=== PATIENT | male | born 1940 | race Caucasian/White ===

== ENCOUNTER 2016-10-11 19:54 | Inpatient (IN) | payer MEDICARE, MEDICAID ==
--- NOTE | 2016-10-11 20:24 | ED Physician Chart ---
Chief Complaint/HPI - Patient Information Date Seen:: 10/11/16 Time Seen:: 20:14 Chief Complaint:: PSYCHOSIS History of Present Illness:: THIS IS A 76 YO MALE FROM A [facility] FOR EVALUATION AND TREATMENT OF HIS PSYCH DISORDER. HE HAS BEEN REFUSING HIS MEDICATION WITH ACTING OUT. HE IS DEMENTED AND DISORIENTED AT TIMES. Allergies:: Allergies Allergy/AdvReac Type Severity Reaction Status Date / Time chloropyramine Allergy Uncoded 08/08/15 16:28 Vitals:: Vital Signs - 8 hr 10/11/16 20:01 Temp 98.7 F HR 61 RR 18 BP 111/67 O2 Sat % 94 Historian:: EMS, Medical Records Review:: Nurse's Note Reviewed Review of Systems - Review of Systems General/Constitutional: No fever, No chills, No weight loss, No weakness, No diaphoresis, No edema, No loss of appetite, Other (THIS PATIENT CANNOT GIVE A RELIABLE REVIEW OF SYSTEMS.) Skin: No skin lesions, No rash, No bruising Head: No headache, No light-headedness Eyes: No loss of vision, No pain, No diplopia ENT: No earache, No nasal drainage, No sore throat, No tinnitus Neck: No neck pain, No swelling, No thyromegaly, No stiffness, No mass noted Cardio Vascular: No chest pain, No palpitations, No PND, No orthopnea, No edema Pulmonary: No SOB, No cough, No sputum, No wheezing GI: No nausea, No vomiting, No diarrhea, No pain, No melena, No hematochezia, No constipation, No hematemesis G/U: No dysuria, No frequency, No hematuria Musculoskeletal: No bone or joint pain, No back pain, No muscle pain Endocrine: No polyuria, No polydipsia Psychiatric: No prior psych history, No depression, No anxiety, No suicidal ideation Hematopoietic: No bruising, No lymphadenopathy Allergic/Immuno: No urticaria, No angioedema Neurological: No syncope, No focal symptoms, No weakness, No paresthesia, No headache, No seizure, No dizziness, No confusion, No vertigo Past Medical History - Past Medical History Obtainable: Yes Past Medical History: HTN, CAD, Dyslipidemia, Thyroid disorder, Dementia, Other (GLAUCOMA) Family History: Other (UNKNOWN) Social History: Non Smoker, No Alcohol, No Drug Use Surgical History: None Psychiatricy History: None Family Medical History - Family Member Mother History Unknown: Yes Ethnicity: Non- Living Status: Unknown Hx Family Cancer: (UNKNOWN) Hx Family Coronary Artery Disease: (UNKNOWN) Hx Family Congestive Heart Failure: (UNKNOWN) Hx Family Hypertension: (UNKNOWN) Hx Family Stroke: (UNKNOWN) Hx Family Diabetes: (UNKNOWN) Hx Family Seizures: (UNKNOWN) Hx Family Dementia: (UNKNOWN) Hx Family AIDS: (UNKNOWN) Hx Family COPD: (UNKNOWN) Hx Family Hepatitis: (UNKNOWN) Hx Family Psychiatric Problems: (UNKNOWN) Hx Family Tuberculosis: (UNKNOWN) Physical Exam - Physical Examination General/Constitutional: Awake, Well-developed, well-nourished, Alert, No distress, GCS 15, Non-toxic appearing Head: Atraumatic Eyes: Lids, conjuctiva normal, PERRL, EOMI Skin: Nl inspection, No rash, No skin lesions, No ecchymosis, Well hydrated, No lymphadenopathy ENMT: External ears, nose nl, Nasal exam nl, Lips, teeth, gums nl Neck: Nontender, Full ROM w/o pain, No JVD, No nuchal rigidity, No bruit, No mass, No stridor Respiratory: Nl effort/Exclusion, Clear to Auscultation, No Wheeze/Rhonchi/Rales Cardio Vascular: RRR, No murmur, gallop, rubs, NL S1 S2 GI: No tenderness/rebounding/guarding, No organomegaly, No hernia, Normal BS's, Nondistended, No mass/bruits, No McBurney tenderness : No CVA tenderness Extremities: No tenderness or effusion, Full ROM, normal strength in all extremities, No edema, Normal digits & nails Neuro/Psych: DTR's symmetric, Normal sensory exam, Normal motor strength, Normal gait, No focal deficits Other Neuro/Psych comments:: HE HAS PERIODS OF DISORIENTATION AND HAS DIFFICULTY FOCUSING. HE HAS A DEPRESSED MOOD. Misc: normal gait, Normal back, No paraspinal tenderness Labs/Radiology/EKG Results - Lab Results Results: Laboratory Results - last 24 hr 10/11/16 10/11/16 10/11/16 21:00 21:00 21:00 WBC 5.2 RBC 5.16 Hgb 15.6 Hct 46.3 MCV 89.7 MCH 30.2 MCHC Differential 33.7 RDW 13.3 Plt Count 230 MPV 9.0 Neutrophils (Manual) 37 L Lymphocytes 43 Monocytes 12 H Eosinophils 4 Basophils 1 Atypical Lymphocytes 3 Platelet Estimate ADEQUATE Platelet Morphology NORMAL RBC Morph Micro Appear NORMAL PT 10.2 INR 0.98 Sodium Potassium Chloride Carbon Dioxide Anion Gap BUN Creatinine Est GFR ( Amer) Est GFR (Non-Af Amer) BUN/Creatinine Ratio Glucose Calcium Total Bilirubin AST ALT Alkaline Phosphatase Troponin I Total Protein Albumin Globulin Albumin/Globulin Ratio Triglycerides 169 H Cholesterol 146 LDL Cholesterol Direct 93 HDL Cholesterol 39 10/11/16 10/11/16 21:00 21:00 WBC RBC Hgb Hct MCV MCH MCHC Differential RDW Plt Count MPV Neutrophils (Manual) Lymphocytes Monocytes Eosinophils Basophils Atypical Lymphocytes Platelet Estimate Platelet Morphology RBC Morph Micro Appear PT INR Sodium 140 Potassium 4.2 Chloride 109 H Carbon Dioxide 23.4 Anion Gap 11.8 BUN 19 Creatinine 1.1 Est GFR ( Amer) TNP Est GFR (Non-Af Amer) TNP BUN/Creatinine Ratio 17.3 Glucose 104 Calcium 9.4 Total Bilirubin 0.4 AST 18 ALT 11 Alkaline Phosphatase 57 Troponin I < 0.01 L Total Protein 6.2 Albumin 3.7 L Globulin 2.5 Albumin/Globulin Ratio 1.5 Triglycerides Cholesterol LDL Cholesterol Direct HDL Cholesterol - Radiology Results Results: chest x-ray = nad seen - EKG Interpretations EKG Time:: 20:27 Rhythm: SINUS [place]: LEFT Rate: 60 ED Septic Shock - . Is Septic Shock (SBP<90, OR Lactate>4 mmol\L) present?: No - <6hrs of presentation: Vital Signs: Vital Signs - 8 hr 10/11/16 20:01 Temp 98.7 F HR 61 RR 18 BP 111/67 O2 Sat % 94 Reassessment (Disposition) - Reassessment Reassessment Condition:: Unchanged - Diagnosis Diagnosis:: PSYCHOSIS - Patient Disposition Discharge/Transfer:: Acute Care w/in this hosp Admitting Medical Physician:: Casimiro Jon Admitting Psych Physician:: Hillary Artis Condition at Disposition:: Unchanged
[2016-10-11 21:11] LABS: HEMATOCRIT 46.3 % (39.0-49.0); HEMOGLOBIN 15.6 gm/dL (12.6-17.4); MEAN CELL VOLUME 89.7 fl (80-99); MEAN CORPUSCULAR HEMOGLOBIN 30.2 pg (27.0-31.0); MEAN CORPUSCULAR HGB CONC 33.7 pg (28.0-36.0); PLATELET COUNT 230 Th/cmm (150-400); RED BLOOD COUNT 5.16 Mil/cmm (3.80-5.80); RED CELL DISTRIBUTION WIDTH 13.3 % (11.5-20.0); WHITE BLOOD COUNT 5.2 Th/cmm (4.8-10.8)
[2016-10-11 21:24] LABS: INR 0.98 (0.5-1.4); PROTHROMBIN TIME (TEST) 10.2 SECONDS (9.5-11.5)
[2016-10-11 21:27] LABS: ALB/GLOB RATIO 1.5 (1.0-1.8); ALKALINE PHOSPHATASE 57 U/L (34-104); ANION GAP 11.8 (7.0-16.0); BILIRUBIN,TOTAL 0.4 mg/dL (0.3-1.0); BUN - UREA NITROGEN 19 mg/dL (7-25); BUN/CREATININE RATIO 17.3; CALCIUM SERUM 9.4 mg/dL (8.6-10.3); CARBON DIOXIDE 23.4 mEq/L (21.0-31.0); CHLORIDE 109 mEq/L (98-107); CREATININE - SERUM 1.1 mg/dL (0.7-1.3); GLUCOSE 104 mg/dL (70-105); POTASSIUM SERUM 4.2 mEq/L (3.5-5.1); SGOT 18 U/L (13-39); SGPT/ALT 11 U/L (7-52); SODIUM SERUM 140 mEq/L (136-145)
[2016-10-11 21:28] LABS: BASOPHIL 1 % (0-3); CHOLESTEROL 146 mg/dL (<200); EOSINOPHIL 4 % (0-5); NEUTROPHILS 37 % (40-80); PLATELET ESTIMATE ADEQUATE (NORMAL); PLATELET MORPHOLOGY NORMAL (NORMAL); TOTAL CELLS COUNTED 100; TRIGLYCERIDES 169 mg/dL (<150)
[2016-10-11 21:36] LABS: URINE BACTERIA OCCASIONAL /hpf (NONE SEEN); URINE BILIRUBIN NEGATIVE (NEGATIVE); URINE BLOOD NEGATIVE (NEGATIVE); URINE COLOR YELLOW; URINE EPITHELIAL CELLS RARE /lpf (FEW); URINE GLUCOSE (UA) NEGATIVE (NEGATIVE); URINE KETONE NEGATIVE (NEGATIVE); URINE PROTEIN NEGATIVE (NEGATIVE); URINE RBC NONE SEEN /hpf (0-5); URINE UROBILINOGEN 0.2 E.U./dL (0.2 - 1.0); URINE WBC 0-2 /hpf (0-5)
[2016-10-12] MEDS ORDERED: Maalox 30 mL Cup PO PRN (01:30)
[2016-10-12] MEDS ORDERED: Magnesium Hydroxide (MOM) 30 mL UDC PO PRN (01:30)
[2016-10-12 01:49] VITALS: BP 123/90
--- NOTE | 2016-10-12 02:21 | Admit Criteria Form ---
Admit Criteria Forms - Admit Criteria Diagnosis: PSYCHIATRIC DISORDERS Clinical Indications for Inpatient Care (Place 'X' for any and all applicable criteria): Ongoing inpatient care may be needed for ANY ONE of the following(1)(2)(3)(4)(6) (7)(8): [ ]I. Danger to self or others not manageable at lower level of care. [ ]II. Grave disability (eg, inability to perform self care necessary at lower level of care) [ ]III. Agitation or inappropriate behavior interfering with care for primary condition (eg, attempting to discontinue lines or drains prematurely, unable to cooperate with respiratory care) [X]IV. Severe disability or disorder indicated by ALL of the following: [X]a) Severe behavioral health disorder-related symptoms or condition indicated by ANY ONE of the following: [ ]i) Severe problem with cognition, memory, judgment, or impulse control [X]ii) Severe clinical manifestations (eg, hallucinations, delusions, other acute psychotic symptoms, venancio, extreme agitation or anxiety) [X]b) Patient management at lower level of care is not feasible until acute intervention or modification is initiated. Extended stay beyond goal length of stay for the primary condition may be indicated when ANY ONE of the following is present: (1)(2)(3)(4): [ ]a) Patient is a danger to self or others and not manageable at lower level of care. [ ]b) Behavior crisis management, including physical or chemical restraints, is required and is not available at a lower level of care. [ ]c) Behavioral symptoms (e.g., agitation, somnolence, inappropriate behavior) are present, and are not manageable at a lower level of care. [ ]d) Patient cannot understand follow-up treatment and crisis plan. [ ]e) Provider and supports are not sufficiently available at lower level of care. [ ]f) Patient cannot participate (e.g., verify absence of plan for harm) and is in needed of monitoring. The [facility] content created by [facility] has been revised. The portions of the content which have been revised are identified through the use of italic text or in bold, and [facility] has neither reviewed nor approved the modified material. All other unmodified content is copyright [facility]. Please see references footnoted in the original [facility] edition 2016 Admit Criteria Met?: Yes
[2016-10-12] MEDS: Levothyroxine 0.025 Mg Tab PO SCH (07:17)
--- NOTE | 2016-10-12 09:28 | Diagnostic Imaging Report ---
CHEST X-RAY: AP view INDICATION: shortness of breath COMPARISON: 03/25/2016 FINDINGS: Mild chronic changes are seen with no focal consolidation or effusions. Heart size normal. Atherosclerosis is noted. Degenerative changes of the spine are noted. IMPRESSION: No focal airspace consolidation identified.
[2016-10-12] MEDS: Potassium Chloride 20 mEq ER Tab PO SCH (09:32)
[2016-10-12] MEDS: Multivitamin Tab PO SCH (09:32)
[2016-10-12] MEDS: POLYETHYLENE GLYCOL 3350 17 GM PACK PO SCH (09:32)
--- NOTE | 2016-10-12 12:21 | Internal Medicine Prog Note ---
Internal Medicine Subjective - Subjective Service Date: 10/12/16 ([id number] [facility]) Internal Medicine Objective - Results Result Diagrams: 10/11/16 21:00 10/11/16 21:00 Recent Labs: Laboratory Last Values WBC 5.2 Th/cmm (4.8-10.8) 10/11/16 21:00 RBC 5.16 Mil/cmm (3.80-5.80) 10/11/16 21:00 Hgb 15.6 gm/dL (12.6-17.4) 10/11/16 21:00 Hct 46.3 % (39.0-49.0) 10/11/16 21:00 MCV 89.7 fl (80-99) 10/11/16 21:00 MCH 30.2 pg (27.0-31.0) 10/11/16 21:00 MCHC Differential 33.7 pg (28.0-36.0) 10/11/16 21:00 RDW 13.3 % (11.5-20.0) 10/11/16 21:00 Plt Count 230 Th/cmm (150-400) 10/11/16 21:00 MPV 9.0 fl 10/11/16 21:00 Neutrophils (Manual) 37 % (40-80) L 10/11/16 21:00 Lymphocytes 43 % (20-50) 10/11/16 21:00 Monocytes 12 % (2-10) H 10/11/16 21:00 Eosinophils 4 % (0-5) 10/11/16 21:00 Basophils 1 % (0-3) 10/11/16 21: Atypical Lymphocytes 3 % 10/11/16 21:00 Platelet Estimate ADEQUATE (NORMAL) 10/11/16 21:00 Platelet Morphology NORMAL (NORMAL) 10/11/16 21:00 RBC Morph Micro Appear NORMAL (NORMAL) 10/11/16 21:00 PT 10.2 SECONDS (9.5-11.5) 10/11/16 21:00 INR 0.98 (0.5-1.4) 10/11/16 21:00 Sodium 140 mEq/L (136-145) 10/11/16 21:00 Potassium 4.2 mEq/L (3.5-5.1) 10/11/16 21:00 Chloride 109 mEq/L (98-107) H 10/11/16 21:00 Carbon Dioxide 23.4 mEq/L (21.0-31.0) 10/11/16 21:00 Anion Gap 11.8 (7.0-16.0) 10/11/16 21:00 BUN 19 mg/dL (7-25) 10/11/16 21:00 Creatinine 1.1 mg/dL (0.7-1.3) 10/11/16 21:00 Est GFR ( Amer) TNP 10/11/16 21:00 Est GFR (Non-Af Amer) TNP 10/11/16 21:00 BUN/Creatinine Ratio 17.3 10/11/16 21:00 Glucose 104 mg/dL (70-105) 10/11/16 21:00 Calcium 9.4 mg/dL (8.6-10.3) 10/11/16 21:00 Total Bilirubin 0.4 mg/dL (0.3-1.0) 10/11/16 21:00 AST 18 U/L (13-39) 10/11/16 21:00 ALT 11 U/L (7-52) 10/11/16 21:00 Alkaline Phosphatase 57 U/L (34-104) 10/11/16 21:00 Troponin I < 0.01 ng/mL (0.01-0.05) L 10/11/16 21:00 Total Protein 6.2 gm/dL (6.0-8.3) 10/11/16 21:00 Albumin 3.7 gm/dL (4.2-5.5) L 10/11/16 21:00 Globulin 2.5 gm/dL 10/11/16 21:00 Albumin/Globulin Ratio 1.5 (1.0-1.8) 10/11/16 21:00 Triglycerides 169 mg/dL (<150) H 10/11/16 21:00 Cholesterol 146 mg/dL (<200) 10/11/16 21:00 LDL Cholesterol Direct 93 mg/dL (75-193) 10/11/16 21:00 HDL Cholesterol 39 mg/dL (23-92) 10/11/16 21:00 TSH 0.83 uIU/ml (0.34-5.60) 10/11/16 21:00 Urine Source CLEAN C 10/11/16 21:20 Urine Color YELLOW 10/11/16 21:20 Urine Clarity CLEAR (CLEAR) 10/11/16 21:20 Urine pH 7.0 10/11/16 21:20 Ur Specific [place] 1.020 (1.005-1.030) 10/11/16 21:20 Urine Protein NEGATIVE mg/dL (NEGATIVE) 10/11/16 21:20 Urine Glucose (UA) NEGATIVE mg/dL (NEGATIVE) 10/11/16 21:20 Urine Ketones NEGATIVE mg/dL (NEGATIVE) 10/11/16 21:20 Urine Blood NEGATIVE (NEGATIVE) 10/11/16 21:20 Urine Nitrate NEGATIVE (NEGATIVE) 10/11/16 21:20 Urine Bilirubin NEGATIVE (NEGATIVE) 10/11/16 21:20 Urine Urobilinogen 0.2 E.U./dL (0.2 - 1.0) 10/11/16 21:20 Ur Leukocyte Esterase NEGATIVE (NEGATIVE) 10/11/16 21:20 Urine RBC NONE SEEN /hpf (0-5) 10/11/16 21:20 Urine WBC 0-2 /hpf (0-5) 10/11/16 21:20 Ur Epithelial Cells RARE /lpf (FEW) 10/11/16 21:20 Urine Bacteria OCCASIONAL /hpf (NONE SEEN) 10/11/16 21:20 - Physical Exam Vitals and I&O: Vital Signs Temp 98.2 F 10/12/16 06:44 Pulse 57 10/12/16 09:18 Resp 20 10/12/16 06:44 BP 106/70 10/12/16 09:18 Pulse Ox 98 10/12/16 06:44 Intake & Output 10/11/16 10/12/16 10/12/16 18:59 06:59 18:59 Intake Total 120 Balance 120 Intake: Oral 120 Other: # Voids 2 Active Medications: Current Medications Acetaminophen (Tylenol) 650 mg PO Q4HR PRN PRN Reason: PAIN OR TEMP 100.3 F Stop: 12/11/16 01:29 Al Hydrox/Mg Hydrox/Simethicone (Maalox) 30 ml PO Q4HR PRN PRN Reason: GI DISTRESS Stop: 12/11/16 01:29 Amlodipine Besylate (Norvasc) 10 mg PO DAILY WILL Stop: 12/11/16 08:59 Last Admin: 10/12/16 09:18 Dose: Not Given Ascorbic Acid (Vitamin C) 500 mg PO DAILY WILL Stop: 12/11/16 08:59 Last Admin: 10/12/16 09:32 Dose: 500 mg Benztropine Mesylate (Cogentin) 0.5 mg PO BID WILL Stop: 12/11/16 08:59 Last Admin: 10/12/16 09:32 Dose: 0.5 mg Carbidopa/Levodopa (Sinemet 25mg-100 Mg) 1 tab PO TID WILL Stop: 12/11/16 08:59 Last Admin: 10/12/16 09:32 Dose: 1 tab Donepezil HCl (Aricept) 10 mg PO HS WILL Stop: 12/11/16 20:59 Haloperidol Decanoate (Haldol Dec) 25 mg IM QMONTH WILL PRN Reason: Protocol Stop: 12/13/16 08:59 Levothyroxine Sodium (Synthroid) 0.025 mg PO QDAC WILL Stop: 12/11/16 07:29 Last Admin: 10/12/16 07:17 Dose: Not Given Lorazepam (Ativan) 0.5 mg PO Q4HR PRN; Protocol PRN Reason: Anxiety Stop: 11/11/16 01:29 Multivitamins/Vitamin C (Theragran) 1 tab PO DAILY WILL Stop: 12/11/16 08:59 Last Admin: 10/12/16 09:32 Dose: 1 tab Polyethylene Glycol (Miralax) 17 gm PO DAILY WILL Stop: 12/11/16 08:59 Last Admin: 10/12/16 09:32 Dose: 17 gm Potassium Chloride (Klor-Con) 20 meq PO DAILY WILL Stop: 12/11/16 08:59 Last Admin: 10/12/16 09:32 Dose: 20 meq Simvastatin (Zocor) 10 mg PO HS WILL PRN Reason: Protocol Stop: 12/11/16 20:59 Valproate Sodium (Depakene) 500 mg PO Q12HR WILL PRN Reason: Protocol Stop: 12/11/16 08:59 Last Admin: 10/12/16 09:40 Dose: Not Given Zolpidem Tartrate (Ambien) 5 mg PO HS PRN PRN Reason: Insomnia Stop: 12/11/16 01:29 - Procedures Procedures: Procedures Procedure Code Date CLOSURE SKIN & SUBCUTANEOUS NEC 86.59 07/07/12 DPT ADMINISTRATION 99.39 07/07/12 IMMUNIZATION ADMIN 49929 07/07/12 OTHER GROUP THERAPY 94.44 12/10/14 RECREATIONAL THERAPY 93.81 09/15/12 RPR S/N/AX/GEN/TRNK 2.5CM/< 27764 07/07/12 TDAP VACCINE 7 YRS/> IM [id number] 07/07/12 Internal Medicine Assmt/Plan - Assessment Assessment: HTN DYSLIPIDEMIA ESRD SEIZURES DEMENTIA GLAUCOMA GAIT ABNORMALITY
--- NOTE | 2016-10-12 15:05 | History & Physical ---
CHIEF COMPLAINT: Poor oral intake, refusing to take medications. HISTORY OF PRESENT ILLNESS: This is a 76-year-old male who is a resident of [facility], was brought here to [facility] for increasing agitation, refusing to take medications and poor oral intake. PAST MEDICAL HISTORY: Hypertension, dyslipidemia, ESRD, seizures, dementia, glaucoma, and gait abnormality. FAMILY HISTORY: Noncontributory. SOCIAL HISTORY: The patient is a detention resident, requiring 24-hour nursing care. SURGICAL HISTORY: Unknown. MEDICATIONS: Please see medication reconciliation sheet. REVIEW OF SYSTEMS: GENERAL: Denies any fevers or chills. CARDIOVASCULAR: Denies any chest pain. RESPIRATORY: Denies any shortness of breath or cough. GASTROINTESTINAL: Denies any nausea, vomiting, abdominal pain. GENITOURINARY: Denies any dysuria. All other systems are reviewed by me and all are negative. PHYSICAL EXAMINATION: GENERAL: The patient is well developed, well nourished no apparent distress. VITAL SIGNS: Temperature 98.2, heart rate 72, blood pressure 130/77, respirations 20, O2 sat 98%. HEENT: Head; normocephalic, atraumatic. NECK: Supple. No mass. LUNGS: Clear bilaterally. HEART: Regular rhythm. ABDOMEN: Soft, nontender, nondistended. LABORATORY DATA: WBC 5.2, H and H 15.6 and 46.3. Sodium 140, potassium 4.2, chloride 109, carbon dioxide 23.4, BUN 19, creatinine 1.1. DIAGNOSTICS: The patient had a chest x-ray done and the impression is no focal airspace consolidation identified. ASSESSMENT: 1. Increased agitation. 2. Hypertension. 4. Dyslipidemia. 5. End-stage renal disease. 6. Seizures. 7. Dementia. 8. Glaucoma. 9. Gait abnormality. 10. Schizophrenia. 11. Delusional disorder. PLAN: Seizure precautions will be initiated. Also, fall precautions. Psychiatrist to manage the patient's psychiatric issue. The patient to continue same SNF medications. We will continue to smonitor the patient. [facility]# [id number]
--- NOTE | 2016-10-12 20:17 | Psychosocial Evaluation ---
CHIEF COMPLAINT: Psychotic disorder. HISTORY OF PRESENT ILLNESS: The patient is a 76-year-old male with a history of psychosis and dementia who was sent from his detention facility, has been agitated, confused, irritable, refusing medications, and refusing care. The patient has some anger outburst and has been decompensating over a few days. The patient at least has been taking medications for 2 days. The patient is highly paranoid and agitated and did not want to talk. PAST PSYCHIATRIC HISTORY: Multiple hospitalizations and history of schizoaffective disorder and dementia. PAST MEDICAL HISTORY: Multiple medical issues including Parkinson disease. PSYCHOSOCIAL HISTORY: The patient resides at [facility] and requires complete care. MENTAL STATUS EXAMINATION: The patient is disorganized, oriented to person, not oriented to time or place, but he knew some kind of hospital, did not know the name of the hospital. The patient is internally preoccupied, has obvious delayed response, still appears to be highly paranoid and actively hallucinating. The patient's insight is poor. Judgment is impaired. The patient's strength is the patient is passively accepting treatment at this time. The patient's weakness is the patient is refusing medications. ASSESSMENT: Schizoaffective disorder, psychotic phase, dementia, Alzheimer's type versus related to Parkinson's disease. Medical, as per H and P. PLAN: We will admit the patient for hospitalization. We will start the patient in group therapy and assess psychopharmacological intervention. ESTIMATED LENGTH OF STAY: 7 days. CRITERIA FOR DISCHARGE: Improved condition. No agitation, no aggressive behavior, and safe disposition to outpatient treatment plan. [facility]# [id number]
[2016-10-13] MEDS: Levothyroxine 0.025 Mg Tab PO SCH (06:45)
[2016-10-13] MEDS: POLYETHYLENE GLYCOL 3350 17 GM PACK PO SCH (09:46)
[2016-10-13] MEDS: Multivitamin Tab PO SCH (09:46)
[2016-10-13] MEDS: Potassium Chloride 20 mEq ER Tab PO SCH (09:47)
--- NOTE | 2016-10-13 12:53 | Internal Medicine Prog Note ---
Internal Medicine Subjective - Subjective Service Date: 10/13/16 Patient seen and examined:: with staff Patient is:: awake Per staff patient is:: no adverse event Internal Medicine Objective - Results Result Diagrams: 10/11/16 21:00 10/11/16 21:00 Recent Labs: Laboratory Last Values WBC 5.2 Th/cmm (4.8-10.8) 10/11/16 21:00 RBC 5.16 Mil/cmm (3.80-5.80) 10/11/16 21:00 Hgb 15.6 gm/dL (12.6-17.4) 10/11/16 21:00 Hct 46.3 % (39.0-49.0) 10/11/16 21:00 MCV 89.7 fl (80-99) 10/11/16 21:00 MCH 30.2 pg (27.0-31.0) 10/11/16 21:00 MCHC Differential 33.7 pg (28.0-36.0) 10/11/16 21:00 RDW 13.3 % (11.5-20.0) 10/11/16 21:00 Plt Count 230 Th/cmm (150-400) 10/11/16 21:00 MPV 9.0 fl 10/11/16 21:00 Neutrophils (Manual) 37 % (40-80) L 10/11/16 21:00 Lymphocytes 43 % (20-50) 10/11/16 21:00 Monocytes 12 % (2-10) H 10/11/16 21:00 Eosinophils 4 % (0-5) 10/11/16 21:00 Basophils 1 % (0-3) 10/11/16 21:00 Atypical Lymphocytes 3 % 10/11/16 21:00 Platelet Estimate ADEQUATE (NORMAL) 10/11/16 21:00 Platelet Morphology NORMAL (NORMAL) 10/11/16 21:00 RBC Morph Micro Appear NORMAL (NORMAL) 10/11/16 21:00 PT 10.2 SECONDS (9.5-11.5) 10/11/16 21:00 INR 0.98 (0.5-1.4) 10/11/16 21:00 Sodium 140 mEq/L (136-145) 10/11/16 21:00 Potassium 4.2 mEq/L (3.5-5.1) 10/11/16 21:00 Chloride 109 mEq/L (98-107) H 10/11/16 21:00 Carbon Dioxide 23.4 mEq/L (21.0-31.0) 10/11/16 21:00 Anion Gap 11.8 (7.0-16.0) 10/11/16 21:00 BUN 19 mg/dL (7-25) 10/11/16 21:00 Creatinine 1.1 mg/dL (0.7-1.3) 10/11/16 21:00 Est GFR ( Amer) TNP 10/11/16 21:00 Est GFR (Non-Af Amer) TNP 10/11/16 21:00 BUN/Creatinine Ratio 17.3 10/11/16 21:00 Glucose 104 mg/dL (70-105) 10/11/16 21:00 Calcium 9.4 mg/dL (8.6-10.3) 10/11/16 21:00 Total Bilirubin 0.4 mg/dL (0.3-1.0) 10/11/16 21:00 AST 18 U/L (13-39) 10/11/16 21:00 ALT 11 U/L (7-52) 10/11/16 21:00 Alkaline Phosphatase 57 U/L (34-104) 10/11/16 21:00 Troponin I < 0.01 ng/mL (0.01-0.05) L 10/11/16 21:00 Total Protein 6.2 gm/dL (6.0-8.3) 10/11/16 21:00 Albumin 3.7 gm/dL (4.2-5.5) L 10/11/16 21:00 Globulin 2.5 gm/dL 10/11/16 21:00 Albumin/Globulin Ratio 1.5 (1.0-1.8) 10/11/16 21:00 Triglycerides 169 mg/dL (<150) H 10/11/16 21:00 Cholesterol 146 mg/dL (<200) 10/11/16 21:00 LDL Cholesterol Direct 93 mg/dL (75-193) 10/11/16 21:00 HDL Cholesterol 39 mg/dL (23-92) 10/11/16 21:00 TSH 0.83 uIU/ml (0.34-5.60) 10/11/16 21:00 Urine Source CLEAN C 03/12/17 21:20 Urine Color YELLOW 10/11/16 21:20 Urine Clarity CLEAR (CLEAR) 10/11/16 21:20 Urine pH 7.0 10/11/16 21:20 Ur Specific [place] 1.020 (1.005-1.030) 10/11/16 21:20 Urine Protein NEGATIVE mg/dL (NEGATIVE) 10/11/16 21:20 Urine Glucose (UA) NEGATIVE mg/dL (NEGATIVE) 10/11/16 21:20 Urine Ketones NEGATIVE mg/dL (NEGATIVE) 10/11/16 21:20 Urine Blood NEGATIVE (NEGATIVE) 10/11/16 21:20 Urine Nitrate NEGATIVE (NEGATIVE) 10/11/16 21:20 Urine Bilirubin NEGATIVE (NEGATIVE) 10/11/16 21:20 Urine Urobilinogen 0.2 E.U./dL (0.2 - 1.0) 10/11/16 21:20 Ur Leukocyte Esterase NEGATIVE (NEGATIVE) 10/11/16 21:20 Urine RBC NONE SEEN /hpf (0-5) 10/11/16 21:20 Urine WBC 0-2 /hpf (0-5) 10/11/16 21:20 Ur Epithelial Cells RARE /lpf (FEW) 10/11/16 21:20 Urine Bacteria OCCASIONAL /hpf (NONE SEEN) 10/11/16 21:20 RPR NONREACTIVE (NONREACTIVE) 10/11/16 21:00 - Physical Exam Vitals and I&O: Vital Signs Temp 98.0 F 10/13/16 06:43 Pulse 60 10/13/16 06:43 Resp 19 10/13/16 06:43 BP 109/62 10/13/16 09:48 Pulse Ox 93 10/13/16 06:43 Intake & Output 10/12/16 10/13/16 10/13/16 18:59 06:59 18:59 Intake Total 800 120 Balance 800 120 Intake: Oral 800 120 Other: # Voids 4 2 # Bowel Movements 1 0 Active Medications: Current Medications Acetaminophen (Tylenol) 650 mg PO Q4HR PRN PRN Reason: PAIN OR TEMP 100.3 F Stop: 12/11/16 01:29 Al Hydrox/Mg Hydrox/Simethicone (Maalox) 30 ml PO Q4HR PRN PRN Reason: GI DISTRESS Stop: 12/11/16 01:29 Amlodipine Besylate (Norvasc) 10 mg PO DAILY WILL Stop: 12/11/16 08:59 Last Admin: 10/13/16 09:48 Dose: Not Given Ascorbic Acid (Vitamin C) 500 mg PO DAILY WILL Stop: 12/11/16 08:59 Last Admin: 10/13/16 09:46 Dose: Not Given Benztropine Mesylate (Cogentin) 0.5 mg PO BID WILL Stop: 12/11/16 08:59 Last Admin: 10/13/16 09:46 Dose: Not Given Carbidopa/Levodopa (Sinemet 25mg-100 Mg) 1 tab PO TID WILL Stop: 12/11/16 08:59 Last Admin: 10/13/16 09:47 Dose: Not Given Donepezil HCl (Aricept) 10 mg PO HS WILL Stop: 12/11/16 20:59 Last Admin: 10/12/16 20:56 Dose: Not Given Haloperidol Decanoate (Haldol Dec) 25 mg IM QMONTH WILL PRN Reason: Protocol Stop: 12/13/16 08:59 Levothyroxine Sodium (Synthroid) 0.025 mg PO QDAC WILL Stop: 12/11/16 07:29 Last Admin: 10/13/16 06:45 Dose: Not Given Lorazepam (Ativan) 0.5 mg PO Q4HR PRN; Protocol PRN Reason: Anxiety Stop: 11/11/16 01:29 Multivitamins/Vitamin C (Theragran) 1 tab PO DAILY WILL Stop: 12/11/16 08:59 Last Admin: 10/13/16 09:46 Dose: Not Given Polyethylene Glycol (Miralax) 17 gm PO DAILY WILL Stop: 12/11/16 08:59 Last Admin: 10/13/16 09:46 Dose: Not Given Potassium Chloride (Klor-Con) 20 meq PO DAILY WILL Stop: 12/11/16 08:59 Last Admin: 10/13/16 09:47 Dose: Not Given Simvastatin (Zocor) 10 mg PO HS WILL PRN Reason: Protocol Stop: 12/11/16 20:59 Last Admin: 10/12/16 20:59 Dose: Not Given Valproate Sodium (Depakene) 500 mg PO Q12HR WILL PRN Reason: Protocol Stop: 12/11/16 08:59 Last Admin: 10/13/16 09:46 Dose: Not Given Zolpidem Tartrate (Ambien) 5 mg PO HS PRN PRN Reason: Insomnia Stop: 12/11/16 01:29 General: alert HEENT: NC/AT, PERRLA Neck: Supple Lungs: CTAB Cardiovascular: RRR Abdomen: soft non-tender, non-distended Neurological: no change - Procedures Procedures: Procedures Procedure Code Date CLOSURE SKIN & SUBCUTANEOUS NEC 86.59 07/07/12 DPT ADMINISTRATION 99.39 07/07/12 IMMUNIZATION ADMIN 37663 07/07/12 OTHER GROUP THERAPY 94.44 12/10/14 RECREATIONAL THERAPY 93.81 09/15/12 RPR S/N/AX/GEN/TRNK 2.5CM/< 89128 07/07/12 TDAP VACCINE 7 YRS/> IM [id number] 07/07/12 Internal Medicine Assmt/Plan - Assessment Assessment: HTN DYSLIPIDEMIA ESRD SEIZURES DEMENTIA GLAUCOMA GAIT ABNORMALITY - Plan Plan: seizure precautions fall precautions continue snf meds cpm
--- NOTE | 2016-10-14 03:47 | Progress Notes ---
SUBJECTIVE: The patient was seen, discussed with staff, chart reviewed. ____ remains confused, disorganized, still angry, easily agitated, isolative. His insight is poor, judgment remains impaired. The patient continues to have episodes where he is refusing care and refusing medications. ASSESSMENT: Schizoaffective disorder and dementia, Alzheimer type. PLAN: We will continue stabilization. Continue hospitalization. Encouraged the patient to comply with medications and treatment recommendations. [facility]# [id number]
[2016-10-14] MEDS: Levothyroxine 0.025 Mg Tab PO SCH (06:30)
[2016-10-14] MEDS: Multivitamin Tab PO SCH (09:47)
[2016-10-14] MEDS: POLYETHYLENE GLYCOL 3350 17 GM PACK PO SCH (09:47)
[2016-10-14] MEDS: Potassium Chloride 20 mEq ER Tab PO SCH (09:47)
--- NOTE | 2016-10-14 16:17 | Internal Medicine Prog Note ---
Internal Medicine Subjective - Subjective Service Date: 10/14/16 Patient seen and examined:: with staff Patient is:: awake Per staff patient is:: no adverse event Internal Medicine Objective - Results Result Diagrams: 10/11/16 21:00 10/11/16 21:00 Recent Labs: Laboratory Last Values WBC 5.2 Th/cmm (4.8-10.8) 10/11/16 21:00 RBC 5.16 Mil/cmm (3.80-5.80) 10/11/16 21:00 Hgb 15.6 gm/dL (12.6-17.4) 10/11/16 21:00 Hct 46.3 % (39.0-49.0) 10/11/16 21:00 MCV 89.7 fl (80-99) 10/11/16 21:00 MCH 30.2 pg (27.0-31.0) 10/11/16 21:00 MCHC Differential 33.7 pg (28.0-36.0) 10/11/16 21:00 RDW 13.3 % (11.5-20.0) 10/11/16 21:00 Plt Count 230 Th/cmm (150-400) 10/11/16 21:00 MPV 9.0 fl 10/11/16 21:00 Neutrophils (Manual) 37 % (40-80) L 10/11/16 21:00 Lymphocytes 43 % (20-50) 10/11/16 21:00 Monocytes 12 % (2-10) H 10/11/16 21:00 Eosinophils 4 % (0-5) 10/11/16 21:00 Basophils 1 % (0-3) 10/11/16 21:00 Atypical Lymphocytes 3 % 10/11/16 21:00 Platelet Estimate ADEQUATE (NORMAL) 10/11/16 21:00 Platelet Morphology NORMAL (NORMAL) 10/11/16 21:00 RBC Morph Micro Appear NORMAL (NORMAL) 10/11/16 21:00 PT 10.2 SECONDS (9.5-11.5) 10/11/16 21:00 INR 0.98 (0.5-1.4) 10/11/16 21:00 Sodium 140 mEq/L (136-145) 10/11/16 21:00 Potassium 4.2 mEq/L (3.5-5.1) 10/11/16 21:00 Chloride 109 mEq/L (98-107) H 10/11/16 21:00 Carbon Dioxide 23.4 mEq/L (21.0-31.0) 10/11/16 21:00 Anion Gap 11.8 (7.0-16.0) 10/11/16 21:00 BUN 19 mg/dL (7-25) 10/11/16 21:00 Creatinine 1.1 mg/dL (0.7-1.3) 10/11/16 21:00 Est GFR ( Amer) TNP 10/11/16 21:00 Est GFR (Non-Af Amer) TNP 10/11/16 21:00 BUN/Creatinine Ratio 17.3 10/11/16 21:00 Glucose 104 mg/dL (70-105) 10/11/16 21:00 Calcium 9.4 mg/dL (8.6-10.3) 10/11/16 21:00 Total Bilirubin 0.4 mg/dL (0.3-1.0) 10/11/16 21:00 AST 18 U/L (13-39) 10/11/16 21:00 ALT 11 U/L (7-52) 10/11/16 21:00 Alkaline Phosphatase 57 U/L (34-104) 10/11/16 21:00 Troponin I < 0.01 ng/mL (0.01-0.05) L 10/11/16 21:00 Total Protein 6.2 gm/dL (6.0-8.3) 10/11/16 21:00 Albumin 3.7 gm/dL (4.2-5.5) L 10/11/16 21:00 Globulin 2.5 gm/dL 10/11/16 21:00 Albumin/Globulin Ratio 1.5 (1.0-1.8) 10/11/16 21:00 Triglycerides 169 mg/dL (<150) H 10/11/16 21:00 Cholesterol 146 mg/dL (<200) 10/11/16 21:00 LDL Cholesterol Direct 93 mg/dL (75-193) 10/11/16 21:00 HDL Cholesterol 39 mg/dL (23-92) 10/11/16 21:00 TSH 0.83 uIU/ml (0.34-5.60) 10/11/16 21:00 Urine Source CLEAN C 03/12/17 21:20 Urine Color YELLOW 10/11/16 21:20 Urine Clarity CLEAR (CLEAR) 10/11/16 21:20 Urine pH 7.0 10/11/16 21:20 Ur Specific [place] 1.020 (1.005-1.030) 10/11/16 21:20 Urine Protein NEGATIVE mg/dL (NEGATIVE) 10/11/16 21:20 Urine Glucose (UA) NEGATIVE mg/dL (NEGATIVE) 10/11/16 21:20 Urine Ketones NEGATIVE mg/dL (NEGATIVE) 10/11/16 21:20 Urine Blood NEGATIVE (NEGATIVE) 10/11/16 21:20 Urine Nitrate NEGATIVE (NEGATIVE) 10/11/16 21:20 Urine Bilirubin NEGATIVE (NEGATIVE) 10/11/16 21:20 Urine Urobilinogen 0.2 E.U./dL (0.2 - 1.0) 10/11/16 21:20 Ur Leukocyte Esterase NEGATIVE (NEGATIVE) 10/11/16 21:20 Urine RBC NONE SEEN /hpf (0-5) 10/11/16 21:20 Urine WBC 0-2 /hpf (0-5) 10/11/16 21:20 Ur Epithelial Cells RARE /lpf (FEW) 10/11/16 21:20 Urine Bacteria OCCASIONAL /hpf (NONE SEEN) 10/11/16 21:20 RPR NONREACTIVE (NONREACTIVE) 10/11/16 21:00 - Physical Exam Vitals and I&O: Vital Signs Temp 98.2 F 10/14/16 06:21 Pulse 108 10/14/16 06:21 Resp 19 10/14/16 06:21 BP 129/76 10/14/16 06:21 Pulse Ox 93 10/14/16 06:21 Intake & Output 10/13/16 10/14/16 10/14/16 18:59 06:59 18:59 Intake Total 800 120 Balance 800 120 Intake: Oral 800 120 Other: # Voids 4 3 # Bowel Movements 0 0 Active Medications: Current Medications Acetaminophen (Tylenol) 650 mg PO Q4HR PRN PRN Reason: PAIN OR TEMP 100.3 F Stop: 12/11/16 01:29 Al Hydrox/Mg Hydrox/Simethicone (Maalox) 30 ml PO Q4HR PRN PRN Reason: GI DISTRESS Stop: 12/11/16 01:29 Amlodipine Besylate (Norvasc) 10 mg PO DAILY WILL Stop: 12/11/16 08:59 Last Admin: 10/14/16 09:37 Dose: Not Given Ascorbic Acid (Vitamin C) 500 mg PO DAILY WILL Stop: 12/11/16 08:59 Last Admin: 10/14/16 09:37 Dose: Not Given Benztropine Mesylate (Cogentin) 0.5 mg PO BID WILL Stop: 12/11/16 08:59 Last Admin: 10/14/16 09:37 Dose: Not Given Carbidopa/Levodopa (Sinemet 25mg-100 Mg) 1 tab PO TID WILL Stop: 12/11/16 08:59 Last Admin: 10/14/16 09:37 Dose: Not Given Donepezil HCl (Aricept) 10 mg PO HS WILL Stop: 12/11/16 20:59 Last Admin: 10/13/16 20:38 Dose: 10 mg Haloperidol Decanoate (Haldol Dec) 25 mg IM QMONTH WILL PRN Reason: Protocol Stop: 12/13/16 08:59 Last Admin: 10/14/16 09:39 Dose: Not Given Levothyroxine Sodium (Synthroid) 0.025 mg PO QDAC WILL Stop: 12/11/16 07:29 Last Admin: 10/14/16 06:30 Dose: Not Given Lorazepam (Ativan) 0.5 mg PO Q4HR PRN; Protocol PRN Reason: Anxiety Stop: 11/11/16 01:29 Multivitamins/Vitamin C (Theragran) 1 tab PO DAILY WILL Stop: 12/11/16 08:59 Last Admin: 10/14/16 09:47 Dose: Not Given Polyethylene Glycol (Miralax) 17 gm PO DAILY WILL Stop: 12/11/16 08:59 Last Admin: 10/14/16 09:47 Dose: Not Given Potassium Chloride (Klor-Con) 20 meq PO DAILY WILL Stop: 12/11/16 08:59 Last Admin: 10/14/16 09:47 Dose: Not Given Simvastatin (Zocor) 10 mg PO HS WILL PRN Reason: Protocol Stop: 12/11/16 20:59 Last Admin: 10/13/16 20:38 Dose: 10 mg Valproate Sodium (Depakene) 500 mg PO Q12HR WILL PRN Reason: Protocol Stop: 12/11/16 08:59 Last Admin: 10/14/16 09:47 Dose: Not Given Zolpidem Tartrate (Ambien) 5 mg PO HS PRN PRN Reason: Insomnia Stop: 12/11/16 01:29 General: alert HEENT: NC/AT Neck: Supple Lungs: CTAB Cardiovascular: RRR, Normal S1, Normal S2, without murmur Abdomen: soft non-tender, non-distended Extremities: clear Neurological: no change - Procedures Procedures: Procedures Procedure Code Date CLOSURE SKIN & SUBCUTANEOUS NEC 86.59 07/07/12 DPT ADMINISTRATION 99.39 07/07/12 IMMUNIZATION ADMIN [id number] 07/07/12 OTHER GROUP THERAPY 94.44 12/10/14 RECREATIONAL THERAPY 93.81 09/15/12 RPR S/N/AX/GEN/TRNK 2.5CM/< 30760 07/07/12 TDAP VACCINE 7 YRS/> IM [id number] 07/07/12 Internal Medicine Assmt/Plan - Assessment Assessment: HTN DYSLIPIDEMIA ESRD SEIZURES DEMENTIA GLAUCOMA GAIT ABNORMALITY - Plan Plan: seizure precautions fall precautions continue snf meds cpm
[2016-10-15] MEDS: Levothyroxine 0.025 Mg Tab PO SCH (06:39)
--- NOTE | 2016-10-15 08:00 | Progress Notes ---
SUBJECTIVE: I met this patient, is still disorganized, guarded, still paranoid, episodes of refusing care and refusing medications. Insight is poor, judgment remains impaired, some anger outbursts. The patient is currently on Haldol Decanoate to help improve compliance. ASSESSMENT: Schizoaffective disorder and dementia, Alzheimer's type. PLAN: We will continue to monitor closely. Continue stabilization. [facility]# [id number]
[2016-10-15] MEDS: Multivitamin Tab PO SCH (09:12)
[2016-10-15] MEDS: POLYETHYLENE GLYCOL 3350 17 GM PACK PO SCH (09:12)
[2016-10-15] MEDS: Potassium Chloride 20 mEq ER Tab PO SCH (09:12)
--- NOTE | 2016-10-15 16:57 | Internal Medicine Prog Note ---
Internal Medicine Subjective - Subjective Patient seen and examined:: with staff, chart reviewed Patient is:: awake, verbal, interactive Per staff patient is:: no adverse event, confused Internal Medicine Objective - Results Result Diagrams: 10/11/16 21:00 10/11/16 21:00 Recent Labs: Laboratory Last Values WBC 5.2 Th/cmm (4.8-10.8) 10/11/16 21:00 RBC 5.16 Mil/cmm (3.80-5.80) 10/11/16 21:00 Hgb 15.6 gm/dL (12.6-17.4) 10/11/16 21:00 Hct 46.3 % (39.0-49.0) 10/11/16 21:00 MCV 89.7 fl (80-99) 10/11/16 21:00 MCH 30.2 pg (27.0-31.0) 10/11/16: MCHC Differential 33.7 pg (28.0-36.0) 10/11/16 21:00 RDW 13.3 % (11.5-20.0) 10/11/16 21:00 Plt Count 230 Th/cmm (150-400) 10/11/16 21:00 MPV 9.0 fl 10/11/16 21:00 Neutrophils (Manual) 37 % (40-80) L 10/11/16 21:00 Lymphocytes 43 % (20-50) 10/11/16 21:00 Monocytes 12 % (2-10) H 10/11/16 21:00 Eosinophils 4 % (0-5) 10/11/16 21:00 Basophils 1 % (0-3) 10/11/16 21:00 Atypical Lymphocytes 3 % 10/11/16 21:00 Platelet Estimate ADEQUATE (NORMAL) 10/11/16 21:00 Platelet Morphology NORMAL (NORMAL) 10/11/16 21: RBC Morph Micro Appear NORMAL (NORMAL) 10/11/16 21:00 PT 10.2 SECONDS (9.5-11.5) 10/11/16 21:00 INR 0.98 (0.5-1.4) 10/11/16 21:00 Sodium 140 mEq/L (136-145) 10/11/16 21:00 Potassium 4.2 mEq/L (3.5-5.1) 10/11/16 21:00 Chloride 109 mEq/L (98-107) H 10/11/16 21:00 Carbon Dioxide 23.4 mEq/L (21.0-31.0) 10/11/16 21:00 Anion Gap 11.8 (7.0-16.0) 10/11/16 21:00 BUN 19 mg/dL (7-25) 10/11/16 21:00 Creatinine 1.1 mg/dL (0.7-1.3) 10/11/16 21:00 Est GFR ( Amer) TNP 10/11/16 21:00 Est GFR (Non-Af Amer) TNP 10/11/16 21:00 BUN/Creatinine Ratio 17.3 10/11/16 21:00 Glucose 104 mg/dL (70-105) 10/11/16 21:00 Calcium 9.4 mg/dL (8.6-10.3) 10/11/16 21:00 Total Bilirubin 0.4 mg/dL (0.3-1.0) 10/11/16 21:00 AST 18 U/L (13-39) 10/11/16 21:00 ALT 11 U/L (7-52) 10/11/16 21:00 Alkaline Phosphatase 57 U/L (34-104) 10/11/16 21:00 Troponin I < 0.01 ng/mL (0.01-0.05) L 10/11/16 21:00 Total Protein 6.2 gm/dL (6.0-8.3) 10/11/16 21:00 Albumin 3.7 gm/dL (4.2-5.5) L 10/11/16 21:00 Globulin 2.5 gm/dL 10/11/16 21:00 Albumin/Globulin Ratio 1.5 (1.0-1.8) 10/11/16 21:00 Triglycerides 169 mg/dL (<150) H 10/11/16 21:00 Cholesterol 146 mg/dL (<200) 10/11/16 21:00 LDL Cholesterol Direct 93 mg/dL (75-193) 10/11/16 21:00 HDL Cholesterol 39 mg/dL (23-92) 10/11/16 21:00 TSH 0.83 uIU/ml (0.34-5.60) 10/11/16 21:00 Urine Source CLEAN C 10/11/16 21:20 Urine Color YELLOW 10/11/16 21:20 Urine Clarity CLEAR (CLEAR) 10/11/16 21:20 Urine pH 7.0 10/11/16 21:20 Ur Specific [place] 1.020 (1.005-1.030) 10/11/16 21:20 Urine Protein NEGATIVE mg/dL (NEGATIVE) 10/11/16 21:20 Urine Glucose (UA) NEGATIVE mg/dL (NEGATIVE) 10/11/16 21:20 Urine Ketones NEGATIVE mg/dL (NEGATIVE) 10/11/16 21:20 Urine Blood NEGATIVE (NEGATIVE) 10/11/16 21:20 Urine Nitrate NEGATIVE (NEGATIVE) 10/11/16 21:20 Urine Bilirubin NEGATIVE (NEGATIVE) 10/11/16 21:20 Urine Urobilinogen 0.2 E.U./dL (0.2 - 1.0) 10/11/16 21:20 Ur Leukocyte Esterase NEGATIVE (NEGATIVE) 10/11/16 21:20 Urine RBC NONE SEEN /hpf (0-5) 10/11/16 21:20 Urine WBC 0-2 /hpf (0-5) 10/11/16 21:20 Ur Epithelial Cells RARE /lpf (FEW) 10/11/16 21:20 Urine Bacteria OCCASIONAL /hpf (NONE SEEN) 10/11/16 21:20 RPR NONREACTIVE (NONREACTIVE) 10/11/16 21:00 - Physical Exam Vitals and I&O: Vital Signs Temp 98.2 F 10/14/16 18:30 Pulse 76 10/14/16 20:00 Resp 20 10/14/16 20:00 BP 129/76 10/14/16 18:30 Pulse Ox 93 10/14/16 18:30 Intake & Output 10/14/16 10/15/16 10/15/16 18:59 06:59 18:59 Intake Total 850 Balance 850 Intake: Oral 850 Other: # Voids 2 # Bowel Movements 1 Active Medications: Current Medications Acetaminophen (Tylenol) 650 mg PO Q4HR PRN PRN Reason: PAIN OR TEMP 100.3 F Stop: 12/11/16 01:29 Al Hydrox/Mg Hydrox/Simethicone (Maalox) 30 ml PO Q4HR PRN PRN Reason: GI DISTRESS Stop: 12/11/16 01:29 Amlodipine Besylate (Norvasc) 10 mg PO DAILY WILL Stop: 12/11/16 08:59 Last Admin: 10/15/16 09:11 Dose: Not Given Ascorbic Acid (Vitamin C) 500 mg PO DAILY WILL Stop: 12/11/16 08:59 Last Admin: 10/15/16 09:11 Dose: Not Given Benztropine Mesylate (Cogentin) 0.5 mg PO BID WILL Stop: 12/11/16 08:59 Last Admin: 10/15/16 09:11 Dose: Not Given Carbidopa/Levodopa (Sinemet 25mg-100 Mg) 1 tab PO TID WILL Stop: 12/11/16 08:59 Last Admin: 10/15/16 14:14 Dose: Not Given Donepezil HCl (Aricept) 10 mg PO HS WILL Stop: 12/11/16 20:59 Last Admin: 10/14/16 20:46 Dose: 10 mg Haloperidol Decanoate (Haldol Dec) 25 mg IM QMONTH WILL PRN Reason: Protocol Stop: 12/13/16 08:59 Last Admin: 10/14/16 09:39 Dose: Not Given Levothyroxine Sodium (Synthroid) 0.025 mg PO QDAC WILL Stop: 12/11/16 07:29 Last Admin: 10/15/16 06:39 Dose: Not Given Lorazepam (Ativan) 0.5 mg PO Q4HR PRN; Protocol PRN Reason: Anxiety Stop: 11/11/16 01:29 Multivitamins/Vitamin C (Theragran) 1 tab PO DAILY WILL Stop: 12/11/16 08:59 Last Admin: 10/15/16 09:12 Dose: Not Given Polyethylene Glycol (Miralax) 17 gm PO DAILY WILL Stop: 12/11/16 08:59 Last Admin: 10/15/16 09:12 Dose: Not Given Potassium Chloride (Klor-Con) 20 meq PO DAILY WILL Stop: 12/11/16 08:59 Last Admin: 10/15/16 09:12 Dose: Not Given Simvastatin (Zocor) 10 mg PO HS WILL PRN Reason: Protocol Stop: 12/11/16 20:59 Last Admin: 10/14/16 20:46 Dose: 10 mg Valproate Sodium (Depakene) 500 mg PO Q12HR WILL PRN Reason: Protocol Stop: 12/11/16 08:59 Last Admin: 10/15/16 09:12 Dose: Not Given Zolpidem Tartrate (Ambien) 5 mg PO HS PRN PRN Reason: Insomnia Stop: 12/11/16 01:29 General: demented HEENT: NC/AT, PERRLA Neck: Supple, No JVD Lungs: CTAB Cardiovascular: RRR, Normal S1, Normal S2 Abdomen: soft non-tender, globular Extremities: excoriation, contracture Neurological: no change - Procedures Procedures: Procedures Procedure Code Date CLOSURE SKIN & SUBCUTANEOUS NEC 86.59 07/07/12 DPT ADMINISTRATION 99.39 07/07/12 IMMUNIZATION ADMIN 36420 07/07/12 OTHER GROUP THERAPY 94.44 12/10/14 RECREATIONAL THERAPY 93.81 09/15/12 RPR S/N/AX/GEN/TRNK 2.5CM/< 21664 07/07/12 TDAP VACCINE 7 YRS/> IM [id number] 07/07/12 Internal Medicine Assmt/Plan - Assessment Assessment: htn high chol sz dementia glaucoma - Plan Plan: cont on bp meds sz precaution fall precaution nutritional support jeremy rn
--- NOTE | 2016-10-16 00:43 | Progress Notes ---
SUBJECTIVE: I met this patient. Remains disorganized, forgetful, still confused, some agitation, but he is oriented to person, knew he was in some kind of hospital. The patient does not know his age. The patient has still episodes where he is yelling at staff or trying to hit staff. The patient continues to have also some episodes of refusing care and refusing medications. ASSESSMENT: The patient still in psychotic phase. PLAN: We will continue stabilization. Continue hospitalization. Encourage the patient to comply with medications and treatment recommendations. The patient is also on Haldol Decanoate to help improve compliance. JOB# [id number]
[2016-10-16] MEDS: Levothyroxine 0.025 Mg Tab PO SCH (06:37)
[2016-10-16] MEDS: POLYETHYLENE GLYCOL 3350 17 GM PACK PO SCH (08:14)
[2016-10-16] MEDS: Potassium Chloride 20 mEq ER Tab PO SCH (08:14)
[2016-10-16] MEDS: Multivitamin Tab PO SCH (08:15)
--- NOTE | 2016-10-16 14:23 | Internal Medicine Prog Note ---
Internal Medicine Subjective - Subjective Service Date: 10/16/16 Patient seen and examined:: with staff Patient is:: awake Per staff patient is:: no adverse event Internal Medicine Objective - Results Result Diagrams: 10/11/16 21:00 10/11/16 21:00 Recent Labs: Laboratory Last Values WBC 5.2 Th/cmm (4.8-10.8) 10/11/16 21:00 RBC 5.16 Mil/cmm (3.80-5.80) 10/11/16 21:00 Hgb 15.6 gm/dL (12.6-17.4) 10/11/16 21:00 Hct 46.3 % (39.0-49.0) 10/11/16 21:00 MCV 89.7 fl (80-99) 10/11/16 21:00 MCH 30.2 pg (27.0-31.0) 10/11/16 21:00 MCHC Differential 33.7 pg (28.0-36.0) 10/11/16 21:00 RDW 13.3 % (11.5-20.0) 10/11/16 21:00 Plt Count 230 Th/cmm (150-400) 10/11/16 21:00 MPV 9.0 fl 10/11/16 21:00 Neutrophils (Manual) 37 % (40-80) L 10/11/16 21:00 Lymphocytes 43 % (20-50) 10/11/16 21:00 Monocytes 12 % (2-10) H 10/11/16 21:00 Eosinophils 4 % (0-5) 10/11/16 21:00 Basophils 1 % (0-3) 10/11/16 21:00 Atypical Lymphocytes 3 % 10/11/16 21:00 Platelet Estimate ADEQUATE (NORMAL) 10/11/16 21:00 Platelet Morphology NORMAL (NORMAL) 10/11/16 21:00 RBC Morph Micro Appear NORMAL (NORMAL) 10/11/16 21:00 PT 10.2 SECONDS (9.5-11.5) 10/11/16 21:00 INR 0.98 (0.5-1.4) 10/11/16 21:00 Sodium 140 mEq/L (136-145) 10/11/16 21:00 Potassium 4.2 mEq/L (3.5-5.1) 10/11/16 21:00 Chloride 109 mEq/L (98-107) H 10/11/16 21:00 Carbon Dioxide 23.4 mEq/L (21.0-31.0) 10/11/16 21:00 Anion Gap 11.8 (7.0-16.0) 10/11/16 21:00 BUN 19 mg/dL (7-25) 10/11/16 21:00 Creatinine 1.1 mg/dL (0.7-1.3) 10/11/16 21:00 Est GFR ( Amer) TNP 10/11/16 21:00 Est GFR (Non-Af Amer) TNP 10/11/16 21:00 BUN/Creatinine Ratio 17.3 10/11/16 21:00 Glucose 104 mg/dL (70-105) 10/11/16 21:00 Calcium 9.4 mg/dL (8.6-10.3) 10/11/16 21:00 Total Bilirubin 0.4 mg/dL (0.3-1.0) 10/11/16 21:00 AST 18 U/L (13-39) 10/11/16 21:00 ALT 11 U/L (7-52) 10/11/16 21:00 Alkaline Phosphatase 57 U/L (34-104) 10/11/16 21:00 Troponin I < 0.01 ng/mL (0.01-0.05) L 10/11/16 21:00 Total Protein 6.2 gm/dL (6.0-8.3) 10/11/16 21:00 Albumin 3.7 gm/dL (4.2-5.5) L 10/11/16 21:00 Globulin 2.5 gm/dL 10/11/16 21:00 Albumin/Globulin Ratio 1.5 (1.0-1.8) 10/11/16 21:00 Triglycerides 169 mg/dL (<150) H 10/11/16 21:00 Cholesterol 146 mg/dL (<200) 10/11/16 21:00 LDL Cholesterol Direct 93 mg/dL (75-193) 10/11/16 21:00 HDL Cholesterol 39 mg/dL (23-92) 10/11/16 21:00 TSH 0.83 uIU/ml (0.34-5.60) 10/11/16 21:00 Urine Source CLEAN C 03/12/17 21:20 Urine Color YELLOW 10/11/16 21:20 Urine Clarity CLEAR (CLEAR) 10/11/16 21:20 Urine pH 7.0 10/11/16 21:20 Ur Specific [place] 1.020 (1.005-1.030) 10/11/16 21:20 Urine Protein NEGATIVE mg/dL (NEGATIVE) 10/11/16 21:20 Urine Glucose (UA) NEGATIVE mg/dL (NEGATIVE) 10/11/16 21:20 Urine Ketones NEGATIVE mg/dL (NEGATIVE) 10/11/16 21:20 Urine Blood NEGATIVE (NEGATIVE) 10/11/16 21:20 Urine Nitrate NEGATIVE (NEGATIVE) 10/11/16 21:20 Urine Bilirubin NEGATIVE (NEGATIVE) 10/11/16 21:20 Urine Urobilinogen 0.2 E.U./dL (0.2 - 1.0) 10/11/16 21:20 Ur Leukocyte Esterase NEGATIVE (NEGATIVE) 10/11/16 21:20 Urine RBC NONE SEEN /hpf (0-5) 10/11/16 21:20 Urine WBC 0-2 /hpf (0-5) 10/11/16 21:20 Ur Epithelial Cells RARE /lpf (FEW) 10/11/16 21:20 Urine Bacteria OCCASIONAL /hpf (NONE SEEN) 10/11/16 21:20 RPR NONREACTIVE (NONREACTIVE) 10/11/16 21:00 - Physical Exam Vitals and I&O: Vital Signs Temp 97.6 F 10/16/16 06:39 Pulse 96 10/16/16 08:13 Resp 20 10/16/16 06:39 BP 104/67 10/16/16 08:13 Pulse Ox 98 10/16/16 06:39 Intake & Output 10/15/16 10/16/16 10/16/16 18:59 06:59 18:59 Intake Total 960 120 Balance 960 120 Weight (lbs) 159 lb Intake: Oral 960 120 Other: # Voids 3 3 # Bowel Movements 0 Active Medications: Current Medications Acetaminophen (Tylenol) 650 mg PO Q4HR PRN PRN Reason: PAIN OR TEMP 100.3 F Stop: 12/11/16 01:29 Al Hydrox/Mg Hydrox/Simethicone (Maalox) 30 ml PO Q4HR PRN PRN Reason: GI DISTRESS Stop: 12/11/16 01:29 Amlodipine Besylate (Norvasc) 10 mg PO DAILY WILL Stop: 12/11/16 08:59 Last Admin: 10/16/16 08:13 Dose: Not Given Ascorbic Acid (Vitamin C) 500 mg PO DAILY WILL Stop: 12/11/16 08:59 Last Admin: 10/16/16 08:14 Dose: Not Given Benztropine Mesylate (Cogentin) 0.5 mg PO BID WILL Stop: 12/11/16 08:59 Last Admin: 10/16/16 08:15 Dose: Not Given Carbidopa/Levodopa (Sinemet 25mg-100 Mg) 1 tab PO TID WILL Stop: 12/11/16 08:59 Last Admin: 10/16/16 08:15 Dose: Not Given Donepezil HCl (Aricept) 10 mg PO HS WILL Stop: 12/11/16 20:59 Last Admin: 10/15/16 20:48 Dose: 10 mg Haloperidol Decanoate (Haldol Dec) 25 mg IM QMONTH WILL PRN Reason: Protocol Stop: 12/13/16 08:59 Last Admin: 10/14/16 09:39 Dose: Not Given Levothyroxine Sodium (Synthroid) 0.025 mg PO QDAC WILL Stop: 12/11/16 07:29 Last Admin: 10/16/16 06:37 Dose: 0.025 mg Lorazepam (Ativan) 0.5 mg PO Q4HR PRN; Protocol PRN Reason: Anxiety Stop: 11/11/16 01:29 Multivitamins/Vitamin C (Theragran) 1 tab PO DAILY WILL Stop: 12/11/16 08:59 Last Admin: 10/16/16 08:15 Dose: Not Given Polyethylene Glycol (Miralax) 17 gm PO DAILY WILL Stop: 12/11/16 08:59 Last Admin: 10/16/16 08:14 Dose: 17 gm Potassium Chloride (Klor-Con) 20 meq PO DAILY WILL Stop: 12/11/16 08:59 Last Admin: 10/16/16 08:14 Dose: Not Given Simvastatin (Zocor) 10 mg PO HS WILL PRN Reason: Protocol Stop: 12/11/16 20:59 Last Admin: 10/15/16 20:48 Dose: 10 mg Valproate Sodium (Depakene) 500 mg PO Q12HR WILL PRN Reason: Protocol Stop: 12/11/16 08:59 Last Admin: 10/16/16 08:14 Dose: 500 mg Zolpidem Tartrate (Ambien) 5 mg PO HS PRN PRN Reason: Insomnia Stop: 12/11/16 01:29 General: alert HEENT: NC/AT, PERRLA Neck: Supple Lungs: CTAB Cardiovascular: RRR, Normal S1, Normal S2, without murmur Abdomen: soft non-tender, non-distended Neurological: no change - Procedures Procedures: Procedures Procedure Code Date CLOSURE SKIN & SUBCUTANEOUS NEC 86.59 07/07/12 DPT ADMINISTRATION 99.39 07/07/12 IMMUNIZATION ADMIN 89670 07/07/12 OTHER GROUP THERAPY 94.44 12/10/14 RECREATIONAL THERAPY 93.81 09/15/12 RPR S/N/AX/GEN/TRNK 2.5CM/< 92520 07/07/12 TDAP VACCINE 7 YRS/> [place] [id number] 07/07/12 Internal Medicine Assmt/Plan - Assessment Assessment: HTN DYSLIPIDEMIA ESRD SEIZURES DEMENTIA GLAUCOMA GAIT ABNORMALITY - Plan Plan: seizure precautions fall precautions continue snf meds cpm Nutritional Asmnt/Malnutr-PDOC - Dietary Evaluation Malnutrition Findings (Please click <Entered> for more info): Nutritional Asmnt/Malnutrition Start: 10/16/16 11: 33 Text: Status: Complete Freq: Document 10/16/16 11:33 GSUN (Rec: 10/16/16 11:48 [email or web address] [email or web address]) Nutritional Asmnt/Malnutrition Patient General Information Nutritional Screening Moderate Risk Screening Diagnosis Psychosis Pertinent Medical Hx/Surgical Hx HTN, dyslipidemia, ERSD, seizures, dementia, glaucoma, gait abnormality, schizophrenia, delusional disorder Subjective Information 76 year old male from SNF, admitted for refusing meds and poor PO intake. Pt was verbally inappropriate, able to answer simple questions. Pt noted with few missig teeth and severe tremors to jaw and hands. DIRECTOR OF RESEARCH at bedside stated no difficulties chewing/ swallowing, good appetite, 100 % breakfast this AM. Avg PO intake 81% x past 12 meals + Boost TID, meeting nutritional needs. Current Diet Order/ Nutrition Support [facility] ground, NOÉ, prefer ice cream with lunch and dinner. Pertinent Medications Maalox, Sinemet, Haldol, Synthroid, Theragran, Miralax Pertinent Labs Reviewed. Nutritional Hx/Data Height 5 ft 11 in Height (Calculated Centimeters) 180.3 Current Weight (lbs) 159 lb Weight (Calculated Kilograms) 72.1 Weight (Calculated Grams) 25098.2 [place] Body Weight 172 Weight Status Approriate GI Symptoms Food Allergies No Cultural/Ethnic/B[employer] Belief Unknown. Usual diet at home [place]: mech soft, NOÉ , protein nourishments TID, ice cream, sandwi Skin Integrity/Comment: Rohith 17. Skin intact. Current %PO Good (75-100%) Estimated Nutritional Goals BEE in Kcals: Using Current wt Calories/Kcals/Kg CBW 72kg Kcals Calculated 1800-2160kcal (25-30kcal/kg) Protein: Using Current wt Protein Calculated 72g/kg Fluid: ml 1800-2160ml (1ml/kcal) Nutritional Problem 1. Problem Problem No nutritional problems at this time. Intervention/Recommendation Comments 1. Remove ice cream lunch and dinner. Pt is receiving mec ground NOÉ meal with Boost TID , which is enough to meet nutritional needs. Encourage pt to obtain nutrient from nutritious/main foods, not ice cream. Expected Outcomes/Goals Expected Outcomes/Goals 1. PO intake continue to meet at least 75% of estimated nutritional needs.
--- NOTE | 2016-10-17 02:26 | Progress Notes ---
SUBJECTIVE: I met this patient, discussed with staff, chart reviewed. Still confused and forgetful, some agitation and episodes of refusing care, refusing medications off and on. The patient's insight remains poor, judgment remains impaired. The patient continues to have episodes of talking to himself. ASSESSMENT: The patient still in psychotic phase, highly disorganized, is still agitated. PLAN: Continue hospitalization. Continue supportive measures. Monitor mood closely. [facility]# [id number]
[2016-10-17] MEDS: Levothyroxine 0.025 Mg Tab PO SCH (06:34)
[2016-10-17] MEDS: POLYETHYLENE GLYCOL 3350 17 GM PACK PO SCH (09:15)
[2016-10-17] MEDS: Multivitamin Tab PO SCH (09:16)
[2016-10-17] MEDS: Potassium Chloride 20 mEq ER Tab PO SCH (09:16)
--- NOTE | 2016-10-17 12:35 | Internal Medicine Prog Note ---
Internal Medicine Subjective - Subjective Patient seen and examined:: with staff, chart reviewed Patient is:: awake, verbal, interactive Per staff patient is:: no adverse event, confused Internal Medicine Objective - Results Result Diagrams: 10/11/16 21:00 10/11/16 21:00 Recent Labs: Laboratory Last Values WBC 5.2 Th/cmm (4.8-10.8) 10/11/16 21:00 RBC 5.16 Mil/cmm (3.80-5.80) 10/11/16 21:00 Hgb 15.6 gm/dL (12.6-17.4) 10/11/16 21:00 Hct 46.3 % (39.0-49.0) 10/11/16 21:00 MCV 89.7 fl (80-99) 10/11/16 21:00 MCH 30.2 pg (27.0-31.0) 10/11/16: MCHC Differential 33.7 pg (28.0-36.0) 10/11/16 21:00 RDW 13.3 % (11.5-20.0) 10/11/16 21:00 Plt Count 230 Th/cmm (150-400) 10/11/16 21:00 MPV 9.0 fl 10/11/16 21:00 Neutrophils (Manual) 37 % (40-80) L 10/11/16 21:00 Lymphocytes 43 % (20-50) 10/11/16 21:00 Monocytes 12 % (2-10) H 10/11/16 21:00 Eosinophils 4 % (0-5) 10/11/16 21:00 Basophils 1 % (0-3) 10/11/16 21:00 Atypical Lymphocytes 3 % 10/11/16 21:00 Platelet Estimate ADEQUATE (NORMAL) 10/11/16 21:00 Platelet Morphology NORMAL (NORMAL) 10/11/16 21: RBC Morph Micro Appear NORMAL (NORMAL) 10/11/16 21:00 PT 10.2 SECONDS (9.5-11.5) 10/11/16 21:00 INR 0.98 (0.5-1.4) 10/11/16 21:00 Sodium 140 mEq/L (136-145) 10/11/16 21:00 Potassium 4.2 mEq/L (3.5-5.1) 10/11/16 21:00 Chloride 109 mEq/L (98-107) H 10/11/16 21:00 Carbon Dioxide 23.4 mEq/L (21.0-31.0) 10/11/16 21:00 Anion Gap 11.8 (7.0-16.0) 10/11/16 21:00 BUN 19 mg/dL (7-25) 10/11/16 21:00 Creatinine 1.1 mg/dL (0.7-1.3) 10/11/16 21:00 Est GFR ( Amer) TNP 10/11/16 21:00 Est GFR (Non-Af Amer) TNP 10/11/16 21:00 BUN/Creatinine Ratio 17.3 10/11/16 21:00 Glucose 104 mg/dL (70-105) 10/11/16 21:00 Calcium 9.4 mg/dL (8.6-10.3) 10/11/16 21:00 Total Bilirubin 0.4 mg/dL (0.3-1.0) 10/11/16 21:00 AST 18 U/L (13-39) 10/11/16 21:00 ALT 11 U/L (7-52) 10/11/16 21:00 Alkaline Phosphatase 57 U/L (34-104) 10/11/16 21:00 Troponin I < 0.01 ng/mL (0.01-0.05) L 10/11/16 21:00 Total Protein 6.2 gm/dL (6.0-8.3) 10/11/16 21:00 Albumin 3.7 gm/dL (4.2-5.5) L 10/11/16 21:00 Globulin 2.5 gm/dL 10/11/16 21:00 Albumin/Globulin Ratio 1.5 (1.0-1.8) 10/11/16 21:00 Triglycerides 169 mg/dL (<150) H 10/11/16 21:00 Cholesterol 146 mg/dL (<200) 10/11/16 21:00 LDL Cholesterol Direct 93 mg/dL (75-193) 10/11/16 21:00 HDL Cholesterol 39 mg/dL (23-92) 10/11/16 21:00 TSH 0.83 uIU/ml (0.34-5.60) 10/11/16 21:00 Urine Source CLEAN C 10/11/16 21:20 Urine Color YELLOW 10/11/16 21:20 Urine Clarity CLEAR (CLEAR) 10/11/16 21:20 Urine pH 7.0 10/11/16 21:20 Ur Specific [place] 1.020 (1.005-1.030) 10/11/16 21:20 Urine Protein NEGATIVE mg/dL (NEGATIVE) 10/11/16 21:20 Urine Glucose (UA) NEGATIVE mg/dL (NEGATIVE) 10/11/16 21:20 Urine Ketones NEGATIVE mg/dL (NEGATIVE) 10/11/16 21:20 Urine Blood NEGATIVE (NEGATIVE) 10/11/16 21:20 Urine Nitrate NEGATIVE (NEGATIVE) 10/11/16 21:20 Urine Bilirubin NEGATIVE (NEGATIVE) 10/11/16 21:20 Urine Urobilinogen 0.2 E.U./dL (0.2 - 1.0) 10/11/16 21:20 Ur Leukocyte Esterase NEGATIVE (NEGATIVE) 10/11/16 21:20 Urine RBC NONE SEEN /hpf (0-5) 10/11/16 21:20 Urine WBC 0-2 /hpf (0-5) 10/11/16 21:20 Ur Epithelial Cells RARE /lpf (FEW) 10/11/16 21:20 Urine Bacteria OCCASIONAL /hpf (NONE SEEN) 10/11/16 21:20 RPR NONREACTIVE (NONREACTIVE) 10/11/16 21:00 - Physical Exam Vitals and I&O: Vital Signs Temp 97.4 F 10/16/16 14:00 Pulse 64 10/16/16 20:00 Resp 20 10/16/16 20:00 BP 115/63 10/16/16 14:00 Pulse Ox 97 10/16/16 14:00 Intake & Output 10/16/16 10/17/16 10/17/16 18:59 06:59 18:59 Intake Total 960 Balance 960 Weight (lbs) 72.121 kg Intake: Oral 960 Other: # Voids 3 # Bowel Movements 1 Active Medications: Current Medications Acetaminophen (Tylenol) 650 mg PO Q4HR PRN PRN Reason: PAIN OR TEMP 100.3 F Stop: 12/11/16 01:29 Al Hydrox/Mg Hydrox/Simethicone (Maalox) 30 ml PO Q4HR PRN PRN Reason: GI DISTRESS Stop: 12/11/16 01:29 Amlodipine Besylate (Norvasc) 10 mg PO DAILY WILL Stop: 12/11/16 08:59 Last Admin: 10/17/16 09:16 Dose: Not Given Ascorbic Acid (Vitamin C) 500 mg PO DAILY WILL Stop: 12/11/16 08:59 Last Admin: 10/17/16 09:16 Dose: 500 mg Benztropine Mesylate (Cogentin) 0.5 mg PO BID WILL Stop: 12/11/16 08:59 Last Admin: 10/17/16 09:16 Dose: 0.5 mg Carbidopa/Levodopa (Sinemet 25mg-100 Mg) 1 tab PO TID WILL Stop: 12/11/16 08:59 Last Admin: 10/17/16 09:16 Dose: 1 tab Donepezil HCl (Aricept) 10 mg PO HS WILL Stop: 12/11/16 20:59 Last Admin: 10/16/16 20:13 Dose: 10 mg Haloperidol Decanoate (Haldol Dec) 25 mg IM QMONTH WILL PRN Reason: Protocol Stop: 12/13/16 08:59 Last Admin: 10/14/16 09:39 Dose: Not Given Levothyroxine Sodium (Synthroid) 0.025 mg PO QDAC WILL Stop: 12/11/16 07:29 Last Admin: 10/17/16 06:34 Dose: 0.025 mg Lorazepam (Ativan) 0.5 mg PO Q4HR PRN; Protocol PRN Reason: Anxiety Stop: 11/11/16 01:29 Multivitamins/Vitamin C (Theragran) 1 tab PO DAILY WILL Stop: 12/11/16 08:59 Last Admin: 10/17/16 09:16 Dose: 1 tab Polyethylene Glycol (Miralax) 17 gm PO DAILY WILL Stop: 12/11/16 08:59 Last Admin: 10/17/16 09:15 Dose: 17 gm Potassium Chloride (Klor-Con) 20 meq PO DAILY WILL Stop: 12/11/16 08:59 Last Admin: 10/17/16 09:16 Dose: 20 meq Simvastatin (Zocor) 10 mg PO HS WILL PRN Reason: Protocol Stop: 12/11/16 20:59 Last Admin: 10/16/16 20:13 Dose: 10 mg Valproate Sodium (Depakene) 500 mg PO Q12HR WILL PRN Reason: Protocol Stop: 12/11/16 08:59 Last Admin: 10/17/16 09:16 Dose: 500 mg Zolpidem Tartrate (Ambien) 5 mg PO HS PRN PRN Reason: Insomnia Stop: 12/11/16 01:29 General: demented HEENT: NC/AT, PERRLA, EOMI Neck: Supple, No JVD Lungs: CTAB Cardiovascular: RRR, Normal S1, Normal S2 Abdomen: soft non-tender, globular, positive bowel sound Extremities: excoriation Neurological: no change - Procedures Procedures: Procedures Procedure Code Date CLOSURE SKIN & SUBCUTANEOUS NEC 86.59 07/07/12 DPT ADMINISTRATION 99.39 07/07/12 IMMUNIZATION ADMIN 91090 07/07/12 OTHER GROUP THERAPY 94.44 12/10/14 RECREATIONAL THERAPY 93.81 09/15/12 RPR S/N/AX/GEN/TRNK 2.5CM/< 20732 07/07/12 TDAP VACCINE 7 YRS/> IM [id number] 07/07/12 Internal Medicine Assmt/Plan - Assessment Assessment: htn high chol sz dementia glaucoma - Plan Plan: cont on bp meds sz precaution fall precaution nutritional support dw rn Nutritional Asmnt/Malnutr-PDOC - Dietary Evaluation Malnutrition Findings (Please click <Entered> for more info): Nutritional Asmnt/Malnutrition Start: 10/16/16 11: 33 Text: Status: Complete Freq: Document 10/16/16 11:33 GSUN (Rec: 10/16/16 11:48 GSUN [email or web address]) Nutritional Asmnt/Malnutrition Patient General Information Nutritional Screening Moderate Risk Screening Diagnosis Psychosis Pertinent Medical Hx/Surgical Hx HTN, dyslipidemia, ERSD, seizures, dementia, glaucoma, gait abnormality, schizophrenia, delusional disorder Subjective Information 76 year old male from SNF, admitted for refusing meds and poor PO intake. Pt was verbally inappropriate, able to answer simple questions. Pt noted with few missig teeth and severe tremors to jaw and hands. DATA SUPPORT ANALYST at bedside stated no difficulties chewing/ swallowing, good appetite, 100 % breakfast this AM. Avg PO intake 81% x past 12 meals + Boost TID, meeting nutritional needs. Current Diet Order/ Nutrition Support [facility] ground, NOÉ, prefer ice cream with lunch and dinner. Pertinent Medications Maalox, Sinemet, Haldol, Synthroid, Theragran, Miralax Pertinent Labs Reviewed. Nutritional Hx/Data Height 1.8 m Height (Calculated Centimeters) 180.3 Current Weight (lbs) 72.121 kg Weight (Calculated Kilograms) 72.1 Weight (Calculated Grams) 24684.2 [place] Body Weight 172 Weight Status Approriate GI Symptoms Food Allergies No Cultural/Ethnic/[employer]ar[employer] Belief Unknown. Usual diet at home [place]: mech soft, NOÉ , protein nourishments TID, ice cream, sandwi Skin Integrity/Comment: Rohith [place]. Skin intact. Current %PO Good (75-100%) Estimated Nutritional Goals BEE in Kcals: Using Current wt Calories/Kcals/Kg CBW 72kg Kcals Calculated 1800-2160kcal (25-30kcal/kg) Protein: Using Current wt Protein Calculated 72g/kg Fluid: ml 1800-2160ml (1ml/kcal) Nutritional Problem 1. Problem Problem No nutritional problems at this time. Intervention/Recommendation Comments 1. Remove ice cream lunch and dinner. Pt is receiving mech ground NOÉ meal with Boost TID , which is enough to meet nutritional needs. Encourage pt to obtain nutrient from nutritious/main foods, not ice cream. Expected Outcomes/Goals Expected Outcomes/Goals 1. PO intake continue to meet at least 75% of estimated nutritional needs.
--- NOTE | 2016-10-17 22:23 | Progress Notes ---
PSYCHIATRIC PROGRESS NOTE TIME PATIENT SEEN: 11:00 a.m. SUBJECTIVE: Staff was spoken to. The patient is interviewed. Mood is noted to be irritable. Affect is constricted. Insight and judgment are noted to be still impaired. Impulse control is noted to be poor. The patient is still sexually preoccupied. The patient has paranoid delusions. The patient has no insight into his illness. The patient is currently on valproic acid 500 mg twice a day and the patient is also being given Haldol Decanoate once a month 25 mg. Even with these medications, the patient has been having difficult time to be redirected. No side effects to the medications are noted. ASSESSMENT: The patient is still impulsive and sexually preoccupied. PLAN: To continue the patient with the supportive therapy. I encouraged the patient to verbalize the concerns rather than to act out. JOB# [id number]
[2016-10-18] MEDS: Levothyroxine 0.025 Mg Tab PO SCH (06:42)
[2016-10-18] MEDS: Multivitamin Tab PO SCH (08:21)
[2016-10-18] MEDS: POLYETHYLENE GLYCOL 3350 17 GM PACK PO SCH (08:21)
[2016-10-18] MEDS: Potassium Chloride 20 mEq ER Tab PO SCH (08:21)
--- NOTE | 2016-10-18 20:19 | Internal Medicine Prog Note ---
Internal Medicine Subjective - Subjective Patient seen and examined:: with staff, chart reviewed Patient is:: awake, verbal, interactive Per staff patient is:: no adverse event, confused Internal Medicine Objective - Results Result Diagrams: 10/11/16 21:00 10/11/16 21:00 Recent Labs: Laboratory Last Values WBC 5.2 Th/cmm (4.8-10.8) 10/11/16 21:00 RBC 5.16 Mil/cmm (3.80-5.80) 10/11/16 21:00 Hgb 15.6 gm/dL (12.6-17.4) 10/11/16 21:00 Hct 46.3 % (39.0-49.0) 10/11/16 21:00 MCV 89.7 fl (80-99) 10/11/16 21:00 MCH 30.2 pg (27.0-31.0) 10/11/16: MCHC Differential 33.7 pg (28.0-36.0) 10/11/16 21:00 RDW 13.3 % (11.5-20.0) 10/11/16 21:00 Plt Count 230 Th/cmm (150-400) 10/11/16 21:00 MPV 9.0 fl 10/11/16 21:00 Neutrophils (Manual) 37 % (40-80) L 10/11/16 21:00 Lymphocytes 43 % (20-50) 10/11/16 21:00 Monocytes 12 % (2-10) H 10/11/16 21:00 Eosinophils 4 % (0-5) 10/11/16 21:00 Basophils 1 % (0-3) 10/11/16 21:00 Atypical Lymphocytes 3 % 10/11/16 21:00 Platelet Estimate ADEQUATE (NORMAL) 10/11/16 21:00 Platelet Morphology NORMAL (NORMAL) 10/11/16 21: RBC Morph Micro Appear NORMAL (NORMAL) 10/11/16 21:00 PT 10.2 SECONDS (9.5-11.5) 10/11/16 21:00 INR 0.98 (0.5-1.4) 10/11/16 21:00 Sodium 140 mEq/L (136-145) 10/11/16 21:00 Potassium 4.2 mEq/L (3.5-5.1) 10/11/16 21:00 Chloride 109 mEq/L (98-107) H 10/11/16 21:00 Carbon Dioxide 23.4 mEq/L (21.0-31.0) 10/11/16 21:00 Anion Gap 11.8 (7.0-16.0) 10/11/16 21:00 BUN 19 mg/dL (7-25) 10/11/16 21:00 Creatinine 1.1 mg/dL (0.7-1.3) 10/11/16 21:00 Est GFR ( Amer) TNP 10/11/16 21:00 Est GFR (Non-Af Amer) TNP 10/11/16 21:00 BUN/Creatinine Ratio 17.3 10/11/16 21:00 Glucose 104 mg/dL (70-105) 10/11/16 21:00 Calcium 9.4 mg/dL (8.6-10.3) 10/11/16 21:00 Total Bilirubin 0.4 mg/dL (0.3-1.0) 10/11/16 21:00 AST 18 U/L (13-39) 10/11/16 21:00 ALT 11 U/L (7-52) 10/11/16 21:00 Alkaline Phosphatase 57 U/L (34-104) 10/11/16 21:00 Troponin I < 0.01 ng/mL (0.01-0.05) L 10/11/16 21:00 Total Protein 6.2 gm/dL (6.0-8.3) 10/11/16 21:00 Albumin 3.7 gm/dL (4.2-5.5) L 10/11/16 21:00 Globulin 2.5 gm/dL 10/11/16 21:00 Albumin/Globulin Ratio 1.5 (1.0-1.8) 10/11/16 21:00 Triglycerides 169 mg/dL (<150) H 10/11/16 21:00 Cholesterol 146 mg/dL (<200) 10/11/16 21:00 LDL Cholesterol Direct 93 mg/dL (75-193) 10/11/16 21:00 HDL Cholesterol 39 mg/dL (23-92) 10/11/16 21:00 TSH 0.83 uIU/ml (0.34-5.60) 10/11/16 21:00 Urine Source CLEAN C 10/11/16 21:20 Urine Color YELLOW 10/11/16 21:20 Urine Clarity CLEAR (CLEAR) 10/11/16 21:20 Urine pH 7.0 10/11/16 21:20 Ur Specific [place] 1.020 (1.005-1.030) 10/11/16 21:20 Urine Protein NEGATIVE mg/dL (NEGATIVE) 10/11/16 21:20 Urine Glucose (UA) NEGATIVE mg/dL (NEGATIVE) 10/11/16 21:20 Urine Ketones NEGATIVE mg/dL (NEGATIVE) 10/11/16 21:20 Urine Blood NEGATIVE (NEGATIVE) 10/11/16 21:20 Urine Nitrate NEGATIVE (NEGATIVE) 10/11/16 21:20 Urine Bilirubin NEGATIVE (NEGATIVE) 10/11/16 21:20 Urine Urobilinogen 0.2 E.U./dL (0.2 - 1.0) 10/11/16 21:20 Ur Leukocyte Esterase NEGATIVE (NEGATIVE) 10/11/16 21:20 Urine RBC NONE SEEN /hpf (0-5) 10/11/16 21:20 Urine WBC 0-2 /hpf (0-5) 10/11/16 21:20 Ur Epithelial Cells RARE /lpf (FEW) 10/11/16 21:20 Urine Bacteria OCCASIONAL /hpf (NONE SEEN) 10/11/16 21:20 RPR NONREACTIVE (NONREACTIVE) 10/11/16 21:00 - Physical Exam Vitals and I&O: Vital Signs Temp 97.4 F 10/18/16 20:07 Pulse 50 10/18/16 20:07 Resp 18 10/18/16 20:07 BP 103/63 10/18/16 20:07 Pulse Ox 95 10/18/16 20:07 Intake & Output 10/18/16 10/18/16 10/19/16 06:59 18:59 06:59 Intake Total 800 240 Balance 800 240 Intake: Oral 800 240 Other: # Voids 4 1 # Bowel Movements 1 Active Medications: Current Medications Acetaminophen (Tylenol) 650 mg PO Q4HR PRN PRN Reason: PAIN OR TEMP 100.3 F Stop: 12/11/16 01:29 Al Hydrox/Mg Hydrox/Simethicone (Maalox) 30 ml PO Q4HR PRN PRN Reason: GI DISTRESS Stop: 12/11/16 01:29 Amlodipine Besylate (Norvasc) 10 mg PO DAILY WILL Stop: 12/11/16 08:59 Last Admin: 10/18/16 08:22 Dose: Not Given Ascorbic Acid (Vitamin C) 500 mg PO DAILY WILL Stop: 12/11/16 08:59 Last Admin: 10/18/16 08:21 Dose: 500 mg Benztropine Mesylate (Cogentin) 0.5 mg PO BID WILL Stop: 12/11/16 08:59 Last Admin: 10/18/16 16:57 Dose: 0.5 mg Carbidopa/Levodopa (Sinemet 25mg-100 Mg) 1 tab PO TID WILL Stop: 12/11/16 08:59 Last Admin: 10/18/16 15:59 Dose: Not Given Donepezil HCl (Aricept) 10 mg PO HS WILL Stop: 12/11/16 20:59 Last Admin: 10/17/16 20:59 Dose: 10 mg Haloperidol Decanoate (Haldol Dec) 25 mg IM QMONTH WILL PRN Reason: Protocol Stop: 12/13/16 08:59 Last Admin: 10/14/16 09:39 Dose: Not Given Levothyroxine Sodium (Synthroid) 0.025 mg PO QDAC WILL Stop: 12/11/16 07:29 Last Admin: 10/18/16 06:42 Dose: 0.025 mg Lorazepam (Ativan) 0.5 mg PO Q4HR PRN; Protocol PRN Reason: Anxiety Stop: 11/11/16 01:29 Multivitamins/Vitamin C (Theragran) 1 tab PO DAILY WILL Stop: 12/11/16 08:59 Last Admin: 10/18/16 08:21 Dose: 1 tab Polyethylene Glycol (Miralax) 17 gm PO DAILY WILL Stop: 12/11/16 08:59 Last Admin: 10/18/16 08:21 Dose: 17 gm Potassium Chloride (Klor-Con) 20 meq PO DAILY WILL Stop: 12/11/16 08:59 Last Admin: 10/18/16 08:21 Dose: 20 meq Simvastatin (Zocor) 10 mg PO HS WILL PRN Reason: Protocol Stop: 12/11/16 20:59 Last Admin: 10/17/16 20:59 Dose: 10 mg Valproate Sodium (Depakene) 500 mg PO Q12HR WILL PRN Reason: Protocol Stop: 12/11/16 08:59 Last Admin: 10/18/16 08:22 Dose: 500 mg Zolpidem Tartrate (Ambien) 5 mg PO HS PRN PRN Reason: Insomnia Stop: 12/11/16 01:29 General: demented HEENT: NC/AT, PERRLA, EOMI Neck: Supple, No JVD, No thyromegaly Lungs: CTAB Cardiovascular: RRR, Normal S1, Normal S2, without murmur Abdomen: soft non-tender, globular, positive bowel sound Extremities: excoriation Neurological: no change, disorganized - Procedures Procedures: Procedures Procedure Code Date CLOSURE SKIN & SUBCUTANEOUS NEC 86.59 07/07/12 DPT ADMINISTRATION 99.39 07/07/12 IMMUNIZATION ADMIN 83891 07/07/12 OTHER GROUP THERAPY 94.44 12/10/14 RECREATIONAL THERAPY 93.81 09/15/12 RPR S/N/AX/GEN/TRNK 2.5CM/< 73377 07/07/12 TDAP VACCINE 7 YRS/> [place] [id number] 07/07/12 Internal Medicine Assmt/Plan - Assessment Assessment: htn high chol sz dementia glaucoma - Plan Plan: cont on bp meds sz precaution fall precaution nutritional support jeremy rn Nutritional Asmnt/Malnutr-PDOC - Dietary Evaluation Malnutrition Findings (Please click <Entered> for more info): Nutritional Asmnt/Malnutrition Start: 10/16/16 11: 33 Text: Status: Complete Freq: Document 10/16/16 11:33 GSUN (Rec: 10/16/16 11:48 GSUN [email or web address]) Nutritional Asmnt/Malnutrition Patient General Information Nutritional Screening Moderate Risk Screening Diagnosis Psychosis Pertinent Medical Hx/Surgical Hx HTN, dyslipidemia, ERSD, seizures, dementia, glaucoma, gait abnormality, schizophrenia, delusional disorder Subjective Information 76 year old male from SNF, admitted for refusing meds and poor PO intake. Pt was verbally inappropriate, able to answer simple questions. Pt noted with few missig teeth and severe tremors to jaw and hands. MANAGER OF TRANSPORTATION at bedside stated no difficulties chewing/ swallowing, good appetite, 100 % breakfast this AM. Avg PO intake 81% x past 12 meals + Boost TID, meeting nutritional needs. Current Diet Order/ Nutrition Support [facility] ground, NOÉ, prefer ice cream with lunch and dinner. Pertinent Medications Maalox, Sinemet, Haldol, Synthroid, Theragran, Miralax Pertinent Labs Reviewed. Nutritional Hx/Data Height 1.8 m Height (Calculated Centimeters) 180.3 Current Weight (lbs) 72.121 kg Weight (Calculated Kilograms) 72.1 Weight (Calculated Grams) 84295.2 [place] Body Weight 172 Weight Status Approriate GI Symptoms Food Allergies No Cultural/Ethnic/Yazidism Belief Unknown. Usual diet at home [place]: mech soft, NOÉ , protein nourishments TID, ice cream, sandwi Skin Integrity/Comment: Rohith [place]. Skin intact. Current %PO Good (75-100%) Estimated Nutritional Goals BEE in Kcals: Using Current wt Calories/Kcals/Kg CBW 72kg Kcals Calculated 1800-2160kcal (25-30kcal/kg) Protein: Using Current wt Protein Calculated 72g/kg Fluid: ml 1800-2160ml (1ml/kcal) Nutritional Problem 1. Problem Problem No nutritional problems at this time. Intervention/Recommendation Comments 1. Remove ice cream lunch and dinner. Pt is receiving [facility] ground NOÉ meal with Boost TID , which is enough to meet nutritional needs. Encourage pt to obtain nutrient from nutritious/main foods, not ice cream. Expected Outcomes/Goals Expected Outcomes/Goals 1. PO intake continue to meet at least 75% of estimated nutritional needs.
--- NOTE | 2016-10-19 | Progress Notes ---
PSYCHIATRIC PROGRESS NOTE TIME PATIENT SEEN: 8:15 a.m. SUBJECTIVE: Staff was spoken to. The patient is interviewed. Mood is noted to be irritable. Affect is constricted. The patient has been having tremor in the upper extremities, possibly EPS. Coping skills are noted to be very poor. Insight and judgment are noted to be still impaired. The patient needs to be redirected. ASSESSMENT: The patient is still psychotic and impulsive. PLAN: To continue the patient with the current medications. I encouraged the patient to verbalize the concern. The patient is going to be closely monitored for his sexualized comments and behavior. JOB# [id number]
[2016-10-19] MEDS: Levothyroxine 0.025 Mg Tab PO SCH (06:42)
[2016-10-19] MEDS: Multivitamin Tab PO SCH (09:05)
[2016-10-19] MEDS: Potassium Chloride 20 mEq ER Tab PO SCH (09:05)
--- NOTE | 2016-10-19 13:15 | Internal Medicine Prog Note ---
Internal Medicine Subjective - Subjective Service Date: 10/19/16 Patient seen and examined:: with staff Patient is:: awake Per staff patient is:: no adverse event Internal Medicine Objective - Results Result Diagrams: 10/11/16 21:00 10/11/16 21:00 Recent Labs: Laboratory Last Values WBC 5.2 Th/cmm (4.8-10.8) 10/11/16 21:00 RBC 5.16 Mil/cmm (3.80-5.80) 10/11/16 21:00 Hgb 15.6 gm/dL (12.6-17.4) 10/11/16 21:00 Hct 46.3 % (39.0-49.0) 10/11/16 21:00 MCV 89.7 fl (80-99) 10/11/16 21:00 MCH 30.2 pg (27.0-31.0) 10/11/16 21:00 MCHC Differential 33.7 pg (28.0-36.0) 10/11/16 21:00 RDW 13.3 % (11.5-20.0) 10/11/16 21:00 Plt Count 230 Th/cmm (150-400) 10/11/16 21:00 MPV 9.0 fl 10/11/16 21:00 Neutrophils (Manual) 37 % (40-80) L 10/11/16 21:00 Lymphocytes 43 % (20-50) 10/11/16 21:00 Monocytes 12 % (2-10) H 10/11/16 21:00 Eosinophils 4 % (0-5) 10/11/16 21:00 Basophils 1 % (0-3) 10/11/16 21:00 Atypical Lymphocytes 3 % 10/11/16 21:00 Platelet Estimate ADEQUATE (NORMAL) 10/11/16 21:00 Platelet Morphology NORMAL (NORMAL) 10/11/16 21:00 RBC Morph Micro Appear NORMAL (NORMAL) 10/11/16 21:00 PT 10.2 SECONDS (9.5-11.5) 10/11/16 21:00 INR 0.98 (0.5-1.4) 10/11/16 21:00 Sodium 140 mEq/L (136-145) 10/11/16 21:00 Potassium 4.2 mEq/L (3.5-5.1) 10/11/16 21:00 Chloride 109 mEq/L (98-107) H 10/11/16 21:00 Carbon Dioxide 23.4 mEq/L (21.0-31.0) 10/11/16 21:00 Anion Gap 11.8 (7.0-16.0) 10/11/16 21:00 BUN 19 mg/dL (7-25) 10/11/16 21:00 Creatinine 1.1 mg/dL (0.7-1.3) 10/11/16 21:00 Est GFR ( Amer) TNP 10/11/16 21:00 Est GFR (Non-Af Amer) TNP 10/11/16 21:00 BUN/Creatinine Ratio 17.3 10/11/16 21:00 Glucose 104 mg/dL (70-105) 10/11/16 21:00 Calcium 9.4 mg/dL (8.6-10.3) 10/11/16 21:00 Total Bilirubin 0.4 mg/dL (0.3-1.0) 10/11/16 21:00 AST 18 U/L (13-39) 10/11/16 21:00 ALT 11 U/L (7-52) 10/11/16 21:00 Alkaline Phosphatase 57 U/L (34-104) 10/11/16 21:00 Troponin I < 0.01 ng/mL (0.01-0.05) L 10/11/16 21:00 Total Protein 6.2 gm/dL (6.0-8.3) 10/11/16 21:00 Albumin 3.7 gm/dL (4.2-5.5) L 10/11/16 21:00 Globulin 2.5 gm/dL 10/11/16 21:00 Albumin/Globulin Ratio 1.5 (1.0-1.8) 10/11/16 21:00 Triglycerides 169 mg/dL (<150) H 10/11/16 21:00 Cholesterol 146 mg/dL (<200) 10/11/16 21:00 LDL Cholesterol Direct 93 mg/dL (75-193) 10/11/16 21:00 HDL Cholesterol 39 mg/dL (23-92) 10/11/16 21:00 TSH 0.83 uIU/ml (0.34-5.60) 10/11/16 21:00 Urine Source CLEAN C 03/12/17 21:20 Urine Color YELLOW 10/11/16 21:20 Urine Clarity CLEAR (CLEAR) 10/11/16 21:20 Urine pH 7.0 10/11/16 21:20 Ur Specific [place] 1.020 (1.005-1.030) 10/11/16 21:20 Urine Protein NEGATIVE mg/dL (NEGATIVE) 10/11/16 21:20 Urine Glucose (UA) NEGATIVE mg/dL (NEGATIVE) 10/11/16 21:20 Urine Ketones NEGATIVE mg/dL (NEGATIVE) 10/11/16 21:20 Urine Blood NEGATIVE (NEGATIVE) 10/11/16 21:20 Urine Nitrate NEGATIVE (NEGATIVE) 10/11/16 21:20 Urine Bilirubin NEGATIVE (NEGATIVE) 10/11/16 21:20 Urine Urobilinogen 0.2 E.U./dL (0.2 - 1.0) 10/11/16 21:20 Ur Leukocyte Esterase NEGATIVE (NEGATIVE) 10/11/16 21:20 Urine RBC NONE SEEN /hpf (0-5) 10/11/16 21:20 Urine WBC 0-2 /hpf (0-5) 10/11/16 21:20 Ur Epithelial Cells RARE /lpf (FEW) 10/11/16 21:20 Urine Bacteria OCCASIONAL /hpf (NONE SEEN) 10/11/16 21:20 RPR NONREACTIVE (NONREACTIVE) 10/11/16 21:00 - Physical Exam Vitals and I&O: Vital Signs Temp 97.4 F 10/19/16 05:47 Pulse 51 10/19/16 05:47 Resp 20 10/19/16 05:47 BP 127/82 10/19/16 05:47 Pulse Ox 95 10/19/16 05:47 Intake & Output 10/18/16 10/19/16 10/19/16 18:59 06:59 18:59 Intake Total 800 240 Balance 800 240 Intake: Oral 800 240 Other: # Voids 4 3 # Bowel Movements 1 0 Active Medications: Current Medications Acetaminophen (Tylenol) 650 mg PO Q4HR PRN PRN Reason: PAIN OR TEMP 100.3 F Stop: 12/11/16 01:29 Al Hydrox/Mg Hydrox/Simethicone (Maalox) 30 ml PO Q4HR PRN PRN Reason: GI DISTRESS Stop: 12/11/16 01:29 Amlodipine Besylate (Norvasc) 10 mg PO DAILY WILL Stop: 12/11/16 08:59 Last Admin: 10/18/16 08:22 Dose: Not Given Ascorbic Acid (Vitamin C) 500 mg PO DAILY WILL Stop: 12/11/16 08:59 Last Admin: 10/19/16 09:05 Dose: 500 mg Benztropine Mesylate (Cogentin) 0.5 mg PO BID WILL Stop: 12/11/16 08:59 Last Admin: 10/19/16 09:05 Dose: 0.5 mg Carbidopa/Levodopa (Sinemet 25mg-100 Mg) 1 tab PO TID WILL Stop: 12/11/16 08:59 Last Admin: 10/19/16 09:05 Dose: 1 tab Donepezil HCl (Aricept) 10 mg PO HS WILL Stop: 12/11/16 20:59 Last Admin: 10/18/16 21:11 Dose: 10 mg Haloperidol Decanoate (Haldol Dec) 25 mg IM QMONTH WILL PRN Reason: Protocol Stop: 12/13/16 08:59 Last Admin: 10/14/16 09:39 Dose: Not Given Levothyroxine Sodium (Synthroid) 0.025 mg PO QDAC WILL Stop: 12/11/16 07:29 Last Admin: 10/19/16 06:42 Dose: 0.025 mg Lorazepam (Ativan) 0.5 mg PO Q4HR PRN; Protocol PRN Reason: Anxiety Stop: 11/11/16 01:29 Multivitamins/Vitamin C (Theragran) 1 tab PO DAILY WILL Stop: 12/11/16 08:59 Last Admin: 10/19/16 09:05 Dose: 1 tab Polyethylene Glycol (Miralax) 17 gm PO DAILY WILL Stop: 12/11/16 08:59 Last Admin: 10/18/16 08:21 Dose: 17 gm Potassium Chloride (Klor-Con) 20 meq PO DAILY WILL Stop: 12/11/16 08:59 Last Admin: 10/19/16 09:05 Dose: 20 meq Simvastatin (Zocor) 10 mg PO HS WILL PRN Reason: Protocol Stop: 12/11/16 20:59 Last Admin: 10/18/16 21:11 Dose: 10 mg Valproate Sodium (Depakene) 500 mg PO Q12HR WILL PRN Reason: Protocol Stop: 12/11/16 08:59 Last Admin: 10/19/16 09:05 Dose: 500 mg Zolpidem Tartrate (Ambien) 5 mg PO HS PRN PRN Reason: Insomnia Stop: 12/11/16 01:29 General: alert HEENT: NC/AT, PERRLA Neck: Supple Lungs: CTAB Cardiovascular: RRR, Normal S1, Normal S2, without murmur Abdomen: soft non-tender, non-distended Extremities: clear - Procedures Procedures: Procedures Procedure Code Date CLOSURE SKIN & SUBCUTANEOUS NEC 86.59 07/07/12 DPT ADMINISTRATION 99.39 07/07/12 IMMUNIZATION ADMIN 85690 07/07/12 OTHER GROUP THERAPY 94.44 12/10/14 RECREATIONAL THERAPY 93.81 09/15/12 RPR S/N/AX/GEN/TRNK 2.5CM/< 47484 07/07/12 TDAP VACCINE 7 YRS/> [place] [id number] 07/07/12 Internal Medicine Assmt/Plan - Assessment Assessment: HTN DYSLIPIDEMIA ESRD SEIZURES DEMENTIA GLAUCOMA GAIT ABNORMALITY - Plan Plan: seizure precautions fall precautions continue snf meds cpm Nutritional Asmnt/Malnutr-PDOC - Dietary Evaluation Malnutrition Findings (Please click <Entered> for more info): Nutritional Asmnt/Malnutrition Start: 10/16/16 11: 33 Text: Status: Complete Freq: Document 10/16/16 11:33 GSUN (Rec: 10/16/16 11:48 GSUN [email or web address]) Nutritional Asmnt/Malnutrition Patient General Information Nutritional Screening Moderate Risk Screening Diagnosis Psychosis Pertinent Medical Hx/Surgical Hx HTN, dyslipidemia, ERSD, seizures, dementia, glaucoma, gait abnormality, schizophrenia, delusional disorder Subjective Information 76 year old male from SNF, admitted for refusing meds and poor PO intake. Pt was verbally inappropriate, able to answer simple questions. Pt noted with few missig teeth and severe tremors to jaw and hands. 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 Avg PO intake 81% x past 12 meals + Boost TID, meeting nutritional needs. Current Diet Order/ Nutrition Support [facility] ground, NOÉ, prefer ice cream with lunch and dinner. Pertinent Medications Maalox, Sinemet, Haldol, Synthroid, Theragran, Miralax Pertinent Labs Reviewed. Nutritional Hx/Data Height 5 ft 11 in Height (Calculated Centimeters) 180.3 Current Weight (lbs) 159 lb Weight (Calculated Kilograms) 72.1 Weight (Calculated Grams) 08746.2 [place] Body Weight 172 Weight Status Approriate GI Symptoms Food Allergies No Cultural/Ethnic/Mu-Ism Belief Unknown. Usual diet at home [place]: mech soft, NOÉ , protein nourishments TID, ice cream, sandwi Skin Integrity/Comment: Rohith 17. Skin intact. Current %PO Good (75-100%) Estimated Nutritional Goals BEE in Kcals: Using Current wt Calories/Kcals/Kg CBW 72kg Kcals Calculated 1800-2160kcal (25-30kcal/kg) Protein: Using Current wt Protein Calculated 72g/kg Fluid: ml 1800-2160ml (1ml/kcal) Nutritional Problem 1. Problem Problem No nutritional problems at this time. Intervention/Recommendation Comments 1. Remove ice cream lunch and dinner. Pt is receiving mech ground NOÉ meal with Boost TID , which is enough to meet nutritional needs. Encourage pt to obtain nutrient from nutritious/main foods, not ice cream. Expected Outcomes/Goals Expected Outcomes/Goals 1. PO intake continue to meet at least 75% of estimated nutritional needs.
[2016-10-19] MEDS: POLYETHYLENE GLYCOL 3350 17 GM PACK PO SCH (16:43)
--- NOTE | 2016-10-19 18:40 | Progress Notes ---
SUBJECTIVE: The patient was seen, discussed with staff, and chart reviewed. Remains anxious, guarded, still confused, irritable, some agitation is noted, however, in the past couple of days, he has been taking his medications and his appetite is slowly improving. The patient's compliance started to improve. ASSESSMENT: The patient is still in psychotic phase. PLAN: We will continue medication management. Continue supportive measures. Continue to monitor closely. Encourage the patient to remain compliant. [facility]# [id number]
[2016-10-20] MEDS: Levothyroxine 0.025 Mg Tab PO SCH (06:36)
[2016-10-20] MEDS: Potassium Chloride 20 mEq ER Tab PO SCH (09:56)
[2016-10-20] MEDS: Multivitamin Tab PO SCH (09:57)
--- NOTE | 2016-10-20 11:42 | Internal Medicine Prog Note ---
Internal Medicine Subjective - Subjective Service Date: 10/20/16 Patient seen and examined:: with staff Patient is:: awake Per staff patient is:: no adverse event Internal Medicine Objective - Results Result Diagrams: 10/11/16 21:00 10/11/16 21:00 Recent Labs: Laboratory Last Values WBC 5.2 Th/cmm (4.8-10.8) 10/11/16 21:00 RBC 5.16 Mil/cmm (3.80-5.80) 10/11/16 21:00 Hgb 15.6 gm/dL (12.6-17.4) 10/11/16 21:00 Hct 46.3 % (39.0-49.0) 10/11/16 21:00 MCV 89.7 fl (80-99) 10/11/16 21:00 MCH 30.2 pg (27.0-31.0) 10/11/16 21:00 MCHC Differential 33.7 pg (28.0-36.0) 10/11/16 21:00 RDW 13.3 % (11.5-20.0) 10/11/16 21:00 Plt Count 230 Th/cmm (150-400) 10/11/16 21:00 MPV 9.0 fl 10/11/16 21:00 Neutrophils (Manual) 37 % (40-80) L 10/11/16 21:00 Lymphocytes 43 % (20-50) 10/11/16 21:00 Monocytes 12 % (2-10) H 10/11/16 21:00 Eosinophils 4 % (0-5) 10/11/16 21:00 Basophils 1 % (0-3) 10/11/16 21:00 Atypical Lymphocytes 3 % 10/11/16 21:00 Platelet Estimate ADEQUATE (NORMAL) 10/11/16 21:00 Platelet Morphology NORMAL (NORMAL) 10/11/16 21:00 RBC Morph Micro Appear NORMAL (NORMAL) 10/11/16 21:00 PT 10.2 SECONDS (9.5-11.5) 10/11/16 21:00 INR 0.98 (0.5-1.4) 10/11/16 21:00 Sodium 140 mEq/L (136-145) 10/11/16 21:00 Potassium 4.2 mEq/L (3.5-5.1) 10/11/16 21:00 Chloride 109 mEq/L (98-107) H 10/11/16 21:00 Carbon Dioxide 23.4 mEq/L (21.0-31.0) 10/11/16 21:00 Anion Gap 11.8 (7.0-16.0) 10/11/16 21:00 BUN 19 mg/dL (7-25) 10/11/16 21:00 Creatinine 1.1 mg/dL (0.7-1.3) 10/11/16 21:00 Est GFR ( Amer) TNP 10/11/16 21:00 Est GFR (Non-Af Amer) TNP 10/11/16 21:00 BUN/Creatinine Ratio 17.3 10/11/16 21:00 Glucose 104 mg/dL (70-105) 10/11/16 21:00 Calcium 9.4 mg/dL (8.6-10.3) 10/11/16 21:00 Total Bilirubin 0.4 mg/dL (0.3-1.0) 10/11/16 21:00 AST 18 U/L (13-39) 10/11/16 21:00 ALT 11 U/L (7-52) 10/11/16 21:00 Alkaline Phosphatase 57 U/L (34-104) 10/11/16 21:00 Troponin I < 0.01 ng/mL (0.01-0.05) L 10/11/16 21:00 Total Protein 6.2 gm/dL (6.0-8.3) 10/11/16 21:00 Albumin 3.7 gm/dL (4.2-5.5) L 10/11/16 21:00 Globulin 2.5 gm/dL 10/11/16 21:00 Albumin/Globulin Ratio 1.5 (1.0-1.8) 10/11/16 21:00 Triglycerides 169 mg/dL (<150) H 10/11/16 21:00 Cholesterol 146 mg/dL (<200) 10/11/16 21:00 LDL Cholesterol Direct 93 mg/dL (75-193) 10/11/16 21:00 HDL Cholesterol 39 mg/dL (23-92) 10/11/16 21:00 TSH 0.83 uIU/ml (0.34-5.60) 10/11/16 21:00 Urine Source CLEAN C 03/12/17 21:20 Urine Color YELLOW 10/11/16 21:20 Urine Clarity CLEAR (CLEAR) 10/11/16 21:20 Urine pH 7.0 10/11/16 21:20 Ur Specific [place] 1.020 (1.005-1.030) 10/11/16 21:20 Urine Protein NEGATIVE mg/dL (NEGATIVE) 10/11/16 21:20 Urine Glucose (UA) NEGATIVE mg/dL (NEGATIVE) 10/11/16 21:20 Urine Ketones NEGATIVE mg/dL (NEGATIVE) 10/11/16 21:20 Urine Blood NEGATIVE (NEGATIVE) 10/11/16 21:20 Urine Nitrate NEGATIVE (NEGATIVE) 10/11/16 21:20 Urine Bilirubin NEGATIVE (NEGATIVE) 10/11/16 21:20 Urine Urobilinogen 0.2 E.U./dL (0.2 - 1.0) 10/11/16 21:20 Ur Leukocyte Esterase NEGATIVE (NEGATIVE) 10/11/16 21:20 Urine RBC NONE SEEN /hpf (0-5) 10/11/16 21:20 Urine WBC 0-2 /hpf (0-5) 10/11/16 21:20 Ur Epithelial Cells RARE /lpf (FEW) 10/11/16 21:20 Urine Bacteria OCCASIONAL /hpf (NONE SEEN) 10/11/16 21:20 RPR NONREACTIVE (NONREACTIVE) 10/11/16 21:00 - Physical Exam Vitals and I&O: Vital Signs Temp 97.8 F 10/20/16 06:15 Pulse 60 10/20/16 06:15 Resp 19 10/20/16 06:15 BP 124/71 10/20/16 06:15 Pulse Ox 98 10/20/16 06:15 Intake & Output 10/19/16 10/20/16 10/20/16 18:59 06:59 18:59 Intake Total 1800 120 Output Total 3 Balance 1797 120 Intake: Oral 1800 120 Output: Urine 3 Other: # Voids 3 # Bowel Movements 0 0 Active Medications: Current Medications Acetaminophen (Tylenol) 650 mg PO Q4HR PRN PRN Reason: PAIN OR TEMP 100.3 F Stop: 12/11/16 01:29 Al Hydrox/Mg Hydrox/Simethicone (Maalox) 30 ml PO Q4HR PRN PRN Reason: GI DISTRESS Stop: 12/11/16 01:29 Amlodipine Besylate (Norvasc) 10 mg PO DAILY WILL Stop: 12/11/16 08:59 Last Admin: 10/19/16 16:43 Dose: Not Given Ascorbic Acid (Vitamin C) 500 mg PO DAILY WILL Stop: 12/11/16 08:59 Last Admin: 10/20/16 09:57 Dose: 500 mg Benztropine Mesylate (Cogentin) 0.5 mg PO BID WILL Stop: 12/11/16 08:59 Last Admin: 10/20/16 09:57 Dose: 0.5 mg Carbidopa/Levodopa (Sinemet 25mg-100 Mg) 1 tab PO TID WILL Stop: 12/11/16 08:59 Last Admin: 10/20/16 09:57 Dose: 1 tab Donepezil HCl (Aricept) 10 mg PO HS WILL Stop: 12/11/16 20:59 Last Admin: 10/19/16 21:05 Dose: 10 mg Haloperidol Decanoate (Haldol Dec) 25 mg IM QMONTH WILL PRN Reason: Protocol Stop: 12/13/16 08:59 Last Admin: 10/14/16 09:39 Dose: Not Given Levothyroxine Sodium (Synthroid) 0.025 mg PO QDAC WILL Stop: 12/11/16 07:29 Last Admin: 10/20/16 06:36 Dose: 0.025 mg Lorazepam (Ativan) 0.5 mg PO Q4HR PRN; Protocol PRN Reason: Anxiety Stop: 11/11/16 01:29 Multivitamins/Vitamin C (Theragran) 1 tab PO DAILY WILL Stop: 12/11/16 08:59 Last Admin: 10/20/16 09:57 Dose: 1 tab Polyethylene Glycol (Miralax) 17 gm PO DAILY WILL Stop: 12/11/16 08:59 Last Admin: 10/19/16 16:43 Dose: Not Given Potassium Chloride (Klor-Con) 20 meq PO DAILY WILL Stop: 12/11/16 08:59 Last Admin: 10/20/16 09:56 Dose: 20 meq Simvastatin (Zocor) 10 mg PO HS WILL PRN Reason: Protocol Stop: 12/11/16 20:59 Last Admin: 10/19/16 21:06 Dose: 10 mg Valproate Sodium (Depakene) 500 mg PO Q12HR WILL PRN Reason: Protocol Stop: 12/11/16 08:59 Last Admin: 10/20/16 09:57 Dose: 500 mg Zolpidem Tartrate (Ambien) 5 mg PO HS PRN PRN Reason: Insomnia Stop: 12/11/16 01:29 General: alert HEENT: NC/AT, PERRLA Neck: Supple Lungs: CTAB Cardiovascular: RRR, Normal S1, Normal S2, without murmur Abdomen: soft non-tender, non-distended, positive bowel sound Neurological: no change - Procedures Procedures: Procedures Procedure Code Date CLOSURE SKIN & SUBCUTANEOUS NEC 86.59 07/07/12 DPT ADMINISTRATION 99.39 07/07/12 IMMUNIZATION ADMIN 49325 07/07/12 OTHER GROUP THERAPY 94.44 12/10/14 RECREATIONAL THERAPY 93.81 09/15/12 RPR S/N/AX/GEN/TRNK 2.5CM/< 54157 07/07/12 TDAP VACCINE 7 YRS/> [place] [id number] 07/07/12 Internal Medicine Assmt/Plan - Assessment Assessment: HTN DYSLIPIDEMIA ESRD SEIZURES DEMENTIA GLAUCOMA GAIT ABNORMALITY - Plan Plan: seizure precautions fall precautions continue snf meds cpm Nutritional Asmnt/Malnutr-PDOC - Dietary Evaluation Malnutrition Findings (Please click <Entered> for more info): Nutritional Asmnt/Malnutrition Start: 10/16/16 11: 33 Text: Status: Complete Freq: Document 10/16/16 11:33 GSUN (Rec: 10/16/16 11:48 [email or web address] [email or web address]) Nutritional Asmnt/Malnutrition Patient General Information Nutritional Screening Moderate Risk Screening Diagnosis Psychosis Pertinent Medical Hx/Surgical Hx HTN, dyslipidemia, ERSD, seizures, dementia, glaucoma, gait abnormality, schizophrenia, delusional disorder Subjective Information 76 year old male from SNF, admitted for refusing meds and poor PO intake. Pt was verbally inappropriate, able to answer simple questions. Pt noted with few missig teeth and severe tremors to jaw and hands. [employer] WORK[employer] at bedside stated no difficulties chewing/ swallowing, good appetite, 100 % breakfast this AM. Avg PO intake 81% x past 12 meals + Boost TID, meeting nutritional needs. Current Diet Order/ Nutrition Support [facility] ground, NOÉ, prefer ice cream with lunch and dinner. Pertinent Medications Maalox, Sinemet, Haldol, Synthroid, Theragran, Miralax Pertinent Labs Reviewed. Nutritional Hx/Data Height 5 ft 11 in Height (Calculated Centimeters) 180.3 Current Weight (lbs) 159 lb Weight (Calculated Kilograms) 72.1 Weight (Calculated Grams) 75691.2 [place] Body Weight 172 Weight Status Approriate GI Symptoms Food Allergies No Cultural/Ethnic/Jain Belief Unknown. Usual diet at home [place]: mech soft, NOÉ , protein nourishments TID, ice cream, sandwi Skin Integrity/Comment: Rohith 17. Skin intact. Current %PO Good (75-100%) Estimated Nutritional Goals BEE in Kcals: Using Current wt Calories/Kcals/Kg CBW 72kg Kcals Calculated 1800-2160kcal (25-30kcal/kg) Protein: Using Current wt Protein Calculated 72g/kg Fluid: ml 1800-2160ml (1ml/kcal) Nutritional Problem 1. Problem Problem No nutritional problems at this time. Intervention/Recommendation Comments 1. Remove ice cream lunch and dinner. Pt is receiving [facility] ground NOÉ meal with Boost TID , which is enough to meet nutritional needs. Encourage pt to obtain nutrient from nutritious/main foods, not ice cream. Expected Outcomes/Goals Expected Outcomes/Goals 1. PO intake continue to meet at least 75% of estimated nutritional needs.
[2016-10-20] MEDS: POLYETHYLENE GLYCOL 3350 17 GM PACK PO SCH (15:56)
--- NOTE | 2016-10-20 21:11 | Progress Notes ---
SUBJECTIVE: I met this patient, discussed with staff, and chart reviewed. Still anxious, guarded, still irritable, somewhat paranoid, internally preoccupied, episodes of refusing care, but his compliance with medication is improving. The patient's appetite is also fair. The patient's insight remains poor and judgment remains impaired. ASSESSMENT: The patient is still in psychotic phase, still agitated. PLAN: Continue hospitalization and monitor closely. Continue supportive measures. [facility]# [id number] [id number]
[2016-10-21] MEDS: Levothyroxine 0.025 Mg Tab PO SCH (06:32)
[2016-10-21] MEDS: Multivitamin Tab PO SCH (09:20)
[2016-10-21] MEDS: POLYETHYLENE GLYCOL 3350 17 GM PACK PO SCH (09:20)
[2016-10-21] MEDS: Potassium Chloride 20 mEq ER Tab PO SCH ×2 (09:20→11:32)
[2016-10-21 10:48] LABS: ALB/GLOB RATIO 1.4 (1.0-1.8); ALKALINE PHOSPHATASE 55 U/L (34-104); ANION GAP 0.7 (7.0-16.0); BILIRUBIN,TOTAL 0.5 mg/dL (0.3-1.0); BUN - UREA NITROGEN 18 mg/dL (7-25); BUN/CREATININE RATIO 16.4; CALCIUM SERUM 9.4 mg/dL (8.6-10.3); CARBON DIOXIDE 30.2 mEq/L (21.0-31.0); CHLORIDE 108 mEq/L (98-107); CREATININE - SERUM 1.1 mg/dL (0.7-1.3); GLUCOSE 89 mg/dL (70-105); POTASSIUM SERUM 3.9 mEq/L (3.5-5.1); SGOT 18 U/L (13-39); SGPT/ALT 15 U/L (7-52); SODIUM SERUM 135 mEq/L (136-145)
--- NOTE | 2016-10-21 15:20 | Internal Medicine Prog Note ---
Internal Medicine Subjective - Subjective Service Date: 10/21/16 Patient seen and examined:: with staff Patient is:: awake Per staff patient is:: no adverse event Internal Medicine Objective - Results Result Diagrams: 10/11/16 21:00 10/21/16 10:10 Recent Labs: Laboratory Last Values WBC 5.2 Th/cmm (4.8-10.8) 10/11/16 21:00 RBC 5.16 Mil/cmm (3.80-5.80) 10/11/16 21:00 Hgb 15.6 gm/dL (12.6-17.4) 10/11/16 21:00 Hct 46.3 % (39.0-49.0) 10/11/16 21:00 MCV 89.7 fl (80-99) 10/11/16 21:00 MCH 30.2 pg (27.0-31.0) 10/11/16 21:00 MCHC Differential 33.7 pg (28.0-36.0) 10/11/16 21:00 RDW 13.3 % (11.5-20.0) 10/11/16 21:00 Plt Count 230 Th/cmm (150-400) 10/11/16 21:00 MPV 9.0 fl 10/11/16 21:00 Neutrophils (Manual) 37 % (40-80) L 10/11/16 21:00 Lymphocytes 43 % (20-50) 10/11/16 21:00 Monocytes 12 % (2-10) H 10/11/16 21:00 Eosinophils 4 % (0-5) 10/11/16 21:00 Basophils 1 % (0-3) 10/11/16 21:00 Atypical Lymphocytes 3 % 10/11/16 21:00 Platelet Estimate ADEQUATE (NORMAL) 10/11/16 21:00 Platelet Morphology NORMAL (NORMAL) 10/11/16 21:00 RBC Morph Micro Appear NORMAL (NORMAL) 10/11/16 21:00 PT 10.2 SECONDS (9.5-11.5) 10/11/16 21:00 INR 0.98 (0.5-1.4) 10/11/16 21:00 Sodium 135 mEq/L (136-145) L 10/21/16 10:10 Potassium 3.9 mEq/L (3.5-5.1) 10/21/16 10:10 Chloride 108 mEq/L (98-107) H 10/21/16 10:10 Carbon Dioxide 30.2 mEq/L (21.0-31.0) 10/21/16 10:10 Anion Gap 0.7 (7.0-16.0) L 10/21/16 10:10 BUN 18 mg/dL (7-25) 10/21/16 10:10 Creatinine 1.1 mg/dL (0.7-1.3) 10/21/16 10:10 Est GFR ( Amer) TNP 10/21/16 10:10 Est GFR (Non-Af Amer) TNP 10/21/16 10:10 BUN/Creatinine Ratio 16.4 10/21/16 10:10 Glucose 89 mg/dL (70-105) 10/21/16 10:10 Calcium 9.4 mg/dL (8.6-10.3) 10/21/16 10:10 Total Bilirubin 0.5 mg/dL (0.3-1.0) 10/21/16 10:10 AST 18 U/L (13-39) 10/21/16 10:10 ALT 15 U/L (7-52) 10/21/16 10:10 Alkaline Phosphatase 55 U/L (34-104) 10/21/16 10:10 Troponin I < 0.01 ng/mL (0.01-0.05) L 10/11/16 21:00 Total Protein 6.1 gm/dL (6.0-8.3) 10/21/16 10:10 Albumin 3.6 gm/dL (4.2-5.5) L 10/21/16 10:10 Globulin 2.5 gm/dL 10/21/16 10:10 Albumin/Globulin Ratio 1.4 (1.0-1.8) 10/21/16 10:10 Triglycerides 169 mg/dL (<150) H 10/11/16 21:00 Cholesterol 146 mg/dL (<200) 10/11/16 21:00 LDL Cholesterol Direct 93 mg/dL (75-193) 10/11/16 21:00 HDL Cholesterol 39 mg/dL (23-92) 10/11/16 21:00 TSH 0.83 uIU/ml (0.34-5.60) 10/11/16 21:00 Urine Source CLEAN C 10/11/16 21:20 Urine Color YELLOW 10/11/16 21:20 Urine Clarity CLEAR (CLEAR) 10/11/16 21:20 Urine pH 7.0 10/11/16 21:20 Ur Specific [place] 1.020 (1.005-1.030) 10/11/16 21:20 Urine Protein NEGATIVE mg/dL (NEGATIVE) 10/11/16 21:20 Urine Glucose (UA) NEGATIVE mg/dL (NEGATIVE) 10/11/16 21:20 Urine Ketones NEGATIVE mg/dL (NEGATIVE) 10/11/16 21:20 Urine Blood NEGATIVE (NEGATIVE) 10/11/16 21:20 Urine Nitrate NEGATIVE (NEGATIVE) 10/11/16 21:20 Urine Bilirubin NEGATIVE (NEGATIVE) 10/11/16 21:20 Urine Urobilinogen 0.2 E.U./dL (0.2 - 1.0) 10/11/16 21:20 Ur Leukocyte Esterase NEGATIVE (NEGATIVE) 10/11/16 21:20 Urine RBC NONE SEEN /hpf (0-5) 10/11/16 21:20 Urine WBC 0-2 /hpf (0-5) 10/11/16 21:20 Ur Epithelial Cells RARE /lpf (FEW) 10/11/16 21:20 Urine Bacteria OCCASIONAL /hpf (NONE SEEN) 10/11/16 21:20 RPR NONREACTIVE (NONREACTIVE) 10/11/16 21:00 - Physical Exam Vitals and I&O: Vital Signs Temp 97.9 F 10/21/16 05:58 Pulse 59 10/21/16 09:18 Resp 18 10/21/16 05:58 BP 113/76 10/21/16 09:18 Pulse Ox 95 10/21/16 05:58 Intake & Output 10/20/16 10/21/16 10/21/16 18:59 06:59 18:59 Intake Total 1400 120 Balance 1400 120 Intake: Oral 1400 120 Other: # Voids 5 2 # Bowel Movements 0 Active Medications: Current Medications Acetaminophen (Tylenol) 650 mg PO Q4HR PRN PRN Reason: PAIN OR TEMP 100.3 F Stop: 12/11/16 01:29 Al Hydrox/Mg Hydrox/Simethicone (Maalox) 30 ml PO Q4HR PRN PRN Reason: GI DISTRESS Stop: 12/11/16 01:29 Amlodipine Besylate (Norvasc) 10 mg PO DAILY WILL Stop: 12/11/16 08:59 Last Admin: 10/21/16 09:18 Dose: Not Given Ascorbic Acid (Vitamin C) 500 mg PO DAILY WILL Stop: 12/11/16 08:59 Last Admin: 10/21/16 09:18 Dose: 500 mg Benztropine Mesylate (Cogentin) 0.5 mg PO BID WILL Stop: 12/11/16 08:59 Last Admin: 10/21/16 09:19 Dose: 0.5 mg Carbidopa/Levodopa (Sinemet 25mg-100 Mg) 1 tab PO TID WILL Stop: 12/11/16 08:59 Last Admin: 10/21/16 09:19 Dose: 1 tab Donepezil HCl (Aricept) 10 mg PO HS WILL Stop: 12/11/16 20:59 Last Admin: 10/20/16 20:23 Dose: Not Given Haloperidol Decanoate (Haldol Dec) 25 mg IM QMONTH WILL PRN Reason: Protocol Stop: 12/13/16 08:59 Last Admin: 10/14/16 09:39 Dose: Not Given Levothyroxine Sodium (Synthroid) 0.025 mg PO QDAC WILL Stop: 12/11/16 07:29 Last Admin: 10/21/16 06:32 Dose: Not Given Lorazepam (Ativan) 0.5 mg PO Q4HR PRN; Protocol PRN Reason: Anxiety Stop: 11/11/16 01:29 Multivitamins/Vitamin C (Theragran) 1 tab PO DAILY WILL Stop: 12/11/16 08:59 Last Admin: 10/21/16 09:20 Dose: 1 tab Polyethylene Glycol (Miralax) 17 gm PO DAILY WILL Stop: 12/11/16 08:59 Last Admin: 10/21/16 09:20 Dose: 17 gm Potassium Chloride (Klor-Con) 20 meq PO DAILY WILL Stop: 12/11/16 08:59 Last Admin: 10/21/16 11:32 Dose: 20 meq Simvastatin (Zocor) 10 mg PO HS WILL PRN Reason: Protocol Stop: 12/11/16 20:59 Last Admin: 10/20/16 20:22 Dose: Not Given Valproate Sodium (Depakene) 500 mg PO Q12HR WILL PRN Reason: Protocol Stop: 12/11/16 08:59 Last Admin: 10/21/16 09:21 Dose: 500 mg Zolpidem Tartrate (Ambien) 5 mg PO HS PRN PRN Reason: Insomnia Stop: 12/11/16 01:29 General: alert HEENT: NC/AT, PERRLA Neck: Supple Lungs: CTAB Cardiovascular: RRR, Normal S1, Normal S2, without murmur Abdomen: soft non-tender, non-distended Extremities: clear - Procedures Procedures: Procedures Procedure Code Date CLOSURE SKIN & SUBCUTANEOUS NEC 86.59 07/07/12 DPT ADMINISTRATION 99.39 07/07/12 IMMUNIZATION ADMIN 29031 07/07/12 OTHER GROUP THERAPY 94.44 12/10/14 RECREATIONAL THERAPY 93.81 09/15/12 RPR S/N/AX/GEN/TRNK 2.5CM/< 73509 07/07/12 TDAP VACCINE 7 YRS/> [place] [id number] 07/07/12 Internal Medicine Assmt/Plan - Assessment Assessment: HTN DYSLIPIDEMIA ESRD SEIZURES DEMENTIA GLAUCOMA GAIT ABNORMALITY - Plan Plan: seizure precautions fall precautions continue snf meds cpm Nutritional Asmnt/Malnutr-PDOC - Dietary Evaluation Malnutrition Findings (Please click <Entered> for more info): Nutritional Asmnt/Malnutrition Start: 10/16/16 11: 33 Text: Status: Complete Freq: Document 10/16/16 11:33 GSUN (Rec: 10/16/16 11:48 GSUN [email or web address]) Nutritional Asmnt/Malnutrition Patient General Information Nutritional Screening Moderate Risk Screening Diagnosis Psychosis Pertinent Medical Hx/Surgical Hx HTN, dyslipidemia, ERSD, seizures, dementia, glaucoma, gait abnormality, schizophrenia, delusional disorder Subjective Information 76 year old male from SNF, admitted for refusing meds and poor PO intake. Pt was verbally inappropriate, able to answer simple questions. Pt noted with few missig teeth and severe tremors to jaw and hands. PEDIATRIC NP at bedside stated no difficulties chewing/ swallowing, good appetite, 100 % breakfast this AM. Avg PO intake 81% x past 12 meals + Boost TID, meeting nutritional needs. Current Diet Order/ Nutrition Support [facility] ground, NOÉ, prefer ice cream with lunch and dinner. Pertinent Medications Maalox, Sinemet, Haldol, Synthroid, Theragran, Miralax Pertinent Labs Reviewed. Nutritional Hx/Data Height 5 ft 11 in Height (Calculated Centimeters) 180.3 Current Weight (lbs) 159 lb Weight (Calculated Kilograms) 72.1 Weight (Calculated Grams) 10625.2 [place] Body Weight 172 Weight Status Approriate GI Symptoms Food Allergies No Cultural/Ethnic/Cheondoism Belief Unknown. Usual diet at home [place]: mech soft, NOÉ , protein nourishments TID, ice cream, sandwi Skin Integrity/Comment: Rohith 17. Skin intact. Current %PO Good (75-100%) Estimated Nutritional Goals BEE in Kcals: Using Current wt Calories/Kcals/Kg CBW 72kg Kcals Calculated 1800-2160kcal (25-30kcal/kg) Protein: Using Current wt Protein Calculated 72g/kg Fluid: ml 1800-2160ml (1ml/kcal) Nutritional Problem 1. Problem Problem No nutritional problems at this time. Intervention/Recommendation Comments 1. Remove ice cream lunch and dinner. Pt is receiving mech ground NOÉ meal with Boost TID , which is enough to meet nutritional needs. Encourage pt to obtain nutrient from nutritious/main foods, not ice cream. Expected Outcomes/Goals Expected Outcomes/Goals 1. PO intake continue to meet at least 75% of estimated nutritional needs.
--- NOTE | 2016-10-21 22:59 | Progress Notes ---
SUBJECTIVE: I met this patient today, discussed with staff, chart is reviewed, was seen in bed, eating his dinner, the patient appears to be less anxious, less guarded, less irritable; however, his insight is still poor, judgment remains impaired. The patient has episodes of resisting care, appears to be decreasing, he starts to comply with medications. ASSESSMENT: The patient's condition slowly started to improve. PLAN: We will continue supportive measure, we will continue medication management. [facility]# [phone] [id number]
[2016-10-22] MEDS: Levothyroxine 0.025 Mg Tab PO SCH (06:30)
[2016-10-22] MEDS: Potassium Chloride 20 mEq ER Tab PO SCH (09:55)
[2016-10-22] MEDS: Multivitamin Tab PO SCH (09:56)
[2016-10-22] MEDS: POLYETHYLENE GLYCOL 3350 17 GM PACK PO SCH (09:57)
--- NOTE | 2016-10-22 12:49 | Internal Medicine Prog Note ---
Internal Medicine Subjective - Subjective Service Date: 10/22/16 Patient seen and examined:: with staff Patient is:: awake Per staff patient is:: no adverse event Internal Medicine Objective - Results Result Diagrams: 10/11/16 21:00 10/21/16 10:10 Recent Labs: Laboratory Last Values WBC 5.2 Th/cmm (4.8-10.8) 10/11/16 21:00 RBC 5.16 Mil/cmm (3.80-5.80) 10/11/16 21:00 Hgb 15.6 gm/dL (12.6-17.4) 10/11/16 21:00 Hct 46.3 % (39.0-49.0) 10/11/16 21:00 MCV 89.7 fl (80-99) 10/11/16 21:00 MCH 30.2 pg (27.0-31.0) 10/11/16 21:00 MCHC Differential 33.7 pg (28.0-36.0) 10/11/16 21:00 RDW 13.3 % (11.5-20.0) 10/11/16 21:00 Plt Count 230 Th/cmm (150-400) 10/11/16 21:00 MPV 9.0 fl 10/11/16 21:00 Neutrophils (Manual) 37 % (40-80) L 10/11/16 21:00 Lymphocytes 43 % (20-50) 10/11/16 21:00 Monocytes 12 % (2-10) H 10/11/16 21:00 Eosinophils 4 % (0-5) 10/11/16 21:00 Basophils 1 % (0-3) 10/11/16 21:00 Atypical Lymphocytes 3 % 10/11/16 21:00 Platelet Estimate ADEQUATE (NORMAL) 10/11/16 21:00 Platelet Morphology NORMAL (NORMAL) 10/11/16 21:00 RBC Morph Micro Appear NORMAL (NORMAL) 10/11/16 21:00 PT 10.2 SECONDS (9.5-11.5) 10/11/16 21:00 INR 0.98 (0.5-1.4) 10/11/16 21:00 Sodium 135 mEq/L (136-145) L 10/21/16 10:10 Potassium 3.9 mEq/L (3.5-5.1) 10/21/16 10:10 Chloride 108 mEq/L (98-107) H 10/21/16 10:10 Carbon Dioxide 30.2 mEq/L (21.0-31.0) 10/21/16 10:10 Anion Gap 0.7 (7.0-16.0) L 10/21/16 10:10 BUN 18 mg/dL (7-25) 10/21/16 10:10 Creatinine 1.1 mg/dL (0.7-1.3) 10/21/16 10:10 Est GFR ( Amer) TNP 10/21/16 10:10 Est GFR (Non-Af Amer) TNP 10/21/16 10:10 BUN/Creatinine Ratio 16.4 10/21/16 10:10 Glucose 89 mg/dL (70-105) 10/21/16 10:10 Calcium 9.4 mg/dL (8.6-10.3) 10/21/16 10:10 Total Bilirubin 0.5 mg/dL (0.3-1.0) 10/21/16 10:10 AST 18 U/L (13-39) 10/21/16 10:10 ALT 15 U/L (7-52) 10/21/16 10:10 Alkaline Phosphatase 55 U/L (34-104) 10/21/16 10:10 Troponin I < 0.01 ng/mL (0.01-0.05) L 10/11/16 21:00 Total Protein 6.1 gm/dL (6.0-8.3) 10/21/16 10:10 Albumin 3.6 gm/dL (4.2-5.5) L 10/21/16 10:10 Globulin 2.5 gm/dL 10/21/16 10:10 Albumin/Globulin Ratio 1.4 (1.0-1.8) 10/21/16 10:10 Triglycerides 169 mg/dL (<150) H 10/11/16 21:00 Cholesterol 146 mg/dL (<200) 10/11/16 21:00 LDL Cholesterol Direct 93 mg/dL (75-193) 10/11/16 21:00 HDL Cholesterol 39 mg/dL (23-92) 10/11/16 21:00 TSH 0.83 uIU/ml (0.34-5.60) 10/11/16 21:00 Urine Source CLEAN C 10/11/16 21:20 Urine Color YELLOW 10/11/16 21:20 Urine Clarity CLEAR (CLEAR) 10/11/16 21:20 Urine pH 7.0 10/11/16 21:20 Ur Specific [place] 1.020 (1.005-1.030) 10/11/16 21:20 Urine Protein NEGATIVE mg/dL (NEGATIVE) 10/11/16 21:20 Urine Glucose (UA) NEGATIVE mg/dL (NEGATIVE) 10/11/16 21:20 Urine Ketones NEGATIVE mg/dL (NEGATIVE) 10/11/16 21:20 Urine Blood NEGATIVE (NEGATIVE) 10/11/16 21:20 Urine Nitrate NEGATIVE (NEGATIVE) 10/11/16 21:20 Urine Bilirubin NEGATIVE (NEGATIVE) 10/11/16 21:20 Urine Urobilinogen 0.2 E.U./dL (0.2 - 1.0) 10/11/16 21:20 Ur Leukocyte Esterase NEGATIVE (NEGATIVE) 10/11/16 21:20 Urine RBC NONE SEEN /hpf (0-5) 10/11/16 21:20 Urine WBC 0-2 /hpf (0-5) 10/11/16 21:20 Ur Epithelial Cells RARE /lpf (FEW) 10/11/16 21:20 Urine Bacteria OCCASIONAL /hpf (NONE SEEN) 10/11/16 21:20 RPR NONREACTIVE (NONREACTIVE) 10/11/16 21:00 - Physical Exam Vitals and I&O: Vital Signs Temp 97.6 F 10/22/16 06:50 Pulse 61 10/22/16 09:56 Resp 18 10/22/16 06:50 BP 111/70 10/22/16 09:56 Pulse Ox 96 10/22/16 06:50 Intake & Output 10/21/16 10/22/16 10/22/16 18:59 06:59 18:59 Intake Total 960 Balance 960 Intake: Oral 960 Other: # Voids 3 # Bowel Movements 1 Active Medications: Current Medications Acetaminophen (Tylenol) 650 mg PO Q4HR PRN PRN Reason: PAIN OR TEMP 100.3 F Stop: 12/11/16 01:29 Al Hydrox/Mg Hydrox/Simethicone (Maalox) 30 ml PO Q4HR PRN PRN Reason: GI DISTRESS Stop: 12/11/16 01:29 Amlodipine Besylate (Norvasc) 10 mg PO DAILY WILL Stop: 12/11/16 08:59 Last Admin: 10/22/16 09:56 Dose: Not Given Ascorbic Acid (Vitamin C) 500 mg PO DAILY WILL Stop: 12/11/16 08:59 Last Admin: 10/22/16 09:56 Dose: 500 mg Benztropine Mesylate (Cogentin) 0.5 mg PO BID WILL Stop: 12/11/16 08:59 Last Admin: 10/22/16 09:56 Dose: 0.5 mg Carbidopa/Levodopa (Sinemet 25mg-100 Mg) 1 tab PO TID WILL Stop: 12/11/16 08:59 Last Admin: 10/22/16 09:55 Dose: 1 tab Donepezil HCl (Aricept) 10 mg PO HS WILL Stop: 12/11/16 20:59 Last Admin: 10/21/16 20:34 Dose: Not Given Haloperidol Decanoate (Haldol Dec) 25 mg IM QMONTH WLIL PRN Reason: Protocol Stop: 12/13/16 08:59 Last Admin: 10/14/16 09:39 Dose: Not Given Levothyroxine Sodium (Synthroid) 0.025 mg PO QDAC WILL Stop: 12/11/16 07:29 Last Admin: 10/22/16 06:30 Dose: Not Given Lorazepam (Ativan) 0.5 mg PO Q4HR PRN; Protocol PRN Reason: Anxiety Stop: 11/11/16 01:29 Multivitamins/Vitamin C (Theragran) 1 tab PO DAILY WILL Stop: 12/11/16 08:59 Last Admin: 10/22/16 09:56 Dose: 1 tab Polyethylene Glycol (Miralax) 17 gm PO DAILY WILL Stop: 12/11/16 08:59 Last Admin: 10/22/16 09:57 Dose: 17 gm Potassium Chloride (Klor-Con) 20 meq PO DAILY WILL Stop: 12/11/16 08:59 Last Admin: 10/22/16 09:55 Dose: 20 meq Simvastatin (Zocor) 10 mg PO HS WILL PRN Reason: Protocol Stop: 12/11/16 20:59 Last Admin: 10/21/16 20:35 Dose: Not Given Valproate Sodium (Depakene) 500 mg PO Q12HR WILL PRN Reason: Protocol Stop: 12/11/16 08:59 Last Admin: 10/22/16 09:55 Dose: 500 mg Zolpidem Tartrate (Ambien) 5 mg PO HS PRN PRN Reason: Insomnia Stop: 12/11/16 01:29 General: alert HEENT: NC/AT, PERRLA Neck: Supple Lungs: CTAB Cardiovascular: RRR, Normal S1, Normal S2, without murmur Abdomen: soft non-tender, non-distended Extremities: clear - Procedures Procedures: Procedures Procedure Code Date CLOSURE SKIN & SUBCUTANEOUS NEC 86.59 07/07/12 DPT ADMINISTRATION 99.39 07/07/12 IMMUNIZATION ADMIN [id number] 07/07/12 OTHER GROUP THERAPY 94.44 12/10/14 RECREATIONAL THERAPY 93.81 09/15/12 RPR S/N/AX/GEN/TRNK 2.5CM/< [id number] 07/07/12 TDAP VACCINE 7 YRS/> IM [id number] 07/07/12 Internal Medicine Assmt/Plan - Assessment Assessment: HTN DYSLIPIDEMIA ESRD SEIZURES DEMENTIA GLAUCOMA GAIT ABNORMALITY - Plan Plan: seizure precautions fall precautions continue snf meds cpm Nutritional Asmnt/Malnutr-PDOC - Dietary Evaluation Malnutrition Findings (Please click <Entered> for more info): Nutritional Asmnt/Malnutrition Start: 10/16/16 11: 33 Text: Status: Complete Freq: Document 10/16/16 11:33 GSUN (Rec: 10/16/16 11:48 GSUN [email or web address]) Nutritional Asmnt/Malnutrition Patient General Information Nutritional Screening Moderate Risk Screening Diagnosis Psychosis Pertinent Medical Hx/Surgical Hx HTN, dyslipidemia, ERSD, seizures, dementia, glaucoma, gait abnormality, schizophrenia, delusional disorder Subjective Information 76 year old male from SNF, admitted for refusing meds and poor PO intake. Pt was verbally inappropriate, able to answer simple questions. Pt noted with few missig teeth and severe tremors to jaw and hands. VIRTUAL ASSISTANT at bedside stated no difficulties chewing/ swallowing, good appetite, 100 % breakfast this AM. Avg PO intake 81% x past 12 meals + Boost TID, meeting nutritional needs. Current Diet Order/ Nutrition Support [facility] ground, NOÉ, prefer ice cream with lunch and dinner. Pertinent Medications Maalox, Sinemet, Haldol, Synthroid, Theragran, Miralax Pertinent Labs Reviewed. Nutritional Hx/Data Height 5 ft 11 in Height (Calculated Centimeters) 180.3 Current Weight (lbs) 159 lb Weight (Calculated Kilograms) 72.1 Weight (Calculated Grams) 43904.2 [place] Body Weight 172 Weight Status Approriate GI Symptoms Food Allergies No Cultural/Ethnic/Bah[place] Belief Unknown. Usual diet at home [place]: mech soft, NOÉ , protein nourishments TID, ice cream, sandwi Skin Integrity/Comment: Rohith 17. Skin intact. Current %PO Good (75-100%) Estimated Nutritional Goals BEE in Kcals: Using Current wt Calories/Kcals/Kg CBW 72kg Kcals Calculated 1800-2160kcal (25-30kcal/kg) Protein: Using Current wt Protein Calculated 72g/kg Fluid: ml 1800-2160ml (1ml/kcal) Nutritional Problem 1. Problem Problem No nutritional problems at this time. Intervention/Recommendation Comments 1. Remove ice cream lunch and dinner. Pt is receiving mech ground NOÉ meal with Boost TID , which is enough to meet nutritional needs. Encourage pt to obtain nutrient from nutritious/main foods, not ice cream. Expected Outcomes/Goals Expected Outcomes/Goals 1. PO intake continue to meet at least 75% of estimated nutritional needs.
--- NOTE | 2016-10-22 21:03 | Discharge Summary ---
REASON FOR HOSPITALIZATION: Schizoaffective disorder and dementia, Alzheimer's type. HISTORY OF PRESENT ILLNESS: The patient is a 76-year-old male who was admitted to the hospital for increased agitation and aggressive behavior, refusing care, refusing medications, at his correction facility having episodes of yelling. The patient was evaluated and was admitted. HOSPITALIZATION COURSE: Medications were implemented. Supportive measures were implemented. The patient initially was refusing care and refusing medications, but over time, his condition started to respond favorably to treatment and compliance improved. The patient started to comply with medications, yelling episodes subsided down, anger subsided down, and appetite and sleep improved. On 10/22/2016, the patient was compliant with medications, did not have any suicidal or homicidal thoughts, was no longer agitated, took a shower. The patient was accepting treatment. The patient's condition stabilized and he was discharged back to his correction facility. FINAL DIAGNOSES: Schizoaffective disorder, dementia, Alzheimer's type. Medical, Parkinson disease, generalized debility, weakness, arthritis, hypercholesterolemia, and hypertension. CONDITION ON DISCHARGE: Improved. No agitation, no aggressive behavior, appetite. DISPOSITION: Discharged back to his facility. EXPECTED COURSE OF RECOVERY: Fair with proper supportive management. [facility]# [id number]
== END 2016-10-22 18:25 | DRG 885 ==
LOC: ER 19:54 → GERO 21:36
DX: F25.9 Schizoaffective disorder, unspecified (principal); G20 Parkinson's disease; R56.9 Unspecified convulsions; I12.0 Hypertensive chronic kidney disease with stage 5 chronic kidney disease or end stage renal disease; N18.6 End stage renal disease; G30.9 Alzheimer's disease, unspecified; F02.80 Dementia in other diseases classified elsewhere, unspecified severity, without behavioral disturbance, psychotic disturbance, mood disturbance, and anxiety; F29 Unspecified psychosis not due to a substance or known physiological condition; I25.10 Atherosclerotic heart disease of native coronary artery without angina pectoris; E78.5 Hyperlipidemia, unspecified; H40.9 Unspecified glaucoma; R26.9 Unspecified abnormalities of gait and mobility; F22 Delusional disorders; R53.1 Weakness; R53.81 Other malaise; M19.90 Unspecified osteoarthritis, unspecified site; E78.00 Pure hypercholesterolemia, unspecified; Z88.8 Allergy status to other drugs, medicaments and biological substances
CPT/HCPCS: 36415-UA; 71010-TC; 80053-TC; 80061-TC; 81001-TC; 84443-TC; 84484-TC; 85007-TC; 85027-TC; 85610-TC; 86592-TC; 93005; Z7610

== ENCOUNTER 2017-03-30 12:39 | Inpatient (IN) | payer MEDICARE, MEDICAID ==
--- NOTE | 2017-03-30 12:56 | ED Physician Chart ---
Chief Complaint/HPI - Patient Information Date Seen:: 03/30/17 Time Seen:: 12:49 Chief Complaint:: sob History of Present Illness:: pt of Dr Jon...from [facility]. here by ems for periods of sob today...has had some chest congestion and low saO2 noted..sao2 up to 98-99 on 2L nc O2. pt has some aldzhemiers and considerable parkinsons and difficulty giving med hx. he denies chest pain or recent illness. he has no pain at present. He does not feel sob. no known fever hx Allergies:: Allergies Allergy/AdvReac Type Severity Reaction Status Date / Time chloropyramine Allergy Uncoded 08/08/15 16:28 Historian:: Patient, EMS, Medical Records Review:: Transfer documents Reviewed, Patient unable to respond Review of Systems - Review of Systems General/Constitutional: No fever, No chills, No weight loss, No weakness, No diaphoresis, No edema, No loss of appetite Skin: No skin lesions, No rash, No bruising Head: No headache, No light-headedness Eyes: No loss of vision, No pain, No diplopia ENT: No earache, No nasal drainage, No sore throat, No tinnitus Neck: No neck pain, No swelling, No thyromegaly, No stiffness, No mass noted Cardio Vascular: No chest pain, No palpitations, No PND, No orthopnea, No edema Pulmonary: SOB, No cough, No sputum, No wheezing GI: No nausea, No vomiting, No diarrhea, No pain, No melena, No hematochezia, No constipation, No hematemesis G/U: No dysuria, No frequency, No hematuria Musculoskeletal: No bone or joint pain, No back pain, No muscle pain Endocrine: No polyuria, No polydipsia Psychiatric: No prior psych history, No depression, No anxiety, No suicidal ideation Hematopoietic: No bruising, No lymphadenopathy Allergic/Immuno: No urticaria, No angioedema Neurological: No syncope, No focal symptoms, No weakness, No paresthesia, No headache, No seizure, No dizziness, No confusion, No vertigo Past Medical History - Past Medical History Past Medical History: HTN, Dyslipidemia, ESRD, Seizures ("convulsions"), Dementia, Other (parkinsons, sick sinus syndrome/bradycardia) Social History: Care Facility Psychiatricy History: Schizophrenia, Dementia Medication: Reviewed Family Medical History - Family Member Mother History Unknown: Yes Ethnicity: Unknown Living Status: Unknown Hx Family Cancer: (unknown) Hx Family Coronary Artery Disease: (unknown) Hx Family Congestive Heart Failure: (unknown) Hx Family Hypertension: (unknown) Hx Family Stroke: (unknown) Hx Family Diabetes: (unknown) Hx Family Seizures: (unknown) Hx Family Dementia: (unknown) Hx Family AIDS: (unknown) Hx Family COPD: (unknown) Hx Family Hepatitis: (unknown) Hx Family Psychiatric Problems: (unknown) Hx Family Tuberculosis: (unknown) Physical Exam - Physical Examination General/Constitutional: Awake, Well-developed, well-nourished, Alert, No distress, GCS 15, Non-toxic appearing, Ambulatory Other Gen/Cons comments:: no severe dypnea. sao2 is 93 on RA. no edema. pt moderately confused..unable to contribute much to hx. color ok. wn/wh. pt has obvious pronounced parkinsonian tremor. otw no fátima neuro defecit. Head: Atraumatic Eyes: Lids, conjuctiva normal, PERRL, EOMI Skin: Nl inspection, No rash, No skin lesions, No ecchymosis, Well hydrated, No lymphadenopathy ENMT: External ears, nose nl, Nasal exam nl, Lips, teeth, gums nl Neck: Nontender, Full ROM w/o pain, No JVD, No nuchal rigidity, No bruit, No mass, No stridor Respiratory: Nl effort/Exclusion, Clear to Auscultation, No Wheeze/Rhonchi/Rales Cardio Vascular: RRR, No murmur, gallop, rubs, NL S1 S2 GI: No tenderness/rebounding/guarding, No organomegaly, No hernia, Normal BS's, Nondistended, No mass/bruits, No McBurney tenderness : No CVA tenderness Extremities: No tenderness or effusion, Full ROM, normal strength in all extremities, No edema, Normal digits & nails Neuro/Psych: Alert/oriented, DTR's symmetric, Normal sensory exam, Normal motor strength, Mood normal, Normal gait, No focal deficits Misc: normal gait, Normal back, No paraspinal tenderness Labs/Radiology/EKG Results - Lab Results Results: Laboratory Tests 03/30/17 03/30/17 03/30/17 12:59 12:59 12:59 WBC 5.2 RBC 5.37 Hgb 16.1 Hct 49.2 H MCV 91.6 MCH 30.0 MCHC Differential 32.8 RDW 12.9 Plt Count 243 MPV 8.9 Neutrophils (Manual) 39 L Lymphocytes 42 Monocytes 13 H Eosinophils 3 Basophils 3 Platelet Estimate ADEQUATE Platelet Morphology NORMAL RBC Morph Micro Appear NORMAL Sodium 138 Potassium 4.5 Chloride 108 H Carbon Dioxide 23.5 Anion Gap 11.0 BUN 18 Creatinine 1.1 Est GFR ( Amer) TNP Est GFR (Non-Af Amer) TNP BUN/Creatinine Ratio 16.4 Glucose 144 H Whole Bld Lactic Acid 3.08 H* Calcium 9.6 Total Bilirubin 0.5 AST 17 ALT 14 Alkaline Phosphatase 58 Troponin I B-Natriuretic Peptide Total Protein 6.6 Albumin 4.1 L Globulin 2.5 Albumin/Globulin Ratio 1.6 Valproic Acid 03/30/17 03/30/17 12:59 12:59 WBC RBC Hgb Hct MCV MCH MCHC Differential RDW Plt Count MPV Neutrophils (Manual) Lymphocytes Monocytes Eosinophils Basophils Platelet Estimate Platelet Morphology RBC Morph Micro Appear Sodium Potassium Chloride Carbon Dioxide Anion Gap BUN Creatinine Est GFR ( Amer) Est GFR (Non-Af Amer) BUN/Creatinine Ratio Glucose Whole Bld Lactic Acid Calcium Total Bilirubin AST ALT Alkaline Phosphatase Troponin I 0.01 B-Natriuretic Peptide 9.7 Total Protein Albumin Globulin Albumin/Globulin Ratio Valproic Acid 64.9 - Radiology Results Results: cxr nad - EKG Interpretations EKG Time:: 13:15 Rate & Rhythm: nsr 66 [place]: -34 Intervals: [id number] ED Septic Shock - . Is Septic Shock (SBP<90, OR Lactate>4 mmol\\L) present?: No Reassessment (Disposition) - Reassessment Reassessment:: case dw dr jon/...will admit - Diagnosis Diagnosis:: copd exacerbation
[2017-03-30 13:13] LABS: HEMATOCRIT 49.2 % (39.0-49.0); HEMOGLOBIN 16.1 gm/dL (12.6-17.4); MEAN CELL VOLUME 91.6 fl (80-99); MEAN CORPUSCULAR HGB CONC 32.8 pg (28.0-36.0); MEAN PLATELET VOLUME 8.9 fl; PLATELET COUNT 243 Th/cmm (150-400); RED BLOOD COUNT 5.37 Mil/cmm (3.80-5.80); RED CELL DISTRIBUTION WIDTH 12.9 % (11.5-20.0); WHITE BLOOD COUNT 5.2 Th/cmm (4.8-10.8)
[2017-03-30 13:30] LABS: ALB/GLOB RATIO 1.6 (1.0-1.8); ALKALINE PHOSPHATASE 58 U/L (34-104); BILIRUBIN,TOTAL 0.5 mg/dL (0.3-1.0); BUN - UREA NITROGEN 18 mg/dL (7-25); BUN/CREATININE RATIO 16.4; CALCIUM SERUM 9.6 mg/dL (8.6-10.3); CARBON DIOXIDE 23.5 mEq/L (21.0-31.0); CHLORIDE 108 mEq/L (98-107); CREATININE - SERUM 1.1 mg/dL (0.7-1.3); GLUCOSE 144 mg/dL (70-105); POTASSIUM SERUM 4.5 mEq/L (3.5-5.1); SGOT 17 U/L (13-39); SGPT/ALT 14 U/L (7-52); SODIUM SERUM 138 mEq/L (136-145); TROP I 0.01 ng/mL (0.01-0.05)
--- NOTE | 2017-03-30 13:32 | Diagnostic Imaging Report ---
CHEST X-RAY: AP view INDICATION: Shortness of breath COMPARISON: 10/11/2016 FINDINGS: Slight increased left basal lung markings are noted. No focal consolidation or effusions. Heart size is normal. Osseous structures are intact. Degenerative changes of the spine are noted. IMPRESSION: Slight increase left basal lung markings favoring atelectasis. Underlying infiltrate is considered less likely but cannot be excluded.
[2017-03-30 13:47] LABS: BASOPHIL 3 % (0-3); EOSINOPHIL 3 % (0-5); NEUTROPHILS 39 % (40-80); TOTAL CELLS COUNTED 100
[2017-03-30 13:48] LABS: PLATELET ESTIMATE ADEQUATE (NORMAL); PLATELET MORPHOLOGY NORMAL (NORMAL)
[2017-03-30 13:59] LABS: BNP 9.7 pg/mL (5.0-100.0)
[2017-03-30] MEDS ORDERED: Albuterol/Ipratropium Neb 3 ML AERS HHN ONE ×2 (14:05→15:02)
[2017-03-30] MEDS ORDERED: Magnesium Hydroxide (MOM) 30 mL UDC PO PRN (17:35)
[2017-03-30] MEDS ORDERED: Ipratropium Neb 0.5 mg/2.5 mL UD HHN PRN ×2 (17:35→18:15)
[2017-03-30] MEDS ORDERED: Albuterol Nebulizer 2.5mg/3mL HHN PRN ×2 (17:35→18:15)
[2017-03-30] MEDS ORDERED: guaiFENesin 200 MG/10 ML UDC PO PRN (17:38)
[2017-03-30] MEDS: D5-0.9%NS 1,000 ML IV SCH (18:12)
[2017-03-30] MEDS: Albuterol Nebulizer 2.5mg/3mL HHN SCH (19:31)
[2017-03-31] MEDS: cefTRIAXone 1 GM in Sodium Chloride 0.9% 50 ML IV SCH ×2 (01:39→17:03)
[2017-03-31 02:54] VITALS: BP 121/74
[2017-03-31] MEDS: Albuterol Nebulizer 2.5mg/3mL HHN SCH ×4 (07:41→19:38)
[2017-03-31] MEDS: Multivitamin Tab PO SCH (09:21)
[2017-03-31] MEDS: POLYETHYLENE GLYCOL 3350 17 GM PACK PO SCH ×2 (09:23→16:16)
[2017-03-31] MEDS ORDERED: VTE Chemical Prophylaxis Screen/Admission MC PRN (09:34)
[2017-03-31] MEDS: Levothyroxine 0.025 Mg Tab PO SCH (09:35)
[2017-03-31] MEDS: D5-0.9%NS 1,000 ML IV SCH ×2 (09:35→22:43)
[2017-03-31] MEDS ORDERED: Pneumococcal Vaccine 0.5 mL Vial IM ONE (10:00)
--- NOTE | 2017-03-31 13:46 | History & Physical ---
ADMIT DATE: 03/31/2017 CHIEF COMPLAINT: Increasing shortness of breath and low oxygen saturation. HISTORY OF PRESENT ILLNESS: This is a 76-year-old male with history of asthma, Parkinson's, COPD, hypertension and hypercholesterolemia who was admitted from nursing facility secondary to increasing shortness of breath and desaturating. The patient is a poor historian. O2 sat was in the 80s in the Emergency Room. PAST MEDICAL HISTORY: As mentioned in history present illness. PAST SURGICAL HISTORY: Unable to obtain from the patient. ALLERGIES: CHLOROPYRAMINE. MEDICATIONS: Haldol, Aricept, Robitussin ophthalmic eyedrops, Synthroid, multivitamin, Depakote, Zocor. FAMILY HISTORY: Noncontributory. SOCIAL HISTORY: The patient is a longterm resident, the patient requiring 24-hour total care. REVIEW OF SYSTEMS: This is limited secondary to pain, comatose. We will try to obtain more detailed review of systems at a later date by talking to family members ____ conservator [phone]. There is a friend, ____ [phone]. PHYSICAL EXAMINATION: VITAL SIGNS: Blood pressure 102/56, respirations 16, pulse 89, temperature is 75. GENERAL: Elderly male, appears chronically ill. NECK: Supple. No mass. LUNGS: Equal breath sounds, few rhonchi. HEART: Regular rate and rhythm with systolic ejection murmur. ABDOMEN: Soft, nontender, thin. EXTREMITIES: Positive excoriation atrophy. NEUROLOGIC: Positive resting tremors. LABORATORY DATA: WBC 5.2, hemoglobin 16, platelets 243. Sodium 130, potassium 4.5, BUN 18, creatinine 1.1, blood sugar 144. Lactic acid 2.1 and 3.08. Albumin 4.1. ASSESSMENT AND PLAN: Acute hypoxic respiratory failure, acute chronic obstructive pulmonary disease exacerbation, Parkinson's, hypothyroidism, hypertension, hypercholesterolemia, lactic acidosis, diabetes, low albumin. We will check the patient's chest x-ray. Continue oxygen and bronchodilator treatment and IV steroids ____ consulted. We will review the patient's chest x-ray. We will continue to monitor the patient closely. JOB# [id number]
--- NOTE | 2017-04-01 00:01 | Consultation ---
DATE OF CONSULTATION: 03/31/2017 PATIENT OF: Dr. Jon. Thank you very much Dr. Jon for this consultation. HISTORY OF PRESENT ILLNESS: The patient is a 76-year-old male with history of COPD, presented with shortness of breath, chest congestion, and desaturation. The patient was placed on oxygen, started on IV antibiotics, nebulizer treatments and improved. So far, the patient is responsive, does not talk much, is able to eat according to nursing staff, and he answers that he is feeling better and not short of breath at this time. PAST MEDICAL HISTORY: As above. SOCIAL HISTORY: Not known. Other history of schizophrenia, dementia, Parkinson's. REVIEW OF SYSTEMS: Unable to obtain because of the patient's condition. PHYSICAL EXAMINATION: GENERAL: Awake, alert, not in acute distress. VITAL SIGNS: Temperature 97.5, pulse 59, respirations 16, blood pressure is 102/56, saturation 98%. HEENT: Atraumatic, normocephalic. Pupils equal and reactive to light and accommodation. Ears, nose and throat normal. NECK: Supple. No JVD. CHEST: There are good breath sounds. Few rhonchi in bases. HEART: Regular rate and rhythm. ABDOMEN: Soft, no tenderness. EXTREMITIES: No edema. LABORATORY DATA: WBC is 5.2, hemoglobin is 16.1, hematocrit 49.2, platelets is 243. Sodium 138, potassium 4.5, BUN 18, creatinine 1.1. Lactic acid 3.16. Chest x-ray, atelectasis in bases. IMPRESSION: 1. This is a 76-year-old male with chronic obstructive pulmonary disease exacerbation. 2. Acute bronchitis. 3. Hypoxemia. 4. Lung atelectasis. 5. Parkinson's. PLAN: 1. IV antibiotics. 2. IV Solu-Medrol. 3. Nebulizer. 4. Start tapering down the steroids tomorrow if stable. 5. We will followup chest x-ray. I will follow the patient with you. Thank you very much for this consultation. JOB# [id number] MTDD
[2017-04-01] MEDS: Levothyroxine 0.025 Mg Tab PO SCH (06:56)
[2017-04-01 07:06] LABS: % BASOPHILS 0.1 % (0.0-2.0); % EOSINOPHILS 0.1 % (0.0-5.0); % LYMPHOCYTES 11.3 % (20.0-50.0); % MONOCYTES 3.9 % (2.0-10.0); % NEUTROPHILS 84.6 % (40.0-80.0); HEMOGLOBIN 14.4 gm/dL (12.6-17.4); MEAN CELL VOLUME 92.5 fl (80-99); MEAN CORPUSCULAR HEMOGLOBIN 30.3 pg (27.0-31.0); MEAN CORPUSCULAR HGB CONC 32.8 pg (28.0-36.0); MEAN PLATELET VOLUME 9.1 fl; NEUTROPHILE ABSOLUTE 7.7 Th/cmm (1.8-8.0); PLATELET COUNT 217 Th/cmm (150-400); RED BLOOD COUNT 4.74 Mil/cmm (3.80-5.80); RED CELL DISTRIBUTION WIDTH 12.8 % (11.5-20.0)
[2017-04-01 07:24] LABS: ANION GAP 12.4 (7.0-16.0); BUN - UREA NITROGEN 22 mg/dL (7-25); CALCIUM SERUM 9.3 mg/dL (8.6-10.3); CHLORIDE 110 mEq/L (98-107); CREATININE - SERUM 1.1 mg/dL (0.7-1.3); GLUCOSE 143 mg/dL (70-105); MAGNESIUM 1.8 mg/dL (1.9-2.7); POTASSIUM SERUM 4.4 mEq/L (3.5-5.1); SODIUM SERUM 139 mEq/L (136-145)
[2017-04-01] MEDS: Albuterol Nebulizer 2.5mg/3mL HHN SCH ×4 (07:46→19:42)
[2017-04-01 07:49] LABS: HEMATOCRIT 43.8 % (39.0-49.0); WHITE BLOOD COUNT 9.1 Th/cmm (4.8-10.8)
[2017-04-01 08:07] LABS: BNP 86.8 pg/mL (5.0-100.0)
--- NOTE | 2017-04-01 08:42 | Diagnostic Imaging Report ---
Portable chest x-ray HISTORY: Pneumonia The heart size appears generous. No focal, processes. No hilar or mediastinal abnormalities. IMPRESSION: 1. No acute abnormalities
[2017-04-01] MEDS: POLYETHYLENE GLYCOL 3350 17 GM PACK PO SCH ×2 (09:20→16:54)
[2017-04-01] MEDS: Multivitamin Tab PO SCH (09:23)
[2017-04-01] MEDS: D5-0.9%NS 1,000 ML IV SCH ×2 (11:48→20:46)
--- NOTE | 2017-04-01 12:46 | Internal Medicine Prog Note ---
Internal Medicine Subjective - Subjective Patient seen and examined:: with staff, chart reviewed Patient is:: asleep, non-verbal, non-interactive, confused, congested Patient Complaints of:: congestion Per staff patient has:: no adverse event, poor appetite, agitated, noncompliant , confused, tolerating meds Internal Medicine Objective - Results Result Diagrams: 04/01/17 06:36 04/01/17 06:36 Recent Labs: Laboratory Last Values WBC 9.1 Th/cmm (4.8-10.8) D 04/01/17 06:36 RBC 4.74 Mil/cmm (3.80-5.80) 04/01/17 06:36 Hgb 14.4 gm/dL (12.6-17.4) 04/01/17 06:36 Hct 43.8 % (39.0-49.0) D 04/01/17 06:36 MCV 92.5 fl (80-99) 04/01/17 06:36 MCH 30.3 pg (27.0-31.0) 04/01/17 06:36 MCHC Differential 32.8 pg (28.0-36.0) 04/01/17 06:36 RDW 12.8 % (11.5-20.0) 04/01/17 06:36 Plt Count 217 Th/cmm (150-400) 04/01/17 06:36 MPV 9.1 fl 04/01/17 06:36 Neutrophils % 84.6 % (40.0-80.0) H 04/01/17 06:36 Lymphocytes % 11.3 % (20.0-50.0) L 04/01/17 06:36 Monocytes % 3.9 % (2.0-10.0) 04/01/17 06:36 Eosinophils % 0.1 % (0.0-5.0) 04/01/17 06:36 Basophils % 0.1 % (0.0-2.0) 04/01/17 06:36 Neutrophils (Manual) 39 % (40-80) L 03/30/17 12:59 Lymphocytes 42 % (20-50) 03/30/17 12:59 Monocytes 13 % (2-10) H 03/30/17 12:59 Eosinophils 3 % (0-5) 03/30/17 12:59 Basophils 3 % (0-3) 03/30/17 12:59 Platelet Estimate ADEQUATE (NORMAL) 03/30/17 12:59 Platelet Morphology NORMAL (NORMAL) 03/30/17 12:59 RBC Morph Micro Appear NORMAL (NORMAL) 03/30/17 12:59 Sodium 139 mEq/L (136-145) 04/01/17 06:36 Potassium 4.4 mEq/L (3.5-5.1) 04/01/17 06:36 Chloride 110 mEq/L (98-107) H 04/01/17 06:36 Carbon Dioxide 21.0 mEq/L (21.0-31.0) 04/01/17 06:36 Anion Gap 12.4 (7.0-16.0) 04/01/17 06:36 BUN 22 mg/dL (7-25) 04/01/17 06:36 Creatinine 1.1 mg/dL (0.7-1.3) 04/01/17 06:36 Est GFR ( Amer) TNP 04/01/17 06:36 Est GFR (Non-Af Amer) TNP 04/01/17 06:36 BUN/Creatinine Ratio 20.0 04/01/17 06:36 Glucose 143 mg/dL (70-105) H 04/01/17 06:36 Hemoglobin A1c % 5.4 % (4.0-6.0) 04/01/17 06:36 Whole Bld Lactic Acid 4.52 mmol/L (0.60-1.99) H* 04/01/17 08:35 Calcium 9.3 mg/dL (8.6-10.3) 04/01/17 06:36 Magnesium 1.8 mg/dL (1.9-2.7) L 04/01/17 06:36 Total Bilirubin 0.5 mg/dL (0.3-1.0) 03/30/17 12:59 AST 17 U/L (13-39) 03/30/17 12:59 ALT 14 U/L (7-52) 03/30/17 12:59 Alkaline Phosphatase 58 U/L (34-104) 03/30/17 12:59 Ammonia 51 umol/L (16-53) 04/01/17 06:36 Troponin I 0.01 ng/mL (0.01-0.05) 03/30/17 12:59 B-Natriuretic Peptide 86.8 pg/mL (5.0-100.0) 04/01/17 06:36 Total Protein 6.6 gm/dL (6.0-8.3) 03/30/17 12:59 Albumin 4.1 gm/dL (4.2-5.5) L 03/30/17 12:59 Globulin 2.5 gm/dL 03/30/17 12:59 Albumin/Globulin Ratio 1.6 (1.0-1.8) 03/30/17 12:59 Free T4 1.14 ng/dL (0.82-1.77) 03/30/17 13:22 TSH 0.68 uIU/ml (0.34-5.60) 03/30/17 13:22 Valproic Acid 64.9 ug/mL (50.0-100.0) 03/30/17 12:59 - Physical Exam Vitals and I&O: Vital Signs Temp 97.8 F 04/01/17 08:00 Pulse 75 04/01/17 11:46 Resp 18 04/01/17 11:46 BP 111/57 04/01/17 09:21 Pulse Ox 94 04/01/17 11:46 Intake & Output 03/31/17 04/01/17 04/01/17 18:59 06:59 18:59 Intake Total 350 1150 1000 Balance 350 1150 1000 Weight (lbs) 75.75 kg 75.795 kg Intake: Intake, IV Amount 1000 1000 D5-0.9%Ns 1,000 ml @ 80 1000 1000 mls/hr IV .[id number] [facility] Rx #:[id number] Oral 350 150 Other: # Voids 3 2 # Bowel Movements 0 0 Active Medications: Current Medications Acetaminophen (Tylenol) 650 mg PO Q4HR PRN PRN Reason: PAIN OR TEMP 100.3 F Stop: 05/29/17 17:34 Albuterol Sulfate (Albuterol 2.5mg/3ml Neb Ud) 2.5 mg HHN QIDRT WILL Stop: 05/29/17 18:59 Last Admin: 04/01/17 11:46 Dose: 2.5 mg Albuterol Sulfate (Albuterol 2.5mg/3ml Neb Ud) 2.5 mg HHN QIDRT PRN PRN Reason: Wheezing Stop: 05/29/17 17:34 Amlodipine Besylate (Norvasc) 10 mg PO DAILY WILL Stop: 05/30/17 08:59 Last Admin: 04/01/17 09:21 Dose: Not Given Benztropine Mesylate (Cogentin) 0.5 mg PO BID WILL Stop: 05/30/17 08:59 Last Admin: 04/01/17 09:22 Dose: Not Given Carbidopa/Levodopa (Sinemet 25mg-100 Mg) 1 tab PO TID WILL Stop: 05/29/17 20:59 Last Admin: 04/01/17 09:22 Dose: Not Given Donepezil HCl (Aricept) 10 mg PO HS WILL Stop: 05/29/17 20:59 Last Admin: 03/31/17 20:30 Dose: 10 mg Guaifenesin (Robitussin) 200 mg PO Q4HR PRN PRN Reason: Cough or Congestion Stop: 05/29/17 17:37 Haloperidol Decanoate (Haldol Dec) 25 mg IM QMONTH WILL PRN Reason: Protocol Stop: 06/15/17 08:59 Heparin Sodium (Porcine) (Heparin) 5,000 units SUBQ Q12HR WILL Stop: 05/29/17 20:59 Last Admin: 04/01/17 09:22 Dose: Not Given Dextrose/Sodium Chloride (D5-0.9%Ns) 1,000 mls @ 80 mls/hr IV .[id number] WILL Stop: 05/29/17 17:44 Last Admin: 04/01/17 11:48 Dose: 80 mls/hr Piperacillin Sod/Tazobactam (Sod 4.5 gm/ Sodium Chloride) 100 mls @ 100 mls/hr IV Q8HR WILL Stop: 05/31/17 12:59 Ipratropium [place] (Atrovent Neb 0.5mg/2.5ml) 0.5 mg HHN QIDRT PRN PRN Reason: Wheezing Stop: 05/29/17 17:34 Latanoprost (Xalatan 0.005% Ophth Soln) 1 drop EACH EYE HS WILL Stop: 05/29/17 20:59 Last Admin: 03/31/17 20:32 Dose: 1 drop Levothyroxine Sodium (Synthroid) 0.025 mg PO QDAC WILL Stop: 05/30/17 07:29 Last Admin: 04/01/17 06:56 Dose: Not Given Magnesium Hydroxide (Milk Of Magnesia) 30 ml PO HS PRN PRN Reason: Constipation Stop: 05/29/17 17:34 Methylprednisolone Sodium Succinate (Solu-Medrol) 40 mg IVP Q4HR WILL Stop: 05/29/17 19:59 Miscellaneous (Vte Chemical Prophylaxis Screen/ Admission) 1 ea MC PRN PRN PRN Reason: PROTOCOL Stop: 05/30/17 09:33 Multivitamins/Vitamin C (Theragran) 1 tab PO DAILY WILL Stop: 05/30/17 08:59 Last Admin: 04/01/17 09:23 Dose: Not Given Ondansetron HCl (Zofran) 4 mg IV Q8H PRN PRN Reason: Nausea / Vomiting Stop: 05/29/17 17:37 Polyethylene Glycol (Miralax) 17 gm PO BID WILL Stop: 05/30/17 08:59 Last Admin: 04/01/17 09:20 Dose: 17 gm Simvastatin (Zocor) 10 mg PO HS WILL PRN Reason: Protocol Stop: 05/29/17 20:59 Last Admin: 03/31/17 20:30 Dose: 10 mg Valproate Sodium (Depakene) 500 mg PO Q12HR WILL PRN Reason: Protocol Stop: 05/29/17 20:59 Last Admin: 04/01/17 09:20 Dose: 500 mg General: congested, demented HEENT: NC/AT, PERRLA, EOMI Neck: Supple, No JVD Lungs: congested, rales Cardiovascular: RRR, Normal S1, Normal S2, with murmur Abdomen: soft, thin, positive bowel sound Extremities: excoriation, contracture Neurological: no change, disorganized, bedbound - Procedures Procedures: Procedures Procedure Code Date CLOSURE SKIN & SUBCUTANEOUS NEC 86.59 07/07/12 DPT ADMINISTRATION 99.39 07/07/12 IMMUNIZATION ADMIN 59905 07/07/12 OTHER GROUP THERAPY 94.44 12/10/14 RECREATIONAL THERAPY 93.81 09/15/12 RPR S/N/AX/GEN/TRNK 2.5CM/< 83488 07/07/12 TDAP VACCINE 7 YRS/> [place] [id number] 07/07/12 Internal Medicine Assmt/Plan - Assessment Assessment: lactic acidosis Acute hypoxic respiratory failure, acute chronic obstructive pulmonary disease exacerbation, Parkinson's, hypothyroidism, hypertension, hypercholesterolemia, diabetes, low albumin. - Plan Plan: check ua We will check the patient's chest x-ray. Continue oxygen and bronchodilator treatment and IV steroids ____ consulted. We will review the patient's chest x-ray. We will continue to monitor the patient closely.
[2017-04-01] MEDS: methylPREDNISolone SS 40 mg Vial IVP SCH (17:22)
[2017-04-01 21:48] LABS: URINE COLOR YELLOW; URINE GLUCOSE (UA) 250 mg/dL (NEGATIVE)
[2017-04-01 21:49] LABS: URINE BACTERIA OCCASIONAL /hpf (NONE SEEN); URINE BILIRUBIN NEGATIVE (NEGATIVE); URINE BLOOD NEGATIVE (NEGATIVE); URINE EPITHELIAL CELLS FEW /lpf (FEW); URINE KETONE NEGATIVE (NEGATIVE); URINE PROTEIN NEGATIVE (NEGATIVE); URINE RBC 0-2 /hpf (0-5); URINE UROBILINOGEN 0.2 E.U./dL (0.2 - 1.0)
[2017-04-02] MEDS: methylPREDNISolone SS 40 mg Vial IVP SCH ×4 (00:35→17:20)
[2017-04-02] MEDS: D5-0.9%NS 1,000 ML IV SCH ×2 (02:23→18:53)
[2017-04-02] MEDS: Levothyroxine 0.025 Mg Tab PO SCH (06:35)
[2017-04-02] MEDS: Albuterol Nebulizer 2.5mg/3mL HHN SCH ×4 (07:33→19:04)
[2017-04-02] MEDS: Multivitamin Tab PO SCH (08:28)
[2017-04-02] MEDS: POLYETHYLENE GLYCOL 3350 17 GM PACK PO SCH ×2 (08:31→17:20)
[2017-04-02 11:11] LABS: FOLIC ACID 15.4 ng/mL (>3.0)
--- NOTE | 2017-04-02 11:32 | Internal Medicine Prog Note ---
Internal Medicine Subjective - Subjective Patient seen and examined:: with staff, chart reviewed Patient is:: asleep, non-verbal, non-interactive, confused, congested Patient Complaints of:: congestion Per staff patient has:: no adverse event, poor appetite, agitated, noncompliant , confused, tolerating meds Internal Medicine Objective - Results Result Diagrams: 04/01/17 06:36 04/01/17 06:36 Recent Labs: Laboratory Last Values WBC 9.1 Th/cmm (4.8-10.8) D 04/01/17 06:36 RBC 4.74 Mil/cmm (3.80-5.80) 04/01/17 06:36 Hgb 14.4 gm/dL (12.6-17.4) 04/01/17 06:36 Hct 43.8 % (39.0-49.0) D 04/01/17 06:36 MCV 92.5 fl (80-99) 04/01/17 06:36 MCH 30.3 pg (27.0-31.0) 04/01/17 06:36 MCHC Differential 32.8 pg (28.0-36.0) 04/01/17 06:36 RDW 12.8 % (11.5-20.0) 04/01/17 06:36 Plt Count 217 Th/cmm (150-400) 04/01/17 06:36 MPV 9.1 fl 04/01/17 06:36 Neutrophils % 84.6 % (40.0-80.0) H 04/01/17 06:36 Lymphocytes % 11.3 % (20.0-50.0) L 04/01/17 06:36 Monocytes % 3.9 % (2.0-10.0) 04/01/17 06:36 Eosinophils % 0.1 % (0.0-5.0) 04/01/17 06:36 Basophils % 0.1 % (0.0-2.0) 04/01/17 06:36 Neutrophils (Manual) 39 % (40-80) L 03/30/17 12:59 Lymphocytes 42 % (20-50) 03/30/17 12:59 Monocytes 13 % (2-10) H 03/30/17 12:59 Eosinophils 3 % (0-5) 03/30/17 12:59 Basophils 3 % (0-3) 03/30/17 12:59 Platelet Estimate ADEQUATE (NORMAL) 03/30/17 12:59 Platelet Morphology NORMAL (NORMAL) 03/30/17 12:59 RBC Morph Micro Appear NORMAL (NORMAL) 03/30/17 12:59 Sodium 139 mEq/L (136-145) 04/01/17 06:36 Potassium 4.4 mEq/L (3.5-5.1) 04/01/17 06:36 Chloride 110 mEq/L (98-107) H 04/01/17 06:36 Carbon Dioxide 21.0 mEq/L (21.0-31.0) 04/01/17 06:36 Anion Gap 12.4 (7.0-16.0) 04/01/17 06:36 BUN 22 mg/dL (7-25) 04/01/17 06:36 Creatinine 1.1 mg/dL (0.7-1.3) 04/01/17 06:36 Est GFR ( Amer) TNP 04/01/17 06:36 Est GFR (Non-Af Amer) TNP 04/01/17 06:36 BUN/Creatinine Ratio 20.0 04/01/17 06:36 Glucose 143 mg/dL (70-105) H 04/01/17 06:36 Hemoglobin A1c % 5.4 % (4.0-6.0) 04/01/17 06:36 Whole Bld Lactic Acid 4.17 mmol/L (0.60-1.99) H* 04/02/17 10:35 Calcium 9.3 mg/dL (8.6-10.3) 04/01/17 06:36 Magnesium 1.8 mg/dL (1.9-2.7) L 04/01/17 06:36 Total Bilirubin 0.5 mg/dL (0.3-1.0) 03/30/17 12:59 AST 17 U/L (13-39) 03/30/17 12:59 ALT 14 U/L (7-52) 03/30/17 12:59 Alkaline Phosphatase 58 U/L (34-104) 03/30/17 12:59 Ammonia 51 umol/L (16-53) 04/01/17 06:36 Troponin I 0.01 ng/mL (0.01-0.05) 03/30/17 12:59 B-Natriuretic Peptide 86.8 pg/mL (5.0-100.0) 04/01/17 06:36 Total Protein 6.6 gm/dL (6.0-8.3) 03/30/17 12:59 Albumin 4.1 gm/dL (4.2-5.5) L 03/30/17 12:59 Globulin 2.5 gm/dL 03/30/17 12:59 Albumin/Globulin Ratio 1.6 (1.0-1.8) 03/30/17 12:59 Vitamin B12 913 pg/mL (211-946) 04/01/17 06:36 Folic Acid 15.4 ng/mL (>3.0) 04/01/17 06:36 Free T4 1.14 ng/dL (0.82-1.77) 03/30/17 13:22 TSH 0.68 uIU/ml (0.34-5.60) 03/30/17 13:22 Urine Source CATH 04/01/17 20:34 Urine Color YELLOW 04/01/17 20:34 Urine Clarity CLEAR (CLEAR) 04/01/17 20:34 Urine pH 6.0 (4.6 - 8.0) 04/01/17 20:34 Ur Specific [place] 1.020 (1.005-1.030) 04/01/17 20:34 Urine Protein NEGATIVE mg/dL (NEGATIVE) 04/01/17 20:34 Urine Glucose (UA) 250 mg/dL (NEGATIVE) H 04/01/17 20:34 Urine Ketones NEGATIVE mg/dL (NEGATIVE) 04/01/17 20:34 Urine Blood NEGATIVE (NEGATIVE) 04/01/17 20:34 Urine Nitrate NEGATIVE (NEGATIVE) 04/01/17 20:34 Urine Bilirubin NEGATIVE (NEGATIVE) 04/01/17 20:34 Urine Urobilinogen 0.2 E.U./dL (0.2 - 1.0) 04/01/17 20:34 Ur Leukocyte Esterase NEGATIVE (NEGATIVE) 04/01/17 20:34 Urine RBC 0-2 /hpf (0-5) H 04/01/17 20:34 Urine WBC 2-5 /hpf (0-5) H 04/01/17 20:34 Ur Epithelial Cells FEW /lpf (FEW) 04/01/17 20:34 Urine Bacteria OCCASIONAL /hpf (NONE SEEN) 04/01/17 20:34 Valproic Acid 64.9 ug/mL (50.0-100.0) 03/30/17 12:59 - Physical Exam Vitals and I&O: Vital Signs Temp 98.3 F 04/02/17 07:54 Pulse 64 04/02/17 08:29 Resp 20 04/02/17 07:54 BP 118/70 04/02/17 08:29 Pulse Ox 94 04/02/17 07:54 Intake & Output 04/01/17 04/02/17 04/02/17 18:59 06:59 18:59 Intake Total 2045.333 754.667 Balance 2045.333 754.667 Weight (lbs) 75.75 kg 80.558 kg Intake: Intake, IV Amount 1645.333 554.667 D5-0.9%Ns 1,000 ml @ 80 1545.333 454.667 mls/hr IV .[id number] REPLACED BY [facility] Rx #:[id number] Piperacillin Sodium/ 100 100 Tazobact 4.5 gm In Sodium Chloride 0.9% 100 ml @ 100 mls/hr IV Q8HR REPLACED BY [facility] Rx #:[id number] Oral 400 200 Other: # Voids 3 3 # Bowel Movements 1 0 Active Medications: Current Medications Acetaminophen (Tylenol) 650 mg PO Q4HR PRN PRN Reason: PAIN OR TEMP 100.3 F Stop: 05/29/17 17:34 Albuterol Sulfate (Albuterol 2.5mg/3ml Neb Ud) 2.5 mg HHN QIDRT REPLACED BY [facility] Stop: 05/29/17 18:59 Last Admin: 04/02/17 07:33 Dose: 2.5 mg Albuterol Sulfate (Albuterol 2.5mg/3ml Neb Ud) 2.5 mg HHN QIDRT PRN PRN Reason: Wheezing Stop: 05/29/17 17:34 Amlodipine Besylate (Norvasc) 10 mg PO DAILY REPLACED BY [facility] Stop: 05/30/17 08:59 Last Admin: 04/02/17 08:29 Dose: 10 mg Benztropine Mesylate (Cogentin) 0.5 mg PO BID REPLACED BY [facility] Stop: 05/30/17 08:59 Last Admin: 04/02/17 08:28 Dose: 0.5 mg Carbidopa/Levodopa (Sinemet 25mg-100 Mg) 1 tab PO TID WILL Stop: 05/29/17 20:59 Last Admin: 04/02/17 08:31 Dose: 1 tab Donepezil HCl (Aricept) 10 mg PO HS WILL Stop: 05/29/17 20:59 Last Admin: 04/01/17 20:24 Dose: 10 mg Guaifenesin (Robitussin) 200 mg PO Q4HR PRN PRN Reason: Cough or Congestion Stop: 05/29/17 17:37 Haloperidol Decanoate (Haldol Dec) 25 mg IM QMONTH WILL PRN Reason: Protocol Stop: 06/15/17 08:59 Heparin Sodium (Porcine) (Heparin) 5,000 units SUBQ Q12HR WILL Stop: 05/29/17 20:59 Last Admin: 04/02/17 08:31 Dose: 5,000 units Dextrose/Sodium Chloride (D5-0.9%Ns) 1,000 mls @ 80 mls/hr IV .[id number] WILL Stop: 05/29/17 17:44 Last Admin: 04/02/17 02:23 Dose: 80 mls/hr Piperacillin Sod/Tazobactam (Sod 4.5 gm/ Sodium Chloride) 100 mls @ 100 mls/hr IV Q8HR WILL Stop: 05/31/17 12:59 Last Admin: 04/02/17 05:39 Dose: 100 mls/hr Ipratropium [place] (Atrovent Neb 0.5mg/2.5ml) 0.5 mg HHN QIDRT PRN PRN Reason: Wheezing Stop: 05/29/17 17:34 Latanoprost (Xalatan 0.005% Ophth Soln) 1 drop EACH EYE HS WILL Stop: 05/29/17 20:59 Last Admin: 04/01/17 20:44 Dose: Not Given Levothyroxine Sodium (Synthroid) 0.025 mg PO QDAC WILL Stop: 05/30/17 07:29 Last Admin: 04/02/17 06:35 Dose: 0.025 mg Magnesium Hydroxide (Milk Of Magnesia) 30 ml PO HS PRN PRN Reason: Constipation Stop: 05/29/17 17:34 Methylprednisolone Sodium Succinate (Solu-Medrol) 40 mg IVP Q6HR WILL Stop: 05/31/17 17:59 Last Admin: 04/02/17 05:39 Dose: 40 mg Miscellaneous (Vte Chemical Prophylaxis Screen/ Admission) 1 ea MC PRN PRN PRN Reason: PROTOCOL Stop: 05/30/17 09:33 Multivitamins/Vitamin C (Theragran) 1 tab PO DAILY WILL Stop: 05/30/17 08:59 Last Admin: 04/02/17 08:28 Dose: 1 tab Ondansetron HCl (Zofran) 4 mg IV Q8H PRN PRN Reason: Nausea / Vomiting Stop: 05/29/17 17:37 Polyethylene Glycol (Miralax) 17 gm PO BID WILL Stop: 05/30/17 08:59 Last Admin: 04/02/17 08:31 Dose: 17 gm Simvastatin (Zocor) 10 mg PO HS WILL PRN Reason: Protocol Stop: 05/29/17 20:59 Last Admin: 04/01/17 20:23 Dose: 10 mg Valproate Sodium (Depakene) 500 mg PO Q12HR WILL PRN Reason: Protocol Stop: 05/29/17 20:59 Last Admin: 04/02/17 08:28 Dose: 500 mg General: congested, demented HEENT: NC/AT, PERRLA, EOMI Neck: Supple, No JVD Lungs: congested, rales Cardiovascular: RRR, Normal S1, Normal S2, with murmur Abdomen: soft, thin, positive bowel sound Extremities: excoriation, contracture Neurological: no change, disorganized, bedbound - Procedures Procedures: Procedures Procedure Code Date CLOSURE SKIN & SUBCUTANEOUS NEC 86.59 07/07/12 DPT ADMINISTRATION 99.39 07/07/12 IMMUNIZATION ADMIN 92578 07/07/12 OTHER GROUP THERAPY 94.44 12/10/14 RECREATIONAL THERAPY 93.81 09/15/12 RPR S/N/AX/GEN/TRNK 2.5CM/< 50685 07/07/12 TDAP VACCINE 7 YRS/> [place] [id number] 07/07/12 Internal Medicine Assmt/Plan - Assessment Assessment: lactic acidosis, sepsis Acute hypoxic respiratory failure, acute chronic obstructive pulmonary disease exacerbation, Parkinson's, hypothyroidism, hypertension, hypercholesterolemia, diabetes, low albumin. - Plan Plan: check ua We will check the patient's chest x-ray. Continue oxygen and bronchodilator treatment and IV steroids __pulm__ consulted. We will review the patient's chest x-ray. We will continue to monitor the patient closely.
[2017-04-03] MEDS: methylPREDNISolone SS 40 mg Vial IVP SCH ×3 (00:11→21:50)
[2017-04-03] MEDS: Levothyroxine 0.025 Mg Tab PO SCH (06:40)
[2017-04-03] MEDS: Albuterol Nebulizer 2.5mg/3mL HHN SCH ×4 (07:35→19:03)
[2017-04-03 07:40] LABS: % BASOPHILS 0.1 % (0.0-2.0); % EOSINOPHILS 0.1 % (0.0-5.0); % MONOCYTES 8.3 % (2.0-10.0); % NEUTROPHILS 80.5 % (40.0-80.0); HEMATOCRIT 40.2 % (39.0-49.0); HEMOGLOBIN 13.4 gm/dL (12.6-17.4); MEAN CELL VOLUME 92.7 fl (80-99); MEAN CORPUSCULAR HEMOGLOBIN 30.9 pg (27.0-31.0); MEAN CORPUSCULAR HGB CONC 33.3 pg (28.0-36.0); MEAN PLATELET VOLUME 9.1 fl; NEUTROPHILE ABSOLUTE 5.7 Th/cmm (1.8-8.0); PLATELET COUNT 193 Th/cmm (150-400); RED BLOOD COUNT 4.34 Mil/cmm (3.80-5.80); RED CELL DISTRIBUTION WIDTH 13.3 % (11.5-20.0)
[2017-04-03 07:45] LABS: WHITE BLOOD COUNT 7.1 Th/cmm (4.8-10.8)
[2017-04-03 07:48] LABS: ALB/GLOB RATIO 1.6 (1.0-1.8); ALKALINE PHOSPHATASE 38 U/L (34-104); ANION GAP 7.9 (7.0-16.0); BILIRUBIN,TOTAL 0.4 mg/dL (0.3-1.0); BUN - UREA NITROGEN 20 mg/dL (7-25); CALCIUM SERUM 8.8 mg/dL (8.6-10.3); CARBON DIOXIDE 28.4 mEq/L (21.0-31.0); CHLORIDE 110 mEq/L (98-107); GLUCOSE 123 mg/dL (70-105); MAGNESIUM 2.4 mg/dL (1.9-2.7); POTASSIUM SERUM 4.3 mEq/L (3.5-5.1); SGOT 28 U/L (13-39); SGPT/ALT 30 U/L (7-52); SODIUM SERUM 142 mEq/L (136-145)
[2017-04-03] MEDS: Multivitamin Tab PO SCH (09:09)
[2017-04-03] MEDS: POLYETHYLENE GLYCOL 3350 17 GM PACK PO SCH ×2 (09:10→17:00)
--- NOTE | 2017-04-03 11:43 | Internal Medicine Prog Note ---
Internal Medicine Subjective - Subjective Service Date: 04/03/17 Patient is:: awake, non-verbal, non-interactive, confused, congested Patient Complaints of:: congestion Per staff patient has:: no adverse event, poor appetite, agitated, noncompliant , confused, tolerating meds Internal Medicine Objective - Results Result Diagrams: 04/03/17 06:42 04/03/17 06:42 Recent Labs: Laboratory Last Values WBC 7.1 Th/cmm (4.8-10.8) D 04/03/17 06:42 RBC 4.34 Mil/cmm (3.80-5.80) 04/03/17 06:42 Hgb 13.4 gm/dL (12.6-17.4) 04/03/17 06:42 Hct 40.2 % (39.0-49.0) 04/03/17 06:42 MCV 92.7 fl (80-99) 04/03/17 06:42 MCH 30.9 pg (27.0-31.0) 04/03/17 06:42 MCHC Differential 33.3 pg (28.0-36.0) 04/03/17 06:42 RDW 13.3 % (11.5-20.0) 04/03/17 06:42 Plt Count 193 Th/cmm (150-400) 04/03/17 06:42 MPV 9.1 fl 04/03/17 06:42 Neutrophils % 80.5 % (40.0-80.0) H 04/03/17 06:42 Lymphocytes % 11.0 % (20.0-50.0) L 04/03/17 06:42 Monocytes % 8.3 % (2.0-10.0) 04/03/17 06:42 Eosinophils % 0.1 % (0.0-5.0) 04/03/17 06:42 Basophils % 0.1 % (0.0-2.0) 04/03/17 06:42 Neutrophils (Manual) 39 % (40-80) L 03/30/17 12:59 Lymphocytes 42 % (20-50) 03/30/17 12:59 Monocytes 13 % (2-10) H 03/30/17 12:59 Eosinophils 3 % (0-5) 03/30/17 12:59 Basophils 3 % (0-3) 03/30/17 12:59 Platelet Estimate ADEQUATE (NORMAL) 03/30/17 12:59 Platelet Morphology NORMAL (NORMAL) 03/30/17 12:59 RBC Morph Micro Appear NORMAL (NORMAL) 03/30/17 12:59 Sodium 142 mEq/L (136-145) 04/03/17 06:42 Potassium 4.3 mEq/L (3.5-5.1) 04/03/17 06:42 Chloride 110 mEq/L (98-107) H 04/03/17 06:42 Carbon Dioxide 28.4 mEq/L (21.0-31.0) 04/03/17 06:42 Anion Gap 7.9 (7.0-16.0) 04/03/17 06:42 BUN 20 mg/dL (7-25) 04/03/17 06:42 Creatinine 1.0 mg/dL (0.7-1.3) 04/03/17 06:42 Est GFR ( Amer) TNP 04/03/17 06:42 Est GFR (Non-Af Amer) TNP 04/03/17 06:42 BUN/Creatinine Ratio 20.0 04/03/17 06:42 Glucose 123 mg/dL (70-105) H 04/03/17 06:42 Hemoglobin A1c % 5.4 % (4.0-6.0) 04/01/17 06:36 Whole Bld Lactic Acid 2.96 mmol/L (0.60-1.99) H* 04/03/17 08:50 Calcium 8.8 mg/dL (8.6-10.3) 04/03/17 06:42 Magnesium 2.4 mg/dL (1.9-2.7) 04/03/17 06:42 Total Bilirubin 0.4 mg/dL (0.3-1.0) 04/03/17 06:42 AST 28 U/L (13-39) 04/03/17 06:42 ALT 30 U/L (7-52) 04/03/17 06:42 Alkaline Phosphatase 38 U/L (34-104) 04/03/17 06:42 Ammonia 51 umol/L (16-53) 04/01/17 06:36 Troponin I 0.01 ng/mL (0.01-0.05) 03/30/17 12:59 B-Natriuretic Peptide 86.8 pg/mL (5.0-100.0) 04/01/17 06:36 Total Protein 5.4 gm/dL (6.0-8.3) L 04/03/17 06:42 Albumin 3.3 gm/dL (4.2-5.5) L 04/03/17 06:42 Globulin 2.1 gm/dL 04/03/17 06:42 Albumin/Globulin Ratio 1.6 (1.0-1.8) 04/03/17 06:42 Vitamin B12 913 pg/mL (211-946) 04/01/17 06:36 Folic Acid 15.4 ng/mL (>3.0) 04/01/17 06:36 Free T4 1.14 ng/dL (0.82-1.77) 03/30/17 13:22 TSH 0.68 uIU/ml (0.34-5.60) 03/30/17 13:22 Urine Source CATH 04/01/17 20:34 Urine Color YELLOW 04/01/17 20:34 Urine Clarity CLEAR (CLEAR) 04/01/17 20:34 Urine pH 6.0 (4.6 - 8.0) 04/01/17 20:34 Ur Specific [place] 1.020 (1.005-1.030) 04/01/17 20:34 Urine Protein NEGATIVE mg/dL (NEGATIVE) 04/01/17 20:34 Urine Glucose (UA) 250 mg/dL (NEGATIVE) H 04/01/17 20:34 Urine Ketones NEGATIVE mg/dL (NEGATIVE) 04/01/17 20:34 Urine Blood NEGATIVE (NEGATIVE) 04/01/17 20:34 Urine Nitrate NEGATIVE (NEGATIVE) 04/01/17 20:34 Urine Bilirubin NEGATIVE (NEGATIVE) 04/01/17 20:34 Urine Urobilinogen 0.2 E.U./dL (0.2 - 1.0) 04/01/17 20:34 Ur Leukocyte Esterase NEGATIVE (NEGATIVE) 04/01/17 20:34 Urine RBC 0-2 /hpf (0-5) H 04/01/17 20:34 Urine WBC 2-5 /hpf (0-5) H 04/01/17 20:34 Ur Epithelial Cells FEW /lpf (FEW) 04/01/17 20:34 Urine Bacteria OCCASIONAL /hpf (NONE SEEN) 04/01/17 20:34 Valproic Acid 64.9 ug/mL (50.0-100.0) 03/30/17 12:59 - Physical Exam Vitals and I&O: Vital Signs Temp 98.2 F 04/03/17 04:00 Pulse 77 04/03/17 11:00 Resp 16 04/03/17 11:00 BP 114/69 04/03/17 09:09 Pulse Ox 94 04/03/17 11:00 Intake & Output 04/02/17 04/03/17 04/03/17 18:59 06:59 18:59 Intake Total 1100 580 Balance 1100 580 Weight (lbs) 181 lb 9.6 oz Intake: Intake, IV Amount 1100 100 D5-0.9%Ns 1,000 ml @ 80 1000 mls/hr IV .[id number] [facility] Rx #:[id number] Piperacillin Sodium/ 100 100 Tazobact 4.5 gm In Sodium Chloride 0.9% 100 ml @ 100 mls/hr IV Q8HR [facility] Rx #:[id number] Oral 480 Other: # Voids 2 # Bowel Movements 1 Stool Characteristics Formed Active Medications: Current Medications Acetaminophen (Tylenol) 650 mg PO Q4HR PRN PRN Reason: PAIN OR TEMP 100.3 F Stop: 05/29/17 17:34 Albuterol Sulfate (Albuterol 2.5mg/3ml Neb Ud) 2.5 mg HHN QIDRT [facility] Stop: 05/29/17 18:59 Last Admin: 04/03/17 10:56 Dose: 2.5 mg Albuterol Sulfate (Albuterol 2.5mg/3ml Neb Ud) 2.5 mg HHN QIDRT PRN PRN Reason: Wheezing Stop: 05/29/17 17:34 Amlodipine Besylate (Norvasc) 10 mg PO DAILY [facility] Stop: 05/30/17 08:59 Last Admin: 04/03/17 09:09 Dose: 10 mg Benztropine Mesylate (Cogentin) 0.5 mg PO BID [facility] Stop: 05/30/17 08:59 Last Admin: 04/03/17 09:09 Dose: 0.5 mg Carbidopa/Levodopa (Sinemet 25mg-100 Mg) 1 tab PO TID [facility] Stop: 05/29/17 20:59 Last Admin: 04/03/17 09:09 Dose: 1 tab Donepezil HCl (Aricept) 10 mg PO HS WILL Stop: 05/29/17 20:59 Last Admin: 04/02/17 20:54 Dose: 10 mg Guaifenesin (Robitussin) 200 mg PO Q4HR PRN PRN Reason: Cough or Congestion Stop: 05/29/17 17:37 Haloperidol Decanoate (Haldol Dec) 25 mg IM QMONTH WILL PRN Reason: Protocol Stop: 06/15/17 08:59 Heparin Sodium (Porcine) (Heparin) 5,000 units SUBQ Q12HR WILL Stop: 05/29/17 20:59 Last Admin: 04/03/17 09:10 Dose: 5,000 units Dextrose/Sodium Chloride (D5-0.9%Ns) 1,000 mls @ 80 mls/hr IV .[id number] WILL Stop: 05/29/17 17:44 Last Admin: 04/02/17 18:53 Dose: 80 mls/hr Piperacillin Sod/Tazobactam (Sod 4.5 gm/ Sodium Chloride) 100 mls @ 100 mls/hr IV Q8HR WILL Stop: 05/31/17 12:59 Last Admin: 04/03/17 05:58 Dose: 100 mls/hr Ipratropium [place] (Atrovent Neb 0.5mg/2.5ml) 0.5 mg HHN QIDRT PRN PRN Reason: Wheezing Stop: 05/29/17 17:34 Latanoprost (Xalatan 0.005% Ophth Soln) 1 drop EACH EYE HS WILL Stop: 05/29/17 20:59 Last Admin: 04/02/17 20:58 Dose: 1 drop Levothyroxine Sodium (Synthroid) 0.025 mg PO QDAC WILL Stop: 05/30/17 07:29 Last Admin: 04/03/17 06:40 Dose: 0.025 mg Magnesium Hydroxide (Milk Of Magnesia) 30 ml PO HS PRN PRN Reason: Constipation Stop: 05/29/17 17:34 Last Admin: 04/03/17 00:12 Dose: 30 ml Methylprednisolone Sodium Succinate (Solu-Medrol) 40 mg IVP Q6HR WILL Stop: 05/31/17 17:59 Last Admin: 04/03/17 05:58 Dose: 40 mg Miscellaneous (Vte Chemical Prophylaxis Screen/ Admission) 1 ea MC PRN PRN PRN Reason: PROTOCOL Stop: 05/30/17 09:33 Multivitamins/Vitamin C (Theragran) 1 tab PO DAILY WILL Stop: 05/30/17 08:59 Last Admin: 04/03/17 09:09 Dose: 1 tab Ondansetron HCl (Zofran) 4 mg IV Q8H PRN PRN Reason: Nausea / Vomiting Stop: 05/29/17 17:37 Polyethylene Glycol (Miralax) 17 gm PO BID WILL Stop: 05/30/17 08:59 Last Admin: 04/03/17 09:10 Dose: 17 gm Simvastatin (Zocor) 10 mg PO HS WILL PRN Reason: Protocol Stop: 05/29/17 20:59 Last Admin: 04/02/17 20:54 Dose: 10 mg Valproate Sodium (Depakene) 500 mg PO Q12HR WILL PRN Reason: Protocol Stop: 05/29/17 20:59 Last Admin: 04/03/17 09:09 Dose: 500 mg General: congested, demented HEENT: NC/AT, PERRLA, EOMI Neck: Supple, No JVD Lungs: congested, rales Cardiovascular: RRR, Normal S1, Normal S2, with murmur Abdomen: soft, thin, positive bowel sound Extremities: excoriation, contracture Neurological: no change, disorganized, bedbound - Procedures Procedures: Procedures Procedure Code Date CLOSURE SKIN & SUBCUTANEOUS NEC 86.59 07/07/12 DPT ADMINISTRATION 99.39 07/07/12 IMMUNIZATION ADMIN [id number] 07/07/12 OTHER GROUP THERAPY 94.44 12/10/14 RECREATIONAL THERAPY 93.81 09/15/12 RPR S/N/AX/GEN/TRNK 2.5CM/< [id number] 07/07/12 TDAP VACCINE 7 YRS/> IM [id number] 07/07/12 Internal Medicine Assmt/Plan - Assessment Assessment: lactic acidosis sepsis Acute hypoxic respiratory failure acute chronic obstructive pulmonary disease exacerbation Parkinson's hypothyroidism hypertension hypercholesterolemia diabetes low albumin. - Plan Plan: continue ivabx supplemental oxygen as needed inhalation treatments continue current plan of care
[2017-04-03] MEDS: D5-0.9%NS 1,000 ML IV SCH (13:12)
[2017-04-04] MEDS: Albuterol Nebulizer 2.5mg/3mL HHN SCH ×4 (06:59→19:00)
[2017-04-04] MEDS: methylPREDNISolone SS 40 mg Vial IVP SCH ×2 (09:00→21:45)
[2017-04-04] MEDS: D5-0.9%NS 1,000 ML IV SCH ×2 (09:00→14:56)
[2017-04-04] MEDS: POLYETHYLENE GLYCOL 3350 17 GM PACK PO SCH ×2 (09:01→16:46)
[2017-04-04] MEDS: Multivitamin Tab PO SCH (09:01)
[2017-04-04 09:44] LABS: % BASOPHILS 0.3 % (0.0-2.0); % EOSINOPHILS 0.4 % (0.0-5.0); % LYMPHOCYTES 37.2 % (20.0-50.0); % MONOCYTES 7.9 % (2.0-10.0); % NEUTROPHILS 54.2 % (40.0-80.0); HEMOGLOBIN 14.8 gm/dL (12.6-17.4); MEAN CELL VOLUME 92.7 fl (80-99); MEAN CORPUSCULAR HEMOGLOBIN 30.6 pg (27.0-31.0); MEAN PLATELET VOLUME 9.5 fl; NEUTROPHILE ABSOLUTE 3.5 Th/cmm (1.8-8.0); PLATELET COUNT 172 Th/cmm (150-400); RED BLOOD COUNT 4.82 Mil/cmm (3.80-5.80); RED CELL DISTRIBUTION WIDTH 13.4 % (11.5-20.0); WHITE BLOOD COUNT 6.3 Th/cmm (4.8-10.8)
[2017-04-04 09:49] LABS: HEMATOCRIT 44.7 % (39.0-49.0)
[2017-04-04 09:50] LABS: ANION GAP 9.4 (7.0-16.0); BUN - UREA NITROGEN 18 mg/dL (7-25); BUN/CREATININE RATIO 16.4; CALCIUM SERUM 8.6 mg/dL (8.6-10.3); CARBON DIOXIDE 26.5 mEq/L (21.0-31.0); CHLORIDE 109 mEq/L (98-107); CREATININE - SERUM 1.1 mg/dL (0.7-1.3); GLUCOSE 167 mg/dL (70-105); POTASSIUM SERUM 3.9 mEq/L (3.5-5.1); SODIUM SERUM 141 mEq/L (136-145)
[2017-04-04] MEDS: Levothyroxine 0.025 Mg Tab PO SCH (10:04)
--- NOTE | 2017-04-04 13:57 | Internal Medicine Prog Note ---
Internal Medicine Subjective - Subjective Service Date: 04/04/17 Patient is:: awake, non-verbal, non-interactive, confused, congested Patient Complaints of:: congestion Per staff patient has:: no adverse event, poor appetite, agitated, noncompliant , confused, tolerating meds Internal Medicine Objective - Results Result Diagrams: 04/04/17 09:15 04/04/17 09:15 Recent Labs: Laboratory Last Values WBC 6.3 Th/cmm (4.8-10.8) 04/04/17 09:15 RBC 4.82 Mil/cmm (3.80-5.80) 04/04/17 09:15 Hgb 14.8 gm/dL (12.6-17.4) 04/04/17 09:15 Hct 44.7 % (39.0-49.0) D 04/04/17 09:15 MCV 92.7 fl (80-99) 04/04/17 09:15 MCH 30.6 pg (27.0-31.0) 04/04/17 09:15 MCHC Differential 33.0 pg (28.0-36.0) 04/04/17 09:15 RDW 13.4 % (11.5-20.0) 04/04/17 09:15 Plt Count 172 Th/cmm (150-400) 04/04/17 09:15 MPV 9.5 fl 04/04/17 09:15 Neutrophils % 54.2 % (40.0-80.0) 04/04/17 09:15 Lymphocytes % 37.2 % (20.0-50.0) 04/04/17 09:15 Monocytes % 7.9 % (2.0-10.0) 04/04/17 09:15 Eosinophils % 0.4 % (0.0-5.0) 04/04/17 09:15 Basophils % 0.3 % (0.0-2.0) 04/04/17 09:15 Neutrophils (Manual) 39 % (40-80) L 03/30/17 12:59 Lymphocytes 42 % (20-50) 03/30/17 12:59 Monocytes 13 % (2-10) H 03/30/17 12:59 Eosinophils 3 % (0-5) 03/30/17 12:59 Basophils 3 % (0-3) 03/30/17 12:59 Platelet Estimate ADEQUATE (NORMAL) 03/30/17 12:59 Platelet Morphology NORMAL (NORMAL) 03/30/17 12:59 RBC Morph Micro Appear NORMAL (NORMAL) 03/30/17 12:59 Sodium 141 mEq/L (136-145) 04/04/17 09:15 Potassium 3.9 mEq/L (3.5-5.1) 04/04/17 09:15 Chloride 109 mEq/L (98-107) H 04/04/17 09:15 Carbon Dioxide 26.5 mEq/L (21.0-31.0) 04/04/17 09:15 Anion Gap 9.4 (7.0-16.0) 04/04/17 09:15 BUN 18 mg/dL (7-25) 04/04/17 09:15 Creatinine 1.1 mg/dL (0.7-1.3) 04/04/17 09:15 Est GFR ( Amer) TNP 04/04/17 09:15 Est GFR (Non-Af Amer) TNP 04/04/17 09:15 BUN/Creatinine Ratio 16.4 04/04/17 09:15 Glucose 167 mg/dL (70-105) H 04/04/17 09:15 Hemoglobin A1c % 5.4 % (4.0-6.0) 04/01/17 06:36 Whole Bld Lactic Acid 3.70 mmol/L (0.60-1.99) H* 04/04/17 09:15 Calcium 8.6 mg/dL (8.6-10.3) 04/04/17 09:15 Magnesium 2.4 mg/dL (1.9-2.7) 04/03/17 06:42 Total Bilirubin 0.4 mg/dL (0.3-1.0) 04/03/17 06:42 AST 28 U/L (13-39) 04/03/17 06:42 ALT 30 U/L (7-52) 04/03/17 06:42 Alkaline Phosphatase 38 U/L (34-104) 04/03/17 06:42 Ammonia 51 umol/L (16-53) 04/01/17 06:36 Troponin I 0.01 ng/mL (0.01-0.05) 03/30/17 12:59 B-Natriuretic Peptide 86.8 pg/mL (5.0-100.0) 04/01/17 06:36 Total Protein 5.4 gm/dL (6.0-8.3) L 04/03/17 06:42 Albumin 3.3 gm/dL (4.2-5.5) L 04/03/17 06:42 Globulin 2.1 gm/dL 04/03/17 06:42 Albumin/Globulin Ratio 1.6 (1.0-1.8) 04/03/17 06:42 Vitamin B12 913 pg/mL (211-946) 04/01/17 06:36 Folic Acid 15.4 ng/mL (>3.0) 04/01/17 06:36 Free T4 1.14 ng/dL (0.82-1.77) 03/30/17 13:22 TSH 0.68 uIU/ml (0.34-5.60) 03/30/17 13:22 Urine Source CATH 04/01/17 20:34 Urine Color YELLOW 04/01/17 20:34 Urine Clarity CLEAR (CLEAR) 04/01/17 20:34 Urine pH 6.0 (4.6 - 8.0) 04/01/17 20:34 Ur Specific [place] 1.020 (1.005-1.030) 04/01/17 20:34 Urine Protein NEGATIVE mg/dL (NEGATIVE) 04/01/17 20:34 Urine Glucose (UA) 250 mg/dL (NEGATIVE) H 04/01/17 20:34 Urine Ketones NEGATIVE mg/dL (NEGATIVE) 04/01/17 20:34 Urine Blood NEGATIVE (NEGATIVE) 04/01/17 20:34 Urine Nitrate NEGATIVE (NEGATIVE) 04/01/17 20:34 Urine Bilirubin NEGATIVE (NEGATIVE) 04/01/17 20:34 Urine Urobilinogen 0.2 E.U./dL (0.2 - 1.0) 04/01/17 20:34 Ur Leukocyte Esterase NEGATIVE (NEGATIVE) 04/01/17 20:34 Urine RBC 0-2 /hpf (0-5) H 04/01/17 20:34 Urine WBC 2-5 /hpf (0-5) H 04/01/17 20:34 Ur Epithelial Cells FEW /lpf (FEW) 04/01/17 20:34 Urine Bacteria OCCASIONAL /hpf (NONE SEEN) 04/01/17 20:34 Valproic Acid 64.9 ug/mL (50.0-100.0) 03/30/17 12:59 - Physical Exam Vitals and I&O: Vital Signs Temp 97.6 F 04/04/17 12:00 Pulse 68 04/04/17 12:00 Resp 18 04/04/17 12:00 BP 102/49 04/04/17 12:00 Pulse Ox 94 04/04/17 12:00 Intake & Output 04/03/17 04/04/17 04/04/17 18:59 06:59 18:59 Intake Total 1100 1250 Balance 1100 1250 Weight (lbs) 181 lb 3.2 oz Intake: Intake, IV Amount 1100 1200 D5-0.9%Ns 1,000 ml @ 80 1000 1000 mls/hr IV .[id number] [facility] Rx #:[id number] Piperacillin Sodium/ 100 200 Tazobact 4.5 gm In Sodium Chloride 0.9% 100 ml @ 100 mls/hr IV Q8HR [facility] Rx #:[id number] Oral 50 Other: # Voids 3 # Bowel Movements 1 Stool Characteristics Formed Formed Formed Active Medications: Current Medications Acetaminophen (Tylenol) 650 mg PO Q4HR PRN PRN Reason: PAIN OR TEMP 100.3 F Stop: 05/29/17 17:34 Albuterol Sulfate (Albuterol 2.5mg/3ml Neb Ud) 2.5 mg HHN QIDRT [facility] Stop: 05/29/17 18:59 Last Admin: 04/04/17 10:52 Dose: 2.5 mg Albuterol Sulfate (Albuterol 2.5mg/3ml Neb Ud) 2.5 mg HHN QIDRT PRN PRN Reason: Wheezing Stop: 05/29/17 17:34 Amlodipine Besylate (Norvasc) 10 mg PO DAILY [facility] Stop: 05/30/17 08:59 Last Admin: 04/04/17 09:00 Dose: 10 mg Benztropine Mesylate (Cogentin) 0.5 mg PO BID [facility] Stop: 05/30/17 08:59 Last Admin: 04/04/17 10:08 Dose: 0.5 mg Carbidopa/Levodopa (Sinemet 25mg-100 Mg) 1 tab PO TID [facility] Stop: 05/29/17 20:59 Last Admin: 04/04/17 10:08 Dose: 1 tab Donepezil HCl (Aricept) 10 mg PO HS WILL Stop: 05/29/17 20:59 Last Admin: 04/03/17 21:50 Dose: 10 mg Guaifenesin (Robitussin) 200 mg PO Q4HR PRN PRN Reason: Cough or Congestion Stop: 05/29/17 17:37 Haloperidol Decanoate (Haldol Dec) 25 mg IM QMONTH WILL PRN Reason: Protocol Stop: 06/15/17 08:59 Heparin Sodium (Porcine) (Heparin) 5,000 units SUBQ Q12HR WILL Stop: 05/29/17 20:59 Last Admin: 04/04/17 10:03 Dose: 5,000 units Piperacillin Sod/Tazobactam (Sod 4.5 gm/ Sodium Chloride) 100 mls @ 100 mls/hr IV Q8HR WILL Stop: 05/31/17 12:59 Last Admin: 04/04/17 12:17 Dose: 100 mls/hr Dextrose/Sodium Chloride (D5-0.9%Ns) 1,000 mls @ 100 mls/hr IV .Q10H WILL Stop: 06/03/17 13:55 Ipratropium [place] (Atrovent Neb 0.5mg/2.5ml) 0.5 mg HHN QIDRT PRN PRN Reason: Wheezing Stop: 05/29/17 17:34 Latanoprost (Xalatan 0.005% Ophth Soln) 1 drop EACH EYE HS WILL Stop: 05/29/17 20:59 Last Admin: 04/03/17 21:50 Dose: 1 drop Levothyroxine Sodium (Synthroid) 0.025 mg PO QDAC WILL Stop: 05/30/17 07:29 Last Admin: 04/04/17 10:04 Dose: 0.025 mg Magnesium Hydroxide (Milk Of Magnesia) 30 ml PO HS PRN PRN Reason: Constipation Stop: 05/29/17 17:34 Last Admin: 04/03/17 00:12 Dose: 30 ml Methylprednisolone Sodium Succinate (Solu-Medrol) 40 mg IVP Q12HR WILL Stop: 06/02/17 20:59 Last Admin: 04/04/17 09:00 Dose: 40 mg Miscellaneous (Vte Chemical Prophylaxis Screen/ Admission) 1 ea MC PRN PRN PRN Reason: PROTOCOL Stop: 05/30/17 09:33 Multivitamins/Vitamin C (Theragran) 1 tab PO DAILY WILL Stop: 05/30/17 08:59 Last Admin: 04/04/17 09:01 Dose: 1 tab Ondansetron HCl (Zofran) 4 mg IV Q8H PRN PRN Reason: Nausea / Vomiting Stop: 05/29/17 17:37 Polyethylene Glycol (Miralax) 17 gm PO BID WILL Stop: 05/30/17 08:59 Last Admin: 04/04/17 09:01 Dose: 17 gm Simvastatin (Zocor) 10 mg PO HS IWLL PRN Reason: Protocol Stop: 05/29/17 20:59 Last Admin: 04/03/17 21:50 Dose: 10 mg Valproate Sodium (Depakene) 500 mg PO Q12HR WILL PRN Reason: Protocol Stop: 05/29/17 20:59 Last Admin: 04/04/17 09:01 Dose: 500 mg General: congested, demented HEENT: NC/AT, PERRLA, EOMI Neck: Supple, No JVD Lungs: congested, rales Cardiovascular: RRR, Normal S1, Normal S2, with murmur Abdomen: soft, thin, positive bowel sound Extremities: excoriation, contracture Neurological: no change, disorganized, bedbound - Procedures Procedures: Procedures Procedure Code Date CLOSURE SKIN & SUBCUTANEOUS NEC 86.59 07/07/12 DPT ADMINISTRATION 99.39 07/07/12 IMMUNIZATION ADMIN 43188 07/07/12 OTHER GROUP THERAPY 94.44 12/10/14 RECREATIONAL THERAPY 93.81 09/15/12 RPR S/N/AX/GEN/TRNK 2.5CM/< 98080 07/07/12 TDAP VACCINE 7 YRS/> [place] [id number] 07/07/12 Internal Medicine Assmt/Plan - Assessment Assessment: lactic acidosis sepsis Acute hypoxic respiratory failure acute chronic obstructive pulmonary disease exacerbation Parkinson's hypothyroidism hypertension hypercholesterolemia diabetes low albumin. - Plan Plan: continue ivabx supplemental oxygen as needed inhalation treatments continue current plan of care increase ivf
[2017-04-05] MEDS: D5-0.9%NS 1,000 ML IV SCH ×2 (00:32→12:32)
[2017-04-05 05:19] LABS: % BASOPHILS 0.2 % (0.0-2.0); % EOSINOPHILS 0.5 % (0.0-5.0); % LYMPHOCYTES 33.7 % (20.0-50.0); % NEUTROPHILS 54.6 % (40.0-80.0); HEMATOCRIT 42.1 % (39.0-49.0); HEMOGLOBIN 14.1 gm/dL (12.6-17.4); MEAN CELL VOLUME 91.3 fl (80-99); MEAN CORPUSCULAR HEMOGLOBIN 30.6 pg (27.0-31.0); MEAN CORPUSCULAR HGB CONC 33.5 pg (28.0-36.0); MEAN PLATELET VOLUME 9.2 fl; NEUTROPHILE ABSOLUTE 3.8 Th/cmm (1.8-8.0); PLATELET COUNT 176 Th/cmm (150-400); RED BLOOD COUNT 4.62 Mil/cmm (3.80-5.80); WHITE BLOOD COUNT 6.9 Th/cmm (4.8-10.8)
[2017-04-05 05:32] LABS: ANION GAP 7.3 (7.0-16.0); BUN - UREA NITROGEN 19 mg/dL (7-25); CALCIUM SERUM 8.4 mg/dL (8.6-10.3); CARBON DIOXIDE 25.8 mEq/L (21.0-31.0); CHLORIDE 108 mEq/L (98-107); GLUCOSE 98 mg/dL (70-105); POTASSIUM SERUM 4.1 mEq/L (3.5-5.1); SODIUM SERUM 137 mEq/L (136-145)
[2017-04-05] MEDS: Albuterol Nebulizer 2.5mg/3mL HHN SCH ×4 (06:55→18:46)
[2017-04-05] MEDS: Levothyroxine 0.025 Mg Tab PO SCH (08:59)
[2017-04-05] MEDS: methylPREDNISolone SS 40 mg Vial IVP SCH ×2 (09:00→21:19)
[2017-04-05] MEDS: Multivitamin Tab PO SCH (09:00)
[2017-04-05] MEDS: POLYETHYLENE GLYCOL 3350 17 GM PACK PO SCH ×2 (09:00→16:14)
--- NOTE | 2017-04-05 14:07 | Internal Medicine Prog Note ---
Internal Medicine Subjective - Subjective Service Date: 04/05/17 Patient is:: awake, non-verbal, non-interactive, confused, congested Patient Complaints of:: congestion Per staff patient has:: no adverse event, poor appetite, agitated, noncompliant , confused, tolerating meds Internal Medicine Objective - Results Result Diagrams: 04/05/17 04:42 04/05/17 04:42 Recent Labs: Laboratory Last Values WBC 6.9 Th/cmm (4.8-10.8) 04/05/17 04:42 RBC 4.62 Mil/cmm (3.80-5.80) 04/05/17 04:42 Hgb 14.1 gm/dL (12.6-17.4) 04/05/17 04:42 Hct 42.1 % (39.0-49.0) 04/05/17 04:42 MCV 91.3 fl (80-99) 04/05/17 04:42 MCH 30.6 pg (27.0-31.0) 04/05/17 04:42 MCHC Differential 33.5 pg (28.0-36.0) 04/05/17 04:42 RDW 13.0 % (11.5-20.0) 04/05/17 04:42 Plt Count 176 Th/cmm (150-400) 04/05/17 04:42 MPV 9.2 fl 04/05/17 04:42 Neutrophils % 54.6 % (40.0-80.0) 04/05/17 04:42 Lymphocytes % 33.7 % (20.0-50.0) 04/05/17 04:42 Monocytes % 11.0 % (2.0-10.0) H 04/05/17 04:42 Eosinophils % 0.5 % (0.0-5.0) 04/05/17 04:42 Basophils % 0.2 % (0.0-2.0) 04/05/17 04:42 Neutrophils (Manual) 39 % (40-80) L 03/30/17 12:59 Lymphocytes 42 % (20-50) 03/30/17 12:59 Monocytes 13 % (2-10) H 03/30/17 12:59 Eosinophils 3 % (0-5) 03/30/17 12:59 Basophils 3 % (0-3) 03/30/17 12:59 Platelet Estimate ADEQUATE (NORMAL) 03/30/17 12:59 Platelet Morphology NORMAL (NORMAL) 03/30/17 12:59 RBC Morph Micro Appear NORMAL (NORMAL) 03/30/17 12:59 Sodium 137 mEq/L (136-145) 04/05/17 04:42 Potassium 4.1 mEq/L (3.5-5.1) 04/05/17 04:42 Chloride 108 mEq/L (98-107) H 04/05/17 04:42 Carbon Dioxide 25.8 mEq/L (21.0-31.0) 04/05/17 04:42 Anion Gap 7.3 (7.0-16.0) 04/05/17 04:42 BUN 19 mg/dL (7-25) 04/05/17 04:42 Creatinine 1.0 mg/dL (0.7-1.3) 04/05/17 04:42 Est GFR ( Amer) TNP 04/05/17 04:42 Est GFR (Non-Af Amer) TNP 04/05/17 04:42 BUN/Creatinine Ratio 19.0 04/05/17 04:42 Glucose 98 mg/dL (70-105) 04/05/17 04:42 Hemoglobin A1c % 5.4 % (4.0-6.0) 04/01/17 06:36 Whole Bld Lactic Acid 3.70 mmol/L (0.60-1.99) H* 04/04/17 09:15 Calcium 8.4 mg/dL (8.6-10.3) L 04/05/17 04:42 Magnesium 2.4 mg/dL (1.9-2.7) 04/03/17 06:42 Total Bilirubin 0.4 mg/dL (0.3-1.0) 04/03/17 06:42 AST 28 U/L (13-39) 04/03/17 06:42 ALT 30 U/L (7-52) 04/03/17 06:42 Alkaline Phosphatase 38 U/L (34-104) 04/03/17 06:42 Ammonia 51 umol/L (16-53) 04/01/17 06:36 Troponin I 0.01 ng/mL (0.01-0.05) 03/30/17 12:59 B-Natriuretic Peptide 86.8 pg/mL (5.0-100.0) 04/01/17 06:36 Total Protein 5.4 gm/dL (6.0-8.3) L 04/03/17 06:42 Albumin 3.3 gm/dL (4.2-5.5) L 04/03/17 06:42 Globulin 2.1 gm/dL 04/03/17 06:42 Albumin/Globulin Ratio 1.6 (1.0-1.8) 04/03/17 06:42 Vitamin B12 913 pg/mL (211-946) 04/01/17 06:36 Folic Acid 15.4 ng/mL (>3.0) 04/01/17 06:36 Free T4 1.14 ng/dL (0.82-1.77) 03/30/17 13:22 TSH 0.68 uIU/ml (0.34-5.60) 03/30/17 13:22 Urine Source CATH 04/01/17 20:34 Urine Color YELLOW 04/01/17 20:34 Urine Clarity CLEAR (CLEAR) 04/01/17 20:34 Urine pH 6.0 (4.6 - 8.0) 04/01/17 20:34 Ur Specific [place] 1.020 (1.005-1.030) 04/01/17 20:34 Urine Protein NEGATIVE mg/dL (NEGATIVE) 04/01/17 20:34 Urine Glucose (UA) 250 mg/dL (NEGATIVE) H 04/01/17 20:34 Urine Ketones NEGATIVE mg/dL (NEGATIVE) 04/01/17 20:34 Urine Blood NEGATIVE (NEGATIVE) 04/01/17 20:34 Urine Nitrate NEGATIVE (NEGATIVE) 04/01/17 20:34 Urine Bilirubin NEGATIVE (NEGATIVE) 04/01/17 20:34 Urine Urobilinogen 0.2 E.U./dL (0.2 - 1.0) 04/01/17 20:34 Ur Leukocyte Esterase NEGATIVE (NEGATIVE) 04/01/17 20:34 Urine RBC 0-2 /hpf (0-5) H 04/01/17 20:34 Urine WBC 2-5 /hpf (0-5) H 04/01/17 20:34 Ur Epithelial Cells FEW /lpf (FEW) 04/01/17 20:34 Urine Bacteria OCCASIONAL /hpf (NONE SEEN) 04/01/17 20:34 Valproic Acid 64.9 ug/mL (50.0-100.0) 03/30/17 12:59 - Physical Exam Vitals and I&O: Vital Signs Temp 98.3 F 04/05/17 12:00 Pulse 100 04/05/17 12:00 Resp 17 04/05/17 12:00 BP 137/84 04/05/17 12:00 Pulse Ox 93 04/05/17 10:46 Intake & Output 04/04/17 04/05/17 04/05/17 18:59 06:59 18:59 Intake Total 1700 1260 1000 Balance 1700 1260 1000 Weight (lbs) 181 lb 3 oz Intake: Intake, IV Amount 100 1260 1000 D5-0.9%Ns 1,000 ml @ 926 861 5160 mls/hr IV .Q10H [facility] Rx#: [id number] Piperacillin Sodium/ 100 300 Tazobact 4.5 gm In Sodium Chloride 0.9% 100 ml @ 100 mls/hr IV Q8HR [facility] Rx #:[id number] Oral 1600 Other: # Voids 4 # Bowel Movements 0 Stool Characteristics Formed Active Medications: Current Medications Acetaminophen (Tylenol) 650 mg PO Q4HR PRN PRN Reason: PAIN OR TEMP 100.3 F Stop: 05/29/17 17:34 Albuterol Sulfate (Albuterol 2.5mg/3ml Neb Ud) 2.5 mg HHN QIDRT WILL Stop: 05/29/17 18:59 Last Admin: 04/05/17 10:42 Dose: 2.5 mg Albuterol Sulfate (Albuterol 2.5mg/3ml Neb Ud) 2.5 mg HHN QIDRT PRN PRN Reason: Wheezing Stop: 05/29/17 17:34 Amlodipine Besylate (Norvasc) 10 mg PO DAILY WILL Stop: 05/30/17 08:59 Last Admin: 04/05/17 08:59 Dose: 10 mg Benztropine Mesylate (Cogentin) 0.5 mg PO BID WILL Stop: 05/30/17 08:59 Last Admin: 04/05/17 08:59 Dose: 0.5 mg Carbidopa/Levodopa (Sinemet 25mg-100 Mg) 1 tab PO TID [facility] Stop: 05/29/17 20:59 Last Admin: 04/05/17 08:59 Dose: 1 tab Donepezil HCl (Aricept) 10 mg PO HS WILL Stop: 05/29/17 20:59 Last Admin: 04/04/17 21:46 Dose: 10 mg Guaifenesin (Robitussin) 200 mg PO Q4HR PRN PRN Reason: Cough or Congestion Stop: 05/29/17 17:37 Haloperidol Decanoate (Haldol Dec) 25 mg IM QMONTH WILL PRN Reason: Protocol Stop: 06/15/17 08:59 Heparin Sodium (Porcine) (Heparin) 5,000 units SUBQ Q12HR WILL Stop: 05/29/17 20:59 Last Admin: 04/05/17 08:59 Dose: 5,000 units Piperacillin Sod/Tazobactam (Sod 4.5 gm/ Sodium Chloride) 100 mls @ 100 mls/hr IV Q8HR WILL Stop: 05/31/17 12:59 Last Admin: 04/05/17 12:31 Dose: 100 mls/hr Dextrose/Sodium Chloride (D5-0.9%Ns) 1,000 mls @ 100 mls/hr IV .Q10H WILL Stop: 06/03/17 13:55 Last Admin: 04/05/17 12:32 Dose: 100 mls/hr Ipratropium [place] (Atrovent Neb 0.5mg/2.5ml) 0.5 mg HHN QIDRT PRN PRN Reason: Wheezing Stop: 05/29/17 17:34 Latanoprost (Xalatan 0.005% Ophth Soln) 1 drop EACH EYE HS WILL Stop: 05/29/17 20:59 Last Admin: 04/04/17 21:44 Dose: 1 drop Levothyroxine Sodium (Synthroid) 0.025 mg PO QDAC WILL Stop: 05/30/17 07:29 Last Admin: 04/05/17 08:59 Dose: 0.025 mg Magnesium Hydroxide (Milk Of Magnesia) 30 ml PO HS PRN PRN Reason: Constipation Stop: 05/29/17 17:34 Last Admin: 04/03/17 00:12 Dose: 30 ml Methylprednisolone Sodium Succinate (Solu-Medrol) 40 mg IVP Q12HR WILL Stop: 06/02/17 20:59 Last Admin: 04/05/17 09:00 Dose: 40 mg Miscellaneous (Vte Chemical Prophylaxis Screen/ Admission) 1 ea MC PRN PRN PRN Reason: PROTOCOL Stop: 05/30/17 09:33 Multivitamins/Vitamin C (Theragran) 1 tab PO DAILY [facility] Stop: 05/30/17 08:59 Last Admin: 04/05/17 09:00 Dose: 1 tab Ondansetron HCl (Zofran) 4 mg IV Q8H PRN PRN Reason: Nausea / Vomiting Stop: 05/29/17 17:37 Polyethylene Glycol (Miralax) 17 gm PO BID [facility] Stop: 05/30/17 08:59 Last Admin: 04/05/17 09:00 Dose: 17 gm Simvastatin (Zocor) 10 mg PO HS WILL PRN Reason: Protocol Stop: 05/29/17 20:59 Last Admin: 04/04/17 21:46 Dose: 10 mg Valproate Sodium (Depakene) 500 mg PO Q12HR WILL PRN Reason: Protocol Stop: 05/29/17 20:59 Last Admin: 04/05/17 09:00 Dose: 500 mg General: congested, demented HEENT: NC/AT, PERRLA, EOMI Neck: Supple, No JVD Lungs: congested, rales Cardiovascular: RRR, Normal S1, Normal S2, with murmur Abdomen: soft, thin, positive bowel sound Extremities: excoriation, contracture Neurological: no change, disorganized, bedbound - Procedures Procedures: Procedures Procedure Code Date CLOSURE SKIN & SUBCUTANEOUS NEC 86.59 07/07/12 DPT ADMINISTRATION 99.39 07/07/12 IMMUNIZATION ADMIN [id number] 07/07/12 OTHER GROUP THERAPY 94.44 12/10/14 RECREATIONAL THERAPY 93.81 09/15/12 RPR S/N/AX/GEN/TRNK 2.5CM/< 71948 07/07/12 TDAP VACCINE 7 YRS/> IM [id number] 07/07/12 Internal Medicine Assmt/Plan - Assessment Assessment: lactic acidosis sepsis Acute hypoxic respiratory failure acute chronic obstructive pulmonary disease exacerbation Parkinson's hypothyroidism hypertension hypercholesterolemia diabetes low albumin. - Plan Plan: continue ivabx supplemental oxygen as needed inhalation treatments continue current plan of care increase ivf Nutritional Asmnt/Malnutr-PDOC - Dietary Evaluation Malnutrition Findings (Please click <Entered> for more info): Nutritional Asmnt/Malnutrition Start: 04/05/17 13: 32 Text: Status: Active Freq: Document 04/05/17 13:32 ANA MNICK (Rec: 04/05/17 13:38 TOAN PHONG- [id number]) Nutritional Asmnt/Malnutrition Patient General Information Nutritional Screening Moderate Risk Screening Diagnosis COPD exacerbation, respiratory failure Pertinent Medical Hx/Surgical Hx asthma, parkinsons, COPD, hypertension, hypercholesterolemia Subjective Information Per H&P, patient was admitted from nursing facility secondary to increasing shortness of breath and desaturating. Current Diet Order/ Nutrition Support Mechanical soft chopped with Boost TID Patient / S.O Can't verbalize diet edu Pertinent Medications D5-0.9% NS @100ml/hr, synthroid, MOM, solu-medrol, Theragran, zofran, miralax Pertinent Labs (04/03) albumin 3.3 (04/05) labs reviewed Nutritional Hx/Data Height 5 ft 11 in Height (Calculated Centimeters) 180.3 Current Weight (lbs) 181 lb Weight (Calculated Kilograms) 82.1 Weight (Calculated Grams) 65084.2 [place] Body Weight 172 % [place] Body Weight 105 Recent Weight Change No Weight Status Overweight GI Symptoms GI Symptoms None Food Allergies No Cultural/Ethnic/Evangelical Belief None indicated Current %PO Good (75-100%) Estimated Nutritional Goals BEE in Kcals: Using Current wt Calories/Kcals/Kg 25-30kcal/kg using CBW 82.2kg Kcals Calculated ~0363-6778 kcal/day Protein: Using Current wt Protein g/k-1.2 gm/kg - Respiratory failure Protein Calculated ~80-100 gm/day Fluid: ml ~8216-0673 ml/day ( 1 ml/kcal) Nutritional Problem 1. Problem Problem No nutrition diagnosis at this time. Intervention/Recommendation Comments 1. Continue Mechanical soft, chopped diet as tolerated by patient; adequate to meet nutrient needs. 2. Consider D/C Boost due to adequately meeting nutrient needs via meals. Expected Outcomes/Goals Expected Outcomes/Goals oral intake >75% of meals, weight stable, nutrition related labs remain normal F/U LR in 7 days (04/12)
--- NOTE | 2017-04-05 22:17 | Admit Criteria Form ---
Admit Criteria Forms - Admit Criteria Diagnosis: COPD Clinical Indications for Admission to Inpatient Care ([place]/ check or initial the applicable condition/criteria) Admission is indicated for ANY ONE of the following (1)(2)(3): [ X]I. Acute exacerbation by high-risk comorbidity(e.g., pneumonia, dysrhythmia, heart failure, pleural effusion, pneumothorax) or severe underlying COPD (eg, baseline FEV1 less than 50% predicted) [ ]II. Inpatient admission required[A] rather than observation care (see Chronic Obstructive Pulmonary Disease: Observation Care) because of ANY ONE of the following: [ ]a) New or pre-existing signs or symptoms of COPD (eg, dyspnea or Tachypnea at rest or with minimal activity) that persist despite outpatient and observation care treatment [ ]b) New-onset hypoxemia (room air SaO2 less than 90%, PO2 less than 60 mm Hg (8.0 kPa)) that persists despite outpatient and observation care treatment [ ]c) Worsening of pre-existing hypoxemia (eg, new or increased requirement for supplemental oxygen to maintain oxygenation at baseline level) that persists despite outpatient and observation care treatment, with oxygen treatment needs performable only in acute inpatient setting [ ]d) Hypercarbia (PCO2 greater than 40 mm Hg (5.3 kPa))-induced respiratory acidosis (pH less than 7.35) that persists despite outpatient and observation care treatment [ ]e) Supplemental oxygen or respiratory treatments for over 24 hours that are performable only in acute inpatient setting [ ]f) Chest tube placement with active evacuation (e.g., suction, drainage) (6) [ ]g) Other condition, treatment or monitoring requiring inpatient admission [ ]III. Planned invasive surgical or diagnostic procedures requiring acute- care hospitalization [ ]IV. Acute respiratory failure (e.g., uncompensated hypercarbia, severe hypoxemia) [ ]V. Severe comorbid condition (e.g., severe steroid myopathy, acute vertebral fracture) that has acutely worsened pulmonary function [ ]. Altered mental status that is severe or persistent Extended stay beyond goal length of stay may be needed for (29)(30)(31)(32)(33) : [ ]a ) Respiratory Failure. [ ]b) Severe or persisting hypoxemia or hypercarbia [ ]c) Severe or persistent dyspnea [ ]d) Clinically significant Comorbidities (e.g. chronic heart failure, atrial fibrillation with rapid response, pneumonia)(36) [ ]e) Malnutrition (33) The original [facility] content [facility] by [facility] has been revised. The portions of the content which have been revised are identified through the use of italic text or in bold, and [facility] has neither reviewed nor approved the modified material. All other unmodified content is copyright [facility]. Please see references footnoted in the original [facility] edition 2017 Admit Criteria Met?: Yes
[2017-04-06] MEDS: D5-0.9%NS 1,000 ML IV SCH (06:26)
[2017-04-06] MEDS: Levothyroxine 0.025 Mg Tab PO SCH (07:35)
[2017-04-06] MEDS: Albuterol Nebulizer 2.5mg/3mL HHN SCH ×4 (07:39→18:46)
[2017-04-06] MEDS: Multivitamin Tab PO SCH (08:39)
[2017-04-06] MEDS: methylPREDNISolone SS 40 mg Vial IVP SCH ×2 (08:40→20:38)
[2017-04-06] MEDS: POLYETHYLENE GLYCOL 3350 17 GM PACK PO SCH ×2 (08:40→17:25)
--- NOTE | 2017-04-06 09:52 | Internal Medicine Prog Note ---
Internal Medicine Subjective - Subjective Service Date: 04/06/17 Patient is:: awake, non-verbal, non-interactive, confused Patient Complaints of:: congestion Per staff patient has:: no adverse event, poor appetite, agitated, noncompliant , confused, tolerating meds Internal Medicine Objective - Results Result Diagrams: 04/05/17 04:42 04/05/17 04:42 Recent Labs: Laboratory Last Values WBC 6.9 Th/cmm (4.8-10.8) 04/05/17 04:42 RBC 4.62 Mil/cmm (3.80-5.80) 04/05/17 04:42 Hgb 14.1 gm/dL (12.6-17.4) 04/05/17 04:42 Hct 42.1 % (39.0-49.0) 04/05/17 04:42 MCV 91.3 fl (80-99) 04/05/17 04:42 MCH 30.6 pg (27.0-31.0) 04/05/17 04:42 MCHC Differential 33.5 pg (28.0-36.0) 04/05/17 04:42 RDW 13.0 % (11.5-20.0) 04/05/17 04:42 Plt Count 176 Th/cmm (150-400) 04/05/17 04:42 MPV 9.2 fl 04/05/17 04:42 Neutrophils % 54.6 % (40.0-80.0) 04/05/17 04:42 Lymphocytes % 33.7 % (20.0-50.0) 04/05/17 04:42 Monocytes % 11.0 % (2.0-10.0) H 04/05/17 04:42 Eosinophils % 0.5 % (0.0-5.0) 04/05/17 04:42 Basophils % 0.2 % (0.0-2.0) 04/05/17 04:42 Neutrophils (Manual) 39 % (40-80) L 03/30/17 12:59 Lymphocytes 42 % (20-50) 03/30/17 12:59 Monocytes 13 % (2-10) H 03/30/17 12:59 Eosinophils 3 % (0-5) 03/30/17 12:59 Basophils 3 % (0-3) 03/30/17 12:59 Platelet Estimate ADEQUATE (NORMAL) 03/30/17 12:59 Platelet Morphology NORMAL (NORMAL) 03/30/17 12:59 RBC Morph Micro Appear NORMAL (NORMAL) 03/30/17 12:59 Sodium 137 mEq/L (136-145) 04/05/17 04:42 Potassium 4.1 mEq/L (3.5-5.1) 04/05/17 04:42 Chloride 108 mEq/L (98-107) H 04/05/17 04:42 Carbon Dioxide 25.8 mEq/L (21.0-31.0) 04/05/17 04:42 Anion Gap 7.3 (7.0-16.0) 04/05/17 04:42 BUN 19 mg/dL (7-25) 04/05/17 04:42 Creatinine 1.0 mg/dL (0.7-1.3) 04/05/17 04:42 Est GFR ( Amer) TNP 04/05/17 04:42 Est GFR (Non-Af Amer) TNP 04/05/17 04:42 BUN/Creatinine Ratio 19.0 04/05/17 04:42 Glucose 98 mg/dL (70-105) 04/05/17 04:42 Hemoglobin A1c % 5.4 % (4.0-6.0) 04/01/17 06:36 Whole Bld Lactic Acid 3.70 mmol/L (0.60-1.99) H* 04/04/17 09:15 Calcium 8.4 mg/dL (8.6-10.3) L 04/05/17 04:42 Magnesium 2.4 mg/dL (1.9-2.7) 04/03/17 06:42 Total Bilirubin 0.4 mg/dL (0.3-1.0) 04/03/17 06:42 AST 28 U/L (13-39) 04/03/17 06:42 ALT 30 U/L (7-52) 04/03/17 06:42 Alkaline Phosphatase 38 U/L (34-104) 04/03/17 06:42 Ammonia 51 umol/L (16-53) 04/01/17 06:36 Troponin I 0.01 ng/mL (0.01-0.05) 03/30/17 12:59 B-Natriuretic Peptide 86.8 pg/mL (5.0-100.0) 04/01/17 06:36 Total Protein 5.4 gm/dL (6.0-8.3) L 04/03/17 06:42 Albumin 3.3 gm/dL (4.2-5.5) L 04/03/17 06:42 Globulin 2.1 gm/dL 04/03/17 06:42 Albumin/Globulin Ratio 1.6 (1.0-1.8) 04/03/17 06:42 Vitamin B12 913 pg/mL (211-946) 04/01/17 06:36 Folic Acid 15.4 ng/mL (>3.0) 04/01/17 06:36 Free T4 1.14 ng/dL (0.82-1.77) 03/30/17 13:22 TSH 0.68 uIU/ml (0.34-5.60) 03/30/17 13:22 Urine Source CATH 04/01/17 20:34 Urine Color YELLOW 04/01/17 20:34 Urine Clarity CLEAR (CLEAR) 04/01/17 20:34 Urine pH 6.0 (4.6 - 8.0) 04/01/17 20:34 Ur Specific [place] 1.020 (1.005-1.030) 04/01/17 20:34 Urine Protein NEGATIVE mg/dL (NEGATIVE) 04/01/17 20:34 Urine Glucose (UA) 250 mg/dL (NEGATIVE) H 04/01/17 20:34 Urine Ketones NEGATIVE mg/dL (NEGATIVE) 04/01/17 20:34 Urine Blood NEGATIVE (NEGATIVE) 04/01/17 20:34 Urine Nitrate NEGATIVE (NEGATIVE) 04/01/17 20:34 Urine Bilirubin NEGATIVE (NEGATIVE) 04/01/17 20:34 Urine Urobilinogen 0.2 E.U./dL (0.2 - 1.0) 04/01/17 20:34 Ur Leukocyte Esterase NEGATIVE (NEGATIVE) 04/01/17 20:34 Urine RBC 0-2 /hpf (0-5) H 04/01/17 20:34 Urine WBC 2-5 /hpf (0-5) H 04/01/17 20:34 Ur Epithelial Cells FEW /lpf (FEW) 04/01/17 20:34 Urine Bacteria OCCASIONAL /hpf (NONE SEEN) 04/01/17 20:34 Valproic Acid 64.9 ug/mL (50.0-100.0) 03/30/17 12:59 - Physical Exam Vitals and I&O: Vital Signs Temp 98.0 F 04/06/17 04:00 Pulse 50 04/06/17 08:40 Resp 18 04/06/17 07:49 BP 125/76 04/06/17 08:40 Pulse Ox 94 04/06/17 07:49 Intake & Output 04/05/17 04/06/17 04/06/17 18:59 06:59 18:59 Intake Total 1100 1100 300 Balance 1100 1100 300 Weight (lbs) 181 lb 181 lb Intake: Intake, IV Amount 1100 1100 D5-0.9%Ns 1,000 ml @ 100 1000 1000 mls/hr IV .Q10H [facility] Rx#: [id number] Piperacillin Sodium/ 100 100 Tazobact 4.5 gm In Sodium Chloride 0.9% 100 ml @ 100 mls/hr IV Q8HR [facility] Rx #:[id number] Oral 300 Other: # Bowel Movements 0 Stool Characteristics Formed Active Medications: Current Medications Acetaminophen (Tylenol) 650 mg PO Q4HR PRN PRN Reason: PAIN OR TEMP 100.3 F Stop: 05/29/17 17:34 Albuterol Sulfate (Albuterol 2.5mg/3ml Neb Ud) 2.5 mg HHN QIDRT WILL Stop: 05/29/17 18:59 Last Admin: 04/06/17 07:39 Dose: 2.5 mg Albuterol Sulfate (Albuterol 2.5mg/3ml Neb Ud) 2.5 mg HHN QIDRT PRN PRN Reason: Wheezing Stop: 05/29/17 17:34 Amlodipine Besylate (Norvasc) 10 mg PO DAILY [facility] Stop: 05/30/17 08:59 Last Admin: 04/06/17 08:40 Dose: 10 mg Benztropine Mesylate (Cogentin) 0.5 mg PO BID WILL Stop: 05/30/17 08:59 Last Admin: 04/06/17 08:40 Dose: 0.5 mg Carbidopa/Levodopa (Sinemet 25mg-100 Mg) 1 tab PO TID WILL Stop: 05/29/17 20:59 Last Admin: 04/06/17 08:39 Dose: 1 tab Donepezil HCl (Aricept) 10 mg PO HS WILL Stop: 05/29/17 20:59 Last Admin: 04/05/17 21:20 Dose: 10 mg Guaifenesin (Robitussin) 200 mg PO Q4HR PRN PRN Reason: Cough or Congestion Stop: 05/29/17 17:37 Haloperidol Decanoate (Haldol Dec) 25 mg IM QMONTH WILL PRN Reason: Protocol Stop: 06/15/17 08:59 Heparin Sodium (Porcine) (Heparin) 5,000 units SUBQ Q12HR WILL Stop: 05/29/17 20:59 Last Admin: 04/06/17 08:42 Dose: Not Given Piperacillin Sod/Tazobactam (Sod 4.5 gm/ Sodium Chloride) 100 mls @ 100 mls/hr IV Q8HR WILL Stop: 05/31/17 12:59 Last Admin: 04/06/17 06:24 Dose: 100 mls/hr Dextrose/Sodium Chloride (D5-0.9%Ns) 1,000 mls @ 100 mls/hr IV .Q10H WILL Stop: 06/03/17 13:55 Last Admin: 04/06/17 06:26 Dose: 100 mls/hr Ipratropium [place] (Atrovent Neb 0.5mg/2.5ml) 0.5 mg HHN QIDRT PRN PRN Reason: Wheezing Stop: 05/29/17 17:34 Latanoprost (Xalatan 0.005% Ophth Soln) 1 drop EACH EYE HS WILL Stop: 05/29/17 20:59 Last Admin: 04/05/17 22:00 Dose: 1 drop Levothyroxine Sodium (Synthroid) 0.025 mg PO QDAC WILL Stop: 05/30/17 07:29 Last Admin: 04/06/17 07:35 Dose: 0.025 mg Magnesium Hydroxide (Milk Of Magnesia) 30 ml PO HS PRN PRN Reason: Constipation Stop: 05/29/17 17:34 Last Admin: 04/03/17 00:12 Dose: 30 ml Methylprednisolone Sodium Succinate (Solu-Medrol) 20 mg IVP Q12HR WILL Stop: 06/02/17 20:59 Last Admin: 04/06/17 08:40 Dose: 20 mg Miscellaneous (Vte Chemical Prophylaxis Screen/ Admission) 1 ea MC PRN PRN PRN Reason: PROTOCOL Stop: 05/30/17 09:33 Multivitamins/Vitamin C (Theragran) 1 tab PO DAILY [facility] Stop: 05/30/17 08:59 Last Admin: 04/06/17 08:39 Dose: 1 tab Ondansetron HCl (Zofran) 4 mg IV Q8H PRN PRN Reason: Nausea / Vomiting Stop: 05/29/17 17:37 Polyethylene Glycol (Miralax) 17 gm PO BID WILL Stop: 05/30/17 08:59 Last Admin: 04/06/17 08:40 Dose: 17 gm Simvastatin (Zocor) 10 mg PO HS WILL PRN Reason: Protocol Stop: 05/29/17 20:59 Last Admin: 04/05/17 21:20 Dose: 10 mg Valproate Sodium (Depakene) 500 mg PO Q12HR WILL PRN Reason: Protocol Stop: 05/29/17 20:59 Last Admin: 04/06/17 08:40 Dose: 500 mg General: congested, demented HEENT: NC/AT, PERRLA, EOMI Neck: Supple, No JVD Lungs: congested, rales Cardiovascular: RRR, Normal S1, Normal S2, with murmur Abdomen: soft, thin, positive bowel sound Extremities: excoriation, contracture Neurological: no change, disorganized, bedbound - Procedures Procedures: Procedures Procedure Code Date CLOSURE SKIN & SUBCUTANEOUS NEC 86.59 07/07/12 DPT ADMINISTRATION 99.39 07/07/12 IMMUNIZATION ADMIN 96316 07/07/12 OTHER GROUP THERAPY 94.44 12/10/14 RECREATIONAL THERAPY 93.81 09/15/12 RPR S/N/AX/GEN/TRNK 2.5CM/< 49379 07/07/12 TDAP VACCINE 7 YRS/> [place] [id number] 07/07/12 Internal Medicine Assmt/Plan - Assessment Assessment: lactic acidosis sepsis Acute hypoxic respiratory failure acute chronic obstructive pulmonary disease exacerbation Parkinson's hypothyroidism hypertension hypercholesterolemia diabetes low albumin. - Plan Plan: continue ivabx supplemental oxygen as needed inhalation treatments continue current plan of care increase ivf Nutritional Asmnt/Malnutr-PDOC - Dietary Evaluation Malnutrition Findings (Please click <Entered> for more info): Nutritional Asmnt/Malnutrition Start: 04/05/17 13: 32 Text: Status: Complete Freq: Document 04/05/17 13:32 TOAN (Rec: 04/05/17 13:38 ANA MNICK DARLING- FNS1) Nutritional Asmnt/Malnutrition Patient General Information Nutritional Screening Moderate Risk Screening Diagnosis COPD exacerbation, respiratory failure Pertinent Medical Hx/Surgical Hx asthma, parkinsons, COPD, hypertension, hypercholesterolemia Subjective Information Per H&P, patient was admitted from nursing facility secondary to increasing shortness of breath and desaturating. Patient was getting cleaned by nursing at time of visit. Current Diet Order/ Nutrition Support Mechanical soft chopped with Boost TID Patient / S.O Can't verbalize diet edu Pertinent Medications D5-0.9% NS @100ml/hr, synthroid, MOM, solu-medrol, Theragran, zofran, miralax Pertinent Labs (04/03) albumin 3.3 (04/05) labs reviewed Nutritional Hx/Data Height 5 ft 11 in Height (Calculated Centimeters) 180.3 Current Weight (lbs) 181 lb Weight (Calculated Kilograms) 82.1 Weight (Calculated Grams) 92192.2 [place] Body Weight 172 % [place] Body Weight 105 Recent Weight Change No Weight Status Overweight GI Symptoms GI Symptoms None Food Allergies No Cultural/Ethnic/Nondenominational Belief None indicated Skin Integrity/Comment: Rohith 16 Current %PO Good (75-100%) Estimated Nutritional Goals BEE in Kcals: Using Current wt Calories/Kcals/Kg 25-30kcal/kg using CBW 82.2kg Kcals Calculated ~0275-1042 kcal/day Protein: Using Current wt Protein g/k-1.2 gm/kg - Respiratory failure Protein Calculated ~80-100 gm/day Fluid: ml ~2190-0175 ml/day ( 1 ml/kcal) Nutritional Problem 1. Problem Problem No nutrition diagnosis at this time. Intervention/Recommendation Comments 1. Continue Mechanical soft, chopped diet as tolerated by patient; adequate to meet nutrient needs. 2. Consider D/C Boost due to adequately meeting nutrient needs via meals. Expected Outcomes/Goals Expected Outcomes/Goals oral intake >75% of meals, weight stable, nutrition related labs remain normal F/U LR in 7 days (04/12)
[2017-04-06] MEDS ORDERED: D5-0.9%NS 1,000 ML IV SCH (15:15)
[2017-04-06] MEDS ORDERED: Probiotic Screen MC PRN (17:17)
[2017-04-07 07:04] LABS: % EOSINOPHILS 0.2 % (0.0-5.0); % LYMPHOCYTES 18.5 % (20.0-50.0); % MONOCYTES 10.8 % (2.0-10.0); % NEUTROPHILS 70.5 % (40.0-80.0); HEMOGLOBIN 14.2 gm/dL (12.6-17.4); MEAN CELL VOLUME 92.6 fl (80-99); MEAN CORPUSCULAR HEMOGLOBIN 30.6 pg (27.0-31.0); MEAN CORPUSCULAR HGB CONC 33.1 pg (28.0-36.0); MEAN PLATELET VOLUME 9.5 fl; NEUTROPHILE ABSOLUTE 5.1 Th/cmm (1.8-8.0); PLATELET COUNT 184 Th/cmm (150-400); RED BLOOD COUNT 4.65 Mil/cmm (3.80-5.80); RED CELL DISTRIBUTION WIDTH 13.3 % (11.5-20.0); WHITE BLOOD COUNT 7.2 Th/cmm (4.8-10.8)
[2017-04-07] MEDS: Albuterol Nebulizer 2.5mg/3mL HHN SCH ×3 (07:11→15:26)
[2017-04-07 07:17] LABS: ANION GAP 8.7 (7.0-16.0); BUN - UREA NITROGEN 18 mg/dL (7-25); CALCIUM SERUM 8.6 mg/dL (8.6-10.3); CARBON DIOXIDE 24.9 mEq/L (21.0-31.0); CHLORIDE 108 mEq/L (98-107); GLUCOSE 120 mg/dL (70-105); POTASSIUM SERUM 4.6 mEq/L (3.5-5.1); SODIUM SERUM 137 mEq/L (136-145)
[2017-04-07] MEDS ORDERED: Lactobacillus Rhamnosus 10 Billion CFU Capsule PO SCH (09:00)
[2017-04-07] MEDS: POLYETHYLENE GLYCOL 3350 17 GM PACK PO SCH ×2 (09:11→17:17)
[2017-04-07] MEDS: Levothyroxine 0.025 Mg Tab PO SCH (09:11)
[2017-04-07] MEDS: Multivitamin Tab PO SCH (09:12)
[2017-04-07] MEDS: methylPREDNISolone SS 40 mg Vial IVP SCH (09:13)
--- NOTE | 2017-04-07 14:34 | Internal Medicine Prog Note ---
Internal Medicine Subjective - Subjective Service Date: 04/07/17 Patient is:: awake, non-verbal, non-interactive, confused Patient Complaints of:: congestion Per staff patient has:: no adverse event, poor appetite, agitated, noncompliant , confused, tolerating meds Internal Medicine Objective - Results Result Diagrams: 04/07/17 06:44 04/07/17 06:44 Recent Labs: Laboratory Last Values WBC 7.2 Th/cmm (4.8-10.8) 04/07/17 06:44 RBC 4.65 Mil/cmm (3.80-5.80) 04/07/17 06:44 Hgb 14.2 gm/dL (12.6-17.4) 04/07/17 06:44 Hct 43.0 % (39.0-49.0) 04/07/17 06:44 MCV 92.6 fl (80-99) 04/07/17 06:44 MCH 30.6 pg (27.0-31.0) 04/07/17 06:44 MCHC Differential 33.1 pg (28.0-36.0) 04/07/17 06:44 RDW 13.3 % (11.5-20.0) 04/07/17 06:44 Plt Count 184 Th/cmm (150-400) 04/07/17 06:44 MPV 9.5 fl 04/07/17 06:44 Neutrophils % 70.5 % (40.0-80.0) 04/07/17 06:44 Lymphocytes % 18.5 % (20.0-50.0) L 04/07/17 06:44 Monocytes % 10.8 % (2.0-10.0) H 04/07/17 06:44 Eosinophils % 0.2 % (0.0-5.0) 04/07/17 06:44 Basophils % 0.0 % (0.0-2.0) 04/07/17 06:44 Neutrophils (Manual) 39 % (40-80) L 03/30/17 12:59 Lymphocytes 42 % (20-50) 03/30/17 12:59 Monocytes 13 % (2-10) H 03/30/17 12:59 Eosinophils 3 % (0-5) 03/30/17 12:59 Basophils 3 % (0-3) 03/30/17 12:59 Platelet Estimate ADEQUATE (NORMAL) 03/30/17 12:59 Platelet Morphology NORMAL (NORMAL) 03/30/17 12:59 RBC Morph Micro Appear NORMAL (NORMAL) 03/30/17 12:59 Sodium 137 mEq/L (136-145) 04/07/17 06:44 Potassium 4.6 mEq/L (3.5-5.1) 04/07/17 06:44 Chloride 108 mEq/L (98-107) H 04/07/17 06:44 Carbon Dioxide 24.9 mEq/L (21.0-31.0) 04/07/17 06:44 Anion Gap 8.7 (7.0-16.0) 04/07/17 06:44 BUN 18 mg/dL (7-25) 04/07/17 06:44 Creatinine 1.0 mg/dL (0.7-1.3) 04/07/17 06:44 Est GFR ( Amer) TNP 04/07/17 06:44 Est GFR (Non-Af Amer) TNP 04/07/17 06:44 BUN/Creatinine Ratio 18.0 04/07/17 06:44 Glucose 120 mg/dL (70-105) H 04/07/17 06:44 Hemoglobin A1c % 5.4 % (4.0-6.0) 04/01/17 06:36 Whole Bld Lactic Acid 1.54 mmol/L (0.60-1.99) 04/07/17 06:44 Calcium 8.6 mg/dL (8.6-10.3) 04/07/17 06:44 Magnesium 2.4 mg/dL (1.9-2.7) 04/03/17 06:42 Total Bilirubin 0.4 mg/dL (0.3-1.0) 04/03/17 06:42 AST 28 U/L (13-39) 04/03/17 06:42 ALT 30 U/L (7-52) 04/03/17 06:42 Alkaline Phosphatase 38 U/L (34-104) 04/03/17 06:42 Ammonia 51 umol/L (16-53) 04/01/17 06:36 Troponin I 0.01 ng/mL (0.01-0.05) 03/30/17 12:59 B-Natriuretic Peptide 86.8 pg/mL (5.0-100.0) 04/01/17 06:36 Total Protein 5.4 gm/dL (6.0-8.3) L 04/03/17 06:42 Albumin 3.3 gm/dL (4.2-5.5) L 04/03/17 06:42 Globulin 2.1 gm/dL 04/03/17 06:42 Albumin/Globulin Ratio 1.6 (1.0-1.8) 04/03/17 06:42 Vitamin B12 913 pg/mL (211-946) 04/01/17 06:36 Folic Acid 15.4 ng/mL (>3.0) 04/01/17 06:36 Free T4 1.14 ng/dL (0.82-1.77) 03/30/17 13:22 TSH 0.68 uIU/ml (0.34-5.60) 03/30/17 13:22 Urine Source CATH 04/01/17 20:34 Urine Color YELLOW 04/01/17 20:34 Urine Clarity CLEAR (CLEAR) 04/01/17 20:34 Urine pH 6.0 (4.6 - 8.0) 04/01/17 20:34 Ur Specific [place] 1.020 (1.005-1.030) 04/01/17 20:34 Urine Protein NEGATIVE mg/dL (NEGATIVE) 04/01/17 20:34 Urine Glucose (UA) 250 mg/dL (NEGATIVE) H 04/01/17 20:34 Urine Ketones NEGATIVE mg/dL (NEGATIVE) 04/01/17 20:34 Urine Blood NEGATIVE (NEGATIVE) 04/01/17 20:34 Urine Nitrate NEGATIVE (NEGATIVE) 04/01/17 20:34 Urine Bilirubin NEGATIVE (NEGATIVE) 04/01/17 20:34 Urine Urobilinogen 0.2 E.U./dL (0.2 - 1.0) 04/01/17 20:34 Ur Leukocyte Esterase NEGATIVE (NEGATIVE) 04/01/17 20:34 Urine RBC 0-2 /hpf (0-5) H 04/01/17 20:34 Urine WBC 2-5 /hpf (0-5) H 04/01/17 20:34 Ur Epithelial Cells FEW /lpf (FEW) 04/01/17 20:34 Urine Bacteria OCCASIONAL /hpf (NONE SEEN) 04/01/17 20:34 Valproic Acid 64.9 ug/mL (50.0-100.0) 03/30/17 12:59 - Physical Exam Vitals and I&O: Vital Signs Temp 97.3 F 04/07/17 12:00 Pulse 61 04/07/17 12:00 Resp 20 04/07/17 12:00 BP 114/69 04/07/17 12:00 Pulse Ox 97 04/07/17 12:00 Intake & Output 04/06/17 04/07/17 04/07/17 18:59 06:59 18:59 Intake Total 500 2180 Balance 500 2180 Weight (lbs) 181 lb 181 lb 6.4 oz Intake: Intake, IV Amount 200 200 Piperacillin Sodium/ 200 200 Tazobact 4.5 gm In Sodium Chloride 0.9% 100 ml @ 100 mls/hr IV Q8HR [facility] Rx #:[id number] Oral 300 1980 Other: # Voids 4 # Bowel Movements 0 0 Stool Characteristics Formed Formed Active Medications: Current Medications Acetaminophen (Tylenol) 650 mg PO Q4HR PRN PRN Reason: PAIN OR TEMP 100.3 F Stop: 05/29/17 17:34 Albuterol Sulfate (Albuterol 2.5mg/3ml Neb Ud) 2.5 mg HHN QIDRT WILL Stop: 05/29/17 18:59 Last Admin: 04/07/17 11:33 Dose: 2.5 mg Albuterol Sulfate (Albuterol 2.5mg/3ml Neb Ud) 2.5 mg HHN QIDRT PRN PRN Reason: Wheezing Stop: 05/29/17 17:34 Amlodipine Besylate (Norvasc) 10 mg PO DAILY WILL Stop: 05/30/17 08:59 Last Admin: 04/07/17 09:12 Dose: 10 mg Benztropine Mesylate (Cogentin) 0.5 mg PO BID WILL Stop: 05/30/17 08:59 Last Admin: 04/07/17 09:12 Dose: 0.5 mg Carbidopa/Levodopa (Sinemet 25mg-100 Mg) 1 tab PO TID WILL Stop: 05/29/17 20:59 Last Admin: 04/07/17 09:11 Dose: 1 tab Donepezil HCl (Aricept) 10 mg PO HS WILL Stop: 05/29/17 20:59 Last Admin: 04/06/17 20:38 Dose: 10 mg Guaifenesin (Robitussin) 200 mg PO Q4HR PRN PRN Reason: Cough or Congestion Stop: 05/29/17 17:37 Haloperidol Decanoate (Haldol Dec) 25 mg IM QMONTH WILL PRN Reason: Protocol Stop: 06/15/17 08:59 Piperacillin Sod/Tazobactam (Sod 4.5 gm/ Sodium Chloride) 100 mls @ 100 mls/hr IV Q8HR WILL Stop: 05/31/17 12:59 Last Admin: 04/07/17 13:03 Dose: 100 mls/hr Dextrose/Sodium Chloride (D5-0.9%Ns) 1,000 mls @ 70 mls/hr IV .[id number] WILL Stop: 06/03/17 13:55 Last Admin: 04/06/17 20:35 Dose: 70 mls/hr Ipratropium [place] (Atrovent Neb 0.5mg/2.5ml) 0.5 mg HHN QIDRT PRN PRN Reason: Wheezing Stop: 05/29/17 17:34 Lactobacillus Rhamnosus (Culturelle) 1 each PO DAILY WILL Stop: 06/06/17 08:59 Last Admin: 04/07/17 09:11 Dose: 1 each Latanoprost (Xalatan 0.005% Ophth Soln) 1 drop EACH EYE HS WILL Stop: 05/29/17 20:59 Last Admin: 04/06/17 20:38 Dose: 1 drop Levothyroxine Sodium (Synthroid) 0.025 mg PO QDAC WILL Stop: 05/30/17 07:29 Last Admin: 04/07/17 09:11 Dose: 0.025 mg Magnesium Hydroxide (Milk Of Magnesia) 30 ml PO HS PRN PRN Reason: Constipation Stop: 05/29/17 17:34 Last Admin: 04/03/17 00:12 Dose: 30 ml Methylprednisolone Sodium Succinate (Solu-Medrol) 20 mg IVP Q12HR WILL Stop: 06/02/17 20:59 Last Admin: 04/07/17 09:13 Dose: 20 mg Miscellaneous (Vte Chemical Prophylaxis Screen/ Admission) 1 ea MC PRN PRN PRN Reason: PROTOCOL Stop: 05/30/17 09:33 Miscellaneous (Probiotic Screen) 1 ea MC PRN PRN PRN Reason: PROTOCOL Stop: 06/05/17 17:16 Multivitamins/Vitamin C (Theragran) 1 tab PO DAILY WILL Stop: 05/30/17 08:59 Last Admin: 04/07/17 09:12 Dose: 1 tab Ondansetron HCl (Zofran) 4 mg IV Q8H PRN PRN Reason: Nausea / Vomiting Stop: 05/29/17 17:37 Polyethylene Glycol (Miralax) 17 gm PO BID WILL Stop: 05/30/17 08:59 Last Admin: 04/07/17 09:11 Dose: 17 gm Simvastatin (Zocor) 10 mg PO HS WILL PRN Reason: Protocol Stop: 05/29/17 20:59 Last Admin: 04/06/17 20:39 Dose: 10 mg Valproate Sodium (Depakene) 500 mg PO Q12HR WILL PRN Reason: Protocol Stop: 05/29/17 20:59 Last Admin: 04/07/17 09:11 Dose: 500 mg General: congested, demented HEENT: NC/AT, PERRLA, EOMI Neck: Supple, No JVD Lungs: congested, rales Cardiovascular: RRR, Normal S1, Normal S2, with murmur Abdomen: soft, thin, positive bowel sound Extremities: excoriation, contracture Neurological: no change, disorganized, bedbound - Procedures Procedures: Procedures Procedure Code Date CLOSURE SKIN & SUBCUTANEOUS NEC 86.59 07/07/12 DPT ADMINISTRATION 99.39 07/07/12 IMMUNIZATION ADMIN 27911 07/07/12 OTHER GROUP THERAPY 94.44 12/10/14 RECREATIONAL THERAPY 93.81 09/15/12 RPR S/N/AX/GEN/TRNK 2.5CM/< 01714 07/07/12 TDAP VACCINE 7 YRS/> [place] [id number] 07/07/12 Internal Medicine Assmt/Plan - Assessment Assessment: lactic acidosis sepsis Acute hypoxic respiratory failure acute chronic obstructive pulmonary disease exacerbation Parkinson's hypothyroidism hypertension hypercholesterolemia diabetes low albumin. - Plan Plan: LTAC EVAL continue ivabx supplemental oxygen as needed inhalation treatments continue current plan of care increase ivf Nutritional Asmnt/Malnutr-PDOC - Dietary Evaluation Malnutrition Findings (Please click <Entered> for more info): Nutritional Asmnt/Malnutrition Start: 04/05/17 13: 32 Text: Status: Complete Freq: Document 04/05/17 13:32 ANA MNICK (Rec: 04/05/17 13:38 TOAN PHONG- FNS1) Nutritional Asmnt/Malnutrition Patient General Information Nutritional Screening Moderate Risk Screening Diagnosis COPD exacerbation, respiratory failure Pertinent Medical Hx/Surgical Hx asthma, parkinsons, COPD, hypertension, hypercholesterolemia Subjective Information Per H&P, patient was admitted from nursing facility secondary to increasing shortness of breath and desaturating. Patient was getting cleaned by nursing at time of visit. Current Diet Order/ Nutrition Support Mechanical soft chopped with Boost TID Patient / S.O Can't verbalize diet edu Pertinent Medications D5-0.9% NS @100ml/hr, synthroid, MOM, solu-medrol, Theragran, zofran, miralax Pertinent Labs (04/03) albumin 3.3 (04/05) labs reviewed Nutritional Hx/Data Height 5 ft 11 in Height (Calculated Centimeters) 180.3 Current Weight (lbs) 181 lb Weight (Calculated Kilograms) 82.1 Weight (Calculated Grams) 30409.2 [place] Body Weight 172 % [place] Body Weight 105 Recent Weight Change No Weight Status Overweight GI Symptoms GI Symptoms None Food Allergies No Cultural/Ethnic/Gnosticism Belief None indicated Skin Integrity/Comment: Rohith 16 Current %PO Good (75-100%) Estimated Nutritional Goals BEE in Kcals: Using Current wt Calories/Kcals/Kg 25-30kcal/kg using CBW 82.2kg Kcals Calculated ~9459-4935 kcal/day Protein: Using Current wt Protein g/k-1.2 gm/kg - Respiratory failure Protein Calculated ~80-100 gm/day Fluid: ml ~7180-3316 ml/day ( 1 ml/kcal) Nutritional Problem 1. Problem Problem No nutrition diagnosis at this time. Intervention/Recommendation Comments 1. Continue Mechanical soft, chopped diet as tolerated by patient; adequate to meet nutrient needs. 2. Consider D/C Boost due to adequately meeting nutrient needs via meals. Expected Outcomes/Goals Expected Outcomes/Goals oral intake >75% of meals, weight stable, nutrition related labs remain normal F/U LR in 7 days (04/12)
--- NOTE | 2017-04-07 14:55 | Internal Medicine Prog Note ---
Internal Medicine Subjective - Subjective Service Date: 04/07/17 (DC SUMMARY [id number]) Patient is:: awake, non-verbal, non-interactive, confused Patient Complaints of:: congestion Per staff patient has:: no adverse event, poor appetite, agitated, noncompliant , confused, tolerating meds Internal Medicine Objective - Results Result Diagrams: 04/07/17 06:44 04/07/17 06:44 Recent Labs: Laboratory Last Values WBC 7.2 Th/cmm (4.8-10.8) 04/07/17 06:44 RBC 4.65 Mil/cmm (3.80-5.80) 04/07/17 06:44 Hgb 14.2 gm/dL (12.6-17.4) 04/07/17 06:44 Hct 43.0 % (39.0-49.0) 04/07/17 06:44 MCV 92.6 fl (80-99) 04/07/17 06:44 MCH 30.6 pg (27.0-31.0) 04/07/17 06:44 MCHC Differential 33.1 pg (28.0-36.0) 04/07/17 06:44 RDW 13.3 % (11.5-20.0) 04/07/17 06:44 Plt Count 184 Th/cmm (150-400) 04/07/17 06:44 MPV 9.5 fl 04/07/17 06:44 Neutrophils % 70.5 % (40.0-80.0) 04/07/17 06:44 Lymphocytes % 18.5 % (20.0-50.0) L 04/07/17 06:44 Monocytes % 10.8 % (2.0-10.0) H 04/07/17 06:44 Eosinophils % 0.2 % (0.0-5.0) 04/07/17 06:44 Basophils % 0.0 % (0.0-2.0) 04/07/17 06:44 Neutrophils (Manual) 39 % (40-80) L 03/30/17 12:59 Lymphocytes 42 % (20-50) 03/30/17 12:59 Monocytes 13 % (2-10) H 03/30/17 12:59 Eosinophils 3 % (0-5) 03/30/17 12:59 Basophils 3 % (0-3) 03/30/17 12:59 Platelet Estimate ADEQUATE (NORMAL) 03/30/17 12:59 Platelet Morphology NORMAL (NORMAL) 03/30/17 12:59 RBC Morph Micro Appear NORMAL (NORMAL) 03/30/17 12:59 Sodium 137 mEq/L (136-145) 04/07/17 06:44 Potassium 4.6 mEq/L (3.5-5.1) 04/07/17 06:44 Chloride 108 mEq/L (98-107) H 04/07/17 06:44 Carbon Dioxide 24.9 mEq/L (21.0-31.0) 04/07/17 06:44 Anion Gap 8.7 (7.0-16.0) 04/07/17 06:44 BUN 18 mg/dL (7-25) 04/07/17 06:44 Creatinine 1.0 mg/dL (0.7-1.3) 04/07/17 06:44 Est GFR ( Amer) TNP 04/07/17 06:44 Est GFR (Non-Af Amer) TNP 04/07/17 06:44 BUN/Creatinine Ratio 18.0 04/07/17 06:44 Glucose 120 mg/dL (70-105) H 04/07/17 06:44 Hemoglobin A1c % 5.4 % (4.0-6.0) 04/01/17 06:36 Whole Bld Lactic Acid 1.54 mmol/L (0.60-1.99) 04/07/17 06:44 Calcium 8.6 mg/dL (8.6-10.3) 04/07/17 06:44 Magnesium 2.4 mg/dL (1.9-2.7) 04/03/17 06:42 Total Bilirubin 0.4 mg/dL (0.3-1.0) 04/03/17 06:42 AST 28 U/L (13-39) 04/03/17 06:42 ALT 30 U/L (7-52) 04/03/17 06:42 Alkaline Phosphatase 38 U/L (34-104) 04/03/17 06:42 Ammonia 51 umol/L (16-53) 04/01/17 06:36 Troponin I 0.01 ng/mL (0.01-0.05) 03/30/17 12:59 B-Natriuretic Peptide 86.8 pg/mL (5.0-100.0) 04/01/17 06:36 Total Protein 5.4 gm/dL (6.0-8.3) L 04/03/17 06:42 Albumin 3.3 gm/dL (4.2-5.5) L 04/03/17 06:42 Globulin 2.1 gm/dL 04/03/17 06:42 Albumin/Globulin Ratio 1.6 (1.0-1.8) 04/03/17 06:42 Vitamin B12 913 pg/mL (211-946) 04/01/17 06:36 Folic Acid 15.4 ng/mL (>3.0) 04/01/17 06:36 Free T4 1.14 ng/dL (0.82-1.77) 03/30/17 13:22 TSH 0.68 uIU/ml (0.34-5.60) 03/30/17 13:22 Urine Source CATH 04/01/17 20:34 Urine Color YELLOW 04/01/17 20:34 Urine Clarity CLEAR (CLEAR) 04/01/17 20:34 Urine pH 6.0 (4.6 - 8.0) 04/01/17 20:34 Ur Specific [place] 1.020 (1.005-1.030) 04/01/17 20:34 Urine Protein NEGATIVE mg/dL (NEGATIVE) 04/01/17 20:34 Urine Glucose (UA) 250 mg/dL (NEGATIVE) H 04/01/17 20:34 Urine Ketones NEGATIVE mg/dL (NEGATIVE) 04/01/17 20:34 Urine Blood NEGATIVE (NEGATIVE) 04/01/17 20:34 Urine Nitrate NEGATIVE (NEGATIVE) 04/01/17 20:34 Urine Bilirubin NEGATIVE (NEGATIVE) 04/01/17 20:34 Urine Urobilinogen 0.2 E.U./dL (0.2 - 1.0) 04/01/17 20:34 Ur Leukocyte Esterase NEGATIVE (NEGATIVE) 04/01/17 20:34 Urine RBC 0-2 /hpf (0-5) H 04/01/17 20:34 Urine WBC 2-5 /hpf (0-5) H 04/01/17 20:34 Ur Epithelial Cells FEW /lpf (FEW) 04/01/17 20:34 Urine Bacteria OCCASIONAL /hpf (NONE SEEN) 04/01/17 20:34 Valproic Acid 64.9 ug/mL (50.0-100.0) 03/30/17 12:59 - Physical Exam Vitals and I&O: Vital Signs Temp 97.3 F 04/07/17 12:00 Pulse 61 04/07/17 12:00 Resp 20 04/07/17 12:00 BP 114/69 04/07/17 12:00 Pulse Ox 97 04/07/17 12:00 Intake & Output 04/06/17 04/07/17 04/07/17 18:59 06:59 18:59 Intake Total 500 2180 Balance 500 2180 Weight (lbs) 181 lb 181 lb 6.4 oz Intake: Intake, IV Amount 200 200 Piperacillin Sodium/ 200 200 Tazobact 4.5 gm In Sodium Chloride 0.9% 100 ml @ 100 mls/hr IV Q8HR [facility] Rx #:[id number] Oral 300 1980 Other: # Voids 4 # Bowel Movements 0 0 Stool Characteristics Formed Formed Active Medications: Current Medications Acetaminophen (Tylenol) 650 mg PO Q4HR PRN PRN Reason: PAIN OR TEMP 100.3 F Stop: 05/29/17 17:34 Albuterol Sulfate (Albuterol 2.5mg/3ml Neb Ud) 2.5 mg HHN QIDRT WILL Stop: 05/29/17 18:59 Last Admin: 04/07/17 11:33 Dose: 2.5 mg Albuterol Sulfate (Albuterol 2.5mg/3ml Neb Ud) 2.5 mg HHN QIDRT PRN PRN Reason: Wheezing Stop: 05/29/17 17:34 Amlodipine Besylate (Norvasc) 10 mg PO DAILY [facility] Stop: 05/30/17 08:59 Last Admin: 04/07/17 09:12 Dose: 10 mg Benztropine Mesylate (Cogentin) 0.5 mg PO BID [facility] Stop: 05/30/17 08:59 Last Admin: 04/07/17 09:12 Dose: 0.5 mg Carbidopa/Levodopa (Sinemet 25mg-100 Mg) 1 tab PO TID WILL Stop: 05/29/17 20:59 Last Admin: 04/07/17 09:11 Dose: 1 tab Donepezil HCl (Aricept) 10 mg PO HS [facility] Stop: 05/29/17 20:59 Last Admin: 04/06/17 20:38 Dose: 10 mg Guaifenesin (Robitussin) 200 mg PO Q4HR PRN PRN Reason: Cough or Congestion Stop: 05/29/17 17:37 Haloperidol Decanoate (Haldol Dec) 25 mg IM QMONTH WILL PRN Reason: Protocol Stop: 06/15/17 08:59 Piperacillin Sod/Tazobactam (Sod 4.5 gm/ Sodium Chloride) 100 mls @ 100 mls/hr IV Q8HR WILL Stop: 05/31/17 12:59 Last Admin: 04/07/17 13:03 Dose: 100 mls/hr Dextrose/Sodium Chloride (D5-0.9%Ns) 1,000 mls @ 70 mls/hr IV .[id number] WILL Stop: 06/03/17 13:55 Last Admin: 04/06/17 20:35 Dose: 70 mls/hr Ipratropium [place] (Atrovent Neb 0.5mg/2.5ml) 0.5 mg HHN QIDRT PRN PRN Reason: Wheezing Stop: 05/29/17 17:34 Lactobacillus Rhamnosus (Culturelle) 1 each PO DAILY [facility] Stop: 06/06/17 08:59 Last Admin: 04/07/17 09:11 Dose: 1 each Latanoprost (Xalatan 0.005% Ophth Soln) 1 drop EACH EYE HS WILL Stop: 05/29/17 20:59 Last Admin: 04/06/17 20:38 Dose: 1 drop Levothyroxine Sodium (Synthroid) 0.025 mg PO QDAC WILL Stop: 05/30/17 07:29 Last Admin: 04/07/17 09:11 Dose: 0.025 mg Magnesium Hydroxide (Milk Of Magnesia) 30 ml PO HS PRN PRN Reason: Constipation Stop: 05/29/17 17:34 Last Admin: 04/03/17 00:12 Dose: 30 ml Methylprednisolone Sodium Succinate (Solu-Medrol) 20 mg IVP Q12HR WILL Stop: 06/02/17 20:59 Last Admin: 04/07/17 09:13 Dose: 20 mg Miscellaneous (Vte Chemical Prophylaxis Screen/ Admission) 1 ea [facility] PRN PRN PRN Reason: PROTOCOL Stop: 05/30/17 09:33 Miscellaneous (Probiotic Screen) 1 ea [facility] PRN PRN PRN Reason: PROTOCOL Stop: 06/05/17 17:16 Multivitamins/Vitamin C (Theragran) 1 tab PO DAILY [facility] Stop: 05/30/17 08:59 Last Admin: 04/07/17 09:12 Dose: 1 tab Ondansetron HCl (Zofran) 4 mg IV Q8H PRN PRN Reason: Nausea / Vomiting Stop: 05/29/17 17:37 Polyethylene Glycol (Miralax) 17 gm PO BID [facility] Stop: 05/30/17 08:59 Last Admin: 04/07/17 09:11 Dose: 17 gm Simvastatin (Zocor) 10 mg PO HS WILL PRN Reason: Protocol Stop: 05/29/17 20:59 Last Admin: 04/06/17 20:39 Dose: 10 mg Valproate Sodium (Depakene) 500 mg PO Q12HR WILL PRN Reason: Protocol Stop: 05/29/17 20:59 Last Admin: 04/07/17 09:11 Dose: 500 mg General: congested, demented HEENT: NC/AT, PERRLA, EOMI Neck: Supple, No JVD Lungs: congested, rales Cardiovascular: RRR, Normal S1, Normal S2, with murmur Abdomen: soft, thin, positive bowel sound Extremities: excoriation, contracture Neurological: no change, disorganized, bedbound - Procedures Procedures: Procedures Procedure Code Date CLOSURE SKIN & SUBCUTANEOUS NEC 86.59 07/07/12 DPT ADMINISTRATION 99.39 07/07/12 IMMUNIZATION ADMIN 27895 07/07/12 OTHER GROUP THERAPY 94.44 12/10/14 RECREATIONAL THERAPY 93.81 09/15/12 RPR S/N/AX/GEN/TRNK 2.5CM/< 08140 07/07/12 TDAP VACCINE 7 YRS/> [place] [id number] 07/07/12 Internal Medicine Assmt/Plan - Assessment Assessment: lactic acidosis sepsis Acute hypoxic respiratory failure acute chronic obstructive pulmonary disease exacerbation Parkinson's hypothyroidism hypertension hypercholesterolemia diabetes low albumin. - Plan Plan: LTAC EVAL continue ivabx supplemental oxygen as needed inhalation treatments continue current plan of care increase ivf Nutritional Asmnt/Malnutr-PDOC - Dietary Evaluation Malnutrition Findings (Please click <Entered> for more info): Nutritional Asmnt/Malnutrition Start: 04/05/17 13: 32 Text: Status: Complete Freq: Document 04/05/17 13:32 TOAN (Rec: 04/05/17 13:38 TOAN PHONG- [id number]) Nutritional Asmnt/Malnutrition Patient General Information Nutritional Screening Moderate Risk Screening Diagnosis COPD exacerbation, respiratory failure Pertinent Medical Hx/Surgical Hx asthma, parkinsons, COPD, hypertension, hypercholesterolemia Subjective Information Per H&P, patient was admitted from nursing facility secondary to increasing shortness of breath and desaturating. Patient was getting cleaned by nursing at time of visit. Current Diet Order/ Nutrition Support Mechanical soft chopped with Boost TID Patient / S.O Can't verbalize diet edu Pertinent Medications D5-0.9% NS @100ml/hr, synthroid, MOM, solu-medrol, Theragran, zofran, miralax Pertinent Labs (04/03) albumin 3.3 (04/05) labs reviewed Nutritional Hx/Data Height 5 ft 11 in Height (Calculated Centimeters) 180.3 Current Weight (lbs) 181 lb Weight (Calculated Kilograms) 82.1 Weight (Calculated Grams) 35339.2 [place] Body Weight 172 % [place] Body Weight 105 Recent Weight Change No Weight Status Overweight GI Symptoms GI Symptoms None Food Allergies No Cultural/Ethnic/Hinduism Belief None indicated Skin Integrity/Comment: Rohith 16 Current %PO Good (75-100%) Estimated Nutritional Goals BEE in Kcals: Using Current wt Calories/Kcals/Kg 25-30kcal/kg using CBW 82.2kg Kcals Calculated ~9715-2380 kcal/day Protein: Using Current wt Protein g/k-1.2 gm/kg - Respiratory failure Protein Calculated ~80-100 gm/day Fluid: ml ~2899-1110 ml/day ( 1 ml/kcal) Nutritional Problem 1. Problem Problem No nutrition diagnosis at this time. Intervention/Recommendation Comments 1. Continue Mechanical soft, chopped diet as tolerated by patient; adequate to meet nutrient needs. 2. Consider D/C Boost due to adequately meeting nutrient needs via meals. Expected Outcomes/Goals Expected Outcomes/Goals oral intake >75% of meals, weight stable, nutrition related labs remain normal F/U LR in 7 days (04/12)
--- NOTE | 2017-04-07 20:51 | Discharge Summary ---
DATE OF DISCHARGE: 04/07/[address] Casimiro Jon. DISCHARGE DIAGNOSES: Acute hypoxic respiratory failure, acute chronic obstructive pulmonary disease exacerbation, Parkinson's, hypothyroidism, hypertension, hypercholesterolemia, lactic acidosis, diabetes, and low albumin. HISTORY OF PRESENT ILLNESS: This is a 76-year-old male with history of asthma, Parkinson, COPD, hypertension, and hypercholesterolemia who was admitted from the nursing facility secondary to increasing shortness of breath and desaturating. The patient was a poor historian. PHYSICAL EXAMINATION: GENERAL: The patient is well developed, well nourished, in no acute distress. VITAL SIGNS: Stable. HEENT: Head is normocephalic and atraumatic. NECK: Supple. No mass. LUNGS: With a few rhonchi. HEART: Regular rate and rhythm. ABDOMEN: Soft and nontender. HOSPITAL COURSE: During the hospital stay, the patient was admitted to the med/surg unit. The patient had a Pulmonary Consult with Dr. Castro. Also, the patient was kept on inhalation treatment, supplemental oxygen, and IV steroids. The patient had a chest x-ray done during the hospital stay and the impression is no acute abnormalities. The patient was kept on empiric IV antibiotics. For continuation of care, the patient will be discharged to [facility]. CONDITION UPON DISCHARGE: Fair. DISPOSITION: [facility]. JOB# [id number]
== END 2017-04-07 19:05 | DRG 189 ==
LOC: ER 12:39 → MSI 15:50
PROVIDERS: ADMIT Internal Medicine; ATTEND Internal Medicine
DX: J96.01 Acute respiratory failure with hypoxia (principal); R65.11 Systemic inflammatory response syndrome (SIRS) of non-infectious origin with acute organ dysfunction; E87.2 Acidosis; J44.1 Chronic obstructive pulmonary disease with (acute) exacerbation; J98.11 Atelectasis; J44.0 Chronic obstructive pulmonary disease with (acute) lower respiratory infection; I12.0 Hypertensive chronic kidney disease with stage 5 chronic kidney disease or end stage renal disease; G20 Parkinson's disease; E03.9 Hypothyroidism, unspecified; J20.9 Acute bronchitis, unspecified; G30.9 Alzheimer's disease, unspecified; R56.9 Unspecified convulsions; F02.80 Dementia in other diseases classified elsewhere, unspecified severity, without behavioral disturbance, psychotic disturbance, mood disturbance, and anxiety; F20.9 Schizophrenia, unspecified; E11.22 Type 2 diabetes mellitus with diabetic chronic kidney disease; E78.00 Pure hypercholesterolemia, unspecified; Z88.8 Allergy status to other drugs, medicaments and biological substances
CPT/HCPCS: 36415-UA; 71010-TC; 80048-TC; 80053-TC; 80164-TC; 81001-TC; 82140-TC; 82607-90; 82746-90; 83036-90; 83605; 83735-TC; 83880-TC; 84439-90; 84443-TC; 84484-TC; 85007-TC; 85025-TC; 85027-TC; 93005; 94640; 94760; J0696; J1644; J2543; J2920; J2930; J7030; J7042; J7613; Z7610

== ENCOUNTER 2017-09-20 00:47 | Inpatient (IN) | payer MEDICARE, MEDICAID ==
[2017-09-20 01:25] LABS: % BASOPHILS 0.1 % (0.0-2.0); % EOSINOPHILS 2.9 % (0.0-5.0); % LYMPHOCYTES 44.9 % (20.0-50.0); % MONOCYTES 12.7 % (2.0-10.0); % NEUTROPHILS 39.4 % (40.0-80.0); EOSINOPHILE ABSOLUTE 0.2 Th/cmm (0.1-0.4); HEMOGLOBIN 16.1 gm/dL (12-16); LYMPHOCYTE ABSOLUTE 2.5 Th/cmm (1.5-3.0); MEAN CELL VOLUME 90.7 fl (80-99); MEAN CORPUSCULAR HEMOGLOBIN 29.9 pg (27.0-31.0); MEAN CORPUSCULAR HGB CONC 32.9 pg (28.0-36.0); MEAN PLATELET VOLUME 8.4 fl; MONOCYTE ABSOLUTE 0.7 Th/cmm (0.3-1.0); NEUTROPHILE ABSOLUTE 2.2 Th/cmm (1.8-8.0); RED BLOOD COUNT 5.39 Mil/cmm (3.80-5.80); RED CELL DISTRIBUTION WIDTH 13.6 % (11.5-20.0)
[2017-09-20 01:29] LABS: HEMATOCRIT 48.9 % (41.0-60); PLATELET COUNT 293 Th/cmm (150-400); WHITE BLOOD COUNT 5.6 Th/cmm (4.8-10.8)
[2017-09-20 01:42] LABS: ALB/GLOB RATIO 1.3 (1.0-1.8); ALBUMIN 3.8 gm/dL (4.2-5.5); ALKALINE PHOSPHATASE 66 U/L (34-104); ANION GAP 11.8 (7.0-16.0); BILIRUBIN,TOTAL 0.7 mg/dL (0.3-1.0); BUN - UREA NITROGEN 25 mg/dL (7-25); CALCIUM SERUM 9.9 mg/dL (8.6-10.3); CARBON DIOXIDE 24.7 mEq/L (21.0-31.0); CHLORIDE 115 mEq/L (98-107); CREATININE - SERUM 1.1 mg/dL (0.7-1.3); GLUCOSE 111 mg/dL (70-105); POTASSIUM SERUM 4.5 mEq/L (3.5-5.1); SGOT 16 U/L (13-39); SGPT/ALT 11 U/L (7-52); SODIUM SERUM 147 mEq/L (136-145); TOTAL PROTEIN,SERUM 6.8 gm/dL (6.0-8.3)
--- NOTE | 2017-09-20 06:59 | ED Physician Chart ---
ED Chief Complaint/HPI - Patient Information Date Seen:: 09/20/17 Time Seen:: 01:00 Chief Complaint:: left hand pain History of Present Illness:: location: left hand quality: sharp pain severity: mild,mod duration: one day context: SNF pt with dementia with left 5th digit pain. no paralysis or paresthesia. SNF RNs report patient with pain and deformity left pinky finger. xray performed at facility. fracture is identified and pt sent to ER for physician evaluation. on arrival pt in stable clinical condition. no other trauma is reported. radiologist charting shows left 5th metacarpal fracture. no wound reported. mod factors: none assoc s/s: none hx from SNF RN, medic. Allergies:: Allergies Allergy/AdvReac Type Severity Reaction Status Date / Time chloropyramine Allergy Uncoded 08/08/15 16:28 Vitals:: Vital Signs - 8 hr 09/20/17 09/20/17 09/20/17 00:50 01:57 04:07 Temp 98.0 F 97.9 F HR 64 66 58 RR 18 16 16 BP 144/84 122/78 116/69 O2 Sat % 95 97 09/20/17 06:28 Temp 98.2 F HR 62 RR 18 BP 136/82 O2 Sat % 97 Historian:: EMS, Other Review:: Nurse's Note Reviewed, EMS run form Reviewed ED Review of Systems - Review of Systems General/Constitutional: No fever, No chills, No weight loss, No weakness, No diaphoresis, No edema, No loss of appetite Skin: No skin lesions, No rash, No bruising Head: No headache, No light-headedness Eyes: No loss of vision, No pain, No diplopia ENT: No earache, No nasal drainage, No sore throat, No tinnitus Neck: No neck pain, No swelling, No thyromegaly, No stiffness, No mass noted Cardio Vascular: No chest pain, No palpitations, No PND, No orthopnea, No edema Pulmonary: No SOB, No cough, No sputum, No wheezing GI: No nausea, No vomiting, No diarrhea, No pain, No melena, No hematochezia, No constipation, No hematemesis G/U: No dysuria, No frequency, No hematuria Musculoskeletal: No bone or joint pain, No back pain, No muscle pain Endocrine: No polyuria, No polydipsia Psychiatric: No prior psych history, No depression, No anxiety, No suicidal ideation Hematopoietic: No bruising, No lymphadenopathy Allergic/Immuno: No urticaria, No angioedema Neurological: No syncope, No focal symptoms, No weakness, No paresthesia, No headache, No seizure, No dizziness, No confusion, No vertigo ED Past Medical History - Past Medical History Past Medical History: HTN, Seizures, Thyroid disorder, Dementia (parkinsons disease, ), Other (glaucoma, constipation) Family History: None Social History: Non Smoker, No Alcohol, No Drug Use, Single, Care Facility Surgical History: None Psychiatricy History: None Medication: Reviewed Family Medical History - Family Member Mother History Unknown: Yes Ethnicity: Unknown Living Status: Unknown Hx Family Cancer: (unknown) Hx Family Coronary Artery Disease: (unknown) Hx Family Congestive Heart Failure: (unknown) Hx Family Hypertension: (unknown) Hx Family Stroke: (unknown) Hx Family Diabetes: (unknown) Hx Family Seizures: (unknown) Hx Family Dementia: (unknown) Hx Family AIDS: (unknown) Hx Family COPD: (unknown) Hx Family Hepatitis: (unknown) Hx Family Psychiatric Problems: (unknown) Hx Family Tuberculosis: (unknown) ED Physical Exam - Physical Examination General/Constitutional: Awake, Well-developed, well-nourished, Alert, No distress, GCS 15, Non-toxic appearing Head: Atraumatic Eyes: Lids, conjuctiva normal, PERRL Skin: Nl inspection, No skin lesions, Well hydrated ENMT: External ears, nose nl, Nasal exam nl, Lips, teeth, gums nl Neck: Nontender, No JVD Respiratory: Nl effort/Exclusion, Clear to Auscultation, No Wheeze/Rhonchi/Rales Cardio Vascular: RRR, No murmur, gallop, rubs, NL S1 S2 GI: No tenderness/rebounding/guarding, Normal BS's, No McBurney tenderness : No CVA tenderness Extremities: No tenderness or effusion (except left hand 5th metacarpal with point tenderness. no open wound, pinky finger has some lateral deviation which appears chronic), Full ROM, normal strength in all extremities, No edema, Normal digits & nails Neuro/Psych: Alert/oriented (pt is alert, answers simple questions but is only oriented to name. (this is baseline for this patient per staff)) Misc: Normal back ED Labs/Radiology/EKG Results - Lab Results Results: Laboratory Tests 09/20/17 09/20/17 09/20/17 01:17 01:17 01:17 WBC 5.6 D RBC 5.39 Hgb 16.1 Hct 48.9 D MCV 90.7 MCH 29.9 MCHC Differential 32.9 RDW 13.6 Plt Count 293 D MPV 8.4 Neutrophils % 39.4 L Lymphocytes % 44.9 Monocytes % 12.7 H Eosinophils % 2.9 Basophils % 0.1 Sodium 147 H Potassium 4.5 Chloride 115 H Carbon Dioxide 24.7 Anion Gap 11.8 BUN 25 Creatinine 1.1 Est GFR ( Amer) TNP Est GFR (Non-Af Amer) TNP BUN/Creatinine Ratio 22.7 Glucose 111 H Calcium 9.9 Total Bilirubin 0.7 AST 16 ALT 11 Alkaline Phosphatase 66 Total Protein 6.8 Albumin 3.8 L Globulin 3.0 Albumin/Globulin Ratio 1.3 Valproic Acid < 10.0 L ED Assessment - Assessment General Assessment: pt stable while in ER. ED Septic Shock - . Is Septic Shock (SBP<90, OR Lactate>4 mmol\L) present?: No - <6hrs of presentation: Vital Signs: Vital Signs - 8 hr 09/20/17 09/20/17 09/20/17 00:50 01:57 04:07 Temp 98.0 F 97.9 F HR 64 66 58 RR 18 16 16 BP 144/84 122/78 116/69 O2 Sat % 95 97 09/20/17 06:28 Temp 98.2 F HR 62 RR 18 BP 136/82 O2 Sat % 97 Assessment of Lungs: Lung CTA bilateral Assessment of Heart: RRR Capillary refill evaluation: Capillary refill < 2 secs Skin Exam: Warm, Dry, Good Turgur ED Reassessment (Disposition) - Reassessment Reassessment:: pt in stable condition, left 5th MC fracture, otherwise stable Reassessment Condition:: Unchanged - Diagnosis Diagnosis:: left 5th metacarpal fracture - Patient Disposition Discharge/Transfer:: Acute Care w/in this hosp Admitted to:: Med/Surg Admitting Medical Physician:: Casimiro Jon Time:: 07:00 Condition at Disposition:: Stable
[2017-09-20] MEDS ORDERED: Ipratropium Neb 0.5 mg/2.5 mL UD HHN PRN (10:12)
[2017-09-20] MEDS ORDERED: Albuterol Nebulizer 2.5mg/3mL HHN PRN (10:12)
[2017-09-20] MEDS ORDERED: Maalox 30 mL Cup PO PRN (10:12)
[2017-09-20] MEDS ORDERED: Morphine Sulfate 2 mg/mL 1mL Syr IVP PRN (10:12)
[2017-09-20] MEDS ORDERED: Hydrocodone/APAP 5mg/325mg Tab PO PRN (10:12)
[2017-09-20] MEDS ORDERED: D5-0.45NS 1,000 ML IV SCH (10:15)
--- NOTE | 2017-09-20 11:47 | Internal Medicine Prog Note ---
Internal Medicine Subjective - Subjective Service Date: 09/20/17 ([id number] [facility] dictated) Internal Medicine Objective - Results Result Diagrams: 09/20/17 01:17 09/20/17 01:17 Recent Labs: Laboratory Last Values WBC 5.6 Th/cmm (4.8-10.8) D 09/20/17 01:17 RBC 5.39 Mil/cmm (3.80-5.80) 09/20/17 01:17 Hgb 16.1 gm/dL (12-16) 09/20/17 01:17 Hct 48.9 % (41.0-60) D 09/20/17 01:17 MCV 90.7 fl (80-99) 09/20/17 01:17 MCH 29.9 pg (27.0-31.0) 09/20/17 01:17 MCHC Differential 32.9 pg (28.0-36.0) 09/20/17 01:17 RDW 13.6 % (11.5-20.0) 09/20/17 01:17 Plt Count 293 Th/cmm (150-400) D 09/20/17 01:17 MPV 8.4 fl 09/20/17 01:17 Neutrophils % 39.4 % (40.0-80.0) L 09/20/17 01:17 Lymphocytes % 44.9 % (20.0-50.0) 09/20/17 01:17 Monocytes % 12.7 % (2.0-10.0) H 09/20/17 01:17 Eosinophils % 2.9 % (0.0-5.0) 09/20/17 01:17 Basophils % 0.1 % (0.0-2.0) 09/20/17 01:17 Sodium 147 mEq/L (136-145) H 09/20/17 01:17 Potassium 4.5 mEq/L (3.5-5.1) 09/20/17 01:17 Chloride 115 mEq/L (98-107) H 09/20/17 01:17 Carbon Dioxide 24.7 mEq/L (21.0-31.0) 09/20/17 01:17 Anion Gap 11.8 (7.0-16.0) 09/20/17 01:17 BUN 25 mg/dL (7-25) 09/20/17 01:17 Creatinine 1.1 mg/dL (0.7-1.3) 09/20/17 01:17 Est GFR ( Amer) TNP 09/20/17 01:17 Est GFR (Non-Af Amer) TNP 09/20/17 01:17 BUN/Creatinine Ratio 22.7 09/20/17 01:17 Glucose 111 mg/dL (70-105) H 09/20/17 01:17 Calcium 9.9 mg/dL (8.6-10.3) 09/20/17 01:17 Total Bilirubin 0.7 mg/dL (0.3-1.0) 09/20/17 01:17 AST 16 U/L (13-39) 09/20/17 01:17 ALT 11 U/L (7-52) 09/20/17 01:17 Alkaline Phosphatase 66 U/L (34-104) 09/20/17 01:17 Total Protein 6.8 gm/dL (6.0-8.3) 09/20/17 01:17 Albumin 3.8 gm/dL (4.2-5.5) L 09/20/17 01:17 Globulin 3.0 gm/dL 09/20/17 01:17 Albumin/Globulin Ratio 1.3 (1.0-1.8) 09/20/17 01:17 Valproic Acid < 10.0 ug/mL (50.0-100.0) L 09/20/17 01:17 - Physical Exam Vitals and I&O: Vital Signs Temp 97.3 F 09/20/17 10:06 Pulse 57 09/20/17 10:21 Resp 16 09/20/17 10:28 BP 140/82 09/20/17 10:06 Pulse Ox 94 09/20/17 10:21 Active Medications: Current Medications Acetaminophen (Tylenol) 650 mg PO Q4H PRN PRN Reason: Pain Or Fever above 101 Stop: 11/19/17 10:11 Acetaminophen/Hydrocodone Bitart ([place] 5mg/325mg) 1 tab PO Q4H PRN PRN Reason: Pain (Severe) Stop: 11/19/17 10:11 Al Hydrox/Mg Hydrox/Simethicone (Maalox) 30 ml PO Q6H PRN PRN Reason: Dyspepsia Stop: 11/19/17 10:11 Albuterol Sulfate (Albuterol 2.5mg/3ml Neb Ud) 2.5 mg HHN Q2HRT PRN PRN Reason: Shortness of Breath or Wheeze Stop: 11/19/17 10:11 Amlodipine Besylate (Norvasc) 10 mg PO DAILY [facility] Stop: 11/19/17 11:59 Benztropine Mesylate (Cogentin) 0.5 mg PO BID WILL Stop: 11/19/17 16:59 Carbidopa/Levodopa (Sinemet 25mg-100 Mg) 1 tab PO TID WILL Stop: 11/19/17 13:59 Heparin Sodium (Porcine) (Heparin) 5,000 units SUBQ Q12HR WILL Stop: 11/19/17 20:59 Dextrose/Sodium Chloride (D5-0.45ns) 1,000 mls @ 80 mls/hr IV .[id number] [facility] Stop: 11/19/17 10:14 Valproate Sodium 500 mg/ (Sodium Chloride) 105 mls @ 100 mls/hr IV Q12H [facility] Stop: 11/19/17 12:59 Ipratropium [place] (Atrovent Neb 0.5mg/2.5ml) 0.5 mg HHN Q2HRT PRN PRN Reason: Shortness of Breath or Wheeze Stop: 11/19/17 10:11 Latanoprost (Xalatan 0.005% Ophth Soln) 1 drop EACH EYE HS [facility] Stop: 11/19/17 20:59 Levothyroxine Sodium (Synthroid) 0.025 mg PO QDAC [facility] Stop: 11/20/17 07:29 Morphine Sulfate (Morphine) 2 mg IVP Q4H PRN PRN Reason: Pain (Severe) Stop: 11/19/17 10:11 Ondansetron HCl (Zofran) 4 mg IV Q8H PRN PRN Reason: Nausea / Vomiting Stop: 11/19/17 10:11 Polyethylene Glycol (Miralax) 17 gm PO BID [facility] Stop: 11/19/17 16:59 Zolpidem Tartrate (Ambien) 10 mg PO HS PRN PRN Reason: Insomnia Stop: 11/19/17 20:59 - Procedures Procedures: Procedures Procedure Code Date CLOSURE SKIN & SUBCUTANEOUS NEC 86.59 07/07/12 DPT ADMINISTRATION 99.39 07/07/12 IMMUNIZATION ADMIN [id number] 07/07/12 OTHER GROUP THERAPY 94.44 12/10/14 RECREATIONAL THERAPY 93.81 09/15/12 RPR S/N/AX/GEN/TRNK 2.5CM/< 94042 07/07/12 TDAP VACCINE 7 YRS/> IM [id number] 07/07/12
[2017-09-20] MEDS: Multivitamin w/ Minerals Tab PO SCH (12:21)
[2017-09-20] MEDS: Valproate Sodium 500 MG in Sodium Chloride 0.9% 100 ML IV SCH (14:17)
--- NOTE | 2017-09-20 14:34 | History & Physical ---
ADMIT DATE: 09/20/2017 CHIEF COMPLAINT: Left wrist swelling with discoloration. HISTORY OF PRESENT ILLNESS: This is a 77-year-old male who is well known to me, resident of [facility]. I was called on this patient last night due to nursing staff noticing the patient's left wrist being swollen noted with purple discoloration. The patient's left pinkie was found to be tender to touch and the patient was in severe pain. The patient had an x-ray done at the retirement and it showed a fracture of the fifth metacarpal. For this reason, the patient is now admitted to the med/surg unit. PAST MEDICAL HISTORY: Hypertension, seizures, hypothyroid, dementia, Parkinson's, glaucoma, constipation. SOCIAL HISTORY: The patient is a retirement resident, requiring 24-hour nursing care. FAMILY HISTORY: Noncontributory. SURGICAL HISTORY: None. ALLERGIES: CHLOROPYRAMINE. MEDICATIONS: Please see medication reconciliation. REVIEW OF SYSTEMS: Unable to obtain due to patient's mental status. PHYSICAL EXAMINATION: GENERAL: This is an elderly male, awake with confusion, no apparent distress. VITAL SIGNS: Temperature 97.0, heart rate 64, blood pressure 140/82, respirations 16, O2 98%. HEENT: Head; normocephalic, atraumatic. NECK: Supple. No mass. LUNGS: Clear bilaterally. HEART: Regular rate and rhythm. ABDOMEN: Soft, nontender. SKIN: Left pinky is noted with edema, nonpitting. LABORATORY DATA: WBC 5.6, H and H 16.1 and 48.9, platelet of 293. Sodium 147, potassium 4.5, chloride 115, BUN 25, creatinine 1.1. ASSESSMENT: Left fifth metacarpal fracture, intractable pain, hypothyroidism, seizures, Parkinson's, dementia. PLAN: The patient to be admitted to the med/surg unit. We will get Dr. Sneed on the case as well as Psychiatry. Pain management will be initiated. We will keep the patient on IV fluids for hydration. We will continue to monitor this patient. JOB# [id number]
[2017-09-20] MEDS ORDERED: Non-Formulary Item 1 EA (Valproic Acid (As Sodium Salt) [Depakene] 500 MG) PO SCH (17:00)
[2017-09-20] MEDS: POLYETHYLENE GLYCOL 3350 17 GM PACK PO SCH (17:29)
[2017-09-21] MEDS: Valproate Sodium 500 MG in Sodium Chloride 0.9% 100 ML IV SCH ×2 (01:10→12:39)
--- NOTE | 2017-09-21 01:30 | Consultation ---
DATE OF CONSULTATION: 09/20/2017 The patient was seen, chart reviewed, discussed with staff. HISTORY OF PRESENT ILLNESS: The patient is a 77-year-old male with a history of schizoaffective disorder and dementia, currently on medical floor, has been restless and agitated, at times refusing care. The patient is a poor historian. The patient has been passively cooperative with staff at this time, but occasionally he becomes angry and refuses care. PAST PSYCHIATRIC HISTORY: Multiple hospitalizations and chronic history of schizoaffective disorder. PAST MEDICAL HISTORY: Multiple medical problems including Parkinson disease. PSYCHOSOCIAL HISTORY: The patient resides at [facility] and requires complete care. MENTAL STATUS EXAMINATION: Speech is minimal, short sentences at times, irrelevant to the topic. Patient is oriented to person, not aware that he is in the hospital. The patient's insight is poor and judgment is impaired. ASSESSMENT: The patient is psychotic phase. PLAN: Continue medication management. Continue supportive measures. Add Ativan 0.5 mg q.6 hours p.r.n. anxiety. Use Zyprexa small dose. The patient took this medication in the past with fair response. Consider geropsychiatric hospitalization if he continues to be agitated, anxious, and angry. Thank you for the consultation Dr. Bocanegra. [facility]# [id number]
[2017-09-21] MEDS: Levothyroxine 0.025 Mg Tab PO SCH (06:43)
[2017-09-21] MEDS: POLYETHYLENE GLYCOL 3350 17 GM PACK PO SCH ×2 (08:55→16:34)
[2017-09-21] MEDS: Multivitamin w/ Minerals Tab PO SCH (08:55)
--- NOTE | 2017-09-21 13:52 | Internal Medicine Prog Note ---
Internal Medicine Subjective - Subjective Service Date: 09/21/17 (PATIENT REFUSES IV ) Patient seen and examined:: with staff Patient is:: awake, verbal, confused Per staff patient has:: refusing care, refusing labs Internal Medicine Objective - Results Result Diagrams: 09/20/17 01:17 09/20/17 01:17 Recent Labs: Laboratory Last Values WBC 5.6 Th/cmm (4.8-10.8) D 09/20/17 01:17 RBC 5.39 Mil/cmm (3.80-5.80) 09/20/17 01:17 Hgb 16.1 gm/dL (12-16) 09/20/17 01:17 Hct 48.9 % (41.0-60) D 09/20/17 01:17 MCV 90.7 fl (80-99) 09/20/17 01:17 MCH 29.9 pg (27.0-31.0) 09/20/17 01:17 MCHC Differential 32.9 pg (28.0-36.0) 09/20/17 01:17 RDW 13.6 % (11.5-20.0) 09/20/17 01:17 Plt Count 293 Th/cmm (150-400) D 09/20/17 01:17 MPV 8.4 fl 09/20/17 01:17 Neutrophils % 39.4 % (40.0-80.0) L 09/20/17 01:17 Lymphocytes % 44.9 % (20.0-50.0) 09/20/17 01:17 Monocytes % 12.7 % (2.0-10.0) H 09/20/17 01:17 Eosinophils % 2.9 % (0.0-5.0) 09/20/17 01:17 Basophils % 0.1 % (0.0-2.0) 09/20/17 01:17 Sodium 147 mEq/L (136-145) H 09/20/17 01:17 Potassium 4.5 mEq/L (3.5-5.1) 09/20/17 01:17 Chloride 115 mEq/L (98-107) H 09/20/17 01:17 Carbon Dioxide 24.7 mEq/L (21.0-31.0) 09/20/17 01:17 Anion Gap 11.8 (7.0-16.0) 09/20/17 01:17 BUN 25 mg/dL (7-25) 09/20/17 01:17 Creatinine 1.1 mg/dL (0.7-1.3) 09/20/17 01:17 Est GFR ( Amer) TNP 09/20/17 01:17 Est GFR (Non-Af Amer) TNP 09/20/17 01:17 BUN/Creatinine Ratio 22.7 09/20/17 01:17 Glucose 111 mg/dL (70-105) H 09/20/17 01:17 Calcium 9.9 mg/dL (8.6-10.3) 09/20/17 01:17 Total Bilirubin 0.7 mg/dL (0.3-1.0) 09/20/17 01:17 AST 16 U/L (13-39) 09/20/17 01:17 ALT 11 U/L (7-52) 09/20/17 01:17 Alkaline Phosphatase 66 U/L (34-104) 09/20/17 01:17 Total Protein 6.8 gm/dL (6.0-8.3) 09/20/17 01:17 Albumin 3.8 gm/dL (4.2-5.5) L 09/20/17 01:17 Globulin 3.0 gm/dL 09/20/17 01:17 Albumin/Globulin Ratio 1.3 (1.0-1.8) 09/20/17 01:17 Valproic Acid < 10.0 ug/mL (50.0-100.0) L 09/20/17 01:17 - Physical Exam Vitals and I&O: Vital Signs Temp 97.4 F 09/21/17 11:51 Pulse 60 09/21/17 11:51 Resp 17 09/21/17 11:51 BP 130/67 09/21/17 11:51 Pulse Ox 95 09/21/17 11:51 Intake & Output 09/20/17 09/21/17 09/21/17 18:59 06:59 18:59 Intake Total 400 1000 Balance 400 1000 Weight (lbs) 160 lb 160 lb 3.2 oz Intake: Oral 400 1000 Other: # Voids 1 0 # Bowel Movements 0 Active Medications: Current Medications Acetaminophen (Tylenol) 650 mg PO Q4H PRN PRN Reason: Pain Or Fever above 101 Stop: 11/19/17 10:11 Acetaminophen/Hydrocodone Bitart ([place] 5mg/325mg) 1 tab PO Q4H PRN PRN Reason: Pain (Severe) Stop: 11/19/17 10:11 Al Hydrox/Mg Hydrox/Simethicone (Maalox) 30 ml PO Q6H PRN PRN Reason: Dyspepsia Stop: 11/19/17 10:11 Albuterol Sulfate (Albuterol 2.5mg/3ml Neb Ud) 2.5 mg HHN Q2HRT PRN PRN Reason: Shortness of Breath or Wheeze Stop: 11/19/17 10:11 Amlodipine Besylate (Norvasc) 10 mg PO DAILY [facility] Stop: 11/19/17 11:59 Last Admin: 09/21/17 08:54 Dose: Not Given Carbidopa/Levodopa (Sinemet 25mg-100 Mg) 1 tab PO TID WILL Stop: 11/19/17 13:59 Last Admin: 09/21/17 13:12 Dose: Not Given Heparin Sodium (Porcine) (Heparin) 5,000 units SUBQ Q12HR WILL Stop: 11/19/17 20:59 Last Admin: 09/21/17 08:55 Dose: Not Given Dextrose/Sodium Chloride (D5-0.45ns) 1,000 mls @ 80 mls/hr IV .[id number] [facility] Stop: 11/19/17 10:14 Valproate Sodium 500 mg/ (Sodium Chloride) 105 mls @ 100 mls/hr IV Q12H [facility] Stop: 11/19/17 12:59 Last Admin: 09/21/17 12:39 Dose: Not Given Ipratropium [place] (Atrovent Neb 0.5mg/2.5ml) 0.5 mg HHN Q2HRT PRN PRN Reason: Shortness of Breath or Wheeze Stop: 11/19/17 10:11 Latanoprost (Xalatan 0.005% Ophth Soln) 1 drop EACH EYE HS [facility] Stop: 11/19/17 20:59 Last Admin: 09/20/17 21:06 Dose: Not Given Levothyroxine Sodium (Synthroid) 0.025 mg PO QDAC WILL Stop: 11/20/17 07:29 Last Admin: 09/21/17 06:43 Dose: Not Given Lorazepam (Ativan) 0.5 mg PO Q4HR PRN; Protocol PRN Reason: Anxiety Stop: 11/19/17 12:19 Morphine Sulfate (Morphine) 2 mg IVP Q4H PRN PRN Reason: Pain (Severe) Stop: 11/19/17 10:11 Olanzapine (Zyprexa) 2.5 mg PO HS WILL PRN Reason: Protocol Stop: 11/19/17 20:59 Ondansetron HCl (Zofran) 4 mg IV Q8H PRN PRN Reason: Nausea / Vomiting Stop: 11/19/17 10:11 Polyethylene Glycol (Miralax) 17 gm PO BID WILL Stop: 11/19/17 16:59 Last Admin: 09/21/17 08:55 Dose: Not Given Zolpidem Tartrate (Ambien) 10 mg PO HS PRN PRN Reason: Insomnia Stop: 11/19/17 20:59 General: weak HEENT: NC/AT, PERRLA Neck: Supple Lungs: CTAB Cardiovascular: RRR, Normal S1, Normal S2, without murmur Abdomen: soft, non-tender, non-distended, positive bowel sound Extremities: other (LEFT PINKY SWELLING) Neurological: unable to follow command - Procedures Procedures: Procedures Procedure Code Date CLOSURE SKIN & SUBCUTANEOUS NEC 86.59 07/07/12 DPT ADMINISTRATION 99.39 07/07/12 IMMUNIZATION ADMIN 94586 07/07/12 OTHER GROUP THERAPY 94.44 12/10/14 RECREATIONAL THERAPY 93.81 09/15/12 RPR S/N/AX/GEN/TRNK 2.5CM/< 05738 07/07/12 TDAP VACCINE 7 YRS/> [place] [id number] 07/07/12 Internal Medicine Assmt/Plan - Assessment Assessment: LEFT 5TH METATARSAL FX INTRACTABLE PAIN HYPOTHYROIDISM SEIZURE DEMENTIA - Plan Plan: ortho follow up pain mgmt cbc/bmp in am psych follow up continue current orders
--- NOTE | 2017-09-21 23:12 | Progress Notes ---
DATE: 09/21/2017 SUBJECTIVE: The patient was seen, chart reviewed, discussed with staff. Still confused, forgetful, still with episodes of agitation. The patient was on Zyprexa and so far has no side effects. The patient has Parkinson disease, which is causing him to have tremor and also has dementia. ASSESSMENT: We will continue supportive measure. Continue to monitor closely. We will discontinue Cogentin for the time being to avoid further confusion. Continue current dose of Zyprexa. [facility]# [id number]
[2017-09-22] MEDS: Valproate Sodium 500 MG in Sodium Chloride 0.9% 100 ML IV SCH ×2 (04:02→12:27)
[2017-09-22] MEDS: Levothyroxine 0.025 Mg Tab PO SCH (07:28)
[2017-09-22] MEDS: POLYETHYLENE GLYCOL 3350 17 GM PACK PO SCH ×2 (09:37→17:26)
[2017-09-22] MEDS: Multivitamin w/ Minerals Tab PO SCH (09:37)
--- NOTE | 2017-09-22 13:37 | Internal Medicine Prog Note ---
Internal Medicine Subjective - Subjective Service Date: 09/22/17 Patient seen and examined:: with staff Patient is:: awake, verbal, confused Per staff patient has:: refusing care, refusing labs Internal Medicine Objective - Results Result Diagrams: 09/20/17 01:17 09/20/17 01:17 Recent Labs: Laboratory Last Values WBC 5.6 Th/cmm (4.8-10.8) D 09/20/17 01:17 RBC 5.39 Mil/cmm (3.80-5.80) 09/20/17 01:17 Hgb 16.1 gm/dL (12-16) 09/20/17 01:17 Hct 48.9 % (41.0-60) D 09/20/17 01:17 MCV 90.7 fl (80-99) 09/20/17 01:17 MCH 29.9 pg (27.0-31.0) 09/20/17 01:17 MCHC Differential 32.9 pg (28.0-36.0) 09/20/17 01:17 RDW 13.6 % (11.5-20.0) 09/20/17 01:17 Plt Count 293 Th/cmm (150-400) D 09/20/17 01:17 MPV 8.4 fl 09/20/17 01:17 Neutrophils % 39.4 % (40.0-80.0) L 09/20/17 01:17 Lymphocytes % 44.9 % (20.0-50.0) 09/20/17 01:17 Monocytes % 12.7 % (2.0-10.0) H 09/20/17 01:17 Eosinophils % 2.9 % (0.0-5.0) 09/20/17 01:17 Basophils % 0.1 % (0.0-2.0) 09/20/17 01:17 Sodium 147 mEq/L (136-145) H 09/20/17 01:17 Potassium 4.5 mEq/L (3.5-5.1) 09/20/17 01:17 Chloride 115 mEq/L (98-107) H 09/20/17 01:17 Carbon Dioxide 24.7 mEq/L (21.0-31.0) 09/20/17 01:17 Anion Gap 11.8 (7.0-16.0) 09/20/17 01:17 BUN 25 mg/dL (7-25) 09/20/17 01:17 Creatinine 1.1 mg/dL (0.7-1.3) 09/20/17 01:17 Est GFR ( Amer) TNP 09/20/17 01:17 Est GFR (Non-Af Amer) TNP 09/20/17 01:17 BUN/Creatinine Ratio 22.7 09/20/17 01:17 Glucose 111 mg/dL (70-105) H 09/20/17 01:17 Calcium 9.9 mg/dL (8.6-10.3) 09/20/17 01:17 Total Bilirubin 0.7 mg/dL (0.3-1.0) 09/20/17 01:17 AST 16 U/L (13-39) 09/20/17 01:17 ALT 11 U/L (7-52) 09/20/17 01:17 Alkaline Phosphatase 66 U/L (34-104) 09/20/17 01:17 Total Protein 6.8 gm/dL (6.0-8.3) 09/20/17 01:17 Albumin 3.8 gm/dL (4.2-5.5) L 09/20/17 01:17 Globulin 3.0 gm/dL 09/20/17 01:17 Albumin/Globulin Ratio 1.3 (1.0-1.8) 09/20/17 01:17 Valproic Acid < 10.0 ug/mL (50.0-100.0) L 09/20/17 01:17 - Physical Exam Vitals and I&O: Vital Signs Temp 97.5 F 09/22/17 12:00 Pulse 54 09/22/17 12:00 Resp 17 09/22/17 12:00 BP 113/71 09/22/17 12:00 Pulse Ox 92 09/22/17 12:00 Intake & Output 09/21/17 09/22/17 09/22/17 18:59 06:59 18:59 Intake Total 75 200 Output Total 0 Balance 75 200 Weight (lbs) 145 lb 8 oz 145 lb 8 oz Intake: Oral 75 200 Tube Feeding 0 0 Output: Stool 0 Other: # Voids 2 1 # Bowel Movements 0 0 Active Medications: Current Medications Acetaminophen (Tylenol) 650 mg PO Q4H PRN PRN Reason: Pain Or Fever above 101 Stop: 11/19/17 10:11 Acetaminophen/Hydrocodone Bitart ([place] 5mg/325mg) 1 tab PO Q4H PRN PRN Reason: Pain (Severe) Stop: 11/19/17 10:11 Al Hydrox/Mg Hydrox/Simethicone (Maalox) 30 ml PO Q6H PRN PRN Reason: Dyspepsia Stop: 11/19/17 10:11 Albuterol Sulfate (Albuterol 2.5mg/3ml Neb Ud) 2.5 mg HHN Q2HRT PRN PRN Reason: Shortness of Breath or Wheeze Stop: 11/19/17 10:11 Amlodipine Besylate (Norvasc) 10 mg PO DAILY WILL Stop: 11/19/17 11:59 Last Admin: 09/22/17 09:36 Dose: Not Given Carbidopa/Levodopa (Sinemet 25mg-100 Mg) 1 tab PO TID WILL Stop: 11/19/17 13:59 Last Admin: 09/22/17 09:37 Dose: Not Given Heparin Sodium (Porcine) (Heparin) 5,000 units SUBQ Q12HR WILL Stop: 11/19/17 20:59 Last Admin: 09/22/17 09:37 Dose: Not Given Dextrose/Sodium Chloride (D5-0.45ns) 1,000 mls @ 80 mls/hr IV .[id number] WILL Stop: 11/19/17 10:14 Valproate Sodium 500 mg/ (Sodium Chloride) 105 mls @ 100 mls/hr IV Q12H WILL Stop: 11/19/17 12:59 Last Admin: 09/22/17 12:27 Dose: Not Given Ipratropium [place] (Atrovent Neb 0.5mg/2.5ml) 0.5 mg HHN Q2HRT PRN PRN Reason: Shortness of Breath or Wheeze Stop: 11/19/17 10:11 Latanoprost (Xalatan 0.005% Ophth Soln) 1 drop EACH EYE HS WILL Stop: 11/19/17 20:59 Last Admin: 09/21/17 20:54 Dose: Not Given Levothyroxine Sodium (Synthroid) 0.025 mg PO QDAC WILL Stop: 11/20/17 07:29 Last Admin: 09/22/17 07:28 Dose: Not Given Lorazepam (Ativan) 0.5 mg PO Q4HR PRN; Protocol PRN Reason: Anxiety Stop: 11/19/17 12:19 Morphine Sulfate (Morphine) 2 mg IVP Q4H PRN PRN Reason: Pain (Severe) Stop: 11/19/17 10:11 Olanzapine (Zyprexa) 2.5 mg PO HS WILL PRN Reason: Protocol Stop: 11/19/17 20:59 Ondansetron HCl (Zofran) 4 mg IV Q8H PRN PRN Reason: Nausea / Vomiting Stop: 11/19/17 10:11 Polyethylene Glycol (Miralax) 17 gm PO BID WILL Stop: 11/19/17 16:59 Last Admin: 09/22/17 09:37 Dose: Not Given Zolpidem Tartrate (Ambien) 10 mg PO HS PRN PRN Reason: Insomnia Stop: 11/19/17 20:59 General: weak HEENT: NC/AT, PERRLA Neck: Supple Lungs: CTAB Cardiovascular: RRR, Normal S1, Normal S2, without murmur Abdomen: soft, non-tender, non-distended, positive bowel sound Extremities: other (LEFT PINKY SWELLING) Neurological: unable to follow command - Procedures Procedures: Procedures Procedure Code Date CLOSURE SKIN & SUBCUTANEOUS NEC 86.59 07/07/12 DPT ADMINISTRATION 99.39 07/07/12 IMMUNIZATION ADMIN 94543 07/07/12 OTHER GROUP THERAPY 94.44 12/10/14 RECREATIONAL THERAPY 93.81 09/15/12 RPR S/N/AX/GEN/TRNK 2.5CM/< 94427 07/07/12 TDAP VACCINE 7 YRS/> IM [id number] 07/07/12 Internal Medicine Assmt/Plan - Assessment Assessment: LEFT 5TH METATARSAL FX INTRACTABLE PAIN HYPOTHYROIDISM SEIZURE DEMENTIA - Plan Plan: pain mgmt cbc/bmp in am psych follow up continue current orders
--- NOTE | 2017-09-22 13:41 | General Progress Note ---
Subjective - Review of Systems Service Date: 09/22/17 Objective - Results Result Diagrams: 09/20/17 01:17 09/20/17 01:17 Recent Labs: Laboratory Last Values WBC 5.6 Th/cmm (4.8-10.8) D 09/20/17 01:17 RBC 5.39 Mil/cmm (3.80-5.80) 09/20/17 01:17 Hgb 16.1 gm/dL (12-16) 09/20/17 01:17 Hct 48.9 % (41.0-60) D 09/20/17 01:17 MCV 90.7 fl (80-99) 09/20/17 01:17 MCH 29.9 pg (27.0-31.0) 09/20/17 01:17 MCHC Differential 32.9 pg (28.0-36.0) 09/20/17 01:17 RDW 13.6 % (11.5-20.0) 09/20/17 01:17 Plt Count 293 Th/cmm (150-400) D 09/20/17 01:17 MPV 8.4 fl 09/20/17 01:17 Neutrophils % 39.4 % (40.0-80.0) L 09/20/17 01:17 Lymphocytes % 44.9 % (20.0-50.0) 09/20/17 01:17 Monocytes % 12.7 % (2.0-10.0) H 09/20/17 01:17 Eosinophils % 2.9 % (0.0-5.0) 09/20/17 01:17 Basophils % 0.1 % (0.0-2.0) 09/20/17 01:17 Sodium 147 mEq/L (136-145) H 09/20/17 01:17 Potassium 4.5 mEq/L (3.5-5.1) 09/20/17 01:17 Chloride 115 mEq/L (98-107) H 09/20/17 01:17 Carbon Dioxide 24.7 mEq/L (21.0-31.0) 09/20/17 01:17 Anion Gap 11.8 (7.0-16.0) 09/20/17 01:17 BUN 25 mg/dL (7-25) 09/20/17 01:17 Creatinine 1.1 mg/dL (0.7-1.3) 09/20/17 01:17 Est GFR ( Amer) TNP 09/20/17 01:17 Est GFR (Non-Af Amer) TNP 09/20/17 01:17 BUN/Creatinine Ratio 22.7 09/20/17 01:17 Glucose 111 mg/dL (70-105) H 09/20/17 01:17 Calcium 9.9 mg/dL (8.6-10.3) 09/20/17 01:17 Total Bilirubin 0.7 mg/dL (0.3-1.0) 09/20/17 01:17 AST 16 U/L (13-39) 09/20/17 01:17 ALT 11 U/L (7-52) 09/20/17 01:17 Alkaline Phosphatase 66 U/L (34-104) 09/20/17 01:17 Total Protein 6.8 gm/dL (6.0-8.3) 09/20/17 01:17 Albumin 3.8 gm/dL (4.2-5.5) L 09/20/17 01:17 Globulin 3.0 gm/dL 09/20/17 01:17 Albumin/Globulin Ratio 1.3 (1.0-1.8) 09/20/17 01:17 Valproic Acid < 10.0 ug/mL (50.0-100.0) L 09/20/17 01:17 - Physical Exam Vitals and I&O: Vital Signs Temp 97.5 F 09/22/17 12:00 Pulse 54 09/22/17 12:00 Resp 17 09/22/17 12:00 BP 113/71 09/22/17 12:00 Pulse Ox 92 09/22/17 12:00 Intake & Output 09/21/17 09/22/17 09/22/17 18:59 06:59 18:59 Intake Total 75 200 Output Total 0 Balance 75 200 Weight (lbs) 65.998 kg 65.998 kg Intake: Oral 75 200 Tube Feeding 0 0 Output: Stool 0 Other: # Voids 2 1 # Bowel Movements 0 0 Active Medications: Current Medications Acetaminophen (Tylenol) 650 mg PO Q4H PRN PRN Reason: Pain Or Fever above 101 Stop: 11/19/17 10:11 Acetaminophen/Hydrocodone Bitart ([place] 5mg/325mg) 1 tab PO Q4H PRN PRN Reason: Pain (Severe) Stop: 11/19/17 10:11 Al Hydrox/Mg Hydrox/Simethicone (Maalox) 30 ml PO Q6H PRN PRN Reason: Dyspepsia Stop: 11/19/17 10:11 Albuterol Sulfate (Albuterol 2.5mg/3ml Neb Ud) 2.5 mg HHN Q2HRT PRN PRN Reason: Shortness of Breath or Wheeze Stop: 11/19/17 10:11 Amlodipine Besylate (Norvasc) 10 mg PO DAILY WILL Stop: 11/19/17 11:59 Last Admin: 09/22/17 09:36 Dose: Not Given Carbidopa/Levodopa (Sinemet 25mg-100 Mg) 1 tab PO TID WILL Stop: 11/19/17 13:59 Last Admin: 09/22/17 09:37 Dose: Not Given Heparin Sodium (Porcine) (Heparin) 5,000 units SUBQ Q12HR WILL Stop: 11/19/17 20:59 Last Admin: 09/22/17 09:37 Dose: Not Given Dextrose/Sodium Chloride (D5-0.45ns) 1,000 mls @ 80 mls/hr IV .[id number] WILL Stop: 11/19/17 10:14 Valproate Sodium 500 mg/ (Sodium Chloride) 105 mls @ 100 mls/hr IV Q12H WILL Stop: 11/19/17 12:59 Last Admin: 09/22/17 12:27 Dose: Not Given Ipratropium [place] (Atrovent Neb 0.5mg/2.5ml) 0.5 mg HHN Q2HRT PRN PRN Reason: Shortness of Breath or Wheeze Stop: 11/19/17 10:11 Latanoprost (Xalatan 0.005% Ophth Soln) 1 drop EACH EYE HS WILL Stop: 11/19/17 20:59 Last Admin: 09/21/17 20:54 Dose: Not Given Levothyroxine Sodium (Synthroid) 0.025 mg PO QDAC WILL Stop: 11/20/17 07:29 Last Admin: 09/22/17 07:28 Dose: Not Given Lorazepam (Ativan) 0.5 mg PO Q4HR PRN; Protocol PRN Reason: Anxiety Stop: 11/19/17 12:19 Morphine Sulfate (Morphine) 2 mg IVP Q4H PRN PRN Reason: Pain (Severe) Stop: 11/19/17 10:11 Olanzapine (Zyprexa) 2.5 mg PO HS WILL PRN Reason: Protocol Stop: 11/19/17 20:59 Ondansetron HCl (Zofran) 4 mg IV Q8H PRN PRN Reason: Nausea / Vomiting Stop: 11/19/17 10:11 Polyethylene Glycol (Miralax) 17 gm PO BID WILL Stop: 11/19/17 16:59 Last Admin: 09/22/17 09:37 Dose: Not Given Zolpidem Tartrate (Ambien) 10 mg PO HS PRN PRN Reason: Insomnia Stop: 11/19/17 20:59 - Procedures Procedures: Procedures Procedure Code Date CLOSURE SKIN & SUBCUTANEOUS NEC 86.59 07/07/12 DPT ADMINISTRATION 99.39 07/07/12 IMMUNIZATION ADMIN 14534 07/07/12 OTHER GROUP THERAPY 94.44 12/10/14 RECREATIONAL THERAPY 93.81 09/15/12 RPR S/N/AX/GEN/TRNK 2.5CM/< 55176 07/07/12 TDAP VACCINE 7 YRS/> IM [id number] 07/07/12
--- NOTE | 2017-09-22 13:48 | Diagnostic Imaging Report ---
Left hand 3 views Indication: Trauma Comparison: none Findings: There is oblique fracture of the fifth metacarpal shaft. Moderate degenerative changes are noted. There is slight irregularity of the scaphoid. Osteopenia is noted. Mild soft tissue swelling is seen surrounding the fifth metacarpal. No dislocation. Impression: Oblique fifth metacarpal shaft fracture. Slight irregularity of the mid scaphoid probably a variant or may be due to old trauma. Acute traumatic etiology a nondisplaced fracture is considered less likely. Please correlate with patient's clinical findings and old exams. Degenerative changes. Osteopenia.
--- NOTE | 2017-09-22 14:12 | General Progress Note ---
Subjective - Review of Systems Service Date: 09/22/17 Events since last encounter: test Subjective: [facility] Objective - Results Result Diagrams: 09/20/17 01:17 09/20/17 01:17 Recent Labs: Laboratory Last Values WBC 5.6 Th/cmm (4.8-10.8) D 09/20/17 01:17 RBC 5.39 Mil/cmm (3.80-5.80) 09/20/17 01:17 Hgb 16.1 gm/dL (12-16) 09/20/17 01:17 Hct 48.9 % (41.0-60) D 09/20/17 01:17 MCV 90.7 fl (80-99) 09/20/17 01:17 MCH 29.9 pg (27.0-31.0) 09/20/17 01:17 MCHC Differential 32.9 pg (28.0-36.0) 09/20/17 01:17 RDW 13.6 % (11.5-20.0) 09/20/17 01:17 Plt Count 293 Th/cmm (150-400) D 09/20/17 01:17 MPV 8.4 fl 09/20/17 01:17 Neutrophils % 39.4 % (40.0-80.0) L 09/20/17 01:17 Lymphocytes % 44.9 % (20.0-50.0) 09/20/17 01:17 Monocytes % 12.7 % (2.0-10.0) H 09/20/17 01:17 Eosinophils % 2.9 % (0.0-5.0) 09/20/17 01:17 Basophils % 0.1 % (0.0-2.0) 09/20/17 01:17 Sodium 147 mEq/L (136-145) H 09/20/17 01:17 Potassium 4.5 mEq/L (3.5-5.1) 09/20/17 01:17 Chloride 115 mEq/L (98-107) H 09/20/17 01:17 Carbon Dioxide 24.7 mEq/L (21.0-31.0) 09/20/17 01:17 Anion Gap 11.8 (7.0-16.0) 09/20/17 01:17 BUN 25 mg/dL (7-25) 09/20/17 01:17 Creatinine 1.1 mg/dL (0.7-1.3) 09/20/17 01:17 Est GFR ( Amer) TNP 09/20/17 01:17 Est GFR (Non-Af Amer) TNP 09/20/17 01:17 BUN/Creatinine Ratio 22.7 09/20/17 01:17 Glucose 111 mg/dL (70-105) H 09/20/17 01:17 Calcium 9.9 mg/dL (8.6-10.3) 09/20/17 01:17 Total Bilirubin 0.7 mg/dL (0.3-1.0) 09/20/17 01:17 AST 16 U/L (13-39) 09/20/17 01:17 ALT 11 U/L (7-52) 09/20/17 01:17 Alkaline Phosphatase 66 U/L (34-104) 09/20/17 01:17 Total Protein 6.8 gm/dL (6.0-8.3) 09/20/17 01:17 Albumin 3.8 gm/dL (4.2-5.5) L 09/20/17 01:17 Globulin 3.0 gm/dL 09/20/17 01:17 Albumin/Globulin Ratio 1.3 (1.0-1.8) 09/20/17 01:17 Valproic Acid < 10.0 ug/mL (50.0-100.0) L 09/20/17 01:17 - Physical Exam Vitals and I&O: Vital Signs Temp 97.5 F 09/22/17 12:00 Pulse 54 09/22/17 12:00 Resp 17 09/22/17 12:00 BP 113/71 09/22/17 12:00 Pulse Ox 92 09/22/17 12:00 Intake & Output 09/21/17 09/22/17 09/22/17 18:59 06:59 18:59 Intake Total 75 200 Output Total 0 Balance 75 200 Weight (lbs) 65.998 kg 65.998 kg Intake: Oral 75 200 Tube Feeding 0 0 Output: Stool 0 Other: # Voids 2 1 # Bowel Movements 0 0 Active Medications: Current Medications Acetaminophen (Tylenol) 650 mg PO Q4H PRN PRN Reason: Pain Or Fever above 101 Stop: 11/19/17 10:11 Acetaminophen/Hydrocodone Bitart ([place] 5mg/325mg) 1 tab PO Q4H PRN PRN Reason: Pain (Severe) Stop: 11/19/17 10:11 Al Hydrox/Mg Hydrox/Simethicone (Maalox) 30 ml PO Q6H PRN PRN Reason: Dyspepsia Stop: 11/19/17 10:11 Albuterol Sulfate (Albuterol 2.5mg/3ml Neb Ud) 2.5 mg HHN Q2HRT PRN PRN Reason: Shortness of Breath or Wheeze Stop: 11/19/17 10:11 Amlodipine Besylate (Norvasc) 10 mg PO DAILY [facility] Stop: 11/19/17 11:59 Last Admin: 09/22/17 09:36 Dose: Not Given Carbidopa/Levodopa (Sinemet 25mg-100 Mg) 1 tab PO TID WILL Stop: 11/19/17 13:59 Last Admin: 09/22/17 13:59 Dose: Not Given Heparin Sodium (Porcine) (Heparin) 5,000 units SUBQ Q12HR WILL Stop: 11/19/17 20:59 Last Admin: 09/22/17 09:37 Dose: Not Given Dextrose/Sodium Chloride (D5-0.45ns) 1,000 mls @ 80 mls/hr IV .[id number] [facility] Stop: 11/19/17 10:14 Valproate Sodium 500 mg/ (Sodium Chloride) 105 mls @ 100 mls/hr IV Q12H WILL Stop: 11/19/17 12:59 Last Admin: 09/22/17 12:27 Dose: Not Given Ipratropium [place] (Atrovent Neb 0.5mg/2.5ml) 0.5 mg HHN Q2HRT PRN PRN Reason: Shortness of Breath or Wheeze Stop: 11/19/17 10:11 Latanoprost (Xalatan 0.005% Ophth Soln) 1 drop EACH EYE HS [facility] Stop: 11/19/17 20:59 Last Admin: 09/21/17 20:54 Dose: Not Given Levothyroxine Sodium (Synthroid) 0.025 mg PO QDAC WILL Stop: 11/20/17 07:29 Last Admin: 09/22/17 07:28 Dose: Not Given Lorazepam (Ativan) 0.5 mg PO Q4HR PRN; Protocol PRN Reason: Anxiety Stop: 11/19/17 12:19 Morphine Sulfate (Morphine) 2 mg IVP Q4H PRN PRN Reason: Pain (Severe) Stop: 11/19/17 10:11 Olanzapine (Zyprexa) 2.5 mg PO HS [facility]IL PRN Reason: Protocol Stop: 11/19/17 20:59 Ondansetron HCl (Zofran) 4 mg IV Q8H PRN PRN Reason: Nausea / Vomiting Stop: 11/19/17 10:11 Polyethylene Glycol (Miralax) 17 gm PO BID WILL Stop: 11/19/17 16:59 Last Admin: 09/22/17 09:37 Dose: Not Given Zolpidem Tartrate (Ambien) 10 mg PO HS PRN PRN Reason: Insomnia Stop: 11/19/17 20:59 Physical Exam: exam - Procedures Procedures: Procedures Procedure Code Date CLOSURE SKIN & SUBCUTANEOUS NEC 86.59 07/07/12 DPT ADMINISTRATION 99.39 07/07/12 IMMUNIZATION ADMIN 41257 07/07/12 OTHER GROUP THERAPY 94.44 12/10/14 RECREATIONAL THERAPY 93.81 09/15/12 RPR S/N/AX/GEN/TRNK 2.5CM/< [id number] 07/07/12 TDAP VACCINE 7 YRS/> IM [id number] 07/07/12
--- NOTE | 2017-09-22 23:05 | Consultation ---
DATE OF CONSULTATION: 09/22/2017 ORTHOPEDIC SURGERY CONSULTATION HISTORY OF PRESENT ILLNESS: The patient is a 77-year-old male admitted to [facility] on 09/20/2017 -- transferred from [facility]. He has a variety of medical issues. It came out that he has an injury to his left hand and I was called in orthopedic consultation regarding this left hand injury. I am not able to get any meaningful history from the patient. He does not want anything done to him. He does not want an x-ray. He does not want a cast or splint or surgery. He said he does not want to have anything done. PAST MEDICAL HISTORY: Additional past history -- from the medical records includes Parkinson's disease, COPD, psychiatric disorders, hypothyroidism, osteoarthritis, and glaucoma. FAMILY HISTORY: Not obtainable. SOCIAL HISTORY: He lives at a [facility]. PHYSICAL EXAMINATION: GENERAL: The patient is examined in his hospital room at [facility]. He has obvious tremors, typical of Parkinson's disease. EXTREMITIES: Inspection of the upper extremities revealed no gross abnormalities. He has cogwheel rigidity of his joints -- particularly his elbows and a Parkinson's tremor of both upper extremities and slight tremor of his head. I cannot fully range his elbows and shoulders -- he is somewhat contracted. The left hand shows slight swelling along the ulnar border -- over the fifth metacarpal. There is good movement of the hand and fingers and he does not appear to have pain or tenderness. After I interviewed and examined him, I talked to him and allowing x-rays of his hand to be taken. There is a fracture of the fifth metacarpal. This is an oblique fracture in the mid shaft, which had shortened 2 mm. There is no significant angulation or other deformity. ORTHOPEDIC DIAGNOSES: Fracture, left fifth metacarpal, closed. RECOMMENDATIONS: The patient will not allow NSAIDs. He will not wear a splint or cast. Usually an ulnar gutter splint would be applied and wrapped with an Bruce bandage. In this case, he may allow having the hand wrapped with a narrow, 2-inch Bruce bandage -- not tightly but the soft padding would give him some degree of protection and support. This should be worn for approximately 3 weeks, removing it or changing it periodically for skin care and hygiene. Thank you for this interesting referral. JOB# [id number]
[2017-09-23] MEDS: Valproate Sodium 500 MG in Sodium Chloride 0.9% 100 ML IV SCH (01:33)
[2017-09-23] MEDS: Levothyroxine 0.025 Mg Tab PO SCH (08:52)
[2017-09-23] MEDS: POLYETHYLENE GLYCOL 3350 17 GM PACK PO SCH ×2 (08:54→17:00)
[2017-09-23] MEDS: Multivitamin w/ Minerals Tab PO SCH (08:54)
--- NOTE | 2017-09-23 14:53 | Internal Medicine Prog Note ---
Internal Medicine Subjective - Subjective Service Date: 09/23/17 (dc [id number] dictated) Patient is:: awake, verbal, confused Per staff patient has:: refusing care, refusing labs Internal Medicine Objective - Results Result Diagrams: 09/20/17 01:17 09/20/17 01:17 Recent Labs: Laboratory Last Values WBC 5.6 Th/cmm (4.8-10.8) D 09/20/17 01:17 RBC 5.39 Mil/cmm (3.80-5.80) 09/20/17 01:17 Hgb 16.1 gm/dL (12-16) 09/20/17 01:17 Hct 48.9 % (41.0-60) D 09/20/17 01:17 MCV 90.7 fl (80-99) 09/20/17 01:17 MCH 29.9 pg (27.0-31.0) 09/20/17 01:17 MCHC Differential 32.9 pg (28.0-36.0) 09/20/17 01:17 RDW 13.6 % (11.5-20.0) 09/20/17 01:17 Plt Count 293 Th/cmm (150-400) D 09/20/17 01:17 MPV 8.4 fl 09/20/17 01:17 Neutrophils % 39.4 % (40.0-80.0) L 09/20/17 01:17 Lymphocytes % 44.9 % (20.0-50.0) 09/20/17 01:17 Monocytes % 12.7 % (2.0-10.0) H 09/20/17 01:17 Eosinophils % 2.9 % (0.0-5.0) 09/20/17 01:17 Basophils % 0.1 % (0.0-2.0) 09/20/17 01:17 Sodium 147 mEq/L (136-145) H 09/20/17 01:17 Potassium 4.5 mEq/L (3.5-5.1) 09/20/17 01:17 Chloride 115 mEq/L (98-107) H 09/20/17 01:17 Carbon Dioxide 24.7 mEq/L (21.0-31.0) 09/20/17 01:17 Anion Gap 11.8 (7.0-16.0) 09/20/17 01:17 BUN 25 mg/dL (7-25) 09/20/17 01:17 Creatinine 1.1 mg/dL (0.7-1.3) 09/20/17 01:17 Est GFR ( Amer) TNP 09/20/17 01:17 Est GFR (Non-Af Amer) TNP 09/20/17 01:17 BUN/Creatinine Ratio 22.7 09/20/17 01:17 Glucose 111 mg/dL (70-105) H 09/20/17 01:17 Calcium 9.9 mg/dL (8.6-10.3) 09/20/17 01:17 Total Bilirubin 0.7 mg/dL (0.3-1.0) 09/20/17 01:17 AST 16 U/L (13-39) 09/20/17 01:17 ALT 11 U/L (7-52) 09/20/17 01:17 Alkaline Phosphatase 66 U/L (34-104) 09/20/17 01:17 Total Protein 6.8 gm/dL (6.0-8.3) 09/20/17 01:17 Albumin 3.8 gm/dL (4.2-5.5) L 09/20/17 01:17 Globulin 3.0 gm/dL 09/20/17 01:17 Albumin/Globulin Ratio 1.3 (1.0-1.8) 09/20/17 01:17 Valproic Acid < 10.0 ug/mL (50.0-100.0) L 09/20/17 01:17 - Physical Exam Vitals and I&O: Vital Signs Temp 98.6 F 09/23/17 14:00 Pulse 59 09/23/17 14:00 Resp 18 09/23/17 14:00 BP 129/75 09/23/17 14:00 Pulse Ox 97 09/23/17 14:00 Intake & Output 09/22/17 09/23/17 09/23/17 18:59 06:59 18:59 Intake Total 650 100 Balance 650 100 Weight (lbs) 147 lb 3.2 oz 155 lb 11.2 oz Intake: Oral 650 100 Tube Feeding 0 Other: # Voids 2 1 # Bowel Movements 0 0 Active Medications: Current Medications Acetaminophen (Tylenol) 650 mg PO Q4H PRN PRN Reason: Pain Or Fever above 101 Stop: 11/19/17 10:11 Acetaminophen/Hydrocodone Bitart ([place] 5mg/325mg) 1 tab PO Q4H PRN PRN Reason: Pain (Severe) Stop: 11/19/17 10:11 Al Hydrox/Mg Hydrox/Simethicone (Maalox) 30 ml PO Q6H PRN PRN Reason: Dyspepsia Stop: 11/19/17 10:11 Albuterol Sulfate (Albuterol 2.5mg/3ml Neb Ud) 2.5 mg HHN Q2HRT PRN PRN Reason: Shortness of Breath or Wheeze Stop: 11/19/17 10:11 Amlodipine Besylate (Norvasc) 10 mg PO DAILY [facility] Stop: 11/19/17 11:59 Last Admin: 09/23/17 08:52 Dose: Not Given Carbidopa/Levodopa (Sinemet 25mg-100 Mg) 1 tab PO TID WILL Stop: 11/19/17 13:59 Last Admin: 09/23/17 14:45 Dose: Not Given Heparin Sodium (Porcine) (Heparin) 5,000 units SUBQ Q12HR WILL Stop: 11/19/17 20:59 Last Admin: 09/23/17 08:54 Dose: Not Given Dextrose/Sodium Chloride (D5-0.45ns) 1,000 mls @ 80 mls/hr IV .[id number] [facility] Stop: 11/19/17 10:14 Ipratropium [place] (Atrovent Neb 0.5mg/2.5ml) 0.5 mg HHN Q2HRT PRN PRN Reason: Shortness of Breath or Wheeze Stop: 11/19/17 10:11 Latanoprost (Xalatan 0.005% Ophth Soln) 1 drop EACH EYE HS WILL Stop: 11/19/17 20:59 Last Admin: 09/23/17 01:33 Dose: Not Given Levothyroxine Sodium (Synthroid) 0.025 mg PO QDAC WILL Stop: 11/20/17 07:29 Last Admin: 09/23/17 08:52 Dose: Not Given Lorazepam (Ativan) 0.5 mg PO Q4HR PRN; Protocol PRN Reason: Anxiety Stop: 11/19/17 12:19 Morphine Sulfate (Morphine) 2 mg IVP Q4H PRN PRN Reason: Pain (Severe) Stop: 11/19/17 10:11 Olanzapine (Zyprexa) 2.5 mg PO HS WILL PRN Reason: Protocol Stop: 11/19/17 20:59 Ondansetron HCl (Zofran) 4 mg IV Q8H PRN PRN Reason: Nausea / Vomiting Stop: 11/19/17 10:11 Polyethylene Glycol (Miralax) 17 gm PO BID WILL Stop: 11/19/17 16:59 Last Admin: 09/23/17 08:54 Dose: Not Given Valproate Sodium (Depakene) 500 mg PO BID WILL PRN Reason: Protocol Stop: 11/22/17 16:59 Zolpidem Tartrate (Ambien) 10 mg PO HS PRN PRN Reason: Insomnia Stop: 11/19/17 20:59 General: weak HEENT: NC/AT, PERRLA Neck: Supple Lungs: CTAB Cardiovascular: RRR, Normal S1, Normal S2, without murmur Abdomen: soft, non-tender, non-distended, positive bowel sound Extremities: other (LEFT PINKY SWELLING) Neurological: unable to follow command - Procedures Procedures: Procedures Procedure Code Date CLOSURE SKIN & SUBCUTANEOUS NEC 86.59 07/07/12 DPT ADMINISTRATION 99.39 07/07/12 IMMUNIZATION ADMIN 15139 07/07/12 OTHER GROUP THERAPY 94.44 12/10/14 RECREATIONAL THERAPY 93.81 09/15/12 RPR S/N/AX/GEN/TRNK 2.5CM/< 36213 07/07/12 TDAP VACCINE 7 YRS/> IM [id number] 07/07/12 Internal Medicine Assmt/Plan - Assessment Assessment: LEFT 5TH METATARSAL FX INTRACTABLE PAIN HYPOTHYROIDISM SEIZURE DEMENTIA - Plan Plan: pain mgmt cbc/bmp in am psych follow up continue current orders
--- NOTE | 2017-09-23 19:06 | Discharge Summary ---
DATE OF DISCHARGE: 09/23/2017 DICTATED FOR: Casimiro Jon D.O. DISCHARGE DIAGNOSES: Left fifth metacarpal fracture, intractable pain, hypothyroidism, seizures, Parkinson's dementia. HISTORY OF PRESENT ILLNESS: This is a 77-year-old male who is well known to me, resident of [facility]. I was called on this patient, patient noticing the patient's left wrist being swollen with purple discoloration. The patient's left pinkie was found to be tender to touch and the patient was in severe pain. The patient had an x-ray done at the [facility], it showed fracture of the fifth metacarpal. For this reason, the patient was admitted. PHYSICAL EXAMINATION: GENERAL: The patient is well developed, well nourished, in no acute distress. VITAL SIGNS: Stable. HEENT: Head is normocephalic, atraumatic. NECK: Supple. No mass. LUNGS: Clear to auscultation bilaterally. ABDOMEN: Soft, nontender. HOSPITAL COURSE: During the hospital stay, the patient was admitted to the med/surg unit. The patient had a consultation with Dr. Ovalle as well as a consultation with Psychiatry. Recommendation for ortho was for patient to have NSAIDs and to wear a splint or a cast, but since patient has been refusing, it was unable to be done. The foot that patient should be worn for about 3 weeks, removing or changing periodically for skin care and hygiene. The patient has been refusing blood work during the hospital stay as well as IV fluids. The patient is stable for discharge. CONDITION UPON DISCHARGE: Fair. DISPOSITION: [facility]. JOB# [id number]
--- NOTE | 2017-09-23 22:27 | Progress Notes ---
DATE: 09/23/2017 SUBJECTIVE: The patient was seen, discussed with staff. Remains compliant with medications, less anger outburst. The patient's speech is minimal, short sentences. He is oriented to person and being in some kind of hospital, not oriented to time. ASSESSMENT: The patient is still in psychotic phase. PLAN: Continue Zyprexa 2.5 mg p.o. at bedtime. The patient has Parkinson's disease, also will try keep dose at lower side. Consider maybe increase the dose furthermore if there is more agitation and anger outburst. JOB# [id number]
== END 2017-09-23 17:00 | disposition home or self-care (01) | DRG 563 ==
LOC: ER 00:47 → MSI 07:19
PROVIDERS: ADMIT Internal Medicine; ATTEND Internal Medicine
DX: S62.327A Displaced fracture of shaft of fifth metacarpal bone, left hand, initial encounter for closed fracture (principal); F02.80 Dementia in other diseases classified elsewhere, unspecified severity, without behavioral disturbance, psychotic disturbance, mood disturbance, and anxiety; G20 Parkinson's disease; F25.9 Schizoaffective disorder, unspecified; G40.909 Epilepsy, unspecified, not intractable, without status epilepticus; E03.9 Hypothyroidism, unspecified; K59.00 Constipation, unspecified; H40.9 Unspecified glaucoma; F29 Unspecified psychosis not due to a substance or known physiological condition; I10 Essential (primary) hypertension; F03.90 Unspecified dementia, unspecified severity, without behavioral disturbance, psychotic disturbance, mood disturbance, and anxiety; J44.9 Chronic obstructive pulmonary disease, unspecified; M19.90 Unspecified osteoarthritis, unspecified site; Z88.8 Allergy status to other drugs, medicaments and biological substances
CPT/HCPCS: 36415-UA; 73130-TC-LT; 80053-TC; 80164-TC; 85025-TC; 94760; J1644; Z7610

== ENCOUNTER 2018-01-09 20:40 | Inpatient (IN) | payer MEDICARE, MEDICAID ==
--- NOTE | 2018-01-09 20:55 | ED Physician Chart ---
ED Chief Complaint/HPI - Patient Information Date Seen:: 01/09/18 Time Seen:: 20:45 Chief Complaint:: increasing tremors and increasing confusion History of Present Illness:: Patient sent here from a senior living facility for increasing tremors and increasing episodes of confusion. Patient is a poor historian and very belligerent. He told me FU when I was trying to take a history from him. He is oriented to the correct month and year. Allergies:: Allergies Allergy/AdvReac Type Severity Reaction Status Date / Time chloropyramine Allergy Uncoded 08/08/15 16:28 Historian:: Patient Review:: Transfer documents Reviewed ED Review of Systems - Review of Systems General/Constitutional: No fever, No chills, No weight loss, No weakness, No diaphoresis, No edema, No loss of appetite Skin: No skin lesions, No rash, No bruising Head: No headache, No light-headedness Eyes: No loss of vision, No pain, No diplopia ENT: No earache, No nasal drainage, No sore throat, No tinnitus Neck: No neck pain, No swelling, No thyromegaly, No stiffness, No mass noted Cardio Vascular: No chest pain, No palpitations, No PND, No orthopnea, No edema Pulmonary: No SOB, No cough, No sputum, No wheezing GI: No nausea, No vomiting, No diarrhea, No pain, No melena, No hematochezia, No constipation, No hematemesis G/U: No dysuria, No frequency, No hematuria Musculoskeletal: No bone or joint pain, No back pain, No muscle pain, Other ( tremors) Endocrine: No polyuria, No polydipsia Psychiatric: No prior psych history, No depression, No anxiety, No suicidal ideation Hematopoietic: No bruising, No lymphadenopathy Allergic/Immuno: No urticaria, No angioedema Neurological: No syncope, No focal symptoms, No weakness, No paresthesia, No headache, No seizure, No dizziness, Confusion, No vertigo ED Past Medical History - Past Medical History Past Medical History: Asthma/COPD, Seizures, Arthritis, Other (Parkinson's disease; bradycardia; end stage renal disease; sick sinus syndrome; glaucoma) Family History: Other (not available) Social History: Care Facility Surgical History: other (not available) Psychiatricy History: None Medication: Reviewed Family Medical History - Family Member Mother History Unknown: Yes Ethnicity: Unknown Living Status: Unknown Hx Family Cancer: (unknown) Hx Family Coronary Artery Disease: (unknown) Hx Family Congestive Heart Failure: (unknown) Hx Family Hypertension: (unknown) Hx Family Stroke: (unknown) Hx Family Diabetes: (unknown) Hx Family Seizures: (unknown) Hx Family Dementia: (unknown) Hx Family AIDS: (unknown) Hx Family COPD: (unknown) Hx Family Hepatitis: (unknown) Hx Family Psychiatric Problems: (unknown) Hx Family Tuberculosis: (unknown) ED Physical Exam - Physical Examination General/Constitutional: Awake, Alert, No distress Other Gen/Cons comments:: Mildly chronically ill-appearing Head: Atraumatic Eyes: Lids, conjuctiva normal, PERRL Skin: Nl inspection, No rash, No skin lesions, No ecchymosis ENMT: External ears, nose nl, Nasal exam nl Other ENMT comments:: Poor dental hygiene Neck: No bruit, No mass Respiratory: Nl effort/Exclusion, Clear to Auscultation, No Wheeze/Rhonchi/Rales Cardio Vascular: RRR GI: No tenderness/rebounding/guarding, No organomegaly, No hernia : No CVA tenderness Other Extremities comments:: 1 out of 4 pretibial pitting edema Neuro/Psych: No focal deficits Misc: Normal back ED Labs/Radiology/EKG Results - Lab Results Results: Laboratory Results - last 24 hr 01/09/18 01/09/18 01/09/18 20:50 20:50 20:50 WBC 6.4 RBC 4.90 Hgb 14.7 Hct 43.9 MCV 89.7 MCH 30.0 MCHC Differential 33.5 RDW 13.8 Plt Count 309 MPV 8.2 Neutrophils % 48.8 Lymphocytes % 31.6 Monocytes % 17.1 H Eosinophils % 1.2 Basophils % 1.3 Sodium 135 L Potassium 4.0 Chloride 105 Carbon Dioxide 22.9 Anion Gap 11.1 BUN 21 Creatinine 1.1 Est GFR ( Amer) TNP Est GFR (Non-Af Amer) TNP BUN/Creatinine Ratio 19.1 Glucose 107 H Calcium 9.1 Total Bilirubin 0.8 AST 17 ALT 14 Alkaline Phosphatase 60 Total Protein 6.4 Albumin 3.9 L Globulin 2.5 Albumin/Globulin Ratio 1.6 Triglycerides 89 Cholesterol 160 LDL Cholesterol Direct 95 HDL Cholesterol 52 TSH 0.34 Valproic Acid 01/09/18 20:50 WBC RBC Hgb Hct MCV MCH MCHC Differential RDW Plt Count MPV Neutrophils % Lymphocytes % Monocytes % Eosinophils % Basophils % Sodium Potassium Chloride Carbon Dioxide Anion Gap BUN Creatinine Est GFR ( Amer) Est GFR (Non-Af Amer) BUN/Creatinine Ratio Glucose Calcium Total Bilirubin AST ALT Alkaline Phosphatase Total Protein Albumin Globulin Albumin/Globulin Ratio Triglycerides Cholesterol LDL Cholesterol Direct HDL Cholesterol TSH Valproic Acid < 10.0 L - Radiology Results Results: CXR negative - EKG Interpretations Rate & Rhythm: NSR with rate of 59 [place]: normal Comments:: Incomplete RBBB ED Septic Shock - . Is Septic Shock (SBP<90, OR Lactate>4 mmol\L) present?: No ED Reassessment (Disposition) - Reassessment Reassessment Condition:: Unchanged - Diagnosis Diagnosis:: Increased confusion; verbally aggressive behavior - Patient Disposition Admitted to:: [facility] Admitting Medical Physician:: Casimiro Jon Admitting Psych Physician:: Hillary Artis Condition at Disposition:: Stable, Unchanged
[2018-01-09 21:12] LABS: BASOPHILE ABSOLUTE 0.1 Th/cumm (0-0.2); EOSINOPHILE ABSOLUTE 0.1 Th/cmm (0.1-0.4); HEMATOCRIT 43.9 % (41.0-60); HEMOGLOBIN 14.7 gm/dL (12-16); MEAN CELL VOLUME 89.7 fl (80-99); MEAN CORPUSCULAR HGB CONC 33.5 pg (28.0-36.0); MEAN PLATELET VOLUME 8.2 fl; MONOCYTE ABSOLUTE 1.1 Th/cmm (0.3-1.0); NEUTROPHILE ABSOLUTE 3.1 Th/cmm (1.8-8.0); PLATELET COUNT 309 Th/cmm (150-400); RED CELL DISTRIBUTION WIDTH 13.8 % (11.5-20.0); WHITE BLOOD COUNT 6.4 Th/cmm (4.8-10.8)
[2018-01-09 21:15] LABS: % BASOPHILS 1.3 % (0.0-2.0); % EOSINOPHILS 1.2 % (0.0-5.0); % LYMPHOCYTES 31.6 % (20.0-50.0); % MONOCYTES 17.1 % (2.0-10.0); % NEUTROPHILS 48.8 % (40.0-80.0)
[2018-01-09 21:28] LABS: ALB/GLOB RATIO 1.6 (1.0-1.8); ALBUMIN 3.9 gm/dL (4.2-5.5); ALKALINE PHOSPHATASE 60 U/L (34-104); ANION GAP 11.1 (7.0-16.0); BILIRUBIN,TOTAL 0.8 mg/dL (0.3-1.0); BUN - UREA NITROGEN 21 mg/dL (7-25); CALCIUM SERUM 9.1 mg/dL (8.6-10.3); CARBON DIOXIDE 22.9 mEq/L (21.0-31.0); CHLORIDE 105 mEq/L (98-107); CHOLESTEROL 160 mg/dL (<200); CREATININE - SERUM 1.1 mg/dL (0.7-1.3); GLUCOSE 107 mg/dL (70-105); HDL -HIGH DENSITY LIPOPROTEIN 52 mg/dL (23-92); SGOT 17 U/L (13-39); SGPT/ALT 14 U/L (7-52); SODIUM SERUM 135 mEq/L (136-145); TOTAL PROTEIN,SERUM 6.4 gm/dL (6.0-8.3); TRIGLYCERIDES 89 mg/dL (<150)
[2018-01-09] MEDS ORDERED: Albuterol Nebulizer 2.5mg/3mL HHN PRN (23:52)
[2018-01-09] MEDS ORDERED: Ipratropium Neb 0.5 mg/2.5 mL UD HHN PRN (23:52)
[2018-01-09] MEDS ORDERED: Maalox 30 mL Cup PO PRN (23:52)
[2018-01-10] MEDS ORDERED: Magnesium Hydroxide (MOM) 30 mL UDC PO PRN (00:24)
[2018-01-10] MEDS ORDERED: Maalox 30 mL Cup PO PRN (00:24)
[2018-01-10 00:45] VITALS: BP 105/67
[2018-01-10] MEDS: Levothyroxine 0.025 Mg Tab PO SCH (06:47)
--- NOTE | 2018-01-10 08:29 | Diagnostic Imaging Report ---
CHEST X-RAY: AP view INDICATION: Arrhythmias COMPARISON: Chest x-ray 04/01/[address] chest on 03/26/2016 FINDINGS: Chronic lung changes are seen with mild increased right upper lung zone markings. No focal consolidation or effusions. Heart size is normal. Atherosclerosis is noted. Degenerative changes spine are noted mild scoliosis. Gas-filled loops of bowel the upper abdomen are noted. IMPRESSION: Chronic lung changes of mild increased right upper lung zone markings also favoring chronic etiologies. No focal consolidations identified. Atherosclerotic vascular disease.
[2018-01-10] MEDS: POLYETHYLENE GLYCOL 3350 17 GM PACK PO SCH ×2 (10:05→17:15)
[2018-01-10] MEDS: Multivitamin Tab PO SCH (10:06)
--- NOTE | 2018-01-10 11:41 | Internal Medicine Prog Note ---
Internal Medicine Subjective - Subjective Service Date: 01/10/18 ([id number]) Internal Medicine Objective - Results Result Diagrams: 01/09/18 20:50 01/09/18 20:50 Recent Labs: Laboratory Last Values WBC 6.4 Th/cmm (4.8-10.8) 01/09/18 20:50 RBC 4.90 Mil/cmm (3.80-5.80) 01/09/18 20:50 Hgb 14.7 gm/dL (12-16) 01/09/18 20:50 Hct 43.9 % (41.0-60) 01/09/18 20:50 MCV 89.7 fl (80-99) 01/09/18 20:50 MCH 30.0 pg (27.0-31.0) 01/09/18 20:50 MCHC Differential 33.5 pg (28.0-36.0) 01/09/18 20:50 RDW 13.8 % (11.5-20.0) 01/09/18 20:50 Plt Count 309 Th/cmm (150-400) 01/09/18 20:50 MPV 8.2 fl 01/09/18 20:50 Neutrophils % 48.8 % (40.0-80.0) 01/09/18 20:50 Lymphocytes % 31.6 % (20.0-50.0) 01/09/18 20:50 Monocytes % 17.1 % (2.0-10.0) H 01/09/18 20:50 Eosinophils % 1.2 % (0.0-5.0) 01/09/18 20:50 Basophils % 1.3 % (0.0-2.0) 01/09/18 20:50 Sodium 135 mEq/L (136-145) L 01/09/18 20:50 Potassium 4.0 mEq/L (3.5-5.1) 01/09/18 20:50 Chloride 105 mEq/L (98-107) 01/09/18 20:50 Carbon Dioxide 22.9 mEq/L (21.0-31.0) 01/09/18 20:50 Anion Gap 11.1 (7.0-16.0) 01/09/18 20:50 BUN 21 mg/dL (7-25) 01/09/18 20:50 Creatinine 1.1 mg/dL (0.7-1.3) 01/09/18 20:50 Est GFR ( Amer) TNP 01/09/18 20:50 Est GFR (Non-Af Amer) TNP 01/09/18 20:50 BUN/Creatinine Ratio 19.1 01/09/18 20:50 Glucose 107 mg/dL (70-105) H 01/09/18 20:50 Calcium 9.1 mg/dL (8.6-10.3) 01/09/18 20:50 Total Bilirubin 0.8 mg/dL (0.3-1.0) 01/09/18 20:50 AST 17 U/L (13-39) 01/09/18 20:50 ALT 14 U/L (7-52) 01/09/18 20:50 Alkaline Phosphatase 60 U/L (34-104) 01/09/18 20:50 Total Protein 6.4 gm/dL (6.0-8.3) 01/09/18 20:50 Albumin 3.9 gm/dL (4.2-5.5) L 01/09/18 20:50 Globulin 2.5 gm/dL 01/09/18 20:50 Albumin/Globulin Ratio 1.6 (1.0-1.8) 01/09/18 20:50 Triglycerides 89 mg/dL (<150) 01/09/18 20:50 Cholesterol 160 mg/dL (<200) 01/09/18 20:50 LDL Cholesterol Direct 95 mg/dL (75-193) 01/09/18 20:50 HDL Cholesterol 52 mg/dL (23-92) 01/09/18 20:50 TSH 0.34 uIU/ml (0.34-5.60) 01/09/18 20:50 Valproic Acid < 10.0 ug/mL (50.0-100.0) L 01/09/18 20:50 - Physical Exam Vitals and I&O: Vital Signs Temp 99.2 F 01/10/18 00:24 Pulse 56 01/10/18 10:07 Resp 18 01/10/18 11:14 BP 112/69 01/10/18 10:07 Pulse Ox 95 01/10/18 00:24 Intake & Output 01/09/18 01/10/18 01/10/18 18:59 06:59 18:59 Intake Total 125 Balance 125 Weight (lbs) 155 lb Intake: Oral 125 Other: Weight Source Estimated Active Medications: Current Medications Acetaminophen (Tylenol) 650 mg PO Q4H PRN PRN Reason: Pain Or Fever above 101 Stop: 03/10/18 23:51 Acetaminophen (Tylenol) 650 mg PO Q4H PRN PRN Reason: Mild Pain / Temp above 100 Stop: 03/11/18 00:23 Al Hydrox/Mg Hydrox/Simethicone (Maalox) 30 ml PO Q4H PRN PRN Reason: GI DISTRESS Stop: 03/11/18 00:23 Albuterol Sulfate (Albuterol 2.5mg/3ml Neb Ud) 2.5 mg HHN Q2HRT PRN PRN Reason: Shortness of Breath or Wheeze Stop: 03/10/18 23:51 Amlodipine Besylate (Norvasc) 10 mg PO DAILY WILL Stop: 03/11/18 08:59 Last Admin: 01/10/18 10:07 Dose: Not Given Benztropine Mesylate (Cogentin) 0.5 mg PO BID WILL Stop: 03/11/18 08:59 Last Admin: 01/10/18 10:07 Dose: 0.5 mg Carbidopa/Levodopa (Sinemet 25mg-100 Mg) 1 tab PO TID WILL Stop: 03/11/18 08:59 Last Admin: 01/10/18 10:06 Dose: 1 tab Cholecalciferol (Vitamin D3) 2,000 iu PO DAILY WILL Stop: 03/11/18 08:59 Last Admin: 01/10/18 10:06 Dose: 2,000 iu Ipratropium [place] (Atrovent Neb 0.5mg/2.5ml) 0.5 mg HHN Q2HRT PRN PRN Reason: Shortness of Breath or Wheeze Stop: 03/10/18 23:51 Latanoprost (Xalatan 0.005% Ophth Soln) 0 drop EACH EYE HS WILL Stop: 03/11/18 20:59 Levothyroxine Sodium (Synthroid) 0.025 mg PO QDAC WILL Stop: 03/11/18 07:29 Last Admin: 01/10/18 06:47 Dose: Not Given Lorazepam (Ativan) 0.5 mg PO Q4H PRN; Protocol PRN Reason: Anxiety Stop: 03/11/18 00:23 Magnesium Hydroxide (Milk Of Magnesia) 30 ml PO HS PRN PRN Reason: Constipation Multivitamins/Vitamin C (Theragran) 1 tab PO DAILY WILL Stop: 03/11/18 08:59 Last Admin: 01/10/18 10:06 Dose: 1 tab Polyethylene Glycol (Miralax) 17 gm PO BID WILL Stop: 03/11/18 08:59 Last Admin: 01/10/18 10:05 Dose: 17 gm Valproate Sodium (Depakene) 500 mg PO BID [facility] Stop: 03/11/18 08:59 Last Admin: 01/10/18 10:06 Dose: 500 mg - Procedures Procedures: Procedures Procedure Code Date CLOSURE SKIN & SUBCUTANEOUS NEC 86.59 07/07/12 DPT ADMINISTRATION 99.39 07/07/12 IMMUNIZATION ADMIN [id number] 07/07/12 OTHER GROUP THERAPY 94.44 12/10/14 RECREATIONAL THERAPY 93.81 09/15/12 RPR S/N/AX/GEN/TRNK 2.5CM/< 28564 07/07/12 TDAP VACCINE 7 YRS/> IM [id number] 07/07/12
--- NOTE | 2018-01-10 15:45 | History & Physical ---
ADMIT DATE: 01/10/2018 CHIEF COMPLAINT: Increasing tremors and increasing confusion. HISTORY OF PRESENT ILLNESS: This is a 77-year-old male who is a resident of [facility] who is admitted to the Geropsych Unit due to increase of tremors and increased episodes of confusion. For further management, the patient is admitted to the Geropsych Unit. PAST MEDICAL HISTORY: Hypertension, seizures, hypothyroid, dementia, Parkinson's, glaucoma, constipation. SOCIAL HISTORY: The patient is a senior care resident, requiring 24-hour nursing care. FAMILY HISTORY: Noncontributory. SURGICAL HISTORY: None. ALLERGIES: CHLOROPYRAMINE. MEDICATIONS: Please see medication reconciliation. REVIEW OF SYSTEMS: Unable to obtain at this time. PHYSICAL EXAMINATION: GENERAL: Elderly male, awake with confusion, no apparent distress. VITAL SIGNS: Temperature 99.2, heart rate 55, blood pressure 105/67, respiration 18, O2 95%. HEENT: Head normocephalic, atraumatic. NECK: Supple. No mass. LUNGS: Clear bilaterally. HEART: Regular rate and rhythm. ABDOMEN: Soft, nontender. LABORATORY DATA: WBC 6.4, H and H 14.7 and 43.9, platelet of 309. Sodium 135, potassium 4.0, chloride 105, BUN 21, creatinine 1.1, albumin of 3.9. DIAGNOSTICS: The patient had a chest x-ray done. Impression is chronic lung changes of mild increased right upper lung zone markings, also favoring chronic etiology. No focal consolidation is identified. ASSESSMENT: Tremors, hypothyroidism, and Parkinson's dementia. PLAN: Seizure precautions will be initiated. The patient is to continue Synthroid, all other from the senior care to continue. We will continue to follow this patient. JOB# [id number]
[2018-01-10 17:36] LABS: A1C % 5.4 % (4.0-6.0)
--- NOTE | 2018-01-10 20:42 | Psychosocial Evaluation ---
DATE OF SERVICE: 01/10/2018 IDENTIFYING DATA: The patient is a 77-year-old male, resident of a [facility]. Information obtained by directly interviewing the patient as well as reviewing the admission papers and they are reliable. JUSTIFICATION OF HOSPITALIZATION: The patient is admitted for acute agitation and change in the mental status. CHIEF COMPLAINT: "I do not know." HISTORY OF PRESENT ILLNESS: This is the second psychiatric hospitalization for this patient who was hospitalized in 09/2016. The patient is reported to have been diagnosed with psychosis and dementia. The patient has been decompensating. The patient has been getting easily agitated. The patient could not be taken care of on an outpatient basis and hence the patient has been referred over here for stabilization. Sleep and appetite prior to the hospitalization are reported to be poor. PAST PSYCHIATRIC HISTORY: Significant for multiple hospitalizations. MEDICAL HISTORY AND PHYSICAL EXAMINATION: Requested to be done by Dr. Jon and is noted to be significant for Parkinson's disease and high blood pressure. SOCIAL HISTORY: Resident of [facility]. SUBSTANCE ABUSE HISTORY: None. PHYSICAL OR SEXUAL ABUSE HISTORY: None. LEGAL PROBLEMS: None at this time. MENTAL STATUS EXAMINATION: The patient is a 77-year-old, looking his stated age, superficially cooperative. Eye contact is fair. Mood is irritable. Affect is constricted. The patient has been having both short-term as well as long-term memory deficits. The patient is reported to have been noncompliant with the medication. The patient has been getting easily irritable. The patient is not able to recall the three things that are told him after 5 minutes. The patient's short-term as well as long-term memory are noted to be poor. The patient is getting easily frustrated when I am asking about the memory issues. DIAGNOSTIC IMPRESSION: AXIS I IA: Psychotic disorder, not otherwise specified. IB. Dementia and behavioral change, secondary trait. AXIS II: None. AXIS III: As per Dr. Jon. IMMEDIATE TREATMENT PLAN: The patient is going to be observed on inpatient unit, provided with supportive psychotherapy. The patient is going to be closely monitored. Once stabilized, the patient is going to be discharged to [facility] for further followup. JOB# [id number]
[2018-01-11] MEDS: Levothyroxine 0.025 Mg Tab PO SCH (06:34)
[2018-01-11] MEDS: POLYETHYLENE GLYCOL 3350 17 GM PACK PO SCH ×4 (08:39→16:42)
[2018-01-11] MEDS: Multivitamin Tab PO SCH ×2 (08:40→10:38)
--- NOTE | 2018-01-11 12:46 | Internal Medicine Prog Note ---
Internal Medicine Subjective - Subjective Service Date: 01/11/18 Patient seen and examined:: with staff Patient is:: awake Per staff patient has:: tolerating meds Internal Medicine Objective - Results Result Diagrams: 01/09/18 20:50 01/09/18 20:50 Recent Labs: Laboratory Last Values WBC 6.4 Th/cmm (4.8-10.8) 01/09/18 20:50 RBC 4.90 Mil/cmm (3.80-5.80) 01/09/18 20:50 Hgb 14.7 gm/dL (12-16) 01/09/18 20:50 Hct 43.9 % (41.0-60) 01/09/18 20:50 MCV 89.7 fl (80-99) 01/09/18 20:50 MCH 30.0 pg (27.0-31.0) 01/09/18 20:50 MCHC Differential 33.5 pg (28.0-36.0) 01/09/18 20:50 RDW 13.8 % (11.5-20.0) 01/09/18 20:50 Plt Count 309 Th/cmm (150-400) 01/09/18 20:50 MPV 8.2 fl 01/09/18 20:50 Neutrophils % 48.8 % (40.0-80.0) 01/09/18 20:50 Lymphocytes % 31.6 % (20.0-50.0) 01/09/18 20:50 Monocytes % 17.1 % (2.0-10.0) H 01/09/18 20:50 Eosinophils % 1.2 % (0.0-5.0) 01/09/18 20:50 Basophils % 1.3 % (0.0-2.0) 01/09/18 20:50 Sodium 135 mEq/L (136-145) L 01/09/18 20:50 Potassium 4.0 mEq/L (3.5-5.1) 01/09/18 20:50 Chloride 105 mEq/L (98-107) 01/09/18 20:50 Carbon Dioxide 22.9 mEq/L (21.0-31.0) 01/09/18 20:50 Anion Gap 11.1 (7.0-16.0) 01/09/18 20:50 BUN 21 mg/dL (7-25) 01/09/18 20:50 Creatinine 1.1 mg/dL (0.7-1.3) 01/09/18 20:50 Est GFR ( Amer) TNP 01/09/18 20:50 Est GFR (Non-Af Amer) TNP 01/09/18 20:50 BUN/Creatinine Ratio 19.1 01/09/18 20:50 Glucose 107 mg/dL (70-105) H 01/09/18 20:50 Hemoglobin A1c % 5.4 % (4.0-6.0) 01/09/18 20:50 Calcium 9.1 mg/dL (8.6-10.3) 01/09/18 20:50 Total Bilirubin 0.8 mg/dL (0.3-1.0) 01/09/18 20:50 AST 17 U/L (13-39) 01/09/18 20:50 ALT 14 U/L (7-52) 01/09/18 20:50 Alkaline Phosphatase 60 U/L (34-104) 01/09/18 20:50 Total Protein 6.4 gm/dL (6.0-8.3) 01/09/18 20:50 Albumin 3.9 gm/dL (4.2-5.5) L 01/09/18 20:50 Globulin 2.5 gm/dL 01/09/18 20:50 Albumin/Globulin Ratio 1.6 (1.0-1.8) 01/09/18 20:50 Triglycerides 89 mg/dL (<150) 01/09/18 20:50 Cholesterol 160 mg/dL (<200) 01/09/18 20:50 LDL Cholesterol Direct 95 mg/dL (75-193) 01/09/18 20:50 HDL Cholesterol 52 mg/dL (23-92) 01/09/18 20:50 TSH 0.34 uIU/ml (0.34-5.60) 01/09/18 20:50 Valproic Acid < 10.0 ug/mL (50.0-100.0) L 01/09/18 20:50 - Physical Exam Vitals and I&O: Vital Signs Temp 98.7 F 01/11/18 05:46 Pulse 60 01/11/18 08:38 Resp 18 01/11/18 05:46 BP 106/63 01/11/18 08:38 Pulse Ox 96 01/11/18 05:46 Intake & Output 01/10/18 01/11/18 01/11/18 18:59 06:59 18:59 Intake Total 1200 240 Balance 1200 240 Intake: Oral 1200 240 Other: # Voids 2 2 Active Medications: Current Medications Acetaminophen (Tylenol) 650 mg PO Q4H PRN PRN Reason: Pain Or Fever above 101 Stop: 03/10/18 23:51 Acetaminophen (Tylenol) 650 mg PO Q4H PRN PRN Reason: Mild Pain / Temp above 100 Stop: 03/11/18 00:23 Al Hydrox/Mg Hydrox/Simethicone (Maalox) 30 ml PO Q4H PRN PRN Reason: GI DISTRESS Stop: 03/11/18 00:23 Albuterol Sulfate (Albuterol 2.5mg/3ml Neb Ud) 2.5 mg HHN Q2HRT PRN PRN Reason: Shortness of Breath or Wheeze Stop: 03/10/18 23:51 Amlodipine Besylate (Norvasc) 10 mg PO DAILY WILL Stop: 03/11/18 08:59 Last Admin: 01/11/18 08:38 Dose: Not Given Benztropine Mesylate (Cogentin) 0.5 mg PO BID WILL Stop: 03/11/18 08:59 Last Admin: 01/11/18 10:37 Dose: Not Given Carbidopa/Levodopa (Sinemet 25mg-100 Mg) 1 tab PO TID WILL Stop: 03/11/18 08:59 Last Admin: 01/11/18 09:34 Dose: Not Given Cholecalciferol (Vitamin D3) 2,000 iu PO DAILY WILL Stop: 03/11/18 08:59 Last Admin: 01/11/18 10:38 Dose: Not Given Ipratropium [place] (Atrovent Neb 0.5mg/2.5ml) 0.5 mg HHN Q2HRT PRN PRN Reason: Shortness of Breath or Wheeze Stop: 03/10/18 23:51 Latanoprost (Xalatan 0.005% Ophth Soln) 0 drop EACH EYE HS [facility] Stop: 03/11/18 20:59 Last Admin: 01/10/18 20:47 Dose: 1 drop Levothyroxine Sodium (Synthroid) 0.025 mg PO QDAC WILL Stop: 03/11/18 07:29 Last Admin: 01/11/18 06:34 Dose: 0.025 mg Lorazepam (Ativan) 0.5 mg PO Q4H PRN; Protocol PRN Reason: Anxiety Stop: 03/11/18 00:23 Magnesium Hydroxide (Milk Of Magnesia) 30 ml PO HS PRN PRN Reason: Constipation Multivitamins/Vitamin C (Theragran) 1 tab PO DAILY WILL Stop: 03/11/18 08:59 Last Admin: 01/11/18 10:38 Dose: Not Given Polyethylene Glycol (Miralax) 17 gm PO BID WILL Stop: 03/11/18 08:59 Last Admin: 01/11/18 10:38 Dose: Not Given Valproate Sodium (Depakene) 500 mg PO BID WILL Stop: 03/11/18 08:59 Last Admin: 01/11/18 10:38 Dose: Not Given General: alert HEENT: NC/AT, PERRLA Neck: Supple Lungs: CTAB Cardiovascular: RRR, Normal S1, Normal S2, without murmur Abdomen: soft, non-distended, positive bowel sound Neurological: alert - Procedures Procedures: Procedures Procedure Code Date CLOSURE SKIN & SUBCUTANEOUS NEC 86.59 07/07/12 DPT ADMINISTRATION 99.39 07/07/12 IMMUNIZATION ADMIN 33117 07/07/12 OTHER GROUP THERAPY 94.44 12/10/14 RECREATIONAL THERAPY 93.81 09/15/12 RPR S/N/AX/GEN/TRNK 2.5CM/< 04579 07/07/12 TDAP VACCINE 7 YRS/> IM [id number] 07/07/12 Internal Medicine Assmt/Plan - Assessment Assessment: tremors hypothyroidism parkinson's dementia - Plan Plan: continue with synthroid safety precautions continue current plan of care
--- NOTE | 2018-01-12 00:02 | Progress Notes ---
DATE: 01/11/2018 PSYCHIATRIC PROGRESS NOTE SUBJECTIVE: Staff was spoken to. The patient is interviewed. Mood is noted to be irritable. Affect is constricted. Coping skills are noted to be poor. The patient is still screaming and yelling. Insight and judgment at this time are noted to be very much impaired. Impulse control is noted to be limited. The patient has been having difficult time to cope with the stress. ASSESSMENT: The patient is still agitated, impulsive and demented. PLAN: To continue the patient with the supportive therapy and followup. JOB# [id number]
[2018-01-12] MEDS: Levothyroxine 0.025 Mg Tab PO SCH (06:45)
[2018-01-12] MEDS: Multivitamin Tab PO SCH (10:22)
[2018-01-12] MEDS: POLYETHYLENE GLYCOL 3350 17 GM PACK PO SCH ×2 (10:22→17:00)
--- NOTE | 2018-01-12 18:47 | Progress Notes ---
DATE: 01/12/2018 PSYCHIATRIC PROGRESS NOTE SUBJECTIVE: Staff was spoken to. The patient is interviewed. Mood is noted to be irritable. Affect is constricted. Coping skills are noted to be poor at this time. The patient is refusing to comply with the treatment. The patient is isolative and withdrawn. The patient has been having difficult time to cope with the stress. ASSESSMENT: The patient is still paranoid and depressed. PLAN: To continue the patient with the current medications. I encouraged the patient to verbalize the concerns rather than to act out. JOB# [id number]
[2018-01-13] MEDS: Levothyroxine 0.025 Mg Tab PO SCH (06:46)
[2018-01-13] MEDS: Multivitamin Tab PO SCH (08:44)
[2018-01-13] MEDS: POLYETHYLENE GLYCOL 3350 17 GM PACK PO SCH ×2 (08:45→17:01)
--- NOTE | 2018-01-13 11:34 | Internal Medicine Prog Note ---
Internal Medicine Subjective - Subjective Service Date: 01/13/18 Patient seen and examined:: with staff Patient is:: awake Per staff patient has:: tolerating meds Internal Medicine Objective - Results Result Diagrams: 01/09/18 20:50 01/09/18 20:50 Recent Labs: Laboratory Last Values WBC 6.4 Th/cmm (4.8-10.8) 01/09/18 20:50 RBC 4.90 Mil/cmm (3.80-5.80) 01/09/18 20:50 Hgb 14.7 gm/dL (12-16) 01/09/18 20:50 Hct 43.9 % (41.0-60) 01/09/18 20:50 MCV 89.7 fl (80-99) 01/09/18 20:50 MCH 30.0 pg (27.0-31.0) 01/09/18 20:50 MCHC Differential 33.5 pg (28.0-36.0) 01/09/18 20:50 RDW 13.8 % (11.5-20.0) 01/09/18 20:50 Plt Count 309 Th/cmm (150-400) 01/09/18 20:50 MPV 8.2 fl 01/09/18 20:50 Neutrophils % 48.8 % (40.0-80.0) 01/09/18 20:50 Lymphocytes % 31.6 % (20.0-50.0) 01/09/18 20:50 Monocytes % 17.1 % (2.0-10.0) H 01/09/18 20:50 Eosinophils % 1.2 % (0.0-5.0) 01/09/18 20:50 Basophils % 1.3 % (0.0-2.0) 01/09/18 20:50 Sodium 135 mEq/L (136-145) L 01/09/18 20:50 Potassium 4.0 mEq/L (3.5-5.1) 01/09/18 20:50 Chloride 105 mEq/L (98-107) 01/09/18 20:50 Carbon Dioxide 22.9 mEq/L (21.0-31.0) 01/09/18 20:50 Anion Gap 11.1 (7.0-16.0) 01/09/18 20:50 BUN 21 mg/dL (7-25) 01/09/18 20:50 Creatinine 1.1 mg/dL (0.7-1.3) 01/09/18 20:50 Est GFR ( Amer) TNP 01/09/18 20:50 Est GFR (Non-Af Amer) TNP 01/09/18 20:50 BUN/Creatinine Ratio 19.1 01/09/18 20:50 Glucose 107 mg/dL (70-105) H 01/09/18 20:50 Hemoglobin A1c % 5.4 % (4.0-6.0) 01/09/18 20:50 Calcium 9.1 mg/dL (8.6-10.3) 01/09/18 20:50 Total Bilirubin 0.8 mg/dL (0.3-1.0) 01/09/18 20:50 AST 17 U/L (13-39) 01/09/18 20:50 ALT 14 U/L (7-52) 01/09/18 20:50 Alkaline Phosphatase 60 U/L (34-104) 01/09/18 20:50 Total Protein 6.4 gm/dL (6.0-8.3) 01/09/18 20:50 Albumin 3.9 gm/dL (4.2-5.5) L 01/09/18 20:50 Globulin 2.5 gm/dL 01/09/18 20:50 Albumin/Globulin Ratio 1.6 (1.0-1.8) 01/09/18 20:50 Triglycerides 89 mg/dL (<150) 01/09/18 20:50 Cholesterol 160 mg/dL (<200) 01/09/18 20:50 LDL Cholesterol Direct 95 mg/dL (75-193) 01/09/18 20:50 HDL Cholesterol 52 mg/dL (23-92) 01/09/18 20:50 TSH 0.34 uIU/ml (0.34-5.60) 01/09/18 20:50 Valproic Acid < 10.0 ug/mL (50.0-100.0) L 01/09/18 20:50 RPR NONREACTIVE (NONREACTIVE) 01/09/18 20:50 - Physical Exam Vitals and I&O: Vital Signs Temp 98.9 F 01/12/18 14:24 Pulse 56 01/13/18 08:45 Resp 20 01/13/18 08:29 BP 116/68 01/13/18 08:45 Pulse Ox 93 01/13/18 08:29 Intake & Output 01/12/18 01/13/18 01/13/18 18:59 06:59 18:59 Intake Total 1200 Balance 1200 Intake: Oral 1200 Other: # Voids 3 # Bowel Movements 1 Active Medications: Current Medications Acetaminophen (Tylenol) 650 mg PO Q4H PRN PRN Reason: Pain Or Fever above 101 Stop: 03/10/18 23:51 Acetaminophen (Tylenol) 650 mg PO Q4H PRN PRN Reason: Mild Pain / Temp above 100 Stop: 03/11/18 00:23 Al Hydrox/Mg Hydrox/Simethicone (Maalox) 30 ml PO Q4H PRN PRN Reason: GI DISTRESS Stop: 03/11/18 00:23 Albuterol Sulfate (Albuterol 2.5mg/3ml Neb Ud) 2.5 mg HHN Q2HRT PRN PRN Reason: Shortness of Breath or Wheeze Stop: 03/10/18 23:51 Amlodipine Besylate (Norvasc) 10 mg PO DAILY [facility] Stop: 03/11/18 08:59 Last Admin: 01/13/18 08:45 Dose: Not Given Benztropine Mesylate (Cogentin) 0.5 mg PO BID [facility] Stop: 03/11/18 08:59 Last Admin: 01/13/18 08:45 Dose: Not Given Carbidopa/Levodopa (Sinemet 25mg-100 Mg) 1 tab PO TID WILL Stop: 03/11/18 08:59 Last Admin: 01/13/18 08:44 Dose: Not Given Cholecalciferol (Vitamin D3) 2,000 iu PO DAILY [facility] Stop: 03/11/18 08:59 Last Admin: 01/13/18 08:44 Dose: Not Given Ipratropium [place] (Atrovent Neb 0.5mg/2.5ml) 0.5 mg HHN Q2HRT PRN PRN Reason: Shortness of Breath or Wheeze Stop: 03/10/18 23:51 Latanoprost (Xalatan 0.005% Ophth Soln) 0 drop EACH EYE HS [facility] Stop: 03/11/18 20:59 Last Admin: 01/12/18 21:11 Dose: Not Given Levothyroxine Sodium (Synthroid) 0.025 mg PO QDAC WILL Stop: 03/11/18 07:29 Last Admin: 01/13/18 06:46 Dose: 0.025 mg Lorazepam (Ativan) 0.5 mg PO Q4H PRN; Protocol PRN Reason: Anxiety Stop: 03/11/18 00:23 Last Admin: 01/13/18 02:25 Dose: 0.5 mg Magnesium Hydroxide (Milk Of Magnesia) 30 ml PO HS PRN PRN Reason: Constipation Multivitamins/Vitamin C (Theragran) 1 tab PO DAILY WILL Stop: 03/11/18 08:59 Last Admin: 01/13/18 08:44 Dose: Not Given Polyethylene Glycol (Miralax) 17 gm PO BID WILL Stop: 03/11/18 08:59 Last Admin: 01/12/18 17:00 Dose: Not Given Valproate Sodium (Depakene) 500 mg PO BID WILL Stop: 03/11/18 08:59 Last Admin: 01/13/18 08:44 Dose: Not Given General: alert HEENT: NC/AT, PERRLA Neck: Supple Lungs: CTAB Cardiovascular: RRR, Normal S1, Normal S2, without murmur Abdomen: soft, non-distended, positive bowel sound Neurological: alert - Procedures Procedures: Procedures Procedure Code Date CLOSURE SKIN & SUBCUTANEOUS NEC 86.59 07/07/12 DPT ADMINISTRATION 99.39 07/07/12 IMMUNIZATION ADMIN 68507 07/07/12 OTHER GROUP THERAPY 94.44 12/10/14 RECREATIONAL THERAPY 93.81 09/15/12 RPR S/N/AX/GEN/TRNK 2.5CM/< 79544 07/07/12 TDAP VACCINE 7 YRS/> IM [id number] 07/07/12 Internal Medicine Assmt/Plan - Assessment Assessment: tremors hypothyroidism parkinson's dementia - Plan Plan: continue with synthroid safety precautions continue current plan of care
--- NOTE | 2018-01-13 23:02 | Consultation ---
DATE OF CONSULTATION: 01/12/2018 REFERRING PHYSICIAN: Juana Blue M.D. TYPE OF CONSULTATION: Psychology. HISTORY OF PRESENT ILLNESS: The patient is a 77-year-old male. The patient is a resident of [facility]. The following is by review of the medical record and by patient self-report. The patient is being admitted due to acute agitation and noncompliance with medication. The staff at the patient's facility report that he has been decompensating and getting easily agitated as well as noncompliant with medication. The patient is referred here for stabilization. The patient denied any suicidal ideation, plan or intention at this time. PAST MEDICAL HISTORY: Please see history and physical by Dr. Jon. PAST PSYCHIATRIC HISTORY: The patient has a prior hospitalization here in 09/2016. The patient has a history of dementia and psychosis. The patient is under the care of a psychiatrist at his placement. SUBSTANCE ABUSE HISTORY: The patient denied any history. PSYCHOSOCIAL HISTORY: The patient is a resident of [facility]. The patient did not answer questions about occupational or educational history or baptist affiliation. The patient denied any history of physical or sexual abuse. The patient denies any current legal problems. The patient states that there is no family support, but that he has friends at his placement and expects to return there upon discharge. MENTAL STATUS EXAMINATION: The patient appears to be his stated age. The patient's attitude is superficially cooperative. Eye contact is fair. Speech is spontaneous but delayed at times. Mood is irritable. Affect is constricted. Thought process shows to be confused at times. The patient denies any suicidal ideation, plan or intention. The patient denies experiencing any auditory or visual hallucinations. The patient is exhibiting suspiciousness. The patient's behavior on the unit has been easily agitated. The patient is easily frustrated during this clinical interview. Impulse control is limited. Concentration is poor. The patient was able to repeat 3 items given to him, on the second attempt the patient was unable to recall any of the items after several minutes. The patient was unable to give answers to milestones. Short term memory and long-term memory are poor. The patient's sensorium is alert and oriented to self and place. The patient did not participate in the interpretation of proverbs. Insight is poor. Judgment is compromised. DIAGNOSTIC IMPRESSION: AXIS I: 1. Psychotic disorder, not otherwise specified. 2. Dementia with behavioral disturbance. AXIS II: Deferred. AXIS III: Please see history and physical by Dr. Jon. TREATMENT PLAN: The patient has been seen by Dr. Blue for psychiatric evaluation and for the management of the patient's psychotropic medications. We will provide supportive psychotherapy to include reality orientation, reality differentiation and reality integration. We will provide coping strategies for phase of life issues. We will provide a simple de-escalation skill along with limit setting to encourage the patient to be able to verbalize concerns versus acting out. We will provide stress management to increase the patient's frustration tolerance. We will provide motivational enhancement for the patient to become compliant and stay compliant with all aspects of his care and treatment. We will encourage the patient to be able to demonstrate emotional and self-regulation prior to discharge. Thank you, Dr. Blue for this consult and the opportunity to participate in this patient's care. JOB# [id number] AUDELIA
--- NOTE | 2018-01-14 00:20 | Progress Notes ---
DATE: 01/13/2018 PSYCHIATRIC PROGRESS NOTE SUBJECTIVE: Staff was spoken to. The patient is interviewed. Mood is noted to be irritable. Affect is constricted. Insight and judgment are noted to be still impaired. Impulse control seems to be poor. The patient has been reluctant to comply with the medication. The patient has been trying to climb out of the bed. The patient is redirected at this time. No side effects to the medications are noted. ASSESSMENT: The patient is still impulsive. PLAN: To continue the patient with the supportive therapy. I encouraged the patient to verbalize the concerns rather than to act out. JOB# [id number]
[2018-01-14] MEDS: Levothyroxine 0.025 Mg Tab PO SCH (06:31)
[2018-01-14] MEDS: Multivitamin Tab PO SCH (09:19)
[2018-01-14] MEDS: POLYETHYLENE GLYCOL 3350 17 GM PACK PO SCH (09:20)
--- NOTE | 2018-01-14 11:14 | Internal Medicine Prog Note ---
Internal Medicine Subjective - Subjective Service Date: 01/14/18 Patient is:: awake Per staff patient has:: tolerating meds Internal Medicine Objective - Results Result Diagrams: 01/09/18 20:50 01/09/18 20:50 Recent Labs: Laboratory Last Values WBC 6.4 Th/cmm (4.8-10.8) 01/09/18 20:50 RBC 4.90 Mil/cmm (3.80-5.80) 01/09/18 20:50 Hgb 14.7 gm/dL (12-16) 01/09/18 20:50 Hct 43.9 % (41.0-60) 01/09/18 20:50 MCV 89.7 fl (80-99) 01/09/18 20:50 MCH 30.0 pg (27.0-31.0) 01/09/18 20:50 MCHC Differential 33.5 pg (28.0-36.0) 01/09/18 20:50 RDW 13.8 % (11.5-20.0) 01/09/18 20:50 Plt Count 309 Th/cmm (150-400) 01/09/18 20:50 MPV 8.2 fl 01/09/18 20:50 Neutrophils % 48.8 % (40.0-80.0) 01/09/18 20:50 Lymphocytes % 31.6 % (20.0-50.0) 01/09/18 20:50 Monocytes % 17.1 % (2.0-10.0) H 01/09/18 20:50 Eosinophils % 1.2 % (0.0-5.0) 01/09/18 20:50 Basophils % 1.3 % (0.0-2.0) 01/09/18 20:50 Sodium 135 mEq/L (136-145) L 01/09/18 20:50 Potassium 4.0 mEq/L (3.5-5.1) 01/09/18 20:50 Chloride 105 mEq/L (98-107) 01/09/18 20:50 Carbon Dioxide 22.9 mEq/L (21.0-31.0) 01/09/18 20:50 Anion Gap 11.1 (7.0-16.0) 01/09/18 20:50 BUN 21 mg/dL (7-25) 01/09/18 20:50 Creatinine 1.1 mg/dL (0.7-1.3) 01/09/18 20:50 Est GFR ( Amer) TNP 01/09/18 20:50 Est GFR (Non-Af Amer) TNP 01/09/18 20:50 BUN/Creatinine Ratio 19.1 01/09/18 20:50 Glucose 107 mg/dL (70-105) H 01/09/18 20:50 Hemoglobin A1c % 5.4 % (4.0-6.0) 01/09/18 20:50 Calcium 9.1 mg/dL (8.6-10.3) 01/09/18 20:50 Total Bilirubin 0.8 mg/dL (0.3-1.0) 01/09/18 20:50 AST 17 U/L (13-39) 01/09/18 20:50 ALT 14 U/L (7-52) 01/09/18 20:50 Alkaline Phosphatase 60 U/L (34-104) 01/09/18 20:50 Total Protein 6.4 gm/dL (6.0-8.3) 01/09/18 20:50 Albumin 3.9 gm/dL (4.2-5.5) L 01/09/18 20:50 Globulin 2.5 gm/dL 01/09/18 20:50 Albumin/Globulin Ratio 1.6 (1.0-1.8) 01/09/18 20:50 Triglycerides 89 mg/dL (<150) 01/09/18 20:50 Cholesterol 160 mg/dL (<200) 01/09/18 20:50 LDL Cholesterol Direct 95 mg/dL (75-193) 01/09/18 20:50 HDL Cholesterol 52 mg/dL (23-92) 01/09/18 20:50 TSH 0.34 uIU/ml (0.34-5.60) 01/09/18 20:50 Valproic Acid < 10.0 ug/mL (50.0-100.0) L 01/09/18 20:50 RPR NONREACTIVE (NONREACTIVE) 01/09/18 20:50 - Physical Exam Vitals and I&O: Vital Signs Temp 98.4 F 01/13/18 14:00 Pulse 61 01/13/18 20:49 Resp 18 01/13/18 20:49 BP 117/70 01/13/18 14:00 Pulse Ox 95 01/13/18 20:49 Intake & Output 01/13/18 01/14/18 01/14/18 18:59 06:59 18:59 Intake Total 1300 Balance 1300 Intake: Oral 1300 Other: # Voids 3 # Bowel Movements 0 Active Medications: Current Medications Acetaminophen (Tylenol) 650 mg PO Q4H PRN PRN Reason: Pain Or Fever above 101 Stop: 03/10/18 23:51 Acetaminophen (Tylenol) 650 mg PO Q4H PRN PRN Reason: Mild Pain / Temp above 100 Stop: 03/11/18 00:23 Al Hydrox/Mg Hydrox/Simethicone (Maalox) 30 ml PO Q4H PRN PRN Reason: GI DISTRESS Stop: 03/11/18 00:23 Albuterol Sulfate (Albuterol 2.5mg/3ml Neb Ud) 2.5 mg HHN Q2HRT PRN PRN Reason: Shortness of Breath or Wheeze Stop: 03/10/18 23:51 Amlodipine Besylate (Norvasc) 10 mg PO DAILY [facility] Stop: 03/11/18 08:59 Last Admin: 01/13/18 08:45 Dose: Not Given Benztropine Mesylate (Cogentin) 0.5 mg PO BID [facility] Stop: 03/11/18 08:59 Last Admin: 01/13/18 17:01 Dose: Not Given Carbidopa/Levodopa (Sinemet 25mg-100 Mg) 1 tab PO TID WILL Stop: 03/11/18 08:59 Last Admin: 01/13/18 21:20 Dose: 1 tab Cholecalciferol (Vitamin D3) 2,000 iu PO DAILY [facility] Stop: 03/11/18 08:59 Last Admin: 01/13/18 08:44 Dose: Not Given Ipratropium [place] (Atrovent Neb 0.5mg/2.5ml) 0.5 mg HHN Q2HRT PRN PRN Reason: Shortness of Breath or Wheeze Stop: 03/10/18 23:51 Latanoprost (Xalatan 0.005% Ophth Soln) 0 drop EACH EYE HS [facility] Stop: 03/11/18 20:59 Last Admin: 01/13/18 21:30 Dose: Not Given Levothyroxine Sodium (Synthroid) 0.025 mg PO QDAC [facility] Stop: 03/11/18 07:29 Last Admin: 01/14/18 06:31 Dose: Not Given Lorazepam (Ativan) 0.5 mg PO Q4H PRN; Protocol PRN Reason: Anxiety Stop: 03/11/18 00:23 Last Admin: 01/13/18 21:33 Dose: 0.5 mg Magnesium Hydroxide (Milk Of Magnesia) 30 ml PO HS PRN PRN Reason: Constipation Multivitamins/Vitamin C (Theragran) 1 tab PO DAILY WILL Stop: 03/11/18 08:59 Last Admin: 01/13/18 08:44 Dose: Not Given Polyethylene Glycol (Miralax) 17 gm PO BID [facility] Stop: 03/11/18 08:59 Last Admin: 01/13/18 17:01 Dose: Not Given Valproate Sodium (Depakene) 500 mg PO BID [facility] Stop: 03/11/18 08:59 Last Admin: 01/13/18 17:01 Dose: Not Given General: alert HEENT: NC/AT, PERRLA Neck: Supple Lungs: CTAB Cardiovascular: RRR, Normal S1, Normal S2, without murmur Abdomen: soft, non-distended, positive bowel sound Neurological: alert - Procedures Procedures: Procedures Procedure Code Date CLOSURE SKIN & SUBCUTANEOUS NEC 86.59 07/07/12 DPT ADMINISTRATION 99.39 07/07/12 IMMUNIZATION ADMIN 37186 07/07/12 OTHER GROUP THERAPY 94.44 12/10/14 RECREATIONAL THERAPY 93.81 09/15/12 RPR S/N/AX/GEN/TRNK 2.5CM/< 94650 07/07/12 TDAP VACCINE 7 YRS/> IM [id number] 07/07/12 Internal Medicine Assmt/Plan - Assessment Assessment: tremors hypothyroidism parkinson's dementia - Plan Plan: continue with synthroid safety precautions continue current plan of care Nutritional Asmnt/Malnutr-PDOC - Dietary Evaluation Malnutrition Findings (Please click <Entered> for more info): Nutritional Asmnt/Malnutrition Start: 01/13/18 16: 14 Text: Status: Complete Freq: Protocol: Document 01/13/18 16:14 JAROD (Rec: 01/13/18 16:29 JAROD [email or web address]) Nutritional Asmnt/Malnutrition Patient General Information Nutritional Screening Moderate Risk Diagnosis psychosis NOS Pertinent Medical Hx/Surgical Hx HTN, seizures, hypothyroid, dementia, parkinson's glaucoma , constipation Subjective Information Per EMR, PO itnake 100%. Pt is confused, not able to get more informaiton. Current Diet Order/ Nutrition Support [facility] soft chopped, NOÉ Pertinent Medications viot D3, synthorid, theragran Pertinent Labs 01/09 Na 135, Glucose 107, A1c 5.4 Nutritional Hx/Data Height 5 ft 11 in Height (Calculated Centimeters) 180.3 Current Weight (lbs) 155 lb Weight (Calculated Kilograms) 70.3 Weight (Calculated Grams) 16400.8 [place] Body Weight 172 Body Mass Index (BMI) 21.6 Weight Status Approriate GI Symptoms GI Symptoms None Last BM 01/12 Difficult in: None Skin Integrity/Comment: intact Current %PO Good (75-100%) Estimated Nutritional Goals BEE in Kcals: Using Current wt Calories/Kcals/Kg 25-30 Kcals Calculated 3308-6234 Protein: Using Current wt Protein g/k.8 Protein Calculated 56 Fluid: ml 1750-2100ml (1ml/kcal) Nutritional Problem No current Nutrition Prob Problem N/A Malnutrition Alert Is there a minimum of two criteria No selected? Query Text:Check all the applicable criteria. A minimum of two criteria are recommended for diagnosis of either severe or non-severe malnutrition. Malnutrition Related to Morbid Obesity Malnutrition related to morbid obesity No Intervention/Recommendation Comments 1. Continue with current diet as ordered. 2. Monitor PO intake, wt, labs and skin integrity 3. F/U as low risk in 7 days, 01/20 Expected Outcomes/Goals Expected Outcomes/Goals 1. PO intake to meet at least 75% of nutritional needs. 2. Wt stability, skin to remain intact, labs to approach WNL.
--- NOTE | 2018-01-15 01:35 | Progress Notes ---
DATE: 01/14/2018 PSYCHIATRIC PROGRESS NOTE SUBJECTIVE: Staff was spoken to. The patient is interviewed. Mood is noted to be irritable. Affect is constricted. Insight and judgment are noted to be still impaired. Impulse control is noted to be limited. The patient has been consistently reluctant to comply with the medication. The patient has been getting easily agitated and needs to be redirected. ASSESSMENT: The patient is still impulsive. PLAN: To continue the patient with the supportive therapy, encouraged the patient to verbalize the concerns rather than to act out. The patient is currently on valproic acid and the patient is going to be possibly given the liquid form of the valproic acid and the patient becomes uncontrollable, possibly a low dose of the Haldol going to be considered. Plan to continue the patient with the supportive therapy and followup. JOB# [id number]
[2018-01-15] MEDS: Levothyroxine 0.025 Mg Tab PO SCH (06:37)
[2018-01-15] MEDS: POLYETHYLENE GLYCOL 3350 17 GM PACK PO SCH ×2 (08:45→16:27)
[2018-01-15] MEDS: Multivitamin Tab PO SCH (08:45)
--- NOTE | 2018-01-15 14:22 | Internal Medicine Prog Note ---
Internal Medicine Subjective - Subjective Service Date: 01/15/18 Patient is:: awake Per staff patient has:: tolerating meds Internal Medicine Objective - Results Result Diagrams: 01/09/18 20:50 01/09/18 20:50 Recent Labs: Laboratory Last Values WBC 6.4 Th/cmm (4.8-10.8) 01/09/18 20:50 RBC 4.90 Mil/cmm (3.80-5.80) 01/09/18 20:50 Hgb 14.7 gm/dL (12-16) 01/09/18 20:50 Hct 43.9 % (41.0-60) 01/09/18 20:50 MCV 89.7 fl (80-99) 01/09/18 20:50 MCH 30.0 pg (27.0-31.0) 01/09/18 20:50 MCHC Differential 33.5 pg (28.0-36.0) 01/09/18 20:50 RDW 13.8 % (11.5-20.0) 01/09/18 20:50 Plt Count 309 Th/cmm (150-400) 01/09/18 20:50 MPV 8.2 fl 01/09/18 20:50 Neutrophils % 48.8 % (40.0-80.0) 01/09/18 20:50 Lymphocytes % 31.6 % (20.0-50.0) 01/09/18 20:50 Monocytes % 17.1 % (2.0-10.0) H 01/09/18 20:50 Eosinophils % 1.2 % (0.0-5.0) 01/09/18 20:50 Basophils % 1.3 % (0.0-2.0) 01/09/18 20:50 Sodium 135 mEq/L (136-145) L 01/09/18 20:50 Potassium 4.0 mEq/L (3.5-5.1) 01/09/18 20:50 Chloride 105 mEq/L (98-107) 01/09/18 20:50 Carbon Dioxide 22.9 mEq/L (21.0-31.0) 01/09/18 20:50 Anion Gap 11.1 (7.0-16.0) 01/09/18 20:50 BUN 21 mg/dL (7-25) 01/09/18 20:50 Creatinine 1.1 mg/dL (0.7-1.3) 01/09/18 20:50 Est GFR ( Amer) TNP 01/09/18 20:50 Est GFR (Non-Af Amer) TNP 01/09/18 20:50 BUN/Creatinine Ratio 19.1 01/09/18 20:50 Glucose 107 mg/dL (70-105) H 01/09/18 20:50 Hemoglobin A1c % 5.4 % (4.0-6.0) 01/09/18 20:50 Calcium 9.1 mg/dL (8.6-10.3) 01/09/18 20:50 Total Bilirubin 0.8 mg/dL (0.3-1.0) 01/09/18 20:50 AST 17 U/L (13-39) 01/09/18 20:50 ALT 14 U/L (7-52) 01/09/18 20:50 Alkaline Phosphatase 60 U/L (34-104) 01/09/18 20:50 Total Protein 6.4 gm/dL (6.0-8.3) 01/09/18 20:50 Albumin 3.9 gm/dL (4.2-5.5) L 01/09/18 20:50 Globulin 2.5 gm/dL 01/09/18 20:50 Albumin/Globulin Ratio 1.6 (1.0-1.8) 01/09/18 20:50 Triglycerides 89 mg/dL (<150) 01/09/18 20:50 Cholesterol 160 mg/dL (<200) 01/09/18 20:50 LDL Cholesterol Direct 95 mg/dL (75-193) 01/09/18 20:50 HDL Cholesterol 52 mg/dL (23-92) 01/09/18 20:50 TSH 0.34 uIU/ml (0.34-5.60) 01/09/18 20:50 Valproic Acid < 10.0 ug/mL (50.0-100.0) L 01/09/18 20:50 RPR NONREACTIVE (NONREACTIVE) 01/09/18 20:50 - Physical Exam Vitals and I&O: Vital Signs Temp 97.9 F 01/15/18 06:36 Pulse 63 01/15/18 07:45 Resp 14 01/15/18 07:45 BP 129/72 01/14/18 20:00 Pulse Ox 94 01/15/18 07:45 Intake & Output 01/14/18 01/15/18 01/15/18 18:59 06:59 18:59 Intake Total 1300 560 Balance 1300 560 Intake: Oral 1300 560 Other: # Voids 3 2 # Bowel Movements 0 Active Medications: Current Medications Acetaminophen (Tylenol) 650 mg PO Q4H PRN PRN Reason: Pain Or Fever above 101 Stop: 03/10/18 23:51 Acetaminophen (Tylenol) 650 mg PO Q4H PRN PRN Reason: Mild Pain / Temp above 100 Stop: 03/11/18 00:23 Al Hydrox/Mg Hydrox/Simethicone (Maalox) 30 ml PO Q4H PRN PRN Reason: GI DISTRESS Stop: 03/11/18 00:23 Albuterol Sulfate (Albuterol 2.5mg/3ml Neb Ud) 2.5 mg HHN Q2HRT PRN PRN Reason: Shortness of Breath or Wheeze Stop: 03/10/18 23:51 Amlodipine Besylate (Norvasc) 10 mg PO DAILY [facility] Stop: 03/11/18 08:59 Last Admin: 01/15/18 08:45 Dose: Not Given Benztropine Mesylate (Cogentin) 0.5 mg PO BID [facility] Stop: 03/11/18 08:59 Last Admin: 01/15/18 08:45 Dose: Not Given Carbidopa/Levodopa (Sinemet 25mg-100 Mg) 1 tab PO TID [facility] Stop: 03/11/18 08:59 Last Admin: 01/15/18 13:30 Dose: Not Given Cholecalciferol (Vitamin D3) 2,000 iu PO DAILY [facility] Stop: 03/11/18 08:59 Last Admin: 01/15/18 08:45 Dose: Not Given Ipratropium [place] (Atrovent Neb 0.5mg/2.5ml) 0.5 mg HHN Q2HRT PRN PRN Reason: Shortness of Breath or Wheeze Stop: 03/10/18 23:51 Latanoprost (Xalatan 0.005% Ophth Soln) 0 drop EACH EYE HS [facility] Stop: 03/11/18 20:59 Last Admin: 01/14/18 21:33 Dose: 1 drop Levothyroxine Sodium (Synthroid) 0.025 mg PO QDAC WILL Stop: 03/11/18 07:29 Last Admin: 01/15/18 06:37 Dose: 0.025 mg Lorazepam (Ativan) 0.5 mg PO Q4H PRN; Protocol PRN Reason: Anxiety Stop: 03/11/18 00:23 Last Admin: 01/14/18 21:34 Dose: 0.5 mg Magnesium Hydroxide (Milk Of Magnesia) 30 ml PO HS PRN PRN Reason: Constipation Multivitamins/Vitamin C (Theragran) 1 tab PO DAILY [facility] Stop: 03/11/18 08:59 Last Admin: 01/15/18 08:45 Dose: Not Given Polyethylene Glycol (Miralax) 17 gm PO BID [facility] Stop: 03/11/18 08:59 Last Admin: 01/15/18 08:45 Dose: Not Given Valproate Sodium (Depakene) 500 mg PO HS WILL Stop: 03/16/18 20:59 General: alert HEENT: NC/AT, PERRLA Neck: Supple Lungs: CTAB Cardiovascular: RRR, Normal S1, Normal S2, without murmur Abdomen: soft, non-distended, positive bowel sound Neurological: alert - Procedures Procedures: Procedures Procedure Code Date CLOSURE SKIN & SUBCUTANEOUS NEC 86.59 07/07/12 DPT ADMINISTRATION 99.39 07/07/12 IMMUNIZATION ADMIN 65202 07/07/12 OTHER GROUP THERAPY 94.44 12/10/14 RECREATIONAL THERAPY 93.81 09/15/12 RPR S/N/AX/GEN/TRNK 2.5CM/< 33749 07/07/12 TDAP VACCINE 7 YRS/> IM [id number] 07/07/12 Internal Medicine Assmt/Plan - Assessment Assessment: tremors hypothyroidism parkinson's dementia - Plan Plan: continue with synthroid safety precautions continue current plan of care Nutritional Asmnt/Malnutr-PDOC - Dietary Evaluation Malnutrition Findings (Please click <Entered> for more info): Nutritional Asmnt/Malnutrition Start: 01/13/18 16: 14 Text: Status: Complete Freq: Protocol: Document 01/13/18 16:14 TANVIG (Rec: 01/13/18 16:29 JAROD [email or web address]) Nutritional Asmnt/Malnutrition Patient General Information Nutritional Screening Moderate Risk Diagnosis psychosis NOS Pertinent Medical Hx/Surgical Hx HTN, seizures, hypothyroid, dementia, parkinson's glaucoma , constipation Subjective Information Per EMR, PO itnake 100%. Pt is confused, not able to get more informaiton. Current Diet Order/ Nutrition Support [facility] soft chopped, NOÉ Pertinent Medications viot D3, synthorid, theragran Pertinent Labs 01/09 Na 135, Glucose 107, A1c 5.4 Nutritional Hx/Data Height 5 ft 11 in Height (Calculated Centimeters) 180.3 Current Weight (lbs) 155 lb Weight (Calculated Kilograms) 70.3 Weight (Calculated Grams) 80029.8 [place] Body Weight 172 Body Mass Index (BMI) 21.6 Weight Status Approriate GI Symptoms GI Symptoms None Last BM 01/12 Difficult in: None Skin Integrity/Comment: intact Current %PO Good (75-100%) Estimated Nutritional Goals BEE in Kcals: Using Current wt Calories/Kcals/Kg 25-30 Kcals Calculated 2770-4322 Protein: Using Current wt Protein g/k.8 Protein Calculated 56 Fluid: ml 1750-2100ml (1ml/kcal) Nutritional Problem No current Nutrition Prob Problem N/A Malnutrition Alert Is there a minimum of two criteria No selected? Query Text:Check all the applicable criteria. A minimum of two criteria are recommended for diagnosis of either severe or non-severe malnutrition. Malnutrition Related to Morbid Obesity Malnutrition related to morbid obesity No Intervention/Recommendation Comments 1. Continue with current diet as ordered. 2. Monitor PO intake, wt, labs and skin integrity 3. F/U as low risk in 7 days, 01/20 Expected Outcomes/Goals Expected Outcomes/Goals 1. PO intake to meet at least 75% of nutritional needs. 2. Wt stability, skin to remain intact, labs to approach WNL.
--- NOTE | 2018-01-15 17:41 | Progress Notes ---
DATE: 01/15/2018 PSYCHIATRIC PROGRESS NOTE SUBJECTIVE: Staff was spoken to. The patient is interviewed. Mood is noted to be less irritable. The patient is stating that the medication is making him too sleepy and he does not want to comply with the medication. The patient has been closely monitored, even when the patient is not taking medications, behavior has not been becoming a major issue and hence we are not pushing for any of these valproic acid because the patient has been stating that the medication has been causing him more of drowsiness during the daytime and hence he is not willing to take it and hence the Depakote has been changed to 500 mg at bedtime only and the patient is going to be followed up with supportive therapy. [facility]# [id number]
[2018-01-16] MEDS: Levothyroxine 0.025 Mg Tab PO SCH (06:45)
[2018-01-16] MEDS: Multivitamin Tab PO SCH (10:15)
[2018-01-16] MEDS: POLYETHYLENE GLYCOL 3350 17 GM PACK PO SCH (10:15)
--- NOTE | 2018-01-16 12:23 | Progress Notes ---
DATE: 01/16/2018 SUBJECTIVE: Staff was spoken to. The patient is interviewed. Mood is noted to be irritable. Affect is constricted. Coping skills are noted to be poor at this time. The patient has been having difficult time to cope with the stress. No side effects to the medications are noted. ASSESSMENT: The patient is still complaining of being very tired . [facility]# [id number]
--- NOTE | 2018-01-16 16:31 | Internal Medicine Prog Note ---
Internal Medicine Subjective - Subjective Service Date: 01/16/18 Patient is:: awake Per staff patient has:: tolerating meds Internal Medicine Objective - Results Result Diagrams: 01/09/18 20:50 01/09/18 20:50 Recent Labs: Laboratory Last Values WBC 6.4 Th/cmm (4.8-10.8) 01/09/18 20:50 RBC 4.90 Mil/cmm (3.80-5.80) 01/09/18 20:50 Hgb 14.7 gm/dL (12-16) 01/09/18 20:50 Hct 43.9 % (41.0-60) 01/09/18 20:50 MCV 89.7 fl (80-99) 01/09/18 20:50 MCH 30.0 pg (27.0-31.0) 01/09/18 20:50 MCHC Differential 33.5 pg (28.0-36.0) 01/09/18 20:50 RDW 13.8 % (11.5-20.0) 01/09/18 20:50 Plt Count 309 Th/cmm (150-400) 01/09/18 20:50 MPV 8.2 fl 01/09/18 20:50 Neutrophils % 48.8 % (40.0-80.0) 01/09/18 20:50 Lymphocytes % 31.6 % (20.0-50.0) 01/09/18 20:50 Monocytes % 17.1 % (2.0-10.0) H 01/09/18 20:50 Eosinophils % 1.2 % (0.0-5.0) 01/09/18 20:50 Basophils % 1.3 % (0.0-2.0) 01/09/18 20:50 Sodium 135 mEq/L (136-145) L 01/09/18 20:50 Potassium 4.0 mEq/L (3.5-5.1) 01/09/18 20:50 Chloride 105 mEq/L (98-107) 01/09/18 20:50 Carbon Dioxide 22.9 mEq/L (21.0-31.0) 01/09/18 20:50 Anion Gap 11.1 (7.0-16.0) 01/09/18 20:50 BUN 21 mg/dL (7-25) 01/09/18 20:50 Creatinine 1.1 mg/dL (0.7-1.3) 01/09/18 20:50 Est GFR ( Amer) TNP 01/09/18 20:50 Est GFR (Non-Af Amer) TNP 01/09/18 20:50 BUN/Creatinine Ratio 19.1 01/09/18 20:50 Glucose 107 mg/dL (70-105) H 01/09/18 20:50 Hemoglobin A1c % 5.4 % (4.0-6.0) 01/09/18 20:50 Calcium 9.1 mg/dL (8.6-10.3) 01/09/18 20:50 Total Bilirubin 0.8 mg/dL (0.3-1.0) 01/09/18 20:50 AST 17 U/L (13-39) 01/09/18 20:50 ALT 14 U/L (7-52) 01/09/18 20:50 Alkaline Phosphatase 60 U/L (34-104) 01/09/18 20:50 Total Protein 6.4 gm/dL (6.0-8.3) 01/09/18 20:50 Albumin 3.9 gm/dL (4.2-5.5) L 01/09/18 20:50 Globulin 2.5 gm/dL 01/09/18 20:50 Albumin/Globulin Ratio 1.6 (1.0-1.8) 01/09/18 20:50 Triglycerides 89 mg/dL (<150) 01/09/18 20:50 Cholesterol 160 mg/dL (<200) 01/09/18 20:50 LDL Cholesterol Direct 95 mg/dL (75-193) 01/09/18 20:50 HDL Cholesterol 52 mg/dL (23-92) 01/09/18 20:50 TSH 0.34 uIU/ml (0.34-5.60) 01/09/18 20:50 Valproic Acid < 10.0 ug/mL (50.0-100.0) L 01/09/18 20:50 RPR NONREACTIVE (NONREACTIVE) 01/09/18 20:50 - Physical Exam Vitals and I&O: Vital Signs Temp 98.8 F 01/16/18 14:45 Pulse 58 01/16/18 14:45 Resp 20 01/16/18 14:45 BP 119/62 01/16/18 14:45 Pulse Ox 95 01/16/18 14:45 Intake & Output 01/15/18 01/16/18 01/16/18 18:59 06:59 18:59 Intake Total 1200 360 Balance 1200 360 Intake: Oral 1200 360 Other: # Voids 3 1 # Bowel Movements 1 Active Medications: Current Medications Acetaminophen (Tylenol) 650 mg PO Q4H PRN PRN Reason: Pain Or Fever above 101 Stop: 03/10/18 23:51 Acetaminophen (Tylenol) 650 mg PO Q4H PRN PRN Reason: Mild Pain / Temp above 100 Stop: 03/11/18 00:23 Al Hydrox/Mg Hydrox/Simethicone (Maalox) 30 ml PO Q4H PRN PRN Reason: GI DISTRESS Stop: 03/11/18 00:23 Albuterol Sulfate (Albuterol 2.5mg/3ml Neb Ud) 2.5 mg HHN Q2HRT PRN PRN Reason: Shortness of Breath or Wheeze Stop: 03/10/18 23:51 Amlodipine Besylate (Norvasc) 10 mg PO DAILY [facility] Stop: 03/11/18 08:59 Last Admin: 01/16/18 10:15 Dose: Not Given Benztropine Mesylate (Cogentin) 0.5 mg PO BID WILL Stop: 03/11/18 08:59 Last Admin: 01/16/18 10:15 Dose: Not Given Carbidopa/Levodopa (Sinemet 25mg-100 Mg) 1 tab PO TID WILL Stop: 03/11/18 08:59 Last Admin: 01/16/18 13:54 Dose: Not Given Cholecalciferol (Vitamin D3) 2,000 iu PO DAILY WILL Stop: 03/11/18 08:59 Last Admin: 01/16/18 10:15 Dose: Not Given Ipratropium [place] (Atrovent Neb 0.5mg/2.5ml) 0.5 mg HHN Q2HRT PRN PRN Reason: Shortness of Breath or Wheeze Stop: 03/10/18 23:51 Latanoprost (Xalatan 0.005% Ophth Soln) 0 drop EACH EYE HS [facility] Stop: 03/11/18 20:59 Last Admin: 01/15/18 20:56 Dose: Not Given Levothyroxine Sodium (Synthroid) 0.025 mg PO QDAC WILL Stop: 03/11/18 07:29 Last Admin: 01/16/18 06:45 Dose: Not Given Lorazepam (Ativan) 0.5 mg PO Q4H PRN; Protocol PRN Reason: Anxiety Stop: 03/11/18 00:23 Last Admin: 01/16/18 03:11 Dose: 0.5 mg Magnesium Hydroxide (Milk Of Magnesia) 30 ml PO HS PRN PRN Reason: Constipation Multivitamins/Vitamin C (Theragran) 1 tab PO DAILY WILL Stop: 03/11/18 08:59 Last Admin: 01/16/18 10:15 Dose: Not Given Polyethylene Glycol (Miralax) 17 gm PO BID WILL Stop: 03/11/18 08:59 Last Admin: 01/16/18 10:15 Dose: Not Given Valproate Sodium (Depakene) 500 mg PO HS WILL Stop: 03/16/18 20:59 Last Admin: 01/15/18 20:57 Dose: Not Given General: alert HEENT: NC/AT, PERRLA Neck: Supple Lungs: CTAB Cardiovascular: RRR, Normal S1, Normal S2, without murmur Abdomen: soft, non-distended, positive bowel sound Neurological: alert - Procedures Procedures: Procedures Procedure Code Date CLOSURE SKIN & SUBCUTANEOUS NEC 86.59 07/07/12 DPT ADMINISTRATION 99.39 07/07/12 IMMUNIZATION ADMIN 55962 07/07/12 OTHER GROUP THERAPY 94.44 12/10/14 RECREATIONAL THERAPY 93.81 09/15/12 RPR S/N/AX/GEN/TRNK 2.5CM/< 43135 07/07/12 TDAP VACCINE 7 YRS/> [place] [id number] 07/07/12 Internal Medicine Assmt/Plan - Assessment Assessment: tremors hypothyroidism parkinson's dementia - Plan Plan: continue with synthroid safety precautions continue current plan of care Nutritional Asmnt/Malnutr-PDOC - Dietary Evaluation Malnutrition Findings (Please click <Entered> for more info): Nutritional Asmnt/Malnutrition Start: 01/13/18 16: 14 Text: Status: Complete Freq: Protocol: Document 01/13/18 16:14 JAROD (Rec: 01/13/18 16:29 JAROD [email or web address]) Nutritional Asmnt/Malnutrition Patient General Information Nutritional Screening Moderate Risk Diagnosis psychosis NOS Pertinent Medical Hx/Surgical Hx HTN, seizures, hypothyroid, dementia, parkinson's glaucoma , constipation Subjective Information Per EMR, PO itnake 100%. Pt is confused, not able to get more informaiton. Current Diet Order/ Nutrition Support mech soft chopped, NOÉ Pertinent Medications viot D3, synthorid, theragran Pertinent Labs 01/09 Na 135, Glucose 107, A1c 5.4 Nutritional Hx/Data Height 5 ft 11 in Height (Calculated Centimeters) 180.3 Current Weight (lbs) 155 lb Weight (Calculated Kilograms) 70.3 Weight (Calculated Grams) 84108.8 [place] Body Weight 172 Body Mass Index (BMI) 21.6 Weight Status Approriate GI Symptoms GI Symptoms None Last BM 01/12 Difficult in: None Skin Integrity/Comment: intact Current %PO Good (75-100%) Estimated Nutritional Goals BEE in Kcals: Using Current wt Calories/Kcals/Kg 25-30 Kcals Calculated 5324-0650 Protein: Using Current wt Protein g/k.8 Protein Calculated 56 Fluid: ml 1750-2100ml (1ml/kcal) Nutritional Problem No current Nutrition Prob Problem N/A Malnutrition Alert Is there a minimum of two criteria No selected? Query Text:Check all the applicable criteria. A minimum of two criteria are recommended for diagnosis of either severe or non-severe malnutrition. Malnutrition Related to Morbid Obesity Malnutrition related to morbid obesity No Intervention/Recommendation Comments 1. Continue with current diet as ordered. 2. Monitor PO intake, wt, labs and skin integrity 3. F/U as low risk in 7 days, 01/20 Expected Outcomes/Goals Expected Outcomes/Goals 1. PO intake to meet at least 75% of nutritional needs. 2. Wt stability, skin to remain intact, labs to approach WNL.
[2018-01-17] MEDS: Levothyroxine 0.025 Mg Tab PO SCH (06:31)
[2018-01-17] MEDS: Multivitamin Tab PO SCH (08:36)
[2018-01-17] MEDS: POLYETHYLENE GLYCOL 3350 17 GM PACK PO SCH ×2 (08:36→17:05)
--- NOTE | 2018-01-17 11:56 | Internal Medicine Prog Note ---
Internal Medicine Subjective - Subjective Service Date: 01/17/18 Patient is:: awake Per staff patient has:: tolerating meds Internal Medicine Objective - Results Result Diagrams: 01/09/18 20:50 01/09/18 20:50 Recent Labs: Laboratory Last Values WBC 6.4 Th/cmm (4.8-10.8) 01/09/18 20:50 RBC 4.90 Mil/cmm (3.80-5.80) 01/09/18 20:50 Hgb 14.7 gm/dL (12-16) 01/09/18 20:50 Hct 43.9 % (41.0-60) 01/09/18 20:50 MCV 89.7 fl (80-99) 01/09/18 20:50 MCH 30.0 pg (27.0-31.0) 01/09/18 20:50 MCHC Differential 33.5 pg (28.0-36.0) 01/09/18 20:50 RDW 13.8 % (11.5-20.0) 01/09/18 20:50 Plt Count 309 Th/cmm (150-400) 01/09/18 20:50 MPV 8.2 fl 01/09/18 20:50 Neutrophils % 48.8 % (40.0-80.0) 01/09/18 20:50 Lymphocytes % 31.6 % (20.0-50.0) 01/09/18 20:50 Monocytes % 17.1 % (2.0-10.0) H 01/09/18 20:50 Eosinophils % 1.2 % (0.0-5.0) 01/09/18 20:50 Basophils % 1.3 % (0.0-2.0) 01/09/18 20:50 Sodium 135 mEq/L (136-145) L 01/09/18 20:50 Potassium 4.0 mEq/L (3.5-5.1) 01/09/18 20:50 Chloride 105 mEq/L (98-107) 01/09/18 20:50 Carbon Dioxide 22.9 mEq/L (21.0-31.0) 01/09/18 20:50 Anion Gap 11.1 (7.0-16.0) 01/09/18 20:50 BUN 21 mg/dL (7-25) 01/09/18 20:50 Creatinine 1.1 mg/dL (0.7-1.3) 01/09/18 20:50 Est GFR ( Amer) TNP 01/09/18 20:50 Est GFR (Non-Af Amer) TNP 01/09/18 20:50 BUN/Creatinine Ratio 19.1 01/09/18 20:50 Glucose 107 mg/dL (70-105) H 01/09/18 20:50 Hemoglobin A1c % 5.4 % (4.0-6.0) 01/09/18 20:50 Calcium 9.1 mg/dL (8.6-10.3) 01/09/18 20:50 Total Bilirubin 0.8 mg/dL (0.3-1.0) 01/09/18 20:50 AST 17 U/L (13-39) 01/09/18 20:50 ALT 14 U/L (7-52) 01/09/18 20:50 Alkaline Phosphatase 60 U/L (34-104) 01/09/18 20:50 Total Protein 6.4 gm/dL (6.0-8.3) 01/09/18 20:50 Albumin 3.9 gm/dL (4.2-5.5) L 01/09/18 20:50 Globulin 2.5 gm/dL 01/09/18 20:50 Albumin/Globulin Ratio 1.6 (1.0-1.8) 01/09/18 20:50 Triglycerides 89 mg/dL (<150) 01/09/18 20:50 Cholesterol 160 mg/dL (<200) 01/09/18 20:50 LDL Cholesterol Direct 95 mg/dL (75-193) 01/09/18 20:50 HDL Cholesterol 52 mg/dL (23-92) 01/09/18 20:50 TSH 0.34 uIU/ml (0.34-5.60) 01/09/18 20:50 Valproic Acid < 10.0 ug/mL (50.0-100.0) L 01/09/18 20:50 RPR NONREACTIVE (NONREACTIVE) 01/09/18 20:50 - Physical Exam Vitals and I&O: Vital Signs Temp 97.2 F 01/17/18 04:25 Pulse 50 01/17/18 08:31 Resp 16 01/17/18 08:31 BP 106/70 01/17/18 04:25 Pulse Ox 94 01/17/18 08:31 Intake & Output 01/16/18 01/17/18 01/17/18 18:59 06:59 18:59 Intake Total 720 Balance 720 Weight (lbs) 155 lb Intake: Oral 720 Other: # Voids 2 Weight Source Bedscale Active Medications: Current Medications Acetaminophen (Tylenol) 650 mg PO Q4H PRN PRN Reason: Pain Or Fever above 101 Stop: 03/10/18 23:51 Acetaminophen (Tylenol) 650 mg PO Q4H PRN PRN Reason: Mild Pain / Temp above 100 Stop: 03/11/18 00:23 Al Hydrox/Mg Hydrox/Simethicone (Maalox) 30 ml PO Q4H PRN PRN Reason: GI DISTRESS Stop: 03/11/18 00:23 Albuterol Sulfate (Albuterol 2.5mg/3ml Neb Ud) 2.5 mg HHN Q2HRT PRN PRN Reason: Shortness of Breath or Wheeze Stop: 03/10/18 23:51 Amlodipine Besylate (Norvasc) 10 mg PO DAILY WILL Stop: 03/11/18 08:59 Last Admin: 01/17/18 08:36 Dose: Not Given Benztropine Mesylate (Cogentin) 0.5 mg PO BID WILL Stop: 03/11/18 08:59 Last Admin: 01/17/18 08:36 Dose: Not Given Carbidopa/Levodopa (Sinemet 25mg-100 Mg) 1 tab PO TID WILL Stop: 03/11/18 08:59 Last Admin: 01/17/18 08:36 Dose: Not Given Cholecalciferol (Vitamin D3) 2,000 iu PO DAILY WILL Stop: 03/11/18 08:59 Last Admin: 01/17/18 08:36 Dose: Not Given Ipratropium [place] (Atrovent Neb 0.5mg/2.5ml) 0.5 mg HHN Q2HRT PRN PRN Reason: Shortness of Breath or Wheeze Stop: 03/10/18 23:51 Latanoprost (Xalatan 0.005% Ophth Soln) 0 drop EACH EYE HS [facility] Stop: 03/11/18 20:59 Last Admin: 01/16/18 20:54 Dose: Not Given Levothyroxine Sodium (Synthroid) 0.025 mg PO QDAC WILL Stop: 03/11/18 07:29 Last Admin: 01/17/18 06:31 Dose: Not Given Lorazepam (Ativan) 0.5 mg PO Q4H PRN; Protocol PRN Reason: Anxiety Stop: 03/11/18 00:23 Last Admin: 01/16/18 03:11 Dose: 0.5 mg Magnesium Hydroxide (Milk Of Magnesia) 30 ml PO HS PRN PRN Reason: Constipation Multivitamins/Vitamin C (Theragran) 1 tab PO DAILY WILL Stop: 03/11/18 08:59 Last Admin: 01/17/18 08:36 Dose: Not Given Polyethylene Glycol (Miralax) 17 gm PO BID WILL Stop: 03/11/18 08:59 Last Admin: 01/17/18 08:36 Dose: Not Given Valproate Sodium (Depakene) 500 mg PO HS WILL Stop: 03/16/18 20:59 Last Admin: 01/16/18 20:55 Dose: Not Given General: alert HEENT: NC/AT, PERRLA Neck: Supple Lungs: CTAB Cardiovascular: RRR, Normal S1, Normal S2, without murmur Abdomen: soft, non-distended, positive bowel sound Neurological: alert - Procedures Procedures: Procedures Procedure Code Date CLOSURE SKIN & SUBCUTANEOUS NEC 86.59 07/07/12 DPT ADMINISTRATION 99.39 07/07/12 IMMUNIZATION ADMIN 30120 07/07/12 OTHER GROUP THERAPY 94.44 12/10/14 RECREATIONAL THERAPY 93.81 09/15/12 RPR S/N/AX/GEN/TRNK 2.5CM/< 75152 07/07/12 TDAP VACCINE 7 YRS/> IM 08164 07/07/12 Internal Medicine Assmt/Plan - Assessment Assessment: tremors hypothyroidism parkinson's dementia - Plan Plan: dc planning as per psych continue with synthroid safety precautions continue current plan of care Nutritional Asmnt/Malnutr-PDOC - Dietary Evaluation Malnutrition Findings (Please click <Entered> for more info): Nutritional Asmnt/Malnutrition Start: 01/13/18 16: 14 Text: Status: Complete Freq: Protocol: Document 01/13/18 16:14 TANVIG (Rec: 06/14/18 16:29 LCHENG [id number]) Nutritional Asmnt/Malnutrition Patient General Information Nutritional Screening Moderate Risk Diagnosis psychosis NOS Pertinent Medical Hx/Surgical Hx HTN, seizures, hypothyroid, dementia, parkinson's glaucoma , constipation Subjective Information Per EMR, PO itnake 100%. Pt is confused, not able to get more informaiton. Current Diet Order/ Nutrition Support mech soft chopped, NOÉ Pertinent Medications viot D3, synthorid, theragran Pertinent Labs 01/09 Na 135, Glucose 107, A1c 5.4 Nutritional Hx/Data Height 5 ft 11 in Height (Calculated Centimeters) 180.3 Current Weight (lbs) 155 lb Weight (Calculated Kilograms) 70.3 Weight (Calculated Grams) 22298.8 [place] Body Weight 172 Body Mass Index (BMI) 21.6 Weight Status Approriate GI Symptoms GI Symptoms None Last BM 01/12 Difficult in: None Skin Integrity/Comment: intact Current %PO Good (75-100%) Estimated Nutritional Goals BEE in Kcals: Using Current wt Calories/Kcals/Kg 25-30 Kcals Calculated 3637-3948 Protein: Using Current wt Protein g/k.8 Protein Calculated 56 Fluid: ml 1750-2100ml (1ml/kcal) Nutritional Problem No current Nutrition Prob Problem N/A Malnutrition Alert Is there a minimum of two criteria No selected? Query Text:Check all the applicable criteria. A minimum of two criteria are recommended for diagnosis of either severe or non-severe malnutrition. Malnutrition Related to Morbid Obesity Malnutrition related to morbid obesity No Intervention/Recommendation Comments 1. Continue with current diet as ordered. 2. Monitor PO intake, wt, labs and skin integrity 3. F/U as low risk in 7 days, 01/20 Expected Outcomes/Goals Expected Outcomes/Goals 1. PO intake to meet at least 75% of nutritional needs. 2. Wt stability, skin to remain intact, labs to approach WNL.
--- NOTE | 2018-01-18 01:50 | Progress Notes ---
DATE: 01/17/2018 SUBJECTIVE: Staff was spoken to. The patient is interviewed. Mood is noted to be less irritable. Affect is appropriate. Not suicidal or homicidal. No major behavioral problems are noted. Coping skills are noted to be improving. The patient, however, has been reluctant to take the medications in the morning, but the patient has been given the Depakote at night time. ASSESSMENT: The patient is stabilizing. PLAN: To discharge the patient today for followup on outpatient basis. JOB# [id number]
== END 2018-01-17 17:30 | DRG 885 ==
LOC: ER 20:40 → GERO2 23:10
DX: F29 Unspecified psychosis not due to a substance or known physiological condition (principal); F02.81 Dementia in other diseases classified elsewhere, unspecified severity, with behavioral disturbance; N18.6 End stage renal disease; I12.0 Hypertensive chronic kidney disease with stage 5 chronic kidney disease or end stage renal disease; G20 Parkinson's disease; E03.9 Hypothyroidism, unspecified; J44.9 Chronic obstructive pulmonary disease, unspecified; M19.90 Unspecified osteoarthritis, unspecified site; H40.9 Unspecified glaucoma; Z88.8 Allergy status to other drugs, medicaments and biological substances
CPT/HCPCS: 36415-UA; 71045-TC; 80053-TC; 80061-TC; 80164-TC; 83036-90; 84443-TC; 85007-TC; 85025-TC; 85027-TC; 86592-TC; 93005; 94760; Z7610

== ENCOUNTER 2018-06-28 14:43 | Inpatient (IN) | payer MEDICARE, MEDICAID ==
--- NOTE | 2018-06-28 15:07 | ED Physician Chart ---
ED Chief Complaint/HPI - Patient Information Date Seen:: 06/28/18 Time Seen:: 14:50 Chief Complaint:: Agitation History of Present Illness:: onset x 3 days of agitation and loud behavior; no report of trauma, H/As, SIs, S /T, neck pain, cough, C/P, SOB, Abd. Pain, A/N/V/D/C, fever, chills, or urinary s/s Allergies:: Allergies Allergy/AdvReac Type Severity Reaction Status Date / Time chlorpheniramine Allergy Unknown Unverified 01/10/18 00:01 chloropyramine Allergy Unknown Uncoded 01/09/18 23:57 Historian:: Patient, EMS Review:: Nurse's Note Reviewed, Old Chart Reviewed, EMS run form Reviewed ED Review of Systems - Review of Systems General/Constitutional: No fever, No chills, No weight loss, No weakness, No diaphoresis, No edema, No loss of appetite Skin: No skin lesions, No rash, No bruising Head: No headache, No light-headedness Eyes: No loss of vision, No pain, No diplopia ENT: No earache, No nasal drainage, No sore throat, No tinnitus Neck: No neck pain, No swelling, No thyromegaly, No stiffness, No mass noted Cardio Vascular: No chest pain, No palpitations, No PND, No orthopnea, No edema Pulmonary: No SOB, No cough, No sputum, No wheezing GI: No nausea, No vomiting, No diarrhea, No pain, No melena, No hematochezia, No constipation, No hematemesis G/U: No dysuria, No frequency, No hematuria, No nacturia Musculoskeletal: No bone or joint pain, No back pain, No muscle pain Endocrine: No polyuria, No polydipsia Psychiatric: Prior psych history, Depression, Anxiety, No suicidal ideation, No homicidal ideation, No auditory hallucination, No visual hallucination Hematopoietic: No bruising, No lymphadenopathy Allergic/Immuno: No urticaria, No angioedema Neurological: No syncope, No focal symptoms, No weakness, No paresthesia, No headache, No seizure, No dizziness, Confusion, No vertigo ED Past Medical History - Past Medical History Obtainable: Yes Past Medical History: HTN, Asthma/COPD, ESRD, Thyroid disorder, Dementia Family History: HTN Social History: Non Smoker, No Alcohol, No Drug Use, Single, Care Facility Surgical History: None Psychiatricy History: Schizophrenia, Dementia Medication: Reviewed Family Medical History - Family Member Mother History Unknown: Yes Ethnicity: Unknown Living Status: Unknown Hx Family Cancer: (UNKNOWN) Hx Family Coronary Artery Disease: (UNKNOWN) Hx Family Congestive Heart Failure: (UNKNOWN) Hx Family Hypertension: (UNKNOWN) Hx Family Stroke: (UNKNOWN) Hx Family Diabetes: (UNKNOWN) Hx Family Seizures: (UNKNOWN) Hx Family Dementia: (UNKNOWN) Hx Family AIDS: (UNKNOWN) Hx Family COPD: (UNKNOWN) Hx Family Hepatitis: (UNKNOWN) Hx Family Psychiatric Problems: (UNKNOWN) Hx Family Tuberculosis: (UNKNOWN) ED Physical Exam - Physical Examination General/Constitutional: Awake, Well-developed, well-nourished, Alert, No distress, GCS 15, Non-toxic appearing, Ambulatory Head: Atraumatic Eyes: Lids, conjuctiva normal, PERRL, EOMI Skin: Nl inspection, No rash, No skin lesions, No ecchymosis, Well hydrated, No lymphadenopathy ENMT: External ears, nose nl, TM canals nl, Nasal exam nl, Lips, teeth, gums nl , Oropharynx nl, Tonsils nl Neck: Nontender, Full ROM w/o pain, No JVD, No nuchal rigidity, No bruit, No mass, No stridor Respiratory: Nl effort/Exclusion, Clear to Auscultation, No Wheeze/Rhonchi/Rales Cardio Vascular: RRR, No murmur, gallop, rubs, NL S1 S2, Carotid/Femoral/Distal pulses equal bilaterally GI: No tenderness/rebounding/guarding, No organomegaly, No hernia, Normal BS's, Nondistended, No mass/bruits, No McBurney tenderness : No CVA tenderness Extremities: No tenderness or effusion, Full ROM, normal strength in all extremities, No edema, Normal digits & nails Neuro/Psych: Alert/oriented, DTR's symmetric, Normal sensory exam, Normal motor strength, Judgement/insight normal, Mood normal, Normal gait, No focal deficits Other Neuro/Psych comments:: + Psychomotor Agitation; no SIs; Mood/Affect: Labile Misc: Normal back, No paraspinal tenderness ED Labs/Radiology/EKG Results - Lab Results Comments:: Reviewed - EKG Interpretations Comments:: deferred by pt ED Septic Shock - . Is Septic Shock (SBP<90, OR Lactate>4 mmol\L) present?: No ED Reassessment (Disposition) - Reassessment Reassessment Condition:: Improved - Diagnosis Diagnosis:: Agitation; Medical Clearance; Psychosis; Manic-Depression; Bipolar Disorder - Aftercare/Follow up Instructions Aftercare/Follow-Up Instructions:: Counseled pt regarding lab results/diagnosis & need follow up, Counseled pt & family regarding lab results/diagnosis & need follow up - Patient Disposition Discharge/Transfer:: Acute Care w/in this hosp Admitted to:: [facility] Condition at Disposition:: Stable, Improved
[2018-06-28 16:41] LABS: URINE SOURCE CLEAN C
[2018-06-28 16:51] LABS: URINE BILIRUBIN NEGATIVE (NEGATIVE); URINE BLOOD NEGATIVE (NEGATIVE); URINE GLUCOSE (UA) NEGATIVE (NEGATIVE); URINE KETONE NEGATIVE (NEGATIVE); URINE LEUKOCYTE ESTERASE NEGATIVE (NEGATIVE); URINE NITRATE NEGATIVE (NEGATIVE); URINE PROTEIN NEGATIVE (NEGATIVE); URINE UROBILINOGEN 0.2 E.U./dL (0.2 - 1.0)
[2018-06-28 16:54] LABS: URINE CLARITY CLEAR (CLEAR); URINE COLOR YELLOW; URINE MICROSCOPIC INDICATED? YES
[2018-06-28 16:56] LABS: URINE BACTERIA OCCASIONAL /hpf (NONE SEEN); URINE EPITHELIAL CELLS FEW /lpf (FEW); URINE RBC NONE SEEN /hpf (0-5); URINE WBC 0-2 /hpf (0-5)
[2018-06-28 16:58] LABS: AMPHETAMINE URINE NEGATIVE (NEGATIVE); BARBITURATES URINE NEGATIVE (NEGATIVE); BENZODIAZEPINES QUAL URINE NEGATIVE (NEGATIVE); CANNABINOID THC NEGATIVE (NEGATIVE); COCAINE METABOLITE QUAL URINE NEGATIVE (NEGATIVE); METHADONE URINE NEGATIVE (NEGATIVE); METHAMPHETAMINES QUAL URINE NEGATIVE (NEGATIVE); OPIATES (MORPHINE) QUAL. URINE NEGATIVE (NEGATIVE); PHENCYCLIDINE (PCP) URINE NEGATIVE (NEGATIVE); TRICYCLICS (TCA) QUAL. URINE NEGATIVE (NEGATIVE)
[2018-06-28 19:42] VITALS: BP 140/80
[2018-06-28] MEDS ORDERED: Ipratropium Neb 0.5 mg/2.5 mL UD HHN PRN (19:47)
[2018-06-28] MEDS ORDERED: Albuterol Nebulizer 2.5mg/3mL HHN PRN (19:47)
[2018-06-28] MEDS ORDERED: Maalox 30 mL Cup PO PRN (19:47)
[2018-06-28] MEDS ORDERED: Magnesium Hydroxide (MOM) 30 mL UDC PO PRN (19:47)
[2018-06-29] MEDS: Levothyroxine 0.025 Mg Tab PO SCH ×2 (06:57→08:49)
[2018-06-29] MEDS: POLYETHYLENE GLYCOL 3350 17 GM PACK PO SCH ×2 (08:46→16:36)
[2018-06-29] MEDS: Multivitamin Tab PO SCH (08:47)
--- NOTE | 2018-06-29 14:47 | History and Physical ---
History of Present Illness - HPI Chief Complaint: agitation HPI: This is a 77-year old male who [facility] admitted [facility] the [facility] due to agitation towards nursing staff and residents at the sn[facility]. Vital Signs: Last Vital Signs Temp 97.2 F 06/29/18 08:00 Pulse 86 06/29/18 08:47 Resp 16 06/29/18 08:45 BP 128/78 06/29/18 08:47 Pulse Ox 96 06/29/18 08:45 Past Medical History Other History: HTN, Asthma/COPD, ESRD, hypothyroid, Dementia Family Medical History - Family Member Mother History Unknown: Yes Ethnicity: Unknown Living Status: Unknown Hx Family Cancer: (UNKNOWN) Hx Family Coronary Artery Disease: (UNKNOWN) Hx Family Congestive Heart Failure: (UNKNOWN) Hx Family Hypertension: (UNKNOWN) Hx Family Stroke: (UNKNOWN) Hx Family Diabetes: (UNKNOWN) Hx Family Seizures: (UNKNOWN) Hx Family Dementia: (UNKNOWN) Hx Family AIDS: (UNKNOWN) Hx Family COPD: (UNKNOWN) Hx Family Hepatitis: (UNKNOWN) Hx Family Psychiatric Problems: (UNKNOWN) Hx Family Tuberculosis: (UNKNOWN) Social History Smoke: No Alcohol: None Drugs: None Lives: Senior Care - Medications Home Medications: Home Medication Medication Instructions Recorded Type Acetaminophen [Tylenol] 650 mg PO Q4H PRN tab 01/17/18 Rx Acetaminophen [Tylenol] 650 mg PO Q4H PRN tab 01/17/18 Rx Al Hyd/Mg Hyd/Simethicone [Maalox] 30 ml PO Q4H PRN udc 01/17/18 Rx Albuterol Nebulizer 2.5mg/3mL 2.5 mg HHN Q2HRT PRN each 01/17/18 Rx [Albuterol Neb UD*] Benztropine [Cogentin*] 0.5 mg PO BID tab 01/17/18 Rx Carbidopa/Levodopa 25/100 mg 1 tab PO TID tab 01/17/18 Rx [Sinemet 25mg-100 mg] Cholecalciferol (Vit D3) [Vitamin 2,000 iu PO DAILY tab 01/17/18 Rx D3] Ipratropium Neb 0.5 mg/2.5 mL 0.5 mg HHN Q2HRT PRN each 01/17/18 Rx [Atrovent Neb 0.5MG/2.5ML] Latanoprost 0.005% Oph Soln 0 drop EACH EYE HS drops 01/17/18 Rx [Xalatan 0.005% Ophth Soln] Levothyroxine [Synthroid] 0.025 mg PO QDAC tab 01/17/18 Rx Lorazepam [Ativan] 0.5 mg PO Q4H PRN tab 01/17/18 Rx Magnesium Hydroxide [Milk of 30 ml PO HS PRN udc 01/17/18 Rx Magnesia] Multivitamin [Theragran] 1 tab PO DAILY tab 01/17/18 Rx Polyethylene Glycol 3350 [Miralax] 17 gm PO BID pack 01/17/18 Rx Valproic Acid [Depakene] 500 mg PO HS udc 01/17/18 Rx amLODIPine Besylate [Norvasc*] 10 mg PO DAILY tab 01/17/18 Rx cloNIDine HCl [Catapres] 0.1 mg PO Q6H PRN tab 01/17/18 Rx - Allergies Allergies/Adverse Reactions: Allergies Allergy/AdvReac Type Severity Reaction Status Date / Time chlorpheniramine Allergy Unknown Verified 06/28/18 21:22 chloropyramine Allergy Unknown Uncoded 01/09/18 23:57 Review of Systems - Review of Systems Constitutional: Report: No Significant Eyes: Report: No Significant Respiratory: Report: No Significant Cardiovascular: Report: No Significant Neurological: Report: No Significant Physical Exam - Physical Exam HEENT: Report: Ears Nose Throat within normal limits Neck: Report: Within normal limits Cardiovascular Systems: Report: +s1/s2 noted, Regular, Rate and Rhythm Respiratory: Report: Breath Sounds are within normal limits, Clear to Auscultation of lung [place] Abdomen: Report: Non-tender to palpation Back: Report: Inspection of back is within normal limits. Skin: Report: Color of skin is within normal limits, Warm, Dry Neuro/Psych: Report: Depressed affect - Lab Results All Lab Results last 24 hours: Laboratory Results - last 24 hr 06/28/18 06/28/18 16:16 16:16 Urine Source CLEAN C Urine Color YELLOW Urine Clarity CLEAR Urine pH 6.0 Ur Specific [place] 1.010 Urine Protein NEGATIVE Urine Glucose (UA) NEGATIVE Urine Ketones NEGATIVE Urine Blood NEGATIVE Urine Nitrate NEGATIVE Urine Bilirubin NEGATIVE Urine Urobilinogen 0.2 Ur Leukocyte Esterase NEGATIVE Urine RBC NONE SEEN Urine WBC 0-2 Ur Epithelial Cells FEW Urine Bacteria OCCASIONAL Urine Opiates Screen NEGATIVE Urine Methadone Screen NEGATIVE Ur Barbiturates Screen NEGATIVE Ur Tricyclics Screen NEGATIVE Ur Phencyclidine Scrn NEGATIVE Amphetamines Screen NEGATIVE U Methamphetamines Scrn NEGATIVE U Benzodiazepines Scrn NEGATIVE U Cocaine Metab Screen NEGATIVE U Cannabinoids Screen NEGATIVE - Assessment Assessment: HTN ASTHMA COPD HYPOTHYROID DEMENTIA - Plan Plan: fall precautions monitor bp closely prn o2 continue current orders
--- NOTE | 2018-06-30 02:27 | Psychiatric Evaluation ---
DATE OF SERVICE: 06/28/2018 IDENTIFYING DATA: The patient is a 77-year-old male, resident of [facility]. Information obtained by directly interviewing the patient as well as reviewing the admission papers. JUSTIFICATION FOR OF HOSPITALIZATION: The patient is admitted here for acute psychosis and agitation. CHIEF COMPLAINT: "I do not know." HISTORY OF PRESENT ILLNESS: This is one of multiple psychiatric hospitalizations for this patient who has been a resident of the [facility]. The patient is reported to have been getting easily agitated. The patient has been diagnosed to have psychosis and lately the dementia related behavioral problems have been getting out of control and he is getting decompensated. Sleep and appetite prior to the hospitalization are reported to be poor. PAST PSYCHIATRIC HISTORY: Please refer to the above. The patient was hospitalized on multiple occasions. MEDICAL HISTORY: Physical examination is requested by Dr. Jon and is significant for high blood pressure and Parkinson's disease. SOCIAL HISTORY: The patient is resident of [facility]. PHYSICAL OR SEXUAL ABUSE HISTORY: None. LEGAL PROBLEMS: None at this time. MENTAL STATUS EXAMINATION: The patient is a 77-year-old, looking his stated age, superficially cooperative. The patient is getting easily irritated and frustrated and angry when I am asking the questions. The patient is alert and awake, but he is not able to give me any information. The patient's short and long-term are noted to be poor. The patient has been having difficult time to cope with the stress at this time. The patient is getting easily frustrated. DIAGNOSTIC IMPRESSION: AXIS I: Dementia and behavioral change, secondary trait. B: Psychotic disorder, not otherwise specified. AXIS II: None. AXIS III: As per Dr. Jon. IMMEDIATE TREATMENT PLAN: The patient is going to be observed on inpatient unit and provided with supportive psychotherapy. The patient is going to be closely monitored and once stabilized, the patient is going to be discharged to [facility] to be followed up on an outpatient basis. JOB# [id number]
[2018-06-30] MEDS: Levothyroxine 0.025 Mg Tab PO SCH (07:04)
[2018-06-30] MEDS: POLYETHYLENE GLYCOL 3350 17 GM PACK PO SCH ×2 (08:36→16:52)
[2018-06-30] MEDS: Multivitamin Tab PO SCH (08:36)
--- NOTE | 2018-06-30 14:16 | Internal Medicine Prog Note ---
Internal Medicine Subjective - Subjective Service Date: 06/30/18 Patient seen and examined:: with staff Patient is:: awake, agitated, confused Per staff patient has:: tolerating meds Internal Medicine Objective - Results Recent Labs: Laboratory Last Values Urine Source CLEAN C 06/28/18 16:16 Urine Color YELLOW 06/28/18 16:16 Urine Clarity CLEAR (CLEAR) 06/28/18 16:16 Urine pH 6.0 (4.6 - 8.0) 06/28/18 16:16 Ur Specific [place] 1.010 (1.005-1.030) 06/28/18 16:16 Urine Protein NEGATIVE mg/dL (NEGATIVE) 06/28/18 16:16 Urine Glucose (UA) NEGATIVE mg/dL (NEGATIVE) 06/28/18 16:16 Urine Ketones NEGATIVE mg/dL (NEGATIVE) 06/28/18 16:16 Urine Blood NEGATIVE (NEGATIVE) 06/28/18 16:16 Urine Nitrate NEGATIVE (NEGATIVE) 06/28/18 16:16 Urine Bilirubin NEGATIVE (NEGATIVE) 06/28/18 16:16 Urine Urobilinogen 0.2 E.U./dL (0.2 - 1.0) 06/28/18 16:16 Ur Leukocyte Esterase NEGATIVE (NEGATIVE) 06/28/18 16:16 Urine RBC NONE SEEN /hpf (0-5) 06/28/18 16:16 Urine WBC 0-2 /hpf (0-5) 06/28/18 16:16 Ur Epithelial Cells FEW /lpf (FEW) 06/28/18 16:16 Urine Bacteria OCCASIONAL /hpf (NONE SEEN) 06/28/18 16:16 Urine Opiates Screen NEGATIVE (NEGATIVE) 06/28/18 16:16 Urine Methadone Screen NEGATIVE (NEGATIVE) 06/28/18 16:16 Ur Barbiturates Screen NEGATIVE (NEGATIVE) 06/28/18 16:16 Ur Tricyclics Screen NEGATIVE (NEGATIVE) 06/28/18 16:16 Ur Phencyclidine Scrn NEGATIVE (NEGATIVE) 06/28/18 16:16 Amphetamines Screen NEGATIVE (NEGATIVE) 06/28/18 16:16 U Methamphetamines Scrn NEGATIVE (NEGATIVE) 06/28/18 16:16 U Benzodiazepines Scrn NEGATIVE (NEGATIVE) 06/28/18 16:16 U Cocaine Metab Screen NEGATIVE (NEGATIVE) 06/28/18 16:16 U Cannabinoids Screen NEGATIVE (NEGATIVE) 06/28/18 16:16 - Physical Exam Vitals and I&O: Vital Signs Temp 97.6 F 06/30/18 06:55 Pulse 69 06/30/18 06:58 Resp 18 06/30/18 06:58 BP 140/79 06/30/18 06:55 Pulse Ox 98 06/30/18 06:58 Intake & Output 06/29/18 06/30/18 06/30/18 18:59 06:59 18:59 Intake Total 900 120 Balance 900 120 Intake: Oral 900 120 Other: # Voids 3 3 # Bowel Movements 1 Active Medications: Current Medications Acetaminophen (Tylenol) 650 mg PO Q4H PRN PRN Reason: Mild Pain / Temp above 100 Stop: 08/27/18 19:46 Al Hydrox/Mg Hydrox/Simethicone (Maalox) 30 ml PO Q4H PRN PRN Reason: GI DISTRESS Stop: 08/27/18 19:46 Albuterol Sulfate (Albuterol 2.5mg/3ml Neb Ud) 2.5 mg HHN Q2HRT PRN PRN Reason: Shortness of Breath or Wheeze Stop: 08/27/18 19:46 Amlodipine Besylate (Norvasc) 10 mg PO DAILY [facility] Stop: 08/28/18 08:59 Last Admin: 06/30/18 08:36 Dose: Not Given Benztropine Mesylate (Cogentin) 0.5 mg PO BID [facility] Stop: 08/28/18 08:59 Last Admin: 06/30/18 08:36 Dose: Not Given Carbidopa/Levodopa (Sinemet 25mg-100 Mg) 1 tab PO TID [facility] Stop: 08/27/18 20:59 Last Admin: 06/30/18 13:39 Dose: Not Given Cholecalciferol (Vitamin D3) 2,000 iu PO DAILY [facility] Stop: 08/28/18 08:59 Last Admin: 06/30/18 08:36 Dose: Not Given Ipratropium [place] (Atrovent Neb 0.5mg/2.5ml) 0.5 mg HHN Q2HRT PRN PRN Reason: Shortness of Breath or Wheeze Stop: 08/27/18 19:46 Latanoprost (Xalatan 0.005% Ophth Soln) 1 drop EACH EYE HS [facility] Stop: 08/27/18 20:59 Last Admin: 06/29/18 20:41 Dose: Not Given Levothyroxine Sodium (Synthroid) 0.025 mg PO QDAC WILL Stop: 08/28/18 07:29 Last Admin: 06/30/18 07:04 Dose: Not Given Lorazepam (Ativan) 0.5 mg PO Q4H PRN; Protocol PRN Reason: Anxiety Stop: 08/27/18 19:46 Magnesium Hydroxide (Milk Of Magnesia) 30 ml PO HS PRN PRN Reason: Constipation Stop: 08/27/18 19:46 Multivitamins/Vitamin C (Theragran) 1 tab PO DAILY WILL Stop: 08/28/18 08:59 Last Admin: 06/30/18 08:36 Dose: Not Given Polyethylene Glycol (Miralax) 17 gm PO BID WILL Stop: 08/28/18 08:59 Last Admin: 06/30/18 08:36 Dose: Not Given Valproate Sodium (Depakene) 500 mg PO HS WILL; Protocol Stop: 08/27/18 20:59 Last Admin: 06/29/18 20:41 Dose: Not Given General: alert HEENT: NC/AT, PERRLA Neck: Supple Lungs: CTAB Cardiovascular: RRR, Normal S1, Normal S2 Abdomen: soft, non-tender, non-distended, positive bowel sound Neurological: alert - Procedures Procedures: Procedures Procedure Code Date CLOSURE SKIN & SUBCUTANEOUS NEC 86.59 07/07/12 DPT ADMINISTRATION 99.39 07/07/12 IMMUNIZATION ADMIN 05200 07/07/12 OTHER GROUP THERAPY 94.44 12/10/14 RECREATIONAL THERAPY 93.81 09/15/12 RPR S/N/AX/GEN/TRNK 2.5CM/< 12726 07/07/12 TDAP VACCINE 7 YRS/> IM 21838 07/07/12 Internal Medicine Assmt/Plan - Assessment Assessment: HTN ASTHMA COPD HYPOTHYROID DEMENTIA - Plan Plan: fall precautions monitor bp closely prn o2 continue current orders
--- NOTE | 2018-06-30 19:52 | Progress Notes ---
DATE: 06/30/2018 PSYCHIATRIC PROGRESS NOTE SUBJECTIVE: Staff was spoken to. The patient is interviewed. Mood is noted to be irritable. Affect is constricted. Insight and judgment at this time are noted to be still impaired. Impulse control is noted to be poor. Coping skills are noted to be very poor. The patient has been having difficult time to cope with the stress. The patient is stating that he would rather be in the room than being out with the groups because he hates them. The patient has been able to tolerate the medication. The patient is currently on 500 mg of Depakene at nighttime and has been able to verbalize the concerns rather than to act out. No major behavioral problems are noted. The patient also has a history of Parkinson's disease and I am hence hesitant to start the patient on an antipsychotic medication. ASSESSMENT: The patient's impulsivity is a concern. PLAN: To continue the patient with the supportive therapy. I encouraged the patient to verbalize his concerns rather than to act out. [facility]# [id number]
--- NOTE | 2018-07-01 05:15 | Consultation ---
DATE OF CONSULTATION: 06/30/2018 REFERRING PHYSICIAN: Juana Blue MD TYPE OF CONSULTATION: Psychology. HISTORY OF PRESENT ILLNESS: The patient is a 77-year-old male. The patient is a resident of [facility]. The following is by record review and by the patient's self-report. The patient is being admitted due to acute psychosis as well as increased agitation. The staff at the patient's facility report that he has been getting easily agitated and is uncontrollable. The patient denied any suicidal ideation, plan or intention at the time of the clinical interview. The patient does not understand why he is being hospitalized. PAST MEDICAL HISTORY: Please see history and physical by Dr. Jon. PAST PSYCHIATRIC HISTORY: The patient has multiple previous psychiatric hospitalizations. The patient is being seen by Psychiatry at his facility. The patient has a history of dementia. SUBSTANCE ABUSE HISTORY: The patient denied any history of alcohol, tobacco or illicit drug use. PSYCHOSOCIAL HISTORY: The patient is a resident of [facility]. The patient did not answer questions about occupational or educational history or jain affiliation. The patient did not answer questions about history of physical or sexual abuse or current legal problems. The patient did not answer questions about family relationships or family members or others involved in his care. MENTAL STATUS EXAMINATION: The patient appears to be his stated age. The patient's attitude is superficially cooperative. Eye contact is poor. Speech is delayed but loud at times. Mood is irritable. Affect is constricted. The patient did not answer questions about suicidal ideation, plan or intention. The patient did not answer questions about auditory or visual hallucinations. The patient's behavior is easily irritated and frustrated during the clinical interview. Impulse control is inadequate. Concentration is poor. The patient did not participate in the memory assessment. Sensorium was alert and oriented to self and place. The patient did not participate in the interpretation of proverbs and refused to answer any other clinical interview questions. Insight is poor. Judgment is impaired. DIAGNOSTIC IMPRESSION: AXIS I: 1. Dementia with behavioral disturbance. 2. Psychotic disorder, not otherwise specified. AXIS II: Deferred. AXIS III: Per Dr. Jon. TREATMENT PLAN: The patient has been seen by Dr. Blue for psychiatric evaluation and for the management of the patient's psychotropic medications. We will provide supportive psychotherapy to include reality orientation, differentiation and integration. We will provide coping strategies for phase of life issues. We will encourage the patient to be able to demonstrate emotional and self-regulation prior to discharge. We will provide stress management to assist the patient in increasing his frustration tolerance and to be able to verbalize his concerns versus acting out. We will provide motivational enhancement for the patient to become compliant and stay compliant with all aspects of his care and treatment. Thank you Dr. Blue for this consult and the opportunity to participate in this patient's care. JOB# [id number] AUDELIA
[2018-07-01] MEDS: Levothyroxine 0.025 Mg Tab PO SCH (06:47)
[2018-07-01] MEDS: POLYETHYLENE GLYCOL 3350 17 GM PACK PO SCH ×2 (08:05→16:07)
[2018-07-01] MEDS: Multivitamin Tab PO SCH (08:05)
--- NOTE | 2018-07-01 13:47 | Internal Medicine Prog Note ---
Internal Medicine Subjective - Subjective Service Date: 07/01/18 Patient is:: awake, agitated, confused Per staff patient has:: tolerating meds Internal Medicine Objective - Results Recent Labs: Laboratory Last Values Urine Source CLEAN C 06/28/18 16:16 Urine Color YELLOW 06/28/18 16:16 Urine Clarity CLEAR (CLEAR) 06/28/18 16:16 Urine pH 6.0 (4.6 - 8.0) 06/28/18 16:16 Ur Specific [place] 1.010 (1.005-1.030) 06/28/18 16:16 Urine Protein NEGATIVE mg/dL (NEGATIVE) 06/28/18 16:16 Urine Glucose (UA) NEGATIVE mg/dL (NEGATIVE) 06/28/18 16:16 Urine Ketones NEGATIVE mg/dL (NEGATIVE) 06/28/18 16:16 Urine Blood NEGATIVE (NEGATIVE) 06/28/18 16:16 Urine Nitrate NEGATIVE (NEGATIVE) 06/28/18 16:16 Urine Bilirubin NEGATIVE (NEGATIVE) 06/28/18 16:16 Urine Urobilinogen 0.2 E.U./dL (0.2 - 1.0) 06/28/18 16:16 Ur Leukocyte Esterase NEGATIVE (NEGATIVE) 06/28/18 16:16 Urine RBC NONE SEEN /hpf (0-5) 06/28/18 16:16 Urine WBC 0-2 /hpf (0-5) 06/28/18 16:16 Ur Epithelial Cells FEW /lpf (FEW) 06/28/18 16:16 Urine Bacteria OCCASIONAL /hpf (NONE SEEN) 06/28/18 16:16 Urine Opiates Screen NEGATIVE (NEGATIVE) 06/28/18 16:16 Urine Methadone Screen NEGATIVE (NEGATIVE) 06/28/18 16:16 Ur Barbiturates Screen NEGATIVE (NEGATIVE) 06/28/18 16:16 Ur Tricyclics Screen NEGATIVE (NEGATIVE) 06/28/18 16:16 Ur Phencyclidine Scrn NEGATIVE (NEGATIVE) 06/28/18 16:16 Amphetamines Screen NEGATIVE (NEGATIVE) 06/28/18 16:16 U Methamphetamines Scrn NEGATIVE (NEGATIVE) 06/28/18 16:16 U Benzodiazepines Scrn NEGATIVE (NEGATIVE) 06/28/18 16:16 U Cocaine Metab Screen NEGATIVE (NEGATIVE) 06/28/18 16:16 U Cannabinoids Screen NEGATIVE (NEGATIVE) 06/28/18 16:16 - Physical Exam Vitals and I&O: Vital Signs Temp 97.6 F 06/30/18 20:23 Pulse 66 07/01/18 09:36 Resp 18 07/01/18 09:36 BP 118/69 06/30/18 20:23 Pulse Ox 97 07/01/18 09:36 Intake & Output 06/30/18 07/01/18 07/01/18 18:59 06:59 18:59 Intake Total 1100 240 Balance 1100 240 Intake: Oral 1100 240 Other: # Voids 40 2 # Bowel Movements 1 Active Medications: Current Medications Acetaminophen (Tylenol) 650 mg PO Q4H PRN PRN Reason: Mild Pain / Temp above 100 Stop: 08/27/18 19:46 Al Hydrox/Mg Hydrox/Simethicone (Maalox) 30 ml PO Q4H PRN PRN Reason: GI DISTRESS Stop: 08/27/18 19:46 Albuterol Sulfate (Albuterol 2.5mg/3ml Neb Ud) 2.5 mg HHN Q2HRT PRN PRN Reason: Shortness of Breath or Wheeze Stop: 08/27/18 19:46 Amlodipine Besylate (Norvasc) 10 mg PO DAILY [facility] Stop: 08/28/18 08:59 Last Admin: 07/01/18 08:00 Dose: Not Given Benztropine Mesylate (Cogentin) 0.5 mg PO BID [facility] Stop: 08/28/18 08:59 Last Admin: 07/01/18 08:05 Dose: Not Given Carbidopa/Levodopa (Sinemet 25mg-100 Mg) 1 tab PO TID [facility] Stop: 08/27/18 20:59 Last Admin: 07/01/18 08:05 Dose: Not Given Cholecalciferol (Vitamin D3) 2,000 iu PO DAILY [facility] Stop: 08/28/18 08:59 Last Admin: 07/01/18 08:05 Dose: Not Given Ipratropium [place] (Atrovent Neb 0.5mg/2.5ml) 0.5 mg HHN Q2HRT PRN PRN Reason: Shortness of Breath or Wheeze Stop: 08/27/18 19:46 Latanoprost (Xalatan 0.005% Ophth Soln) 1 drop EACH EYE HS [facility] Stop: 08/27/18 20:59 Last Admin: 06/30/18 21:23 Dose: Not Given Levothyroxine Sodium (Synthroid) 0.025 mg PO QDAC [facility] Stop: 08/28/18 07:29 Last Admin: 07/01/18 06:47 Dose: Not Given Lorazepam (Ativan) 0.5 mg PO Q4H PRN; Protocol PRN Reason: Anxiety Stop: 08/27/18 19:46 Last Admin: 07/01/18 09:14 Dose: 0.5 mg Magnesium Hydroxide (Milk Of Magnesia) 30 ml PO HS PRN PRN Reason: Constipation Stop: 08/27/18 19:46 Multivitamins/Vitamin C (Theragran) 1 tab PO DAILY [facility] Stop: 08/28/18 08:59 Last Admin: 07/01/18 08:05 Dose: Not Given Polyethylene Glycol (Miralax) 17 gm PO BID [facility] Stop: 08/28/18 08:59 Last Admin: 07/01/18 08:05 Dose: Not Given Valproate Sodium (Depakene) 500 mg PO HS WILL; Protocol Stop: 08/27/18 20:59 Last Admin: 06/30/18 21:23 Dose: Not Given General: alert HEENT: NC/AT, PERRLA Neck: Supple Lungs: CTAB Cardiovascular: RRR, Normal S1, Normal S2 Abdomen: soft, non-tender, non-distended, positive bowel sound Neurological: alert - Procedures Procedures: Procedures Procedure Code Date CLOSURE SKIN & SUBCUTANEOUS NEC 86.59 07/07/12 DPT ADMINISTRATION 99.39 07/07/12 IMMUNIZATION ADMIN 41171 07/07/12 OTHER GROUP THERAPY 94.44 12/10/14 RECREATIONAL THERAPY 93.81 09/15/12 RPR S/N/AX/GEN/TRNK 2.5CM/< 70372 07/07/12 TDAP VACCINE 7 YRS/> IM [id number] 07/07/12 Internal Medicine Assmt/Plan - Assessment Assessment: HTN ASTHMA COPD HYPOTHYROID DEMENTIA - Plan Plan: fall precautions monitor bp closely prn o2 continue current orders Nutritional Asmnt/Malnutr-PDOC - Dietary Evaluation Malnutrition Findings (Please click <Entered> for more info): Nutritional Asmnt/Malnutrition Start: 07/01/18 12: 48 Text: Status: Complete Freq: Protocol: Document 07/01/18 12:50 KELLEE (Rec: 07/01/18 13:00 KELLEE [email or web address]) Nutritional Asmnt/Malnutrition Patient General Information Nutritional Screening Moderate Risk Diagnosis psychosis Pertinent Medical Hx/Surgical Hx HTN, asthma/COPD, ESRD, hypothyroid, dementia, schizophrenia Subjective Information Pt eating lunch in room during visit. Pt's confused with speech unclear and did not answer questions about diet. Pt required assistance to open fruit cup and juice. Nursing noted PO intake: 75-100%. Current Diet Order/ Nutrition Support NOÉ 4 gm, mech soft Pertinent Medications Vit D3, synthroid, theragran, miralax Pertinent Labs no nutrition related labs available Nutritional Hx/Data Height 5 ft 11 in Height (Calculated Centimeters) 180.3 Current Weight (lbs) 150 lb Weight (Calculated Kilograms) 68.0 Weight (Calculated Grams) 17038.9 [place] Body Weight 172 lb Body Mass Index (BMI) 20.9 Weight Status Approriate GI Symptoms GI Symptoms None Last BM 06/30 Difficult in: None Food Allergies No Skin Integrity/Comment: intact, cecilia 18 Current %PO Good (75-100%) Estimated Nutritional Goals BEE in Kcals: Using Current wt Calories/Kcals/Kg 25-30 Kcals Calculated 0668-6633 Protein: Using Current wt Protein g/k.0 Protein Calculated 68 g Fluid: ml 6565-5795 (1 ml/kcal) Nutritional Problem No current Nutrition Prob Problem no nutrition dx at this time Malnutrition Alert Is there a minimum of two criteria No selected? Query Text:Check all the applicable criteria. A minimum of two criteria are recommended for diagnosis of either severe or non-severe malnutrition. Malnutrition Related to Morbid Obesity Malnutrition related to morbid obesity No Intervention/Recommendation Comments 1. Continue with NOÉ 4 gm, mech soft diet as ordered 2. Monitor PO intake, wt, labs and skin integrity 3. F/U as low risk in 7 days, 07/08 Expected Outcomes/Goals Expected Outcomes/Goals 1. PO intake to meet at least 75% of all meals 2. Wt stability, skin to remain intact
[2018-07-02] MEDS: Levothyroxine 0.025 Mg Tab PO SCH (06:56)
--- NOTE | 2018-07-02 09:33 | Progress Notes ---
DATE: 07/01/2018 PSYCHIATRIC PROGRESS NOTE PROGRESS ON THE UNIT: Staff was spoken to. The patient is interviewed. Mood is noted to be irritable. Affect is constricted. Insight and judgment at this time are noted to be still impaired. Impulse control is noted to be limited. The patient is still testing the limits. No side effects to the medications are noted. The patient is currently on 500 mg Depakote at nighttime and has been able to comply with the treatment. No side effects to the medications are noted at this time. ASSESSMENT: The patient is still impulsive. PLAN: To continue the patient with supportive therapy. I encouraged the patient to verbalize the concerns rather than to act out. JOB# [id number]
[2018-07-02] MEDS: POLYETHYLENE GLYCOL 3350 17 GM PACK PO SCH ×2 (11:28→17:37)
[2018-07-02] MEDS: Multivitamin Tab PO SCH (11:29)
--- NOTE | 2018-07-02 14:42 | Internal Medicine Prog Note ---
Internal Medicine Subjective - Subjective Service Date: 07/02/18 Patient is:: awake, agitated, confused Per staff patient has:: tolerating meds Internal Medicine Objective - Results Recent Labs: Laboratory Last Values Urine Source CLEAN C 06/28/18 16:16 Urine Color YELLOW 06/28/18 16:16 Urine Clarity CLEAR (CLEAR) 06/28/18 16:16 Urine pH 6.0 (4.6 - 8.0) 06/28/18 16:16 Ur Specific [place] 1.010 (1.005-1.030) 06/28/18 16:16 Urine Protein NEGATIVE mg/dL (NEGATIVE) 06/28/18 16:16 Urine Glucose (UA) NEGATIVE mg/dL (NEGATIVE) 06/28/18 16:16 Urine Ketones NEGATIVE mg/dL (NEGATIVE) 06/28/18 16:16 Urine Blood NEGATIVE (NEGATIVE) 06/28/18 16:16 Urine Nitrate NEGATIVE (NEGATIVE) 06/28/18 16:16 Urine Bilirubin NEGATIVE (NEGATIVE) 06/28/18 16:16 Urine Urobilinogen 0.2 E.U./dL (0.2 - 1.0) 06/28/18 16:16 Ur Leukocyte Esterase NEGATIVE (NEGATIVE) 06/28/18 16:16 Urine RBC NONE SEEN /hpf (0-5) 06/28/18 16:16 Urine WBC 0-2 /hpf (0-5) 06/28/18 16:16 Ur Epithelial Cells FEW /lpf (FEW) 06/28/18 16:16 Urine Bacteria OCCASIONAL /hpf (NONE SEEN) 06/28/18 16:16 Urine Opiates Screen NEGATIVE (NEGATIVE) 06/28/18 16:16 Urine Methadone Screen NEGATIVE (NEGATIVE) 06/28/18 16:16 Ur Barbiturates Screen NEGATIVE (NEGATIVE) 06/28/18 16:16 Ur Tricyclics Screen NEGATIVE (NEGATIVE) 06/28/18 16:16 Ur Phencyclidine Scrn NEGATIVE (NEGATIVE) 06/28/18 16:16 Amphetamines Screen NEGATIVE (NEGATIVE) 06/28/18 16:16 U Methamphetamines Scrn NEGATIVE (NEGATIVE) 06/28/18 16:16 U Benzodiazepines Scrn NEGATIVE (NEGATIVE) 06/28/18 16:16 U Cocaine Metab Screen NEGATIVE (NEGATIVE) 06/28/18 16:16 U Cannabinoids Screen NEGATIVE (NEGATIVE) 06/28/18 16:16 - Physical Exam Vitals and I&O: Vital Signs Temp 97.3 F 07/01/18 21:46 Pulse 80 07/02/18 11:28 Resp 18 07/02/18 07:36 BP 130/80 07/02/18 11:28 Pulse Ox 98 07/02/18 07:36 Intake & Output 07/01/18 07/02/18 07/02/18 18:59 06:59 18:59 Intake Total 960 Balance 960 Intake: Oral 960 Other: # Voids 3 # Bowel Movements 1 Active Medications: Current Medications Acetaminophen (Tylenol) 650 mg PO Q4H PRN PRN Reason: Mild Pain / Temp above 100 Stop: 08/27/18 19:46 Al Hydrox/Mg Hydrox/Simethicone (Maalox) 30 ml PO Q4H PRN PRN Reason: GI DISTRESS Stop: 08/27/18 19:46 Albuterol Sulfate (Albuterol 2.5mg/3ml Neb Ud) 2.5 mg HHN Q2HRT PRN PRN Reason: Shortness of Breath or Wheeze Stop: 08/27/18 19:46 Amlodipine Besylate (Norvasc) 10 mg PO DAILY [facility] Stop: 08/28/18 08:59 Last Admin: 07/02/18 11:28 Dose: Not Given Benztropine Mesylate (Cogentin) 0.5 mg PO BID [facility] Stop: 08/28/18 08:59 Last Admin: 07/02/18 11:28 Dose: Not Given Carbidopa/Levodopa (Sinemet 25mg-100 Mg) 1 tab PO TID [facility] Stop: 08/27/18 20:59 Last Admin: 07/02/18 14:14 Dose: Not Given Cholecalciferol (Vitamin D3) 2,000 iu PO DAILY [facility] Stop: 08/28/18 08:59 Last Admin: 07/02/18 11:28 Dose: Not Given Ipratropium [place] (Atrovent Neb 0.5mg/2.5ml) 0.5 mg HHN Q2HRT PRN PRN Reason: Shortness of Breath or Wheeze Stop: 08/27/18 19:46 Latanoprost (Xalatan 0.005% Ophth Soln) 1 drop EACH EYE HS [facility] Stop: 08/27/18 20:59 Last Admin: 07/01/18 20:48 Dose: Not Given Levothyroxine Sodium (Synthroid) 0.025 mg PO QDAC [facility] Stop: 08/28/18 07:29 Last Admin: 07/02/18 06:56 Dose: Not Given Lorazepam (Ativan) 0.5 mg PO Q4H PRN; Protocol PRN Reason: Anxiety Stop: 08/27/18 19:46 Last Admin: 07/01/18 09:14 Dose: 0.5 mg Magnesium Hydroxide (Milk Of Magnesia) 30 ml PO HS PRN PRN Reason: Constipation Stop: 08/27/18 19:46 Multivitamins/Vitamin C (Theragran) 1 tab PO DAILY [facility] Stop: 08/28/18 08:59 Last Admin: 07/02/18 11:29 Dose: Not Given Polyethylene Glycol (Miralax) 17 gm PO BID [facility] Stop: 08/28/18 08:59 Last Admin: 07/02/18 11:28 Dose: Not Given Valproate Sodium (Depakene) 500 mg PO HS WILL; Protocol Stop: 08/27/18 20:59 Last Admin: 07/01/18 20:48 Dose: Not Given General: alert HEENT: NC/AT, PERRLA Neck: Supple Lungs: CTAB Cardiovascular: RRR, Normal S1, Normal S2 Abdomen: soft, non-tender, non-distended, positive bowel sound Neurological: alert - Procedures Procedures: Procedures Procedure Code Date CLOSURE SKIN & SUBCUTANEOUS NEC 86.59 07/07/12 DPT ADMINISTRATION 99.39 07/07/12 IMMUNIZATION ADMIN 21645 07/07/12 OTHER GROUP THERAPY 94.44 12/10/14 RECREATIONAL THERAPY 93.81 09/15/12 RPR S/N/AX/GEN/TRNK 2.5CM/< 71250 07/07/12 TDAP VACCINE 7 YRS/> [place] [id number] 07/07/12 Internal Medicine Assmt/Plan - Assessment Assessment: HTN ASTHMA COPD HYPOTHYROID DEMENTIA - Plan Plan: fall precautions monitor bp closely prn o2 continue current orders Nutritional Asmnt/Malnutr-PDOC - Dietary Evaluation Malnutrition Findings (Please click <Entered> for more info): Nutritional Asmnt/Malnutrition Start: 07/01/18 12: 48 Text: Status: Complete Freq: Protocol: Document 07/01/18 12:50 KELLEE (Rec: 07/01/18 13:00 KELLEE [email or web address]) Nutritional Asmnt/Malnutrition Patient General Information Nutritional Screening Moderate Risk Diagnosis psychosis Pertinent Medical Hx/Surgical Hx HTN, asthma/COPD, ESRD, hypothyroid, dementia, schizophrenia Subjective Information Pt eating lunch in room during visit. Pt's confused with speech unclear and did not answer questions about diet. Pt required assistance to open fruit cup and juice. Nursing noted PO intake: 75-100%. Current Diet Order/ Nutrition Support NOÉ 4 gm, mech soft Pertinent Medications Vit D3, synthroid, theragran, miralax Pertinent Labs no nutrition related labs available Nutritional Hx/Data Height 5 ft 11 in Height (Calculated Centimeters) 180.3 Current Weight (lbs) 150 lb Weight (Calculated Kilograms) 68.0 Weight (Calculated Grams) 91088.9 [place] Body Weight 172 lb Body Mass Index (BMI) 20.9 Weight Status Approriate GI Symptoms GI Symptoms None Last BM 06/30 Difficult in: None Food Allergies No Skin Integrity/Comment: intact, cecilia 18 Current %PO Good (75-100%) Estimated Nutritional Goals BEE in Kcals: Using Current wt Calories/Kcals/Kg 25-30 Kcals Calculated 3485-6046 Protein: Using Current wt Protein g/k.0 Protein Calculated 68 g Fluid: ml 3463-5831 (1 ml/kcal) Nutritional Problem No current Nutrition Prob Problem no nutrition dx at this time Malnutrition Alert Is there a minimum of two criteria No selected? Query Text:Check all the applicable criteria. A minimum of two criteria are recommended for diagnosis of either severe or non-severe malnutrition. Malnutrition Related to Morbid Obesity Malnutrition related to morbid obesity No Intervention/Recommendation Comments 1. Continue with NOÉ 4 gm, mech soft diet as ordered 2. Monitor PO intake, wt, labs and skin integrity 3. F/U as low risk in 7 days, 07/08 Expected Outcomes/Goals Expected Outcomes/Goals 1. PO intake to meet at least 75% of all meals 2. Wt stability, skin to remain intact Reviewed by Suni Rocha RD
--- NOTE | 2018-07-02 16:34 | Progress Notes ---
DATE: 07/02/2018 SUBJECTIVE: Staff was spoken to. The patient is interviewed. Mood is noted to be irritable. Affect is constricted. Coping skills are noted to be very poor. Sleep and appetite also noted to be very poor. The patient has been having difficult time to cope with the stress. The patient is reported to have been masturbating and the patient needs to be redirected. ASSESSMENT: The patient is still impulsive and acting bizarre. PLAN: To continue the patient with the supportive therapy and follow up. JOB# [id number]
[2018-07-03] MEDS: Levothyroxine 0.025 Mg Tab PO SCH (06:48)
--- NOTE | 2018-07-03 11:44 | Internal Medicine Prog Note ---
Internal Medicine Subjective - Subjective Service Date: 07/03/18 Patient is:: awake, agitated, confused Per staff patient has:: tolerating meds Internal Medicine Objective - Results Recent Labs: Laboratory Last Values Urine Source CLEAN C 06/28/18 16:16 Urine Color YELLOW 06/28/18 16:16 Urine Clarity CLEAR (CLEAR) 06/28/18 16:16 Urine pH 6.0 (4.6 - 8.0) 06/28/18 16:16 Ur Specific [place] 1.010 (1.005-1.030) 06/28/18 16:16 Urine Protein NEGATIVE mg/dL (NEGATIVE) 06/28/18 16:16 Urine Glucose (UA) NEGATIVE mg/dL (NEGATIVE) 06/28/18 16:16 Urine Ketones NEGATIVE mg/dL (NEGATIVE) 06/28/18 16:16 Urine Blood NEGATIVE (NEGATIVE) 06/28/18 16:16 Urine Nitrate NEGATIVE (NEGATIVE) 06/28/18 16:16 Urine Bilirubin NEGATIVE (NEGATIVE) 06/28/18 16:16 Urine Urobilinogen 0.2 E.U./dL (0.2 - 1.0) 06/28/18 16:16 Ur Leukocyte Esterase NEGATIVE (NEGATIVE) 06/28/18 16:16 Urine RBC NONE SEEN /hpf (0-5) 06/28/18 16:16 Urine WBC 0-2 /hpf (0-5) 06/28/18 16:16 Ur Epithelial Cells FEW /lpf (FEW) 06/28/18 16:16 Urine Bacteria OCCASIONAL /hpf (NONE SEEN) 06/28/18 16:16 Urine Opiates Screen NEGATIVE (NEGATIVE) 06/28/18 16:16 Urine Methadone Screen NEGATIVE (NEGATIVE) 06/28/18 16:16 Ur Barbiturates Screen NEGATIVE (NEGATIVE) 06/28/18 16:16 Ur Tricyclics Screen NEGATIVE (NEGATIVE) 06/28/18 16:16 Ur Phencyclidine Scrn NEGATIVE (NEGATIVE) 06/28/18 16:16 Amphetamines Screen NEGATIVE (NEGATIVE) 06/28/18 16:16 U Methamphetamines Scrn NEGATIVE (NEGATIVE) 06/28/18 16:16 U Benzodiazepines Scrn NEGATIVE (NEGATIVE) 06/28/18 16:16 U Cocaine Metab Screen NEGATIVE (NEGATIVE) 06/28/18 16:16 U Cannabinoids Screen NEGATIVE (NEGATIVE) 06/28/18 16:16 - Physical Exam Vitals and I&O: Vital Signs Temp 97.4 F 07/02/18 20:00 Pulse 64 07/03/18 07:43 Resp 18 07/03/18 07:43 BP 104/65 07/02/18 20:00 Pulse Ox 100 07/03/18 07:43 Intake & Output 07/02/18 07/03/18 07/03/18 18:59 06:59 18:59 Intake Total 1000 120 Balance 1000 120 Intake: Oral 1000 120 Other: # Voids 3 3 # Bowel Movements 1 Active Medications: Current Medications Acetaminophen (Tylenol) 650 mg PO Q4H PRN PRN Reason: Mild Pain / Temp above 100 Stop: 08/27/18 19:46 Al Hydrox/Mg Hydrox/Simethicone (Maalox) 30 ml PO Q4H PRN PRN Reason: GI DISTRESS Stop: 08/27/18 19:46 Albuterol Sulfate (Albuterol 2.5mg/3ml Neb Ud) 2.5 mg HHN Q2HRT PRN PRN Reason: Shortness of Breath or Wheeze Stop: 08/27/18 19:46 Amlodipine Besylate (Norvasc) 10 mg PO DAILY [facility] Stop: 08/28/18 08:59 Last Admin: 07/02/18 11:28 Dose: Not Given Benztropine Mesylate (Cogentin) 0.5 mg PO BID [facility] Stop: 08/28/18 08:59 Last Admin: 07/02/18 17:37 Dose: Not Given Carbidopa/Levodopa (Sinemet 25mg-100 Mg) 1 tab PO TID [facility] Stop: 08/27/18 20:59 Last Admin: 07/02/18 21:00 Dose: Not Given Cholecalciferol (Vitamin D3) 2,000 iu PO DAILY [facility] Stop: 08/28/18 08:59 Last Admin: 07/02/18 11:28 Dose: Not Given Ipratropium [place] (Atrovent Neb 0.5mg/2.5ml) 0.5 mg HHN Q2HRT PRN PRN Reason: Shortness of Breath or Wheeze Stop: 08/27/18 19:46 Latanoprost (Xalatan 0.005% Ophth Soln) 1 drop EACH EYE HS [facility] Stop: 08/27/18 20:59 Last Admin: 07/02/18 21:00 Dose: Not Given Levothyroxine Sodium (Synthroid) 0.025 mg PO QDAC [facility] Stop: 08/28/18 07:29 Last Admin: 07/03/18 06:48 Dose: Not Given Lorazepam (Ativan) 0.5 mg PO Q4H PRN; Protocol PRN Reason: Anxiety Stop: 08/27/18 19:46 Last Admin: 07/03/18 00:49 Dose: 0.5 mg Magnesium Hydroxide (Milk Of Magnesia) 30 ml PO HS PRN PRN Reason: Constipation Stop: 08/27/18 19:46 Multivitamins/Vitamin C (Theragran) 1 tab PO DAILY [facility] Stop: 08/28/18 08:59 Last Admin: 07/02/18 11:29 Dose: Not Given Polyethylene Glycol (Miralax) 17 gm PO BID [facility] Stop: 08/28/18 08:59 Last Admin: 07/02/18 17:37 Dose: Not Given Valproate Sodium (Depakene) 500 mg PO HS WILL; Protocol Stop: 08/27/18 20:59 Last Admin: 07/02/18 21:00 Dose: Not Given General: alert HEENT: NC/AT, PERRLA Neck: Supple Lungs: CTAB Cardiovascular: RRR, Normal S1, Normal S2 Abdomen: soft, non-tender, non-distended, positive bowel sound Neurological: alert - Procedures Procedures: Procedures Procedure Code Date CLOSURE SKIN & SUBCUTANEOUS NEC 86.59 07/07/12 DPT ADMINISTRATION 99.39 07/07/12 IMMUNIZATION ADMIN 74839 07/07/12 OTHER GROUP THERAPY 94.44 12/10/14 RECREATIONAL THERAPY 93.81 09/15/12 RPR S/N/AX/GEN/TRNK 2.5CM/< 50243 07/07/12 TDAP VACCINE 7 YRS/> IM [id number] 07/07/12 Internal Medicine Assmt/Plan - Assessment Assessment: HTN ASTHMA COPD HYPOTHYROID DEMENTIA - Plan Plan: fall precautions monitor bp closely prn o2 continue current orders Nutritional Asmnt/Malnutr-PDOC - Dietary Evaluation Malnutrition Findings (Please click <Entered> for more info): Nutritional Asmnt/Malnutrition Start: 07/01/18 12: 48 Text: Status: Complete Freq: Protocol: Document 07/01/18 12:50 KELLEE (Rec: 07/01/18 13:00 KELLEE [email or web address]) Nutritional Asmnt/Malnutrition Patient General Information Nutritional Screening Moderate Risk Diagnosis psychosis Pertinent Medical Hx/Surgical Hx HTN, asthma/COPD, ESRD, hypothyroid, dementia, schizophrenia Subjective Information Pt eating lunch in room during visit. Pt's confused with speech unclear and did not answer questions about diet. Pt required assistance to open fruit cup and juice. Nursing noted PO intake: 75-100%. Current Diet Order/ Nutrition Support NOÉ 4 gm, mech soft Pertinent Medications Vit D3, synthroid, theragran, miralax Pertinent Labs no nutrition related labs available Nutritional Hx/Data Height 5 ft 11 in Height (Calculated Centimeters) 180.3 Current Weight (lbs) 150 lb Weight (Calculated Kilograms) 68.0 Weight (Calculated Grams) 49729.9 [place] Body Weight 172 lb Body Mass Index (BMI) 20.9 Weight Status Approriate GI Symptoms GI Symptoms None Last BM 06/30 Difficult in: None Food Allergies No Skin Integrity/Comment: intact, cecilia 18 Current %PO Good (75-100%) Estimated Nutritional Goals BEE in Kcals: Using Current wt Calories/Kcals/Kg 25-30 Kcals Calculated 4568-2166 Protein: Using Current wt Protein g/k.0 Protein Calculated 68 g Fluid: ml 6090-7438 (1 ml/kcal) Nutritional Problem No current Nutrition Prob Problem no nutrition dx at this time Malnutrition Alert Is there a minimum of two criteria No selected? Query Text:Check all the applicable criteria. A minimum of two criteria are recommended for diagnosis of either severe or non-severe malnutrition. Malnutrition Related to Morbid Obesity Malnutrition related to morbid obesity No Intervention/Recommendation Comments 1. Continue with NOÉ 4 gm, mech soft diet as ordered 2. Monitor PO intake, wt, labs and skin integrity 3. F/U as low risk in 7 days, 07/08 Expected Outcomes/Goals Expected Outcomes/Goals 1. PO intake to meet at least 75% of all meals 2. Wt stability, skin to remain intact Reviewed by Suni Rocha RD
[2018-07-03] MEDS: Multivitamin Tab PO SCH (12:06)
[2018-07-03] MEDS: POLYETHYLENE GLYCOL 3350 17 GM PACK PO SCH ×2 (12:06→17:04)
--- NOTE | 2018-07-03 20:25 | Progress Notes ---
DATE: 07/03/2018 PSYCHIATRIC PROGRESS NOTE SUBJECTIVE: Staff was spoken to. The patient is interviewed. Mood is noted to be dysphoric. Coping skills are noted to be very poor. The patient has been refusing to comply with the medication and has been disrobing. The patient has no insight into his illness. The patient is currently on the carbidopa levodopa and the patient is also on 500 mg twice a day of the valproic acid. ASSESSMENT AND PLAN: The patient is still having problems and hence it is decided to increase the valproic acid to 500 mg twice a day in view of the impulsivity and mood swings and bizarre behavior and the patient is going to be closely monitored and followed up with the supportive therapy. [facility]# [id number]
[2018-07-04] MEDS: Levothyroxine 0.025 Mg Tab PO SCH (06:37)
[2018-07-04] MEDS: POLYETHYLENE GLYCOL 3350 17 GM PACK PO SCH (12:40)
[2018-07-04] MEDS: Multivitamin Tab PO SCH (12:42)
--- NOTE | 2018-07-04 13:00 | Internal Medicine Prog Note ---
Internal Medicine Subjective - Subjective Service Date: 07/04/18 Patient is:: awake, agitated, confused Per staff patient has:: tolerating meds Internal Medicine Objective - Results Recent Labs: Laboratory Last Values Urine Source CLEAN C 06/28/18 16:16 Urine Color YELLOW 06/28/18 16:16 Urine Clarity CLEAR (CLEAR) 06/28/18 16:16 Urine pH 6.0 (4.6 - 8.0) 06/28/18 16:16 Ur Specific [place] 1.010 (1.005-1.030) 06/28/18 16:16 Urine Protein NEGATIVE mg/dL (NEGATIVE) 06/28/18 16:16 Urine Glucose (UA) NEGATIVE mg/dL (NEGATIVE) 06/28/18 16:16 Urine Ketones NEGATIVE mg/dL (NEGATIVE) 06/28/18 16:16 Urine Blood NEGATIVE (NEGATIVE) 06/28/18 16:16 Urine Nitrate NEGATIVE (NEGATIVE) 06/28/18 16:16 Urine Bilirubin NEGATIVE (NEGATIVE) 06/28/18 16:16 Urine Urobilinogen 0.2 E.U./dL (0.2 - 1.0) 06/28/18 16:16 Ur Leukocyte Esterase NEGATIVE (NEGATIVE) 06/28/18 16:16 Urine RBC NONE SEEN /hpf (0-5) 06/28/18 16:16 Urine WBC 0-2 /hpf (0-5) 06/28/18 16:16 Ur Epithelial Cells FEW /lpf (FEW) 06/28/18 16:16 Urine Bacteria OCCASIONAL /hpf (NONE SEEN) 06/28/18 16:16 Urine Opiates Screen NEGATIVE (NEGATIVE) 06/28/18 16:16 Urine Methadone Screen NEGATIVE (NEGATIVE) 06/28/18 16:16 Ur Barbiturates Screen NEGATIVE (NEGATIVE) 06/28/18 16:16 Ur Tricyclics Screen NEGATIVE (NEGATIVE) 06/28/18 16:16 Ur Phencyclidine Scrn NEGATIVE (NEGATIVE) 06/28/18 16:16 Amphetamines Screen NEGATIVE (NEGATIVE) 06/28/18 16:16 U Methamphetamines Scrn NEGATIVE (NEGATIVE) 06/28/18 16:16 U Benzodiazepines Scrn NEGATIVE (NEGATIVE) 06/28/18 16:16 U Cocaine Metab Screen NEGATIVE (NEGATIVE) 06/28/18 16:16 U Cannabinoids Screen NEGATIVE (NEGATIVE) 06/28/18 16:16 - Physical Exam Vitals and I&O: Vital Signs Temp 98.4 F 07/04/18 06:16 Pulse 87 07/04/18 08:05 Resp 12 07/04/18 08:05 BP 139/76 07/04/18 06:16 Pulse Ox 99 07/04/18 08:05 Intake & Output 07/03/18 07/04/18 07/04/18 18:59 06:59 18:59 Intake Total 120 120 Balance 120 120 Intake: Oral 120 120 Other: # Voids 3 1 # Bowel Movements 1 0 Active Medications: Current Medications Acetaminophen (Tylenol) 650 mg PO Q4H PRN PRN Reason: Mild Pain / Temp above 100 Stop: 08/27/18 19:46 Al Hydrox/Mg Hydrox/Simethicone (Maalox) 30 ml PO Q4H PRN PRN Reason: GI DISTRESS Stop: 08/27/18 19:46 Albuterol Sulfate (Albuterol 2.5mg/3ml Neb Ud) 2.5 mg HHN Q2HRT PRN PRN Reason: Shortness of Breath or Wheeze Stop: 08/27/18 19:46 Amlodipine Besylate (Norvasc) 10 mg PO DAILY [facility] Stop: 08/28/18 08:59 Last Admin: 07/04/18 12:42 Dose: Not Given Benztropine Mesylate (Cogentin) 0.5 mg PO BID [facility] Stop: 08/28/18 08:59 Last Admin: 07/04/18 12:41 Dose: 0.5 mg Carbidopa/Levodopa (Sinemet 25mg-100 Mg) 1 tab PO TID [facility] Stop: 08/27/18 20:59 Last Admin: 07/04/18 12:41 Dose: 1 tab Cholecalciferol (Vitamin D3) 2,000 iu PO DAILY [facility] Stop: 08/28/18 08:59 Last Admin: 07/04/18 12:41 Dose: Not Given Ipratropium [place] (Atrovent Neb 0.5mg/2.5ml) 0.5 mg HHN Q2HRT PRN PRN Reason: Shortness of Breath or Wheeze Stop: 08/27/18 19:46 Latanoprost (Xalatan 0.005% Ophth Soln) 1 drop EACH EYE HS [facility] Stop: 08/27/18 20:59 Last Admin: 07/03/18 21:20 Dose: Not Given Levothyroxine Sodium (Synthroid) 0.025 mg PO QDAC [facility] Stop: 08/28/18 07:29 Last Admin: 07/04/18 06:37 Dose: Not Given Lorazepam (Ativan) 0.5 mg PO Q4H PRN; Protocol PRN Reason: Anxiety Stop: 08/27/18 19:46 Last Admin: 07/04/18 02:05 Dose: 0.5 mg Magnesium Hydroxide (Milk Of Magnesia) 30 ml PO HS PRN PRN Reason: Constipation Stop: 08/27/18 19:46 Multivitamins/Vitamin C (Theragran) 1 tab PO DAILY [facility] Stop: 08/28/18 08:59 Last Admin: 07/04/18 12:42 Dose: Not Given Polyethylene Glycol (Miralax) 17 gm PO BID [facility] Stop: 08/28/18 08:59 Last Admin: 07/04/18 12:40 Dose: Not Given Valproate Sodium (Depakene) 500 mg PO BID [facility]; Protocol Stop: 09/01/18 16:59 Last Admin: 07/04/18 12:40 Dose: 500 mg Zolpidem Tartrate (Ambien) 5 mg PO HS PRN PRN Reason: Insomnia Stop: 09/02/18 00:40 Last Admin: 07/04/18 02:06 Dose: 5 mg General: alert HEENT: NC/AT, PERRLA Neck: Supple Lungs: CTAB Cardiovascular: RRR, Normal S1, Normal S2 Abdomen: soft, non-tender, non-distended, positive bowel sound Neurological: alert - Procedures Procedures: Procedures Procedure Code Date CLOSURE SKIN & SUBCUTANEOUS NEC 86.59 07/07/12 DPT ADMINISTRATION 99.39 07/07/12 IMMUNIZATION ADMIN 55978 07/07/12 OTHER GROUP THERAPY 94.44 12/10/14 RECREATIONAL THERAPY 93.81 09/15/12 RPR S/N/AX/GEN/TRNK 2.5CM/< 42791 07/07/12 TDAP VACCINE 7 YRS/> IM [id number] 07/07/12 Internal Medicine Assmt/Plan - Assessment Assessment: HTN ASTHMA COPD HYPOTHYROID DEMENTIA - Plan Plan: fall precautions monitor bp closely prn o2 continue current orders Nutritional Asmnt/Malnutr-PDOC - Dietary Evaluation Malnutrition Findings (Please click <Entered> for more info): Nutritional Asmnt/Malnutrition Start: 07/01/18 12: 48 Text: Status: Complete Freq: Protocol: Document 07/01/18 12:50 KELLEE (Rec: 07/01/18 13:00 KELLEE [email or web address]) Nutritional Asmnt/Malnutrition Patient General Information Nutritional Screening Moderate Risk Diagnosis psychosis Pertinent Medical Hx/Surgical Hx HTN, asthma/COPD, ESRD, hypothyroid, dementia, schizophrenia Subjective Information Pt eating lunch in room during visit. Pt's confused with speech unclear and did not answer questions about diet. Pt required assistance to open fruit cup and juice. Nursing noted PO intake: 75-100%. Current Diet Order/ Nutrition Support NOÉ 4 gm, mech soft Pertinent Medications Vit D3, synthroid, theragran, miralax Pertinent Labs no nutrition related labs available Nutritional Hx/Data Height 5 ft 11 in Height (Calculated Centimeters) 180.3 Current Weight (lbs) 150 lb Weight (Calculated Kilograms) 68.0 Weight (Calculated Grams) 05533.9 [place] Body Weight 172 lb Body Mass Index (BMI) 20.9 Weight Status Approriate GI Symptoms GI Symptoms None Last BM 06/30 Difficult in: None Food Allergies No Skin Integrity/Comment: intact, cecilia 18 Current %PO Good (75-100%) Estimated Nutritional Goals BEE in Kcals: Using Current wt Calories/Kcals/Kg 25-30 Kcals Calculated 1703-7846 Protein: Using Current wt Protein g/k.0 Protein Calculated 68 g Fluid: ml 2650-2739 (1 ml/kcal) Nutritional Problem No current Nutrition Prob Problem no nutrition dx at this time Malnutrition Alert Is there a minimum of two criteria No selected? Query Text:Check all the applicable criteria. A minimum of two criteria are recommended for diagnosis of either severe or non-severe malnutrition. Malnutrition Related to Morbid Obesity Malnutrition related to morbid obesity No Intervention/Recommendation Comments 1. Continue with NOÉ 4 gm, mech soft diet as ordered 2. Monitor PO intake, wt, labs and skin integrity 3. F/U as low risk in 7 days, 07/08 Expected Outcomes/Goals Expected Outcomes/Goals 1. PO intake to meet at least 75% of all meals 2. Wt stability, skin to remain intact Reviewed by Suni Rocha RD
--- NOTE | 2018-07-05 03:27 | Progress Notes ---
DATE: 07/04/2018 PSYCHIATRIC PROGRESS NOTE SUBJECTIVE: Staff was spoken to. The patient is interviewed. Mood is noted to be still dysphoric. Insight and judgment are noted to be still impaired. Impulse control is noted to be limited. The patient has been masturbating. Coping skills are noted to be very poor. The patient has to be encouraged to comply with the medications. No side effects to the medications are noted so far. ASSESSMENT: The patient is still impulsive. PLAN: To continue the patient with the supportive therapy and followup. JOB# [id number]
[2018-07-05] MEDS: Levothyroxine 0.025 Mg Tab PO SCH (06:53)
[2018-07-05] MEDS: POLYETHYLENE GLYCOL 3350 17 GM PACK PO SCH ×2 (09:31→16:44)
[2018-07-05] MEDS: Multivitamin Tab PO SCH (09:32)
--- NOTE | 2018-07-05 14:14 | Internal Medicine Prog Note ---
Internal Medicine Subjective - Subjective Service Date: 07/05/18 Patient is:: awake, agitated, confused Per staff patient has:: tolerating meds Internal Medicine Objective - Results Recent Labs: Laboratory Last Values Urine Source CLEAN C 06/28/18 16:16 Urine Color YELLOW 06/28/18 16:16 Urine Clarity CLEAR (CLEAR) 06/28/18 16:16 Urine pH 6.0 (4.6 - 8.0) 06/28/18 16:16 Ur Specific [place] 1.010 (1.005-1.030) 06/28/18 16:16 Urine Protein NEGATIVE mg/dL (NEGATIVE) 06/28/18 16:16 Urine Glucose (UA) NEGATIVE mg/dL (NEGATIVE) 06/28/18 16:16 Urine Ketones NEGATIVE mg/dL (NEGATIVE) 06/28/18 16:16 Urine Blood NEGATIVE (NEGATIVE) 06/28/18 16:16 Urine Nitrate NEGATIVE (NEGATIVE) 06/28/18 16:16 Urine Bilirubin NEGATIVE (NEGATIVE) 06/28/18 16:16 Urine Urobilinogen 0.2 E.U./dL (0.2 - 1.0) 06/28/18 16:16 Ur Leukocyte Esterase NEGATIVE (NEGATIVE) 06/28/18 16:16 Urine RBC NONE SEEN /hpf (0-5) 06/28/18 16:16 Urine WBC 0-2 /hpf (0-5) 06/28/18 16:16 Ur Epithelial Cells FEW /lpf (FEW) 06/28/18 16:16 Urine Bacteria OCCASIONAL /hpf (NONE SEEN) 06/28/18 16:16 Urine Opiates Screen NEGATIVE (NEGATIVE) 06/28/18 16:16 Urine Methadone Screen NEGATIVE (NEGATIVE) 06/28/18 16:16 Ur Barbiturates Screen NEGATIVE (NEGATIVE) 06/28/18 16:16 Ur Tricyclics Screen NEGATIVE (NEGATIVE) 06/28/18 16:16 Ur Phencyclidine Scrn NEGATIVE (NEGATIVE) 06/28/18 16:16 Amphetamines Screen NEGATIVE (NEGATIVE) 06/28/18 16:16 U Methamphetamines Scrn NEGATIVE (NEGATIVE) 06/28/18 16:16 U Benzodiazepines Scrn NEGATIVE (NEGATIVE) 06/28/18 16:16 U Cocaine Metab Screen NEGATIVE (NEGATIVE) 06/28/18 16:16 U Cannabinoids Screen NEGATIVE (NEGATIVE) 06/28/18 16:16 - Physical Exam Vitals and I&O: Vital Signs Temp 97.2 F 07/05/18 06:22 Pulse 91 07/05/18 07:17 Resp 18 07/05/18 07:17 BP 122/74 07/05/18 06:22 Pulse Ox 97 07/05/18 07:17 Intake & Output 07/04/18 07/05/18 07/05/18 18:59 06:59 18:59 Intake Total 800 360 Balance 800 360 Intake: Oral 800 360 Other: # Voids 3 2 # Bowel Movements 1 0 Active Medications: Current Medications Acetaminophen (Tylenol) 650 mg PO Q4H PRN PRN Reason: Mild Pain / Temp above 100 Stop: 08/27/18 19:46 Al Hydrox/Mg Hydrox/Simethicone (Maalox) 30 ml PO Q4H PRN PRN Reason: GI DISTRESS Stop: 08/27/18 19:46 Albuterol Sulfate (Albuterol 2.5mg/3ml Neb Ud) 2.5 mg HHN Q2HRT PRN PRN Reason: Shortness of Breath or Wheeze Stop: 08/27/18 19:46 Amlodipine Besylate (Norvasc) 10 mg PO DAILY [facility] Stop: 08/28/18 08:59 Last Admin: 07/05/18 09:32 Dose: Not Given Benztropine Mesylate (Cogentin) 0.5 mg PO BID [facility] Stop: 08/28/18 08:59 Last Admin: 07/05/18 09:31 Dose: Not Given Carbidopa/Levodopa (Sinemet 25mg-100 Mg) 1 tab PO TID [facility] Stop: 08/27/18 20:59 Last Admin: 07/05/18 09:32 Dose: Not Given Cholecalciferol (Vitamin D3) 2,000 iu PO DAILY [facility] Stop: 08/28/18 08:59 Last Admin: 07/05/18 09:32 Dose: Not Given Ipratropium [place] (Atrovent Neb 0.5mg/2.5ml) 0.5 mg HHN Q2HRT PRN PRN Reason: Shortness of Breath or Wheeze Stop: 08/27/18 19:46 Latanoprost (Xalatan 0.005% Ophth Soln) 1 drop EACH EYE HS [facility] Stop: 08/27/18 20:59 Last Admin: 12/03/18 21:21 Dose: Not Given Levothyroxine Sodium (Synthroid) 0.025 mg PO QDAC [facility] Stop: 08/28/18 07:29 Last Admin: 07/05/18 06:53 Dose: 0.025 mg Lorazepam (Ativan) 0.5 mg PO Q4H PRN; Protocol PRN Reason: Anxiety Stop: 08/27/18 19:46 Last Admin: 07/04/18 02:05 Dose: 0.5 mg Magnesium Hydroxide (Milk Of Magnesia) 30 ml PO HS PRN PRN Reason: Constipation Stop: 08/27/18 19:46 Multivitamins/Vitamin C (Theragran) 1 tab PO DAILY [facility] Stop: 08/28/18 08:59 Last Admin: 07/05/18 09:32 Dose: Not Given Polyethylene Glycol (Miralax) 17 gm PO BID [facility] Stop: 08/28/18 08:59 Last Admin: 07/05/18 09:31 Dose: Not Given Valproate Sodium (Depakene) 500 mg PO BID [facility]; Protocol Stop: 09/01/18 16:59 Last Admin: 07/05/18 09:32 Dose: Not Given Zolpidem Tartrate (Ambien) 5 mg PO HS PRN PRN Reason: Insomnia Stop: 09/02/18 00:40 Last Admin: 07/04/18 21:00 Dose: 5 mg General: alert HEENT: NC/AT, PERRLA Neck: Supple Lungs: CTAB Cardiovascular: RRR, Normal S1, Normal S2 Abdomen: soft, non-tender, non-distended, positive bowel sound Neurological: alert - Procedures Procedures: Procedures Procedure Code Date CLOSURE SKIN & SUBCUTANEOUS NEC 86.59 07/07/12 DPT ADMINISTRATION 99.39 07/07/12 IMMUNIZATION ADMIN 51263 07/07/12 OTHER GROUP THERAPY 94.44 12/10/14 RECREATIONAL THERAPY 93.81 09/15/12 RPR S/N/AX/GEN/TRNK 2.5CM/< 52286 07/07/12 TDAP VACCINE 7 YRS/> [place] [id number] 07/07/12 Internal Medicine Assmt/Plan - Assessment Assessment: HTN ASTHMA COPD HYPOTHYROID DEMENTIA - Plan Plan: fall precautions monitor bp closely prn o2 continue current orders Nutritional Asmnt/Malnutr-PDOC - Dietary Evaluation Malnutrition Findings (Please click <Entered> for more info): Nutritional Asmnt/Malnutrition Start: 07/01/18 12: 48 Text: Status: Complete Freq: Protocol: Document 07/01/18 12:50 KELLEE (Rec: 07/01/18 13:00 KELLEE [email or web address]) Nutritional Asmnt/Malnutrition Patient General Information Nutritional Screening Moderate Risk Diagnosis psychosis Pertinent Medical Hx/Surgical Hx HTN, asthma/COPD, ESRD, hypothyroid, dementia, schizophrenia Subjective Information Pt eating lunch in room during visit. Pt's confused with speech unclear and did not answer questions about diet. Pt required assistance to open fruit cup and juice. Nursing noted PO intake: 75-100%. Current Diet Order/ Nutrition Support NOÉ 4 gm, mech soft Pertinent Medications Vit D3, synthroid, theragran, miralax Pertinent Labs no nutrition related labs available Nutritional Hx/Data Height 5 ft 11 in Height (Calculated Centimeters) 180.3 Current Weight (lbs) 150 lb Weight (Calculated Kilograms) 68.0 Weight (Calculated Grams) 56880.9 [place] Body Weight 172 lb Body Mass Index (BMI) 20.9 Weight Status Approriate GI Symptoms GI Symptoms None Last BM 06/30 Difficult in: None Food Allergies No Skin Integrity/Comment: intact, cecilia 18 Current %PO Good (75-100%) Estimated Nutritional Goals BEE in Kcals: Using Current wt Calories/Kcals/Kg 25-30 Kcals Calculated 9432-9504 Protein: Using Current wt Protein g/k.0 Protein Calculated 68 g Fluid: ml 4767-0424 (1 ml/kcal) Nutritional Problem No current Nutrition Prob Problem no nutrition dx at this time Malnutrition Alert Is there a minimum of two criteria No selected? Query Text:Check all the applicable criteria. A minimum of two criteria are recommended for diagnosis of either severe or non-severe malnutrition. Malnutrition Related to Morbid Obesity Malnutrition related to morbid obesity No Intervention/Recommendation Comments 1. Continue with NOÉ 4 gm, mech soft diet as ordered 2. Monitor PO intake, wt, labs and skin integrity 3. F/U as low risk in 7 days, 07/08 Expected Outcomes/Goals Expected Outcomes/Goals 1. PO intake to meet at least 75% of all meals 2. Wt stability, skin to remain intact Reviewed by Suni Rocha RD
[2018-07-06] MEDS: Levothyroxine 0.025 Mg Tab PO SCH (07:07)
--- NOTE | 2018-07-06 08:49 | Progress Notes ---
DATE: 07/05/2018 SUBJECTIVE: Staff was spoken to. The patient is interviewed. Mood is noted to be anxious. Affect is constricted. Insight and judgment at this time are noted to be still impaired. The patient tends to be acting bizarre and trying to masturbate. The patient needs to be redirected. The patient has been having difficult time to cope with the stress. ASSESSMENT: The patient is still impulsive. PLAN: To continue the patient with supportive therapy. Encouraged the patient to verbalize the concerns. The patient is currently on valproic acid and would like to continue the medication and follow the patient up. JOB# [id number]
[2018-07-06] MEDS: POLYETHYLENE GLYCOL 3350 17 GM PACK PO SCH ×2 (09:17→17:57)
[2018-07-06] MEDS: Multivitamin Tab PO SCH (09:18)
--- NOTE | 2018-07-06 15:31 | Internal Medicine Prog Note ---
Internal Medicine Subjective - Subjective Service Date: 07/06/18 Patient seen and examined:: with staff Patient is:: awake, agitated, confused Per staff patient has:: tolerating meds Internal Medicine Objective - Results Recent Labs: Laboratory Last Values Urine Source CLEAN C 06/28/18 16:16 Urine Color YELLOW 06/28/18 16:16 Urine Clarity CLEAR (CLEAR) 06/28/18 16:16 Urine pH 6.0 (4.6 - 8.0) 06/28/18 16:16 Ur Specific [place] 1.010 (1.005-1.030) 06/28/18 16:16 Urine Protein NEGATIVE mg/dL (NEGATIVE) 06/28/18 16:16 Urine Glucose (UA) NEGATIVE mg/dL (NEGATIVE) 06/28/18 16:16 Urine Ketones NEGATIVE mg/dL (NEGATIVE) 06/28/18 16:16 Urine Blood NEGATIVE (NEGATIVE) 06/28/18 16:16 Urine Nitrate NEGATIVE (NEGATIVE) 06/28/18 16:16 Urine Bilirubin NEGATIVE (NEGATIVE) 06/28/18 16:16 Urine Urobilinogen 0.2 E.U./dL (0.2 - 1.0) 06/28/18 16:16 Ur Leukocyte Esterase NEGATIVE (NEGATIVE) 06/28/18 16:16 Urine RBC NONE SEEN /hpf (0-5) 06/28/18 16:16 Urine WBC 0-2 /hpf (0-5) 06/28/18 16:16 Ur Epithelial Cells FEW /lpf (FEW) 06/28/18 16:16 Urine Bacteria OCCASIONAL /hpf (NONE SEEN) 06/28/18 16:16 Urine Opiates Screen NEGATIVE (NEGATIVE) 06/28/18 16:16 Urine Methadone Screen NEGATIVE (NEGATIVE) 06/28/18 16:16 Ur Barbiturates Screen NEGATIVE (NEGATIVE) 06/28/18 16:16 Ur Tricyclics Screen NEGATIVE (NEGATIVE) 06/28/18 16:16 Ur Phencyclidine Scrn NEGATIVE (NEGATIVE) 06/28/18 16:16 Amphetamines Screen NEGATIVE (NEGATIVE) 06/28/18 16:16 U Methamphetamines Scrn NEGATIVE (NEGATIVE) 06/28/18 16:16 U Benzodiazepines Scrn NEGATIVE (NEGATIVE) 06/28/18 16:16 U Cocaine Metab Screen NEGATIVE (NEGATIVE) 06/28/18 16:16 U Cannabinoids Screen NEGATIVE (NEGATIVE) 06/28/18 16:16 - Physical Exam Vitals and I&O: Vital Signs Temp 96.9 F 07/06/18 06:18 Pulse 79 07/06/18 10:45 Resp 18 07/06/18 10:45 BP 132/73 07/06/18 06:18 Pulse Ox 95 07/06/18 10:45 Intake & Output 07/05/18 07/06/18 07/06/18 18:59 06:59 18:59 Intake Total 950 240 Balance 950 240 Intake: Oral 950 240 Other: # Voids 4 3 # Bowel Movements 1 0 Active Medications: Current Medications Acetaminophen (Tylenol) 650 mg PO Q4H PRN PRN Reason: Mild Pain / Temp above 100 Stop: 08/27/18 19:46 Al Hydrox/Mg Hydrox/Simethicone (Maalox) 30 ml PO Q4H PRN PRN Reason: GI DISTRESS Stop: 08/27/18 19:46 Albuterol Sulfate (Albuterol 2.5mg/3ml Neb Ud) 2.5 mg HHN Q2HRT PRN PRN Reason: Shortness of Breath or Wheeze Stop: 08/27/18 19:46 Amlodipine Besylate (Norvasc) 10 mg PO DAILY [facility] Stop: 08/28/18 08:59 Last Admin: 07/06/18 09:17 Dose: Not Given Benztropine Mesylate (Cogentin) 0.5 mg PO BID [facility] Stop: 08/28/18 08:59 Last Admin: 07/06/18 09:17 Dose: Not Given Carbidopa/Levodopa (Sinemet 25mg-100 Mg) 1 tab PO TID [facility] Stop: 08/27/18 20:59 Last Admin: 07/06/18 14:10 Dose: Not Given Cholecalciferol (Vitamin D3) 2,000 iu PO DAILY [facility] Stop: 08/28/18 08:59 Last Admin: 07/06/18 09:18 Dose: Not Given Ipratropium [place] (Atrovent Neb 0.5mg/2.5ml) 0.5 mg HHN Q2HRT PRN PRN Reason: Shortness of Breath or Wheeze Stop: 08/27/18 19:46 Latanoprost (Xalatan 0.005% Ophth Soln) 1 drop EACH EYE HS [facility] Stop: 08/27/18 20:59 Last Admin: 07/05/18 21:24 Dose: Not Given Levothyroxine Sodium (Synthroid) 0.025 mg PO QDAC [facility] Stop: 08/28/18 07:29 Last Admin: 07/06/18 07:07 Dose: 0.025 mg Lorazepam (Ativan) 0.5 mg PO Q4H PRN; Protocol PRN Reason: Anxiety Stop: 08/27/18 19:46 Last Admin: 07/04/18 02:05 Dose: 0.5 mg Magnesium Hydroxide (Milk Of Magnesia) 30 ml PO HS PRN PRN Reason: Constipation Stop: 08/27/18 19:46 Multivitamins/Vitamin C (Theragran) 1 tab PO DAILY [facility] Stop: 08/28/18 08:59 Last Admin: 07/06/18 09:18 Dose: Not Given Polyethylene Glycol (Miralax) 17 gm PO BID [facility] Stop: 08/28/18 08:59 Last Admin: 07/06/18 09:17 Dose: Not Given Valproate Sodium (Depakene) 500 mg PO BID [facility]; Protocol Stop: 09/01/18 16:59 Last Admin: 07/06/18 09:17 Dose: Not Given Zolpidem Tartrate (Ambien) 5 mg PO HS PRN PRN Reason: Insomnia Stop: 09/02/18 00:40 Last Admin: 07/05/18 21:24 Dose: 5 mg General: alert HEENT: NC/AT, PERRLA Neck: Supple Lungs: CTAB Cardiovascular: RRR, Normal S1, Normal S2 Abdomen: soft, non-tender, non-distended, positive bowel sound Neurological: alert - Procedures Procedures: Procedures Procedure Code Date CLOSURE SKIN & SUBCUTANEOUS NEC 86.59 07/07/12 DPT ADMINISTRATION 99.39 07/07/12 IMMUNIZATION ADMIN 82081 07/07/12 OTHER GROUP THERAPY 94.44 12/10/14 RECREATIONAL THERAPY 93.81 09/15/12 RPR S/N/AX/GEN/TRNK 2.5CM/< 42706 07/07/12 TDAP VACCINE 7 YRS/> [place] [id number] 07/07/12 Internal Medicine Assmt/Plan - Assessment Assessment: HTN ASTHMA COPD HYPOTHYROID DEMENTIA - Plan Plan: fall precautions monitor bp closely prn o2 continue current orders Nutritional Asmnt/Malnutr-PDOC - Dietary Evaluation Malnutrition Findings (Please click <Entered> for more info): Nutritional Asmnt/Malnutrition Start: 07/01/18 12: 48 Text: Status: Complete Freq: Protocol: Document 07/01/18 12:50 KELLEE (Rec: 07/01/18 13:00 KELLEE [email or web address]) Nutritional Asmnt/Malnutrition Patient General Information Nutritional Screening Moderate Risk Diagnosis psychosis Pertinent Medical Hx/Surgical Hx HTN, asthma/COPD, ESRD, hypothyroid, dementia, schizophrenia Subjective Information Pt eating lunch in room during visit. Pt's confused with speech unclear and did not answer questions about diet. Pt required assistance to open fruit cup and juice. Nursing noted PO intake: 75-100%. Current Diet Order/ Nutrition Support NOÉ 4 gm, mech soft Pertinent Medications Vit D3, synthroid, theragran, miralax Pertinent Labs no nutrition related labs available Nutritional Hx/Data Height 5 ft 11 in Height (Calculated Centimeters) 180.3 Current Weight (lbs) 150 lb Weight (Calculated Kilograms) 68.0 Weight (Calculated Grams) 10595.9 [place] Body Weight 172 lb Body Mass Index (BMI) 20.9 Weight Status Approriate GI Symptoms GI Symptoms None Last BM 06/30 Difficult in: None Food Allergies No Skin Integrity/Comment: funmilayo, cecilia 18 Current %PO Good (75-100%) Estimated Nutritional Goals BEE in Kcals: Using Current wt Calories/Kcals/Kg 25-30 Kcals Calculated 7757-9865 Protein: Using Current wt Protein g/k.0 Protein Calculated 68 g Fluid: ml 7557-4456 (1 ml/kcal) Nutritional Problem No current Nutrition Prob Problem no nutrition dx at this time Malnutrition Alert Is there a minimum of two criteria No selected? Query Text:Check all the applicable criteria. A minimum of two criteria are recommended for diagnosis of either severe or non-severe malnutrition. Malnutrition Related to Morbid Obesity Malnutrition related to morbid obesity No Intervention/Recommendation Comments 1. Continue with NOÉ 4 gm, mech soft diet as ordered 2. Monitor PO intake, wt, labs and skin integrity 3. F/U as low risk in 7 days, 07/08 Expected Outcomes/Goals Expected Outcomes/Goals 1. PO intake to meet at least 75% of all meals 2. Wt stability, skin to remain intact Reviewed by Suni Rocha RD
--- NOTE | 2018-07-07 04:07 | Progress Notes ---
DATE: 07/06/2018 SUBJECTIVE: Staff was spoken to. The patient is interviewed. Mood is noted to be irritable. Affect is constricted. The patient has to be encouraged to comply with the medication. However, the patient has been refusing to willingly take the medication and bizarre behavior is still a problem and the patient has been disrobing. ASSESSMENT: The patient is still impulsive. PLAN: To continue the patient with the supportive therapy and followup. I encouraged the patient to verbalize concerns rather than to act out. JOB# [id number]
[2018-07-07] MEDS: POLYETHYLENE GLYCOL 3350 17 GM PACK PO SCH ×2 (09:34→17:11)
[2018-07-07] MEDS: Multivitamin Tab PO SCH (09:35)
[2018-07-07] MEDS: Levothyroxine 0.025 Mg Tab PO SCH (09:35)
--- NOTE | 2018-07-07 12:33 | Internal Medicine Prog Note ---
Internal Medicine Subjective - Subjective Patient seen and examined:: with staff, chart reviewed Patient is:: awake, interactive, agitated, confused Per staff patient has:: no adverse event, no episodes of fall, combative, tolerating meds Internal Medicine Objective - Results Recent Labs: Laboratory Last Values Urine Source CLEAN C 06/28/18 16:16 Urine Color YELLOW 06/28/18 16:16 Urine Clarity CLEAR (CLEAR) 06/28/18 16:16 Urine pH 6.0 (4.6 - 8.0) 06/28/18 16:16 Ur Specific [place] 1.010 (1.005-1.030) 06/28/18 16:16 Urine Protein NEGATIVE mg/dL (NEGATIVE) 06/28/18 16:16 Urine Glucose (UA) NEGATIVE mg/dL (NEGATIVE) 06/28/18 16:16 Urine Ketones NEGATIVE mg/dL (NEGATIVE) 06/28/18 16:16 Urine Blood NEGATIVE (NEGATIVE) 06/28/18 16:16 Urine Nitrate NEGATIVE (NEGATIVE) 06/28/18 16:16 Urine Bilirubin NEGATIVE (NEGATIVE) 06/28/18 16:16 Urine Urobilinogen 0.2 E.U./dL (0.2 - 1.0) 06/28/18 16:16 Ur Leukocyte Esterase NEGATIVE (NEGATIVE) 06/28/18 16:16 Urine RBC NONE SEEN /hpf (0-5) 06/28/18 16:16 Urine WBC 0-2 /hpf (0-5) 06/28/18 16:16 Ur Epithelial Cells FEW /lpf (FEW) 06/28/18 16:16 Urine Bacteria OCCASIONAL /hpf (NONE SEEN) 06/28/18 16:16 Urine Opiates Screen NEGATIVE (NEGATIVE) 06/28/18 16:16 Urine Methadone Screen NEGATIVE (NEGATIVE) 06/28/18 16:16 Ur Barbiturates Screen NEGATIVE (NEGATIVE) 06/28/18 16:16 Ur Tricyclics Screen NEGATIVE (NEGATIVE) 06/28/18 16:16 Ur Phencyclidine Scrn NEGATIVE (NEGATIVE) 06/28/18 16:16 Amphetamines Screen NEGATIVE (NEGATIVE) 06/28/18 16:16 U Methamphetamines Scrn NEGATIVE (NEGATIVE) 06/28/18 16:16 U Benzodiazepines Scrn NEGATIVE (NEGATIVE) 06/28/18 16:16 U Cocaine Metab Screen NEGATIVE (NEGATIVE) 06/28/18 16:16 U Cannabinoids Screen NEGATIVE (NEGATIVE) 06/28/18 16:16 - Physical Exam Vitals and I&O: Vital Signs Temp 97.3 F 07/07/18 06:38 Pulse 69 07/07/18 09:55 Resp 18 07/07/18 09:55 BP 128/79 07/07/18 06:38 Pulse Ox 95 07/07/18 09:55 Intake & Output 07/06/18 07/07/18 07/07/18 18:59 06:59 18:59 Intake Total 1600 120 Balance 1600 120 Intake: Oral 1600 120 Other: # Voids 4 3 # Bowel Movements 1 Active Medications: Current Medications Acetaminophen (Tylenol) 650 mg PO Q4H PRN PRN Reason: Mild Pain / Temp above 100 Stop: 08/27/18 19:46 Al Hydrox/Mg Hydrox/Simethicone (Maalox) 30 ml PO Q4H PRN PRN Reason: GI DISTRESS Stop: 08/27/18 19:46 Albuterol Sulfate (Albuterol 2.5mg/3ml Neb Ud) 2.5 mg HHN Q2HRT PRN PRN Reason: Shortness of Breath or Wheeze Stop: 08/27/18 19:46 Amlodipine Besylate (Norvasc) 10 mg PO DAILY [facility] Stop: 08/28/18 08:59 Last Admin: 07/07/18 09:35 Dose: Not Given Benztropine Mesylate (Cogentin) 0.5 mg PO BID [facility] Stop: 08/28/18 08:59 Last Admin: 07/07/18 09:34 Dose: Not Given Carbidopa/Levodopa (Sinemet 25mg-100 Mg) 1 tab PO TID [facility] Stop: 08/27/18 20:59 Last Admin: 07/07/18 09:35 Dose: Not Given Cholecalciferol (Vitamin D3) 2,000 iu PO DAILY [facility] Stop: 08/28/18 08:59 Last Admin: 07/07/18 09:35 Dose: Not Given Ipratropium [place] (Atrovent Neb 0.5mg/2.5ml) 0.5 mg HHN Q2HRT PRN PRN Reason: Shortness of Breath or Wheeze Stop: 08/27/18 19:46 Latanoprost (Xalatan 0.005% Ophth Soln) 1 drop EACH EYE HS [facility] Stop: 08/27/18 20:59 Last Admin: 07/06/18 21:05 Dose: Not Given Levothyroxine Sodium (Synthroid) 0.025 mg PO QDAC [facility] Stop: 08/28/18 07:29 Last Admin: 07/07/18 09:35 Dose: Not Given Lorazepam (Ativan) 0.5 mg PO Q4H PRN; Protocol PRN Reason: Anxiety Stop: 08/27/18 19:46 Last Admin: 07/04/18 02:05 Dose: 0.5 mg Magnesium Hydroxide (Milk Of Magnesia) 30 ml PO HS PRN PRN Reason: Constipation Stop: 08/27/18 19:46 Multivitamins/Vitamin C (Theragran) 1 tab PO DAILY [facility] Stop: 08/28/18 08:59 Last Admin: 07/07/18 09:35 Dose: Not Given Polyethylene Glycol (Miralax) 17 gm PO BID [facility] Stop: 08/28/18 08:59 Last Admin: 07/07/18 09:34 Dose: Not Given Valproate Sodium (Depakene) 500 mg PO BID [facility]; Protocol Stop: 09/01/18 16:59 Last Admin: 07/07/18 09:34 Dose: Not Given Zolpidem Tartrate (Ambien) 5 mg PO HS PRN PRN Reason: Insomnia Stop: 09/02/18 00:40 Last Admin: 07/06/18 20:50 Dose: 5 mg General: demented HEENT: NC/AT, PERRLA Neck: Supple Lungs: CTAB Cardiovascular: RRR, Normal S1, Normal S2 Abdomen: soft, non-tender, non-distended, positive bowel sound Extremities: excoriation, contracture Neurological: no change - Procedures Procedures: Procedures Procedure Code Date CLOSURE SKIN & SUBCUTANEOUS NEC 86.59 07/07/12 DPT ADMINISTRATION 99.39 07/07/12 IMMUNIZATION ADMIN 11905 07/07/12 OTHER GROUP THERAPY 94.44 12/10/14 RECREATIONAL THERAPY 93.81 09/15/12 RPR S/N/AX/GEN/TRNK 2.5CM/< 52803 07/07/12 TDAP VACCINE 7 YRS/> IM [id number] 07/07/12 Internal Medicine Assmt/Plan - Assessment Assessment: - Assessment Assessment: HTN ASTHMA COPD HYPOTHYROID DEMENTIA - Plan Plan: fall precautions monitor bp closely prn o2 continue current orders - Plan Plan: cpm Nutritional Asmnt/Malnutr-PDOC - Dietary Evaluation Malnutrition Findings (Please click <Entered> for more info): Nutritional Asmnt/Malnutrition Start: 07/01/18 12: 48 Text: Status: Complete Freq: Protocol: Document 07/01/18 12:50 KELLEE (Rec: 07/01/18 13:00 KELLEE [email or web address]) Nutritional Asmnt/Malnutrition Patient General Information Nutritional Screening Moderate Risk Diagnosis psychosis Pertinent Medical Hx/Surgical Hx HTN, asthma/COPD, ESRD, hypothyroid, dementia, schizophrenia Subjective Information Pt eating lunch in room during visit. Pt's confused with speech unclear and did not answer questions about diet. Pt required assistance to open fruit cup and juice. Nursing noted PO intake: 75-100%. Current Diet Order/ Nutrition Support NOÉ 4 gm, mech soft Pertinent Medications Vit D3, synthroid, theragran, miralax Pertinent Labs no nutrition related labs available Nutritional Hx/Data Height 1.8 m Height (Calculated Centimeters) 180.3 Current Weight (lbs) 68.039 kg Weight (Calculated Kilograms) 68.0 Weight (Calculated Grams) 90164.9 [place] Body Weight 172 lb Body Mass Index (BMI) 20.9 Weight Status Approriate GI Symptoms GI Symptoms None Last BM 06/30 Difficult in: None Food Allergies No Skin Integrity/Comment: funmilayo cecilia 18 Current %PO Good (75-100%) Estimated Nutritional Goals BEE in Kcals: Using Current wt Calories/Kcals/Kg 25-30 Kcals Calculated 6461-1769 Protein: Using Current wt Protein g/k.0 Protein Calculated 68 g Fluid: ml 9576-0165 (1 ml/kcal) Nutritional Problem No current Nutrition Prob Problem no nutrition dx at this time Malnutrition Alert Is there a minimum of two criteria No selected? Query Text:Check all the applicable criteria. A minimum of two criteria are recommended for diagnosis of either severe or non-severe malnutrition. Malnutrition Related to Morbid Obesity Malnutrition related to morbid obesity No Intervention/Recommendation Comments 1. Continue with NOÉ 4 gm, mech soft diet as ordered 2. Monitor PO intake, wt, labs and skin integrity 3. F/U as low risk in 7 days, 07/08 Expected Outcomes/Goals Expected Outcomes/Goals 1. PO intake to meet at least 75% of all meals 2. Wt stability, skin to remain intact Reviewed by Suni Rocha RD
--- NOTE | 2018-07-08 04:35 | Progress Notes ---
DATE: 07/07/2018 SUBJECTIVE: Staff was spoken to. The patient is interviewed. Mood is noted to be irritable. Affect is constricted. Insight and judgment at this time are noted to be still impaired. Impulse control is noted to be limited. The patient's disruptive behavior is a major concern. The patient needs to be redirected. The patient has been trying to take his clothes off and tends to masturbate. ASSESSMENT: The patient is still impulsive. PLAN: To continue the patient with supportive therapy, encouraged the patient to verbalize the concerns rather than to act out. The patient's sleep and appetite are reported to be fair at this time. No side effects to the current medications, valproic acid reported. The is able to tolerate the medications. Plan to continue the patient with the current medications and followup. JOB# [id number]
[2018-07-08] MEDS: Levothyroxine 0.025 Mg Tab PO SCH (06:38)
[2018-07-08] MEDS: POLYETHYLENE GLYCOL 3350 17 GM PACK PO SCH ×3 (08:00→17:17)
[2018-07-08] MEDS: Multivitamin Tab PO SCH ×2 (08:00→08:10)
--- NOTE | 2018-07-08 12:33 | Internal Medicine Prog Note ---
Internal Medicine Subjective - Subjective Patient seen and examined:: with staff, chart reviewed Patient is:: awake, interactive, agitated, confused Per staff patient has:: no adverse event, no episodes of fall, combative, tolerating meds Internal Medicine Objective - Results Recent Labs: Laboratory Last Values Urine Source CLEAN C 06/28/18 16:16 Urine Color YELLOW 06/28/18 16:16 Urine Clarity CLEAR (CLEAR) 06/28/18 16:16 Urine pH 6.0 (4.6 - 8.0) 06/28/18 16:16 Ur Specific [place] 1.010 (1.005-1.030) 06/28/18 16:16 Urine Protein NEGATIVE mg/dL (NEGATIVE) 06/28/18 16:16 Urine Glucose (UA) NEGATIVE mg/dL (NEGATIVE) 06/28/18 16:16 Urine Ketones NEGATIVE mg/dL (NEGATIVE) 06/28/18 16:16 Urine Blood NEGATIVE (NEGATIVE) 06/28/18 16:16 Urine Nitrate NEGATIVE (NEGATIVE) 06/28/18 16:16 Urine Bilirubin NEGATIVE (NEGATIVE) 06/28/18 16:16 Urine Urobilinogen 0.2 E.U./dL (0.2 - 1.0) 06/28/18 16:16 Ur Leukocyte Esterase NEGATIVE (NEGATIVE) 06/28/18 16:16 Urine RBC NONE SEEN /hpf (0-5) 06/28/18 16:16 Urine WBC 0-2 /hpf (0-5) 06/28/18 16:16 Ur Epithelial Cells FEW /lpf (FEW) 06/28/18 16:16 Urine Bacteria OCCASIONAL /hpf (NONE SEEN) 06/28/18 16:16 Urine Opiates Screen NEGATIVE (NEGATIVE) 06/28/18 16:16 Urine Methadone Screen NEGATIVE (NEGATIVE) 06/28/18 16:16 Ur Barbiturates Screen NEGATIVE (NEGATIVE) 06/28/18 16:16 Ur Tricyclics Screen NEGATIVE (NEGATIVE) 06/28/18 16:16 Ur Phencyclidine Scrn NEGATIVE (NEGATIVE) 06/28/18 16:16 Amphetamines Screen NEGATIVE (NEGATIVE) 06/28/18 16:16 U Methamphetamines Scrn NEGATIVE (NEGATIVE) 06/28/18 16:16 U Benzodiazepines Scrn NEGATIVE (NEGATIVE) 06/28/18 16:16 U Cocaine Metab Screen NEGATIVE (NEGATIVE) 06/28/18 16:16 U Cannabinoids Screen NEGATIVE (NEGATIVE) 06/28/18 16:16 - Physical Exam Vitals and I&O: Vital Signs Temp 98.2 F 07/07/18 14:00 Pulse 68 07/08/18 11:35 Resp 18 07/08/18 11:35 BP 99/66 07/08/18 09:52 Pulse Ox 95 07/08/18 11:35 Intake & Output 07/07/18 07/08/18 07/08/18 18:59 06:59 18:59 Intake Total 1000 120 Balance 1000 120 Intake: Oral 1000 120 Other: # Voids 4 3 # Bowel Movements 1 Active Medications: Current Medications Acetaminophen (Tylenol) 650 mg PO Q4H PRN PRN Reason: Mild Pain / Temp above 100 Stop: 08/27/18 19:46 Al Hydrox/Mg Hydrox/Simethicone (Maalox) 30 ml PO Q4H PRN PRN Reason: GI DISTRESS Stop: 08/27/18 19:46 Albuterol Sulfate (Albuterol 2.5mg/3ml Neb Ud) 2.5 mg HHN Q2HRT PRN PRN Reason: Shortness of Breath or Wheeze Stop: 08/27/18 19:46 Amlodipine Besylate (Norvasc) 10 mg PO DAILY [facility] Stop: 08/28/18 08:59 Last Admin: 07/08/18 09:52 Dose: Not Given Benztropine Mesylate (Cogentin) 0.5 mg PO BID [facility] Stop: 08/28/18 08:59 Last Admin: 07/08/18 08:09 Dose: 0.5 mg Carbidopa/Levodopa (Sinemet 25mg-100 Mg) 1 tab PO TID [facility] Stop: 08/27/18 20:59 Last Admin: 07/08/18 08:10 Dose: 1 tab Cholecalciferol (Vitamin D3) 2,000 iu PO DAILY [facility] Stop: 08/28/18 08:59 Last Admin: 07/08/18 08:08 Dose: 2,000 iu Ipratropium [place] (Atrovent Neb 0.5mg/2.5ml) 0.5 mg HHN Q2HRT PRN PRN Reason: Shortness of Breath or Wheeze Stop: 08/27/18 19:46 Latanoprost (Xalatan 0.005% Ophth Soln) 1 drop EACH EYE HS [facility] Stop: 08/27/18 20:59 Last Admin: 07/07/18 20:27 Dose: Not Given Levothyroxine Sodium (Synthroid) 0.025 mg PO QDAC [facility] Stop: 08/28/18 07:29 Last Admin: 07/08/18 06:38 Dose: 0.025 mg Lorazepam (Ativan) 0.5 mg PO Q4H PRN; Protocol PRN Reason: Anxiety Stop: 08/27/18 19:46 Last Admin: 07/08/18 06:37 Dose: 0.5 mg Magnesium Hydroxide (Milk Of Magnesia) 30 ml PO HS PRN PRN Reason: Constipation Stop: 08/27/18 19:46 Multivitamins/Vitamin C (Theragran) 1 tab PO DAILY [facility] Stop: 08/28/18 08:59 Last Admin: 07/08/18 08:10 Dose: 1 tab Polyethylene Glycol (Miralax) 17 gm PO BID [facility] Stop: 08/28/18 08:59 Last Admin: 07/08/18 08:09 Dose: 17 gm Valproate Sodium (Depakene) 500 mg PO BID [facility]; Protocol Stop: 09/01/18 16:59 Last Admin: 07/08/18 08:08 Dose: 500 mg Zolpidem Tartrate (Ambien) 5 mg PO HS PRN PRN Reason: Insomnia Stop: 09/02/18 00:40 Last Admin: 07/08/18 00:52 Dose: 5 mg General: demented HEENT: NC/AT, PERRLA Neck: Supple Lungs: CTAB Cardiovascular: RRR, Normal S1, Normal S2 Abdomen: soft, non-tender, non-distended, positive bowel sound Extremities: excoriation, contracture Neurological: no change - Procedures Procedures: Procedures Procedure Code Date CLOSURE SKIN & SUBCUTANEOUS NEC 86.59 07/07/12 DPT ADMINISTRATION 99.39 07/07/12 IMMUNIZATION ADMIN 39637 07/07/12 OTHER GROUP THERAPY 94.44 12/10/14 RECREATIONAL THERAPY 93.81 09/15/12 RPR S/N/AX/GEN/TRNK 2.5CM/< 12413 07/07/12 TDAP VACCINE 7 YRS/> [place] [id number] 07/07/12 Internal Medicine Assmt/Plan - Assessment Assessment: - Assessment Assessment: HTN ASTHMA COPD HYPOTHYROID DEMENTIA - Plan Plan: fall precautions monitor bp closely prn o2 continue current orders - Plan Plan: cpm Nutritional Asmnt/Malnutr-PDOC - Dietary Evaluation Malnutrition Findings (Please click <Entered> for more info): Nutritional Asmnt/Malnutrition Start: 07/01/18 12: 48 Text: Status: Complete Freq: Protocol: Document 07/01/18 12:50 KELLEE (Rec: 07/01/18 13:00 KELLEE [email or web address]) Nutritional Asmnt/Malnutrition Patient General Information Nutritional Screening Moderate Risk Diagnosis psychosis Pertinent Medical Hx/Surgical Hx HTN, asthma/COPD, ESRD, hypothyroid, dementia, schizophrenia Subjective Information Pt eating lunch in room during visit. Pt's confused with speech unclear and did not answer questions about diet. Pt required assistance to open fruit cup and juice. Nursing noted PO intake: 75-100%. Current Diet Order/ Nutrition Support NOÉ 4 gm, mech soft Pertinent Medications Vit D3, synthroid, theragran, miralax Pertinent Labs no nutrition related labs available Nutritional Hx/Data Height 1.8 m Height (Calculated Centimeters) 180.3 Current Weight (lbs) 68.039 kg Weight (Calculated Kilograms) 68.0 Weight (Calculated Grams) 25897.9 [place] Body Weight 172 lb Body Mass Index (BMI) 20.9 Weight Status Approriate GI Symptoms GI Symptoms None Last BM 06/30 Difficult in: None Food Allergies No Skin Integrity/Comment: cecilia mello 18 Current %PO Good (75-100%) Estimated Nutritional Goals BEE in Kcals: Using Current wt Calories/Kcals/Kg 25-30 Kcals Calculated 0206-3484 Protein: Using Current wt Protein g/k.0 Protein Calculated 68 g Fluid: ml 8569-5930 (1 ml/kcal) Nutritional Problem No current Nutrition Prob Problem no nutrition dx at this time Malnutrition Alert Is there a minimum of two criteria No selected? Query Text:Check all the applicable criteria. A minimum of two criteria are recommended for diagnosis of either severe or non-severe malnutrition. Malnutrition Related to Morbid Obesity Malnutrition related to morbid obesity No Intervention/Recommendation Comments 1. Continue with NOÉ 4 gm, mech soft diet as ordered 2. Monitor PO intake, wt, labs and skin integrity 3. F/U as low risk in 7 days, 07/08 Expected Outcomes/Goals Expected Outcomes/Goals 1. PO intake to meet at least 75% of all meals 2. Wt stability, skin to remain intact Reviewed by Suni Rocha RD
[2018-07-09] MEDS: Levothyroxine 0.025 Mg Tab PO SCH (06:33)
[2018-07-09] MEDS: POLYETHYLENE GLYCOL 3350 17 GM PACK PO SCH ×2 (09:02→17:10)
[2018-07-09] MEDS: Multivitamin Tab PO SCH (09:02)
--- NOTE | 2018-07-09 12:09 | Progress Notes ---
DATE: 07/08/2018 PSYCHIATRIC PROGRESS NOTE SUBJECTIVE: Staff was spoken to. The patient is interviewed. Mood is noted to be irritable. Affect is constricted. Coping skills are noted to be very poor. The patient continues to be still very impulsive and has been displaying bizarre behavior. The patient needs to be redirected. The patient is currently on 500 mg of valproic acid has been able to tolerate the medications. No side effects to the medications are noted. The patient has been disrobing himself and the patient needs to be closely monitored. PLAN: Valproic acid is being given at 500 mg twice a day and continue to be followed with Depakote level. Since the patient has been having Parkinson symptoms, we will add ____ to the antipsychotic medications at this time. JOB# [id number]
--- NOTE | 2018-07-09 13:45 | Progress Notes ---
DATE: 07/09/2018 SUBJECTIVE: Staff was spoken to. The patient is interviewed. Mood is noted to be less irritable. The patient is isolative and withdrawn. The patient's bizarre behavior seems to be coming under control. The patient is currently on valproic acid 500 mg twice a day. The patient's impulsive behavior is under control. The patient could be redirected. No side effects to the medications are noted at this time. ASSESSMENT: The patient is still impulsive. PLAN: To continue the patient with the supportive therapy and followup. JOB# [id number]
--- NOTE | 2018-07-09 14:41 | Internal Medicine Prog Note ---
Internal Medicine Subjective - Subjective Patient seen and examined:: with staff, chart reviewed Patient is:: awake, interactive, agitated, confused Per staff patient has:: no adverse event, no episodes of fall, combative, tolerating meds Internal Medicine Objective - Results Recent Labs: Laboratory Last Values Urine Source CLEAN C 06/28/18 16:16 Urine Color YELLOW 06/28/18 16:16 Urine Clarity CLEAR (CLEAR) 06/28/18 16:16 Urine pH 6.0 (4.6 - 8.0) 06/28/18 16:16 Ur Specific [place] 1.010 (1.005-1.030) 06/28/18 16:16 Urine Protein NEGATIVE mg/dL (NEGATIVE) 06/28/18 16:16 Urine Glucose (UA) NEGATIVE mg/dL (NEGATIVE) 06/28/18 16:16 Urine Ketones NEGATIVE mg/dL (NEGATIVE) 06/28/18 16:16 Urine Blood NEGATIVE (NEGATIVE) 06/28/18 16:16 Urine Nitrate NEGATIVE (NEGATIVE) 06/28/18 16:16 Urine Bilirubin NEGATIVE (NEGATIVE) 06/28/18 16:16 Urine Urobilinogen 0.2 E.U./dL (0.2 - 1.0) 06/28/18 16:16 Ur Leukocyte Esterase NEGATIVE (NEGATIVE) 06/28/18 16:16 Urine RBC NONE SEEN /hpf (0-5) 06/28/18 16:16 Urine WBC 0-2 /hpf (0-5) 06/28/18 16:16 Ur Epithelial Cells FEW /lpf (FEW) 06/28/18 16:16 Urine Bacteria OCCASIONAL /hpf (NONE SEEN) 06/28/18 16:16 Urine Opiates Screen NEGATIVE (NEGATIVE) 06/28/18 16:16 Urine Methadone Screen NEGATIVE (NEGATIVE) 06/28/18 16:16 Ur Barbiturates Screen NEGATIVE (NEGATIVE) 06/28/18 16:16 Ur Tricyclics Screen NEGATIVE (NEGATIVE) 06/28/18 16:16 Ur Phencyclidine Scrn NEGATIVE (NEGATIVE) 06/28/18 16:16 Amphetamines Screen NEGATIVE (NEGATIVE) 06/28/18 16:16 U Methamphetamines Scrn NEGATIVE (NEGATIVE) 06/28/18 16:16 U Benzodiazepines Scrn NEGATIVE (NEGATIVE) 06/28/18 16:16 U Cocaine Metab Screen NEGATIVE (NEGATIVE) 06/28/18 16:16 U Cannabinoids Screen NEGATIVE (NEGATIVE) 06/28/18 16:16 - Physical Exam Vitals and I&O: Vital Signs Temp 97.9 F 07/08/18 21:03 Pulse 66 07/09/18 06:50 Resp 14 07/09/18 06:50 BP 140/72 07/08/18 21:03 Pulse Ox 96 07/09/18 06:50 Intake & Output 07/08/18 07/09/18 07/09/18 18:59 06:59 18:59 Intake Total 1000 Balance 1000 Intake: Oral 1000 Other: # Voids 3 # Bowel Movements 1 Active Medications: Current Medications Acetaminophen (Tylenol) 650 mg PO Q4H PRN PRN Reason: Mild Pain / Temp above 100 Stop: 08/27/18 19:46 Al Hydrox/Mg Hydrox/Simethicone (Maalox) 30 ml PO Q4H PRN PRN Reason: GI DISTRESS Stop: 08/27/18 19:46 Albuterol Sulfate (Albuterol 2.5mg/3ml Neb Ud) 2.5 mg HHN Q2HRT PRN PRN Reason: Shortness of Breath or Wheeze Stop: 08/27/18 19:46 Amlodipine Besylate (Norvasc) 10 mg PO DAILY WILL Stop: 08/28/18 08:59 Last Admin: 07/09/18 09:01 Dose: Not Given Benztropine Mesylate (Cogentin) 0.5 mg PO BID WILL Stop: 08/28/18 08:59 Last Admin: 07/09/18 09:01 Dose: Not Given Carbidopa/Levodopa (Sinemet 25mg-100 Mg) 1 tab PO TID WILL Stop: 08/27/18 20:59 Last Admin: 07/09/18 14:10 Dose: Not Given Cholecalciferol (Vitamin D3) 2,000 iu PO DAILY WILL Stop: 08/28/18 08:59 Last Admin: 07/09/18 09:01 Dose: Not Given Ipratropium [place] (Atrovent Neb 0.5mg/2.5ml) 0.5 mg HHN Q2HRT PRN PRN Reason: Shortness of Breath or Wheeze Stop: 08/27/18 19:46 Latanoprost (Xalatan 0.005% Ophth Soln) 1 drop EACH EYE HS [facility] Stop: 08/27/18 20:59 Last Admin: 07/08/18 20:46 Dose: 1 drop Levothyroxine Sodium (Synthroid) 0.025 mg PO QDAC [facility] Stop: 08/28/18 07:29 Last Admin: 07/09/18 06:33 Dose: 0.025 mg Lorazepam (Ativan) 0.5 mg PO Q4H PRN; Protocol PRN Reason: Anxiety Stop: 08/27/18 19:46 Last Admin: 07/09/18 03:12 Dose: 0.5 mg Magnesium Hydroxide (Milk Of Magnesia) 30 ml PO HS PRN PRN Reason: Constipation Stop: 08/27/18 19:46 Multivitamins/Vitamin C (Theragran) 1 tab PO DAILY [facility] Stop: 08/28/18 08:59 Last Admin: 07/09/18 09:02 Dose: Not Given Polyethylene Glycol (Miralax) 17 gm PO BID [facility] Stop: 08/28/18 08:59 Last Admin: 07/09/18 09:02 Dose: Not Given Valproate Sodium (Depakene) 500 mg PO BID [facility]; Protocol Stop: 09/01/18 16:59 Last Admin: 07/09/18 09:01 Dose: Not Given Zolpidem Tartrate (Ambien) 5 mg PO HS PRN PRN Reason: Insomnia Stop: 09/02/18 00:40 Last Admin: 07/09/18 03:11 Dose: 5 mg General: demented HEENT: NC/AT, PERRLA Neck: Supple Lungs: CTAB Cardiovascular: RRR, Normal S1, Normal S2 Abdomen: soft, non-tender, non-distended, positive bowel sound Extremities: excoriation, contracture Neurological: no change - Procedures Procedures: Procedures Procedure Code Date CLOSURE SKIN & SUBCUTANEOUS NEC 86.59 07/07/12 DPT ADMINISTRATION 99.39 07/07/12 IMMUNIZATION ADMIN [id number] 07/07/12 OTHER GROUP THERAPY 94.44 12/10/14 RECREATIONAL THERAPY 93.81 09/15/12 RPR S/N/AX/GEN/TRNK 2.5CM/< 07992 07/07/12 TDAP VACCINE 7 YRS/> [place] [id number] 07/07/12 Internal Medicine Assmt/Plan - Assessment Assessment: - Assessment Assessment: HTN ASTHMA COPD HYPOTHYROID DEMENTIA - Plan Plan: fall precautions monitor bp closely prn o2 continue current orders - Plan Plan: cpm Nutritional Asmnt/Malnutr-PDOC - Dietary Evaluation Malnutrition Findings (Please click <Entered> for more info): Nutritional Asmnt/Malnutrition Start: 07/01/18 12: 48 Text: Status: Complete Freq: Protocol: Document 07/01/18 12:50 KELLEE (Rec: 07/01/18 13:00 KELLEE [email or web address]) Nutritional Asmnt/Malnutrition Patient General Information Nutritional Screening Moderate Risk Diagnosis psychosis Pertinent Medical Hx/Surgical Hx HTN, asthma/COPD, ESRD, hypothyroid, dementia, schizophrenia Subjective Information Pt eating lunch in room during visit. Pt's confused with speech unclear and did not answer questions about diet. Pt required assistance to open fruit cup and juice. Nursing noted PO intake: 75-100%. Current Diet Order/ Nutrition Support NOÉ 4 gm, mech soft Pertinent Medications Vit D3, synthroid, theragran, miralax Pertinent Labs no nutrition related labs available Nutritional Hx/Data Height 1.8 m Height (Calculated Centimeters) 180.3 Current Weight (lbs) 68.039 kg Weight (Calculated Kilograms) 68.0 Weight (Calculated Grams) 20097.9 [place] Body Weight 172 lb Body Mass Index (BMI) 20.9 Weight Status Approriate GI Symptoms GI Symptoms None Last BM 06/30 Difficult in: None Food Allergies No Skin Integrity/Comment: cecilia mello 18 Current %PO Good (75-100%) Estimated Nutritional Goals BEE in Kcals: Using Current wt Calories/Kcals/Kg 25-30 Kcals Calculated 7309-9190 Protein: Using Current wt Protein g/k.0 Protein Calculated 68 g Fluid: ml 3460-0951 (1 ml/kcal) Nutritional Problem No current Nutrition Prob Problem no nutrition dx at this time Malnutrition Alert Is there a minimum of two criteria No selected? Query Text:Check all the applicable criteria. A minimum of two criteria are recommended for diagnosis of either severe or non-severe malnutrition. Malnutrition Related to Morbid Obesity Malnutrition related to morbid obesity No Intervention/Recommendation Comments 1. Continue with NOÉ 4 gm, mech soft diet as ordered 2. Monitor PO intake, wt, labs and skin integrity 3. F/U as low risk in 7 days, 07/08 Expected Outcomes/Goals Expected Outcomes/Goals 1. PO intake to meet at least 75% of all meals 2. Wt stability, skin to remain intact Reviewed by Suni Rocha RD
[2018-07-10] MEDS: Levothyroxine 0.025 Mg Tab PO SCH (06:37)
[2018-07-10] MEDS: POLYETHYLENE GLYCOL 3350 17 GM PACK PO SCH ×2 (09:00→17:09)
[2018-07-10] MEDS: Multivitamin Tab PO SCH (09:00)
--- NOTE | 2018-07-10 11:32 | Internal Medicine Prog Note ---
Internal Medicine Subjective - Subjective Patient seen and examined:: with staff, chart reviewed Patient is:: awake, interactive, in bed, agitated, confused Per staff patient has:: no adverse event, no episodes of fall, combative, tolerating meds Internal Medicine Objective - Results Recent Labs: Laboratory Last Values Urine Source CLEAN C 06/28/18 16:16 Urine Color YELLOW 06/28/18 16:16 Urine Clarity CLEAR (CLEAR) 06/28/18 16:16 Urine pH 6.0 (4.6 - 8.0) 06/28/18 16:16 Ur Specific [place] 1.010 (1.005-1.030) 06/28/18 16:16 Urine Protein NEGATIVE mg/dL (NEGATIVE) 06/28/18 16:16 Urine Glucose (UA) NEGATIVE mg/dL (NEGATIVE) 06/28/18 16:16 Urine Ketones NEGATIVE mg/dL (NEGATIVE) 06/28/18 16:16 Urine Blood NEGATIVE (NEGATIVE) 06/28/18 16:16 Urine Nitrate NEGATIVE (NEGATIVE) 06/28/18 16:16 Urine Bilirubin NEGATIVE (NEGATIVE) 06/28/18 16:16 Urine Urobilinogen 0.2 E.U./dL (0.2 - 1.0) 06/28/18 16:16 Ur Leukocyte Esterase NEGATIVE (NEGATIVE) 06/28/18 16:16 Urine RBC NONE SEEN /hpf (0-5) 06/28/18 16:16 Urine WBC 0-2 /hpf (0-5) 06/28/18 16:16 Ur Epithelial Cells FEW /lpf (FEW) 06/28/18 16:16 Urine Bacteria OCCASIONAL /hpf (NONE SEEN) 06/28/18 16:16 Urine Opiates Screen NEGATIVE (NEGATIVE) 06/28/18 16:16 Urine Methadone Screen NEGATIVE (NEGATIVE) 06/28/18 16:16 Ur Barbiturates Screen NEGATIVE (NEGATIVE) 06/28/18 16:16 Ur Tricyclics Screen NEGATIVE (NEGATIVE) 06/28/18 16:16 Ur Phencyclidine Scrn NEGATIVE (NEGATIVE) 06/28/18 16:16 Amphetamines Screen NEGATIVE (NEGATIVE) 06/28/18 16:16 U Methamphetamines Scrn NEGATIVE (NEGATIVE) 06/28/18 16:16 U Benzodiazepines Scrn NEGATIVE (NEGATIVE) 06/28/18 16:16 U Cocaine Metab Screen NEGATIVE (NEGATIVE) 06/28/18 16:16 U Cannabinoids Screen NEGATIVE (NEGATIVE) 06/28/18 16:16 - Physical Exam Vitals and I&O: Vital Signs Temp 98 F 07/10/18 06:41 Pulse 88 07/10/18 06:45 Resp 16 07/10/18 06:45 BP 116/79 07/10/18 06:41 Pulse Ox 96 07/10/18 06:45 Intake & Output 07/09/18 07/10/18 07/10/18 18:59 06:59 18:59 Intake Total 1630 480 Balance 1630 480 Intake: Oral 1630 480 Other: # Voids 3 1 # Bowel Movements 1 Active Medications: Current Medications Acetaminophen (Tylenol) 650 mg PO Q4H PRN PRN Reason: Mild Pain / Temp above 100 Stop: 08/27/18 19:46 Al Hydrox/Mg Hydrox/Simethicone (Maalox) 30 ml PO Q4H PRN PRN Reason: GI DISTRESS Stop: 08/27/18 19:46 Albuterol Sulfate (Albuterol 2.5mg/3ml Neb Ud) 2.5 mg HHN Q2HRT PRN PRN Reason: Shortness of Breath or Wheeze Stop: 08/27/18 19:46 Amlodipine Besylate (Norvasc) 10 mg PO DAILY [facility] Stop: 08/28/18 08:59 Last Admin: 07/09/18 09:01 Dose: Not Given Benztropine Mesylate (Cogentin) 0.5 mg PO BID [facility] Stop: 08/28/18 08:59 Last Admin: 07/09/18 09:01 Dose: Not Given Carbidopa/Levodopa (Sinemet 25mg-100 Mg) 1 tab PO TID [facility] Stop: 08/27/18 20:59 Last Admin: 07/09/18 21:27 Dose: Not Given Cholecalciferol (Vitamin D3) 2,000 iu PO DAILY [facility] Stop: 08/28/18 08:59 Last Admin: 07/09/18 09:01 Dose: Not Given Ipratropium [place] (Atrovent Neb 0.5mg/2.5ml) 0.5 mg HHN Q2HRT PRN PRN Reason: Shortness of Breath or Wheeze Stop: 08/27/18 19:46 Latanoprost (Xalatan 0.005% Ophth Soln) 1 drop EACH EYE HS [facility] Stop: 08/27/18 20:59 Last Admin: 07/09/18 21:28 Dose: Not Given Levothyroxine Sodium (Synthroid) 0.025 mg PO QDAC [facility] Stop: 08/28/18 07:29 Last Admin: 07/10/18 06:37 Dose: 0.025 mg Lorazepam (Ativan) 0.5 mg PO Q4H PRN; Protocol PRN Reason: Anxiety Stop: 08/27/18 19:46 Last Admin: 07/10/18 04:00 Dose: 0.5 mg Magnesium Hydroxide (Milk Of Magnesia) 30 ml PO HS PRN PRN Reason: Constipation Stop: 08/27/18 19:46 Multivitamins/Vitamin C (Theragran) 1 tab PO DAILY [facility] Stop: 08/28/18 08:59 Last Admin: 07/09/18 09:02 Dose: Not Given Polyethylene Glycol (Miralax) 17 gm PO BID [facility] Stop: 08/28/18 08:59 Last Admin: 07/09/18 09:02 Dose: Not Given Valproate Sodium (Depakene) 500 mg PO BID [facility]; Protocol Stop: 09/01/18 16:59 Last Admin: 07/09/18 09:01 Dose: Not Given Zolpidem Tartrate (Ambien) 5 mg PO HS PRN PRN Reason: Insomnia Stop: 09/02/18 00:40 Last Admin: 07/10/18 03:06 Dose: 5 mg General: demented HEENT: NC/AT, PERRLA Neck: Supple Lungs: CTAB Cardiovascular: RRR, Normal S1, Normal S2 Abdomen: soft, non-tender, non-distended, positive bowel sound Extremities: excoriation, contracture Neurological: no change - Procedures Procedures: Procedures Procedure Code Date CLOSURE SKIN & SUBCUTANEOUS NEC 86.59 07/07/12 DPT ADMINISTRATION 99.39 07/07/12 IMMUNIZATION ADMIN [id number] 07/07/12 OTHER GROUP THERAPY 94.44 12/10/14 RECREATIONAL THERAPY 93.81 09/15/12 RPR S/N/AX/GEN/TRNK 2.5CM/< 91546 07/07/12 TDAP VACCINE 7 YRS/> [place] [id number] 07/07/12 Internal Medicine Assmt/Plan - Assessment Assessment: - Assessment Assessment: HTN ASTHMA COPD HYPOTHYROID DEMENTIA - Plan Plan: fall precautions monitor bp closely prn o2 continue current orders - Plan Plan: cpm Nutritional Asmnt/Malnutr-PDOC - Dietary Evaluation Malnutrition Findings (Please click <Entered> for more info): Nutritional Asmnt/Malnutrition Start: 07/01/18 12: 48 Text: Status: Complete Freq: Protocol: Document 07/01/18 12:50 KELLEE (Rec: 07/01/18 13:00 KELLEE [email or web address]) Nutritional Asmnt/Malnutrition Patient General Information Nutritional Screening Moderate Risk Diagnosis psychosis Pertinent Medical Hx/Surgical Hx HTN, asthma/COPD, ESRD, hypothyroid, dementia, schizophrenia Subjective Information Pt eating lunch in room during visit. Pt's confused with speech unclear and did not answer questions about diet. Pt required assistance to open fruit cup and juice. Nursing noted PO intake: 75-100%. Current Diet Order/ Nutrition Support NOÉ 4 gm, mech soft Pertinent Medications Vit D3, synthroid, theragran, miralax Pertinent Labs no nutrition related labs available Nutritional Hx/Data Height 1.8 m Height (Calculated Centimeters) 180.3 Current Weight (lbs) 68.039 kg Weight (Calculated Kilograms) 68.0 Weight (Calculated Grams) 02910.9 [place] Body Weight 172 lb Body Mass Index (BMI) 20.9 Weight Status Approriate GI Symptoms GI Symptoms None Last BM 06/30 Difficult in: None Food Allergies No Skin Integrity/Comment: cecilia mello 18 Current %PO Good (75-100%) Estimated Nutritional Goals BEE in Kcals: Using Current wt Calories/Kcals/Kg 25-30 Kcals Calculated 7374-9919 Protein: Using Current wt Protein g/k.0 Protein Calculated 68 g Fluid: ml 4954-2801 (1 ml/kcal) Nutritional Problem No current Nutrition Prob Problem no nutrition dx at this time Malnutrition Alert Is there a minimum of two criteria No selected? Query Text:Check all the applicable criteria. A minimum of two criteria are recommended for diagnosis of either severe or non-severe malnutrition. Malnutrition Related to Morbid Obesity Malnutrition related to morbid obesity No Intervention/Recommendation Comments 1. Continue with NOÉ 4 gm, mech soft diet as ordered 2. Monitor PO intake, wt, labs and skin integrity 3. F/U as low risk in 7 days, 07/08 Expected Outcomes/Goals Expected Outcomes/Goals 1. PO intake to meet at least 75% of all meals 2. Wt stability, skin to remain intact Reviewed by Suni Rocha RD
--- NOTE | 2018-07-10 23:51 | Progress Notes ---
DATE: 07/10/2018 PSYCHIATRIC PROGRESS NOTE SUBJECTIVE: Staff was spoken to. The patient is interviewed. Mood is noted to be irritable. Affect is constricted. Insight and judgment are noted to be still impaired. Impulse control is noted to be poor. Coping skills are noted to be very poor. The patient has been having difficult time to cope with the stress, but the patient seems to be very intrusive and sexually preoccupied. The patient needs to be redirected at this time. The patient has been on Depakote and has been able to tolerate the medication. ASSESSMENT: The patient is still impulsive. PLAN: To continue the patient with the supportive therapy and followup. JOB# [id number]
[2018-07-11] MEDS: Levothyroxine 0.025 Mg Tab PO SCH ×2 (06:51→06:55)
[2018-07-11] MEDS: Multivitamin Tab PO SCH (09:29)
[2018-07-11] MEDS: POLYETHYLENE GLYCOL 3350 17 GM PACK PO SCH (09:29)
--- NOTE | 2018-07-11 15:37 | Internal Medicine Prog Note ---
Internal Medicine Subjective - Subjective Patient seen and examined:: with staff, chart reviewed, other (pt was seen early this am) Patient is:: awake, interactive, in bed, agitated, confused Per staff patient has:: no adverse event, no episodes of fall, combative, tolerating meds Internal Medicine Objective - Results Recent Labs: Laboratory Last Values Urine Source CLEAN C 06/28/18 16:16 Urine Color YELLOW 06/28/18 16:16 Urine Clarity CLEAR (CLEAR) 06/28/18 16:16 Urine pH 6.0 (4.6 - 8.0) 06/28/18 16:16 Ur Specific [place] 1.010 (1.005-1.030) 06/28/18 16:16 Urine Protein NEGATIVE mg/dL (NEGATIVE) 06/28/18 16:16 Urine Glucose (UA) NEGATIVE mg/dL (NEGATIVE) 06/28/18 16:16 Urine Ketones NEGATIVE mg/dL (NEGATIVE) 06/28/18 16:16 Urine Blood NEGATIVE (NEGATIVE) 06/28/18 16:16 Urine Nitrate NEGATIVE (NEGATIVE) 06/28/18 16:16 Urine Bilirubin NEGATIVE (NEGATIVE) 06/28/18 16:16 Urine Urobilinogen 0.2 E.U./dL (0.2 - 1.0) 06/28/18 16:16 Ur Leukocyte Esterase NEGATIVE (NEGATIVE) 06/28/18 16:16 Urine RBC NONE SEEN /hpf (0-5) 06/28/18 16:16 Urine WBC 0-2 /hpf (0-5) 06/28/18 16:16 Ur Epithelial Cells FEW /lpf (FEW) 06/28/18 16:16 Urine Bacteria OCCASIONAL /hpf (NONE SEEN) 06/28/18 16:16 Urine Opiates Screen NEGATIVE (NEGATIVE) 06/28/18 16:16 Urine Methadone Screen NEGATIVE (NEGATIVE) 06/28/18 16:16 Ur Barbiturates Screen NEGATIVE (NEGATIVE) 06/28/18 16:16 Ur Tricyclics Screen NEGATIVE (NEGATIVE) 06/28/18 16:16 Ur Phencyclidine Scrn NEGATIVE (NEGATIVE) 06/28/18 16:16 Amphetamines Screen NEGATIVE (NEGATIVE) 06/28/18 16:16 U Methamphetamines Scrn NEGATIVE (NEGATIVE) 06/28/18 16:16 U Benzodiazepines Scrn NEGATIVE (NEGATIVE) 06/28/18 16:16 U Cocaine Metab Screen NEGATIVE (NEGATIVE) 06/28/18 16:16 U Cannabinoids Screen NEGATIVE (NEGATIVE) 06/28/18 16:16 - Physical Exam Vitals and I&O: Vital Signs Temp 98.7 F 07/11/18 06:07 Pulse 60 07/11/18 06:45 Resp 18 07/11/18 07:58 BP 126/77 07/11/18 06:07 Pulse Ox 95 07/11/18 06:45 Intake & Output 07/10/18 07/11/18 07/11/18 18:59 06:59 18:59 Intake Total 1000 480 Balance 1000 480 Intake: Oral 1000 480 Other: # Voids 4 2 2 # Bowel Movements 1 0 0 General: demented HEENT: NC/AT, PERRLA Neck: Supple Lungs: CTAB Cardiovascular: RRR, Normal S1, Normal S2 Abdomen: soft, non-tender, non-distended, positive bowel sound Extremities: excoriation, contracture Neurological: no change - Procedures Procedures: Procedures Procedure Code Date CLOSURE SKIN & SUBCUTANEOUS NEC 86.59 07/07/12 DPT ADMINISTRATION 99.39 07/07/12 IMMUNIZATION ADMIN [id number] 07/07/12 OTHER GROUP THERAPY 94.44 12/10/14 RECREATIONAL THERAPY 93.81 09/15/12 RPR S/N/AX/GEN/TRNK 2.5CM/< 19849 07/07/12 TDAP VACCINE 7 YRS/> IM [id number] 07/07/12 Internal Medicine Assmt/Plan - Assessment Assessment: - Assessment Assessment: HTN ASTHMA COPD HYPOTHYROID DEMENTIA - Plan Plan: fall precautions monitor bp closely prn o2 continue current orders - Plan Plan: cpm Nutritional Asmnt/Malnutr-PDOC - Dietary Evaluation Malnutrition Findings (Please click <Entered> for more info): Nutritional Asmnt/Malnutrition Start: 07/01/18 12: 48 Text: Status: Complete Freq: Protocol: Document 07/01/18 12:50 KELLEE (Rec: 07/01/18 13:00 KELLEE [email or web address]) Nutritional Asmnt/Malnutrition Patient General Information Nutritional Screening Moderate Risk Diagnosis psychosis Pertinent Medical Hx/Surgical Hx HTN, asthma/COPD, ESRD, hypothyroid, dementia, schizophrenia Subjective Information Pt eating lunch in room during visit. Pt's confused with speech unclear and did not answer questions about diet. Pt required assistance to open fruit cup and juice. Nursing noted PO intake: 75-100%. Current Diet Order/ Nutrition Support NOÉ 4 gm, mech soft Pertinent Medications Vit D3, synthroid, theragran, miralax Pertinent Labs no nutrition related labs available Nutritional Hx/Data Height 1.8 m Height (Calculated Centimeters) 180.3 Current Weight (lbs) 68.039 kg Weight (Calculated Kilograms) 68.0 Weight (Calculated Grams) 13302.9 [place] Body Weight 172 lb Body Mass Index (BMI) 20.9 Weight Status Approriate GI Symptoms GI Symptoms None Last BM 06/30 Difficult in: None Food Allergies No Skin Integrity/Comment: intact, cecilia 18 Current %PO Good (75-100%) Estimated Nutritional Goals BEE in Kcals: Using Current wt Calories/Kcals/Kg 25-30 Kcals Calculated 9585-0174 Protein: Using Current wt Protein g/k.0 Protein Calculated 68 g Fluid: ml 7056-4063 (1 ml/kcal) Nutritional Problem No current Nutrition Prob Problem no nutrition dx at this time Malnutrition Alert Is there a minimum of two criteria No selected? Query Text:Check all the applicable criteria. A minimum of two criteria are recommended for diagnosis of either severe or non-severe malnutrition. Malnutrition Related to Morbid Obesity Malnutrition related to morbid obesity No Intervention/Recommendation Comments 1. Continue with NOÉ 4 gm, mech soft diet as ordered 2. Monitor PO intake, wt, labs and skin integrity 3. F/U as low risk in 7 days, 07/08 Expected Outcomes/Goals Expected Outcomes/Goals 1. PO intake to meet at least 75% of all meals 2. Wt stability, skin to remain intact Reviewed by Suni Rocha RD
== END 2018-07-11 13:15 | DRG 885 ==
LOC: ER 14:43 → GERO 17:02
DX: F29 Unspecified psychosis not due to a substance or known physiological condition (principal); N18.9 Chronic kidney disease, unspecified; F03.91 Unspecified dementia, unspecified severity, with behavioral disturbance; I12.9 Hypertensive chronic kidney disease with stage 1 through stage 4 chronic kidney disease, or unspecified chronic kidney disease; J44.9 Chronic obstructive pulmonary disease, unspecified; E03.9 Hypothyroidism, unspecified; Z82.49 Family history of ischemic heart disease and other diseases of the circulatory system; Z79.899 Other long term (current) drug therapy; Z88.8 Allergy status to other drugs, medicaments and biological substances
CPT/HCPCS: 80307; 81001-TC; 83036-90; 94760; Z7610

== ENCOUNTER 2018-10-26 05:46 | Inpatient (IN) | payer MEDICARE, MEDICAID ==
--- NOTE | 2018-10-26 05:53 | ED Physician Chart ---
ED Chief Complaint/HPI - Patient Information Date Seen:: 10/26/18 Time Seen:: 05:53 Chief Complaint:: Increased agitation History of Present Illness:: 78 yo male with history of parkinsons, schizoaffective disorder, COPD, end stage renal disease and glaucoma, was brought from SNF to ER for evaluation of inappropriate behavior. Pt was hypersexual toward female staff and co-residents and attempted to strike out. Allergies:: Allergies Allergy/AdvReac Type Severity Reaction Status Date / Time chlorpheniramine Allergy Unknown Verified 06/28/18 21:22 chloropyramine Allergy Unknown Uncoded 01/09/18 23:57 ED Review of Systems - Review of Systems General/Constitutional: No fever Skin: No rash Head: No headache Eyes: No pain ENT: No nasal drainage Neck: No neck pain Cardio Vascular: No chest pain Pulmonary: No SOB GI: No nausea, No vomiting Musculoskeletal: No bone or joint pain Neurological: No focal symptoms, No headache ED Past Medical History - Past Medical History Past Medical History: HTN, Asthma/COPD, ESRD, Thyroid disorder (Hypothyroidism) , Arthritis, Other (PARKINSON'S, BRADYCARDIA, GLAUCOMA) Social History: Non Smoker, No Alcohol, No Drug Use Psychiatricy History: Other (Psychosis, anxiety, schizoaffective disorder) Family Medical History - Family Member Mother History Unknown: Yes Ethnicity: Unknown Living Status: Unknown Hx Family Cancer: (UNKNOWN) Hx Family Coronary Artery Disease: (UNKNOWN) Hx Family Congestive Heart Failure: (UNKNOWN) Hx Family Hypertension: (UNKNOWN) Hx Family Stroke: (UNKNOWN) Hx Family Diabetes: (UNKNOWN) Hx Family Seizures: (UNKNOWN) Hx Family Dementia: (UNKNOWN) Hx Family AIDS: (UNKNOWN) Hx Family COPD: (UNKNOWN) Hx Family Hepatitis: (UNKNOWN) Hx Family Psychiatric Problems: (UNKNOWN) Hx Family Tuberculosis: (UNKNOWN) ED Physical Exam - Physical Examination General/Constitutional: Awake, Alert Head: Atraumatic Other Eyes comments:: abnormal left eye Skin: No skin lesions ENMT: Nasal exam nl Neck: No nuchal rigidity Respiratory: No Wheeze/Rhonchi/Rales Cardio Vascular: RRR, No murmur, gallop, rubs, NL S1 S2 GI: No tenderness/rebounding/guarding Extremities: normal strength in all extremities Neuro/Psych: No focal deficits ED Labs/Radiology/EKG Results - Lab Results Results: Laboratory Last Values WBC 5.1 Th/cmm (4.8-10.8) 10/26/18 07:50 RBC 4.84 Mil/cmm (3.80-5.80) 10/26/18 07:50 Hgb 14.5 gm/dL (12-16) 10/26/18 07:50 Hct 43.7 % (41.0-60) 10/26/18 07:50 MCV 90.3 fl (80-99) 10/26/18 07:50 MCH 30.0 pg (27.0-31.0) 10/26/18 07:50 MCHC Differential 33.2 pg (28.0-36.0) 10/26/18 07:50 RDW 13.6 % (11.5-20.0) 10/26/18 07:50 Plt Count 265 Th/cmm (150-400) 10/26/18 07:50 MPV 7.7 fl 10/26/18 07:50 Add Manual Diff YES 10/26/18 07:50 PT 9.8 SECONDS (9.5-11.5) 10/26/18 07:50 INR 0.94 (0.5-1.4) 10/26/18 07:50 PTT (Actin FS) 27.8 SECONDS (26.0-38.0) 10/26/18 07:50 Sodium 140 mEq/L (136-145) 10/26/18 07:50 Potassium 4.2 mEq/L (3.5-5.1) 10/26/18 07:50 Chloride 108 mEq/L (98-107) H 10/26/18 07:50 Carbon Dioxide 24.0 mEq/L (21.0-31.0) 10/26/18 07:50 Anion Gap 12.2 (7.0-16.0) 10/26/18 07:50 BUN 18 mg/dL (7-25) 10/26/18 07:50 Creatinine 1.1 mg/dL (0.7-1.3) 10/26/18 07:50 Est GFR ( Amer) TNP 10/26/18 07:50 Est GFR (Non-Af Amer) TNP 10/26/18 07:50 BUN/Creatinine Ratio 16.4 10/26/18 07:50 Glucose 96 mg/dL (70-105) 10/26/18 07:50 Calcium 9.1 mg/dL (8.6-10.3) 10/26/18 07:50 Total Bilirubin 0.6 mg/dL (0.3-1.0) 10/26/18 07:50 AST 14 U/L (13-39) 10/26/18 07:50 ALT 12 U/L (7-52) 10/26/18 07:50 Alkaline Phosphatase 84 U/L (34-104) 10/26/18 07:50 Troponin I < 0.01 ng/mL (0.01-0.05) L 10/26/18 07:50 B-Natriuretic Peptide 12.4 pg/mL (5.0-100.0) 10/26/18 07:50 Total Protein 6.3 gm/dL (6.0-8.3) 10/26/18 07:50 Albumin 3.7 gm/dL (4.2-5.5) L 10/26/18 07:50 Globulin 2.6 gm/dL 10/26/18 07:50 Albumin/Globulin Ratio 1.4 (1.0-1.8) 10/26/18 07:50 TSH 0.93 uIU/ml (0.34-5.60) 10/26/18 07:50 - Radiology Results Results: CXR: right basal atelectasis - EKG Interpretations EKG Time:: 05:58 Rate & Rhythm: 59 bpm, sinus rhythm [place]: normal P axis Intervals: Incomplete right bundle branch block ED Assessment - Assessment General Assessment: Parkinsons COPD End stage renal disease Hypertension Hypothyroidism Glaucoma Psychosis Assessment/Comments:: CBC, CMP, Trop, BNP, UA EKG, CXR Admit to geropsych unit for further evaluation and management ED Septic Shock - . Is Septic Shock (SBP<90, OR Lactate>4 mmol\L) present?: No ED Reassessment (Disposition) - Reassessment Reassessment Condition:: Unchanged - Patient Disposition Discharge/Transfer:: Geropsych unit w/in this hosp Admitting Medical Physician:: Casimiro Jon Admitting Psych Physician:: Hillary Artis
[2018-10-26 08:00] LABS: EOSINOPHILE ABSOLUTE 0.2 Th/cmm (0.1-0.4); HEMATOCRIT 43.7 % (41.0-60); HEMOGLOBIN 14.5 gm/dL (12-16); LYMPHOCYTE ABSOLUTE 1.5 Th/cmm (1.5-3.0); MEAN CELL VOLUME 90.3 fl (80-99); MEAN CORPUSCULAR HGB CONC 33.2 pg (28.0-36.0); MEAN PLATELET VOLUME 7.7 fl; MONOCYTE ABSOLUTE 0.9 Th/cmm (0.3-1.0); NEUTROPHILE ABSOLUTE 2.5 Th/cmm (1.8-8.0); PLATELET COUNT 265 Th/cmm (150-400); RED BLOOD COUNT 4.84 Mil/cmm (3.80-5.80); RED CELL DISTRIBUTION WIDTH 13.6 % (11.5-20.0); WHITE BLOOD COUNT 5.1 Th/cmm (4.8-10.8)
[2018-10-26 08:10] LABS: INR 0.94 (0.5-1.4); PROTHROMBIN TIME (TEST) 9.8 SECONDS (9.5-11.5)
[2018-10-26 08:45] LABS: ALB/GLOB RATIO 1.4 (1.0-1.8); ALBUMIN 3.7 gm/dL (4.2-5.5); ALKALINE PHOSPHATASE 84 U/L (34-104); ANION GAP 12.2 (7.0-16.0); BILIRUBIN,TOTAL 0.6 mg/dL (0.3-1.0); BUN - UREA NITROGEN 18 mg/dL (7-25); CALCIUM SERUM 9.1 mg/dL (8.6-10.3); CHLORIDE 108 mEq/L (98-107); CREATININE - SERUM 1.1 mg/dL (0.7-1.3); GLUCOSE 96 mg/dL (70-105); POTASSIUM SERUM 4.2 mEq/L (3.5-5.1); SGOT 14 U/L (13-39); SGPT/ALT 12 U/L (7-52); SODIUM SERUM 140 mEq/L (136-145); TOTAL PROTEIN,SERUM 6.3 gm/dL (6.0-8.3)
--- NOTE | 2018-10-26 08:51 | Diagnostic Imaging Report ---
CHEST X-RAY: AP view INDICATION: Shortness of breath COMPARISON: 01/09/2018 FINDINGS: Increased right basal lung markings are noted. Left basal atelectasis is also noted. No definite effusion. Heart size is normal. Osseous structures are intact. IMPRESSION: Right basal atelectasis versus infiltrate. Clinical correlation and follow-up is recommended.
[2018-10-26 10:04] VITALS: BP 130/79
[2018-10-26] MEDS ORDERED: Maalox 30 mL Cup PO PRN (10:07)
[2018-10-26] MEDS ORDERED: Magnesium Hydroxide (MOM) 30 mL UDC PO PRN (10:07)
[2018-10-26 10:37] LABS: CHOLESTEROL 162 mg/dL (<200); HDL -HIGH DENSITY LIPOPROTEIN 40 mg/dL (23-92); TRIGLYCERIDES 96 mg/dL (<150)
[2018-10-26 12:31] LABS: BAND NEUTROPHILE 0 % (0-10); BASOPHIL 0 % (0-3); EOSINOPHIL 2 % (0-5); LYMPHOCYTE 30 % (20-50); MONOCYTE 18 % (2-10); NEUTROPHILS 50 % (40-80)
--- NOTE | 2018-10-26 13:51 | History & Physical ---
ADMIT DATE: 10/26/2018 CHIEF COMPLAINT: Agitated behavior. HISTORY OF PRESENT ILLNESS: This is a 78-year-old male with history of COPD, Parkinson's, hypertension, hypothyroidism, renal insufficiency, admitted from nursing facility secondary to not eating, not taking his medications and very hypersexual. The patient is admitted for further management. PAST MEDICAL HISTORY: As mentioned in history of present illness. PAST SURGICAL HISTORY: Unable to obtain with the patient. ALLERGIES: CHLOROPYRAMINE. MEDICATIONS: The patient is on Cogentin, vitamin D3, Zyprexa, Depakote, Norvasc, Sinemet, Synthroid, multivitamins, and MiraLax. FAMILY HISTORY: Noncontributory. SOCIAL HISTORY: The patient is a long-term patient requiring 24-hour total care, denies smoker and drinker in the past. REVIEW OF SYSTEMS: This is limited secondary to the patient's current mental state. We will try to obtain more detailed review of systems at a later date by talking to family members. There is a conservator from [place] [phone] and there is a friend, Marky, . We will also try to get information from nursing staff at [facility], . PHYSICAL EXAMINATION: VITAL SIGNS: Blood pressure 116/61, respirations 19, pulse 60, temperature 97.5. GENERAL: Elderly male, appears stated age, chronically ill. NECK: Supple. No mass. LUNGS: Equal breath sounds, few rhonchi. HEART: Regular rate and rhythm with systolic ejection murmur. ABDOMEN: Soft, globular. EXTREMITIES: Positive excoriation. NEUROLOGIC: Limited. LABORATORY DATA: WBC 5, hemoglobin 14, platelets 265. Sodium 140, potassium 4.2, BUN 18, creatinine 1.1, blood sugar 129, albumin 3.7. ASSESSMENT AND PLAN: Chronic obstructive pulmonary disease, Parkinson, hypertension, hypothyroidism, chronic renal insufficiency, low albumin. We will continue the patient also on bronchodilator treatment. Continue antiemetic. We will place him on fall precaution. Continue on laxative. Continue with current care. We will continue to follow closely. JOB# [id number] [facility]
[2018-10-26] MEDS ORDERED: POLYETHYLENE GLYCOL 3350 17 GM PACK PO SCH (17:00)
[2018-10-26] MEDS: POLYETHYLENE GLYCOL 3350 17 GM PACK PO SCH (18:00)
[2018-10-27] MEDS ORDERED: Albuterol Nebulizer 2.5mg/3mL HHN PRN (00:58)
[2018-10-27] MEDS: Levothyroxine 0.025 Mg Tab PO SCH (06:49)
--- NOTE | 2018-10-27 07:21 | Psychiatric Evaluation ---
DATE OF SERVICE: 10/26/2018 IDENTIFYING DATA: The patient is a 78-year-old male resident of a jail facility. JUSTIFICATION OF HOSPITALIZATION: The patient is admitted for his psychosis. CHIEF COMPLAINT: "I am upset." HISTORY OF PRESENT ILLNESS: This is one of multiple psychiatric hospitalizations for this patient who has been a resident of a jail facility. The patient had been here in June of last year. The patient is lately he has been getting out of control, screaming and yelling and has been aggressive towards the staff members and hence the patient could not be contained at a lower level of care and has been transferred over here for further stabilization. PAST PSYCHIATRIC HISTORY: Please refer to the above. MEDICAL HISTORY: Physical examination is requested to be done by Dr. Jon. SUBSTANCE ABUSE HISTORY: None. PHYSICAL OR SEXUAL ABUSE HISTORY: None. LEGAL PROBLEMS: None at this time. MENTAL STATUS EXAMINATION: The patient is a 77-year-old, looking his stated age, superficially cooperative. The patient is very irritable and angry and the patient is not answering any of the questions. The patient's coping skills are noted to be very poor. The patient has paranoid delusions, but denies any command hallucinations. The patient's short and long terms are noted to be very poor. The patient is getting easily frustrated. Attention span and concentration are also noted to be very poor. DIAGNOSTIC IMPRESSION: AXIS I: A. Dementia and behavioral change, secondary trait. B: Psychotic disorder, not otherwise specified. AXIS II: None. AXIS III: As per Dr. Jon. IMMEDIATE TREATMENT PLAN: The patient is going to be observed on inpatient unit, provided with supportive psychotherapy. The patient is going to be closely monitored. Encouraged to participate in the groups and verbalize the concerns. Once stabilized, the patient is going to be discharged to [facility] to be followed up on an outpatient basis. JOB# [id number]
[2018-10-27] MEDS ORDERED: Levothyroxine 0.025 Mg Tab PO SCH (07:30)
[2018-10-27] MEDS: POLYETHYLENE GLYCOL 3350 17 GM PACK PO SCH ×2 (08:49→17:25)
[2018-10-27] MEDS ORDERED: Multivitamin Tab PO SCH ×2 (09:00)
[2018-10-27] MEDS: Multivitamin Tab PO SCH (09:15)
--- NOTE | 2018-10-27 11:51 | Internal Medicine Prog Note ---
Internal Medicine Subjective - Subjective Patient seen and examined:: with staff, chart reviewed Patient is:: awake, verbal, interactive, in bed, agitated, congested Patient Complaints of:: congestion Per staff patient has:: no episodes of fall, agitated, combative, noncompliant, tolerating meds Internal Medicine Objective - Results Result Diagrams: 10/26/18 07:50 10/26/18 07:50 Recent Labs: Laboratory Last Values WBC 5.1 Th/cmm (4.8-10.8) 10/26/18 07:50 RBC 4.84 Mil/cmm (3.80-5.80) 10/26/18 07:50 Hgb 14.5 gm/dL (12-16) 10/26/18 07:50 Hct 43.7 % (41.0-60) 10/26/18 07:50 MCV 90.3 fl (80-99) 10/26/18 07:50 MCH 30.0 pg (27.0-31.0) 10/26/18 07:50 MCHC Differential 33.2 pg (28.0-36.0) 10/26/18 07:50 RDW 13.6 % (11.5-20.0) 10/26/18 07:50 Plt Count 265 Th/cmm (150-400) 10/26/18 07:50 MPV 7.7 fl 10/26/18 07:50 Add Manual Diff YES 10/26/18 07:50 Band Neutrophils % 0 % (0-10) 10/26/18 07:50 Neutrophils (Manual) 50 % (40-80) 10/26/18 07:50 Lymphocytes 30 % (20-50) 10/26/18 07:50 Monocytes 18 % (2-10) H 10/26/18 07:50 Eosinophils 2 % (0-5) 10/26/18 07:50 Basophils 0 % (0-3) 10/26/18 07:50 PT 9.8 SECONDS (9.5-11.5) 10/26/18 07:50 INR 0.94 (0.5-1.4) 10/26/18 07:50 PTT (Actin FS) 27.8 SECONDS (26.0-38.0) 10/26/18 07:50 Sodium 140 mEq/L (136-145) 10/26/18 07:50 Potassium 4.2 mEq/L (3.5-5.1) 10/26/18 07:50 Chloride 108 mEq/L (98-107) H 10/26/18 07:50 Carbon Dioxide 24.0 mEq/L (21.0-31.0) 10/26/18 07:50 Anion Gap 12.2 (7.0-16.0) 10/26/18 07:50 BUN 18 mg/dL (7-25) 10/26/18 07:50 Creatinine 1.1 mg/dL (0.7-1.3) 10/26/18 07:50 Est GFR ( Amer) TNP 10/26/18 07:50 Est GFR (Non-Af Amer) TNP 10/26/18 07:50 BUN/Creatinine Ratio 16.4 10/26/18 07:50 Glucose 96 mg/dL (70-105) 10/26/18 07:50 POC Glucose 129 MG/DL (70 - 105) H 10/26/18 11:18 Calcium 9.1 mg/dL (8.6-10.3) 10/26/18 07:50 Total Bilirubin 0.6 mg/dL (0.3-1.0) 10/26/18 07:50 AST 14 U/L (13-39) 10/26/18 07:50 ALT 12 U/L (7-52) 10/26/18 07:50 Alkaline Phosphatase 84 U/L (34-104) 10/26/18 07:50 Troponin I < 0.01 ng/mL (0.01-0.05) L 10/26/18 07:50 B-Natriuretic Peptide 12.4 pg/mL (5.0-100.0) 10/26/18 07:50 Total Protein 6.3 gm/dL (6.0-8.3) 10/26/18 07:50 Albumin 3.7 gm/dL (4.2-5.5) L 10/26/18 07:50 Globulin 2.6 gm/dL 10/26/18 07:50 Albumin/Globulin Ratio 1.4 (1.0-1.8) 10/26/18 07:50 Triglycerides 96 mg/dL (<150) 10/26/18 10:19 Cholesterol 162 mg/dL (<200) 10/26/18 10:19 LDL Cholesterol Direct 110 mg/dL (75-193) 10/26/18 10:19 HDL Cholesterol 40 mg/dL (23-92) 10/26/18 10:19 TSH 0.93 uIU/ml (0.34-5.60) 10/26/18 07:50 - Physical Exam Vitals and I&O: Vital Signs Temp 98 F 10/27/18 06:12 Pulse 80 10/27/18 09:39 Resp 20 10/27/18 09:39 BP 125/70 10/27/18 08:47 Pulse Ox 88 10/27/18 09:39 Intake & Output 10/26/18 10/27/18 10/27/18 18:59 06:59 18:59 Intake Total 0 240 Output Total 0 Balance 0 240 Weight (lbs) 76.657 kg 76.657 kg Intake: Oral 0 240 Output: Urine 0 Other: # Voids 3 # Bowel Movements 0 Weight Source Estimated Bedscale Active Medications: Current Medications Acetaminophen (Tylenol) 650 mg PO Q4HR PRN PRN Reason: Mild Pain / Temp above 100 Stop: 12/25/18 10:06 Al Hydrox/Mg Hydrox/Simethicone (Maalox) 30 ml PO Q4HR PRN PRN Reason: GI DISTRESS Stop: 12/25/18 10:06 Albuterol Sulfate (Albuterol 2.5mg/3ml Neb Ud) 2.5 mg HHN Q2HRT PRN PRN Reason: Shortness of Breath or Wheeze Stop: 12/26/18 00:57 Amlodipine Besylate (Norvasc) 10 mg PO DAILY [facility] Stop: 12/26/18 08:59 Last Admin: 10/27/18 08:47 Dose: Not Given Benztropine Mesylate (Cogentin) 0.5 mg PO BID [facility] Stop: 12/25/18 16:59 Last Admin: 10/27/18 08:48 Dose: Not Given Carbidopa/Levodopa (Sinemet 25mg-100 Mg) 1 tab PO TID [facility] Stop: 12/25/18 13:59 Last Admin: 10/27/18 08:48 Dose: Not Given Cholecalciferol (Vitamin D3) 2,000 iu PO DAILY [facility] Stop: 12/26/18 08:59 Last Admin: 10/27/18 08:49 Dose: Not Given Latanoprost (Xalatan 0.005% Ophth Soln) 1 drop EACH EYE HS WILL Stop: 12/25/18 20:59 Last Admin: 10/26/18 21:46 Dose: Not Given Levothyroxine Sodium (Synthroid) 0.025 mg PO QDAC WILL Stop: 12/26/18 07:29 Last Admin: 10/27/18 06:49 Dose: 0.025 mg Lorazepam (Ativan) 0.5 mg PO Q4HR PRN; Protocol PRN Reason: Agitation Stop: 12/25/18 10:20 Last Admin: 10/27/18 04:54 Dose: 0.5 mg Magnesium Hydroxide (Milk Of Magnesia) 30 ml PO HS PRN PRN Reason: Constipation Multivitamins/Vitamin C (Theragran) 1 tab PO DAILY [facility] Stop: 12/26/18 08:59 Last Admin: 10/27/18 09:15 Dose: Not Given Olanzapine (Zyprexa) 5 mg PO BID [facility]; Protocol Stop: 12/25/18 16:59 Last Admin: 10/27/18 08:49 Dose: Not Given Polyethylene Glycol (Miralax) 17 gm PO BID [facility] Stop: 12/25/18 16:59 Last Admin: 10/27/18 08:49 Dose: Not Given Valproate Sodium (Depakene) 500 mg PO BID [facility]; Protocol Stop: 12/25/18 16:59 Last Admin: 10/27/18 08:49 Dose: Not Given Zolpidem Tartrate (Ambien) 5 mg PO HS PRN PRN Reason: Insomnia Stop: 12/25/18 10:06 General: congested HEENT: NC/AT, PERRLA, EOMI Neck: Supple, No JVD Lungs: congested, rales Cardiovascular: RRR, Normal S1, Normal S2, with murmur Abdomen: soft, non-tender, globular, positive bowel sound Extremities: excoriation Neurological: no change - Procedures Procedures: Procedures Procedure Code Date CLOSURE SKIN & SUBCUTANEOUS NEC 86.59 07/07/12 DPT ADMINISTRATION 99.39 07/07/12 IMMUNIZATION ADMIN 63083 07/07/12 OTHER GROUP THERAPY 94.44 12/10/14 RECREATIONAL THERAPY 93.81 09/15/12 RPR S/N/AX/GEN/TRNK 2.5CM/< 72750 07/07/12 TDAP VACCINE 7 YRS/> IM [id number] 07/07/12 Internal Medicine Assmt/Plan - Assessment Assessment: ASSESSMENT AND PLAN: Chronic obstructive pulmonary disease, Parkinson, hypertension, hypothyroidism, chronic renal insufficiency, low albumin. - Plan Plan: PLAN: We will continue the patient also on bronchodilator treatment. Continue antiemetic. We will place him on fall precaution. Continue on laxative. Continue with current care. We will continue to follow closely.
[2018-10-27] MEDS: Ipratropium Neb 0.5 mg/2.5 mL UD IH SCH ×2 (15:51→19:14)
[2018-10-27] MEDS: Albuterol Nebulizer 2.5mg/3mL HHN SCH ×2 (15:51→19:14)
[2018-10-28] MEDS: Levothyroxine 0.025 Mg Tab PO SCH (06:40)
[2018-10-28] MEDS: Ipratropium Neb 0.5 mg/2.5 mL UD IH SCH ×4 (07:29→19:40)
[2018-10-28] MEDS: Albuterol Nebulizer 2.5mg/3mL HHN SCH ×4 (07:29→19:40)
[2018-10-28] MEDS: Multivitamin Tab PO SCH (09:02)
[2018-10-28] MEDS: POLYETHYLENE GLYCOL 3350 17 GM PACK PO SCH ×2 (09:03→16:07)
--- NOTE | 2018-10-28 12:13 | Internal Medicine Prog Note ---
Internal Medicine Subjective - Subjective Patient seen and examined:: with staff, chart reviewed Patient is:: awake, verbal, interactive, in bed, agitated, congested Patient Complaints of:: congestion Per staff patient has:: no episodes of fall, agitated, combative, noncompliant, tolerating meds Internal Medicine Objective - Results Result Diagrams: 10/26/18 07:50 10/26/18 07:50 Recent Labs: Laboratory Last Values WBC 5.1 Th/cmm (4.8-10.8) 10/26/18 07:50 RBC 4.84 Mil/cmm (3.80-5.80) 10/26/18 07:50 Hgb 14.5 gm/dL (12-16) 10/26/18 07:50 Hct 43.7 % (41.0-60) 10/26/18 07:50 MCV 90.3 fl (80-99) 10/26/18 07:50 MCH 30.0 pg (27.0-31.0) 10/26/18 07:50 MCHC Differential 33.2 pg (28.0-36.0) 10/26/18 07:50 RDW 13.6 % (11.5-20.0) 10/26/18 07:50 Plt Count 265 Th/cmm (150-400) 10/26/18 07:50 MPV 7.7 fl 10/26/18 07:50 Add Manual Diff YES 10/26/18 07:50 Band Neutrophils % 0 % (0-10) 10/26/18 07:50 Neutrophils (Manual) 50 % (40-80) 10/26/18 07:50 Lymphocytes 30 % (20-50) 10/26/18 07:50 Monocytes 18 % (2-10) H 10/26/18 07:50 Eosinophils 2 % (0-5) 10/26/18 07:50 Basophils 0 % (0-3) 10/26/18 07:50 PT 9.8 SECONDS (9.5-11.5) 10/26/18 07:50 INR 0.94 (0.5-1.4) 10/26/18 07:50 PTT (Actin FS) 27.8 SECONDS (26.0-38.0) 10/26/18 07:50 Sodium 140 mEq/L (136-145) 10/26/18 07:50 Potassium 4.2 mEq/L (3.5-5.1) 10/26/18 07:50 Chloride 108 mEq/L (98-107) H 10/26/18 07:50 Carbon Dioxide 24.0 mEq/L (21.0-31.0) 10/26/18 07:50 Anion Gap 12.2 (7.0-16.0) 10/26/18 07:50 BUN 18 mg/dL (7-25) 10/26/18 07:50 Creatinine 1.1 mg/dL (0.7-1.3) 10/26/18 07:50 Est GFR ( Amer) TNP 10/26/18 07:50 Est GFR (Non-Af Amer) TNP 10/26/18 07:50 BUN/Creatinine Ratio 16.4 10/26/18 07:50 Glucose 96 mg/dL (70-105) 10/26/18 07:50 POC Glucose 129 MG/DL (70 - 105) H 10/26/18 11:18 Calcium 9.1 mg/dL (8.6-10.3) 10/26/18 07:50 Total Bilirubin 0.6 mg/dL (0.3-1.0) 10/26/18 07:50 AST 14 U/L (13-39) 10/26/18 07:50 ALT 12 U/L (7-52) 10/26/18 07:50 Alkaline Phosphatase 84 U/L (34-104) 10/26/18 07:50 Troponin I < 0.01 ng/mL (0.01-0.05) L 10/26/18 07:50 B-Natriuretic Peptide 12.4 pg/mL (5.0-100.0) 10/26/18 07:50 Total Protein 6.3 gm/dL (6.0-8.3) 10/26/18 07:50 Albumin 3.7 gm/dL (4.2-5.5) L 10/26/18 07:50 Globulin 2.6 gm/dL 10/26/18 07:50 Albumin/Globulin Ratio 1.4 (1.0-1.8) 10/26/18 07:50 Triglycerides 96 mg/dL (<150) 10/26/18 10:19 Cholesterol 162 mg/dL (<200) 10/26/18 10:19 LDL Cholesterol Direct 110 mg/dL (75-193) 10/26/18 10:19 HDL Cholesterol 40 mg/dL (23-92) 10/26/18 10:19 TSH 0.93 uIU/ml (0.34-5.60) 10/26/18 07:50 - Physical Exam Vitals and I&O: Vital Signs Temp 97 F 10/28/18 06:32 Pulse 88 10/28/18 11:21 Resp 20 10/28/18 11:21 BP 122/77 10/28/18 09:00 Pulse Ox 90 10/28/18 11:21 Intake & Output 10/27/18 10/28/18 10/28/18 18:59 06:59 18:59 Intake Total 1500 480 Balance 1500 480 Intake: Oral 1500 480 Other: # Voids 3 2 # Bowel Movements 0 Active Medications: Current Medications Acetaminophen (Tylenol) 650 mg PO Q4HR PRN PRN Reason: Mild Pain / Temp above 100 Stop: 12/25/18 10:06 Al Hydrox/Mg Hydrox/Simethicone (Maalox) 30 ml PO Q4HR PRN PRN Reason: GI DISTRESS Stop: 12/25/18 10:06 Albuterol Sulfate (Albuterol 2.5mg/3ml Neb Ud) 2.5 mg HHN Q2HRT PRN PRN Reason: Shortness of Breath or Wheeze Stop: 12/26/18 00:57 Albuterol Sulfate (Albuterol 2.5mg/3ml Neb Ud) 2.5 mg HHN QIDRT [facility] Stop: 12/26/18 14:59 Last Admin: 10/28/18 11:20 Dose: 2.5 mg Amlodipine Besylate (Norvasc) 10 mg PO DAILY [facility] Stop: 12/26/18 08:59 Last Admin: 10/28/18 09:00 Dose: 10 mg Benztropine Mesylate (Cogentin) 0.5 mg PO BID [facility] Stop: 12/25/18 16:59 Last Admin: 10/28/18 09:00 Dose: 0.5 mg Carbidopa/Levodopa (Sinemet 25mg-100 Mg) 1 tab PO TID [facility] Stop: 12/25/18 13:59 Last Admin: 10/28/18 08:58 Dose: 1 tab Cholecalciferol (Vitamin D3) 2,000 iu PO DAILY [facility] Stop: 12/26/18 08:59 Last Admin: 10/28/18 08:59 Dose: 2,000 iu Ipratropium [place] (Atrovent Neb 0.5mg/2.5ml) 0.5 mg IH QIDRT [facility] Stop: 12/26/18 14:59 Last Admin: 10/28/18 11:20 Dose: 0.5 mg Latanoprost (Xalatan 0.005% Ophth Soln) 1 drop EACH EYE HS [facility] Stop: 12/25/18 20:59 Last Admin: 10/27/18 20:47 Dose: Not Given Levothyroxine Sodium (Synthroid) 0.025 mg PO QDAC [facility] Stop: 12/26/18 07:29 Last Admin: 10/28/18 06:40 Dose: Not Given Lorazepam (Ativan) 0.5 mg PO Q4HR PRN; Protocol PRN Reason: Agitation Stop: 12/25/18 10:20 Last Admin: 10/27/18 04:54 Dose: 0.5 mg Magnesium Hydroxide (Milk Of Magnesia) 30 ml PO HS PRN PRN Reason: Constipation Multivitamins/Vitamin C (Theragran) 1 tab PO DAILY [facility] Stop: 12/26/18 08:59 Last Admin: 10/28/18 09:02 Dose: 1 tab Olanzapine (Zyprexa) 5 mg PO BID [facility]; Protocol Stop: 12/25/18 16:59 Last Admin: 10/28/18 09:03 Dose: 5 mg Polyethylene Glycol (Miralax) 17 gm PO BID [facility] Stop: 12/25/18 16:59 Last Admin: 10/28/18 09:03 Dose: 17 gm Valproate Sodium (Depakene) 500 mg PO BID [facility]; Protocol Stop: 12/25/18 16:59 Last Admin: 10/28/18 09:05 Dose: 500 mg Zolpidem Tartrate (Ambien) 5 mg PO HS PRN PRN Reason: Insomnia Stop: 12/25/18 10:06 Last Admin: 10/27/18 20:46 Dose: 5 mg General: congested HEENT: NC/AT, PERRLA, EOMI Neck: Supple, No JVD Lungs: congested, rales Cardiovascular: RRR, Normal S1, Normal S2, with murmur Abdomen: soft, non-tender, globular, positive bowel sound Extremities: excoriation Neurological: no change - Procedures Procedures: Procedures Procedure Code Date CLOSURE SKIN & SUBCUTANEOUS NEC 86.59 07/07/12 DPT ADMINISTRATION 99.39 07/07/12 IMMUNIZATION ADMIN 87338 07/07/12 OTHER GROUP THERAPY 94.44 12/10/14 RECREATIONAL THERAPY 93.81 09/15/12 RPR S/N/AX/GEN/TRNK 2.5CM/< 64792 07/07/12 TDAP VACCINE 7 YRS/> IM [id number] 07/07/12 Internal Medicine Assmt/Plan - Assessment Assessment: ASSESSMENT AND PLAN: Chronic obstructive pulmonary disease, Parkinson, hypertension, hypothyroidism, chronic renal insufficiency, low albumin. - Plan Plan: PLAN: We will continue the patient also on bronchodilator treatment. Continue antiemetic. We will place him on fall precaution. Continue on laxative. Continue with current care. We will continue to follow closely.
--- NOTE | 2018-10-28 12:21 | Progress Notes ---
DATE: 10/27/2018 SUBJECTIVE: Staff was spoken to. The patient is interviewed. Mood is noted to be irritable. Affect is constricted. Coping skills are noted to be still poor. The patient has been having difficult time to cope with the stress. The patient has been having excessive shaking of the hands and O2 sats are coming very low and the patient is advised to be having the respiratory therapy. The patient continues to be irritable and angry. The patient is currently on Zyprexa and valproic acid and has been able to tolerate the medications. No side effects to the medications are noted. ASSESSMENT: The patient is still impulsive, paranoid. PLAN: To continue the patient with the above medications and encouraged the patient to verbalize the concerns rather than to act out. JOB# [id number]
--- NOTE | 2018-10-29 03:15 | Progress Notes ---
DATE: 10/28/2018 SUBJECTIVE: Staff was spoken to. The patient is interviewed. Mood is noted to be irritable. Affect is constricted. Insight and judgment at this time are noted to be still impaired. Impulse control is noted to be poor. Coping skills are noted to be very poor. The patient has been having difficult time to cope with the stress. No side effects to the medications are noted at this time. The patient's coping skills at this time are noted to be very poor. The patient continues to be very paranoid; however, has been able to comply with the treatment. The patient has been presenting with a tremor in the upper extremities. ASSESSMENT: The patient is still impulsive and paranoid. PLAN: To continue the patient with the supportive therapy and followup. JOB# [id number]
[2018-10-29] MEDS: Levothyroxine 0.025 Mg Tab PO SCH (06:41)
[2018-10-29] MEDS: Albuterol Nebulizer 2.5mg/3mL HHN SCH ×4 (06:46→20:08)
[2018-10-29] MEDS: Ipratropium Neb 0.5 mg/2.5 mL UD IH SCH ×4 (06:46→20:08)
[2018-10-29] MEDS: Multivitamin Tab PO SCH (09:26)
[2018-10-29] MEDS: POLYETHYLENE GLYCOL 3350 17 GM PACK PO SCH ×2 (09:38→16:57)
--- NOTE | 2018-10-29 14:34 | Internal Medicine Prog Note ---
Internal Medicine Subjective - Subjective Service Date: 10/29/18 Patient is:: awake, verbal, interactive, in bed, agitated, congested Patient Complaints of:: congestion Per staff patient has:: no episodes of fall, agitated, combative, noncompliant, tolerating meds Internal Medicine Objective - Results Result Diagrams: 10/26/18 07:50 10/26/18 07:50 Recent Labs: Laboratory Last Values WBC 5.1 Th/cmm (4.8-10.8) 10/26/18 07:50 RBC 4.84 Mil/cmm (3.80-5.80) 10/26/18 07:50 Hgb 14.5 gm/dL (12-16) 10/26/18 07:50 Hct 43.7 % (41.0-60) 10/26/18 07:50 MCV 90.3 fl (80-99) 10/26/18 07:50 MCH 30.0 pg (27.0-31.0) 10/26/18 07:50 MCHC Differential 33.2 pg (28.0-36.0) 10/26/18 07:50 RDW 13.6 % (11.5-20.0) 10/26/18 07:50 Plt Count 265 Th/cmm (150-400) 10/26/18 07:50 MPV 7.7 fl 10/26/18 07:50 Add Manual Diff YES 10/26/18 07:50 Band Neutrophils % 0 % (0-10) 10/26/18 07:50 Neutrophils (Manual) 50 % (40-80) 10/26/18 07:50 Lymphocytes 30 % (20-50) 10/26/18 07:50 Monocytes 18 % (2-10) H 10/26/18 07:50 Eosinophils 2 % (0-5) 10/26/18 07:50 Basophils 0 % (0-3) 10/26/18 07:50 PT 9.8 SECONDS (9.5-11.5) 10/26/18 07:50 INR 0.94 (0.5-1.4) 10/26/18 07:50 PTT (Actin FS) 27.8 SECONDS (26.0-38.0) 10/26/18 07:50 Sodium 140 mEq/L (136-145) 10/26/18 07:50 Potassium 4.2 mEq/L (3.5-5.1) 10/26/18 07:50 Chloride 108 mEq/L (98-107) H 10/26/18 07:50 Carbon Dioxide 24.0 mEq/L (21.0-31.0) 10/26/18 07:50 Anion Gap 12.2 (7.0-16.0) 10/26/18 07:50 BUN 18 mg/dL (7-25) 10/26/18 07:50 Creatinine 1.1 mg/dL (0.7-1.3) 10/26/18 07:50 Est GFR ( Amer) TNP 10/26/18 07:50 Est GFR (Non-Af Amer) TNP 10/26/18 07:50 BUN/Creatinine Ratio 16.4 10/26/18 07:50 Glucose 96 mg/dL (70-105) 10/26/18 07:50 POC Glucose 129 MG/DL (70 - 105) H 10/26/18 11:18 Calcium 9.1 mg/dL (8.6-10.3) 10/26/18 07:50 Total Bilirubin 0.6 mg/dL (0.3-1.0) 10/26/18 07:50 AST 14 U/L (13-39) 10/26/18 07:50 ALT 12 U/L (7-52) 10/26/18 07:50 Alkaline Phosphatase 84 U/L (34-104) 10/26/18 07:50 Troponin I < 0.01 ng/mL (0.01-0.05) L 10/26/18 07:50 B-Natriuretic Peptide 12.4 pg/mL (5.0-100.0) 10/26/18 07:50 Total Protein 6.3 gm/dL (6.0-8.3) 10/26/18 07:50 Albumin 3.7 gm/dL (4.2-5.5) L 10/26/18 07:50 Globulin 2.6 gm/dL 10/26/18 07:50 Albumin/Globulin Ratio 1.4 (1.0-1.8) 10/26/18 07:50 Triglycerides 96 mg/dL (<150) 10/26/18 10:19 Cholesterol 162 mg/dL (<200) 10/26/18 10:19 LDL Cholesterol Direct 110 mg/dL (75-193) 10/26/18 10:19 HDL Cholesterol 40 mg/dL (23-92) 10/26/18 10:19 TSH 0.93 uIU/ml (0.34-5.60) 10/26/18 07:50 - Physical Exam Vitals and I&O: Vital Signs Temp 97.8 F 10/29/18 14:00 Pulse 75 10/29/18 14:00 Resp 20 10/29/18 14:00 BP 102/61 10/29/18 14:00 Pulse Ox 96 10/29/18 14:00 Intake & Output 10/28/18 10/29/18 10/29/18 18:59 06:59 18:59 Intake Total 960 240 Balance 960 240 Intake: Oral 960 240 Other: # Voids 5 2 # Bowel Movements 1 0 Active Medications: Current Medications Acetaminophen (Tylenol) 650 mg PO Q4HR PRN PRN Reason: Mild Pain / Temp above 100 Stop: 12/25/18 10:06 Al Hydrox/Mg Hydrox/Simethicone (Maalox) 30 ml PO Q4HR PRN PRN Reason: GI DISTRESS Stop: 12/25/18 10:06 Albuterol Sulfate (Albuterol 2.5mg/3ml Neb Ud) 2.5 mg HHN Q2HRT PRN PRN Reason: Shortness of Breath or Wheeze Stop: 12/26/18 00:57 Albuterol Sulfate (Albuterol 2.5mg/3ml Neb Ud) 2.5 mg HHN QIDRT [facility] Stop: 12/26/18 14:59 Last Admin: 10/29/18 11:16 Dose: 2.5 mg Amlodipine Besylate (Norvasc) 10 mg PO DAILY [facility] Stop: 12/26/18 08:59 Last Admin: 10/29/18 09:26 Dose: 10 mg Benztropine Mesylate (Cogentin) 0.5 mg PO BID [facility] Stop: 12/25/18 16:59 Last Admin: 10/29/18 09:28 Dose: 0.5 mg Carbidopa/Levodopa (Sinemet 25mg-100 Mg) 1 tab PO TID [facility] Stop: 12/25/18 13:59 Last Admin: 10/29/18 09:28 Dose: 1 tab Cholecalciferol (Vitamin D3) 2,000 iu PO DAILY [facility] Stop: 12/26/18 08:59 Last Admin: 10/29/18 09:27 Dose: 2,000 iu Ipratropium [place] (Atrovent Neb 0.5mg/2.5ml) 0.5 mg IH QIDRT [facility] Stop: 12/26/18 14:59 Last Admin: 10/29/18 11:16 Dose: 0.5 mg Latanoprost (Xalatan 0.005% Ophth Soln) 1 drop EACH EYE HS [facility] Stop: 12/25/18 20:59 Last Admin: 10/28/18 21:54 Dose: Not Given Levothyroxine Sodium (Synthroid) 0.025 mg PO QDAC [facility] Stop: 12/26/18 07:29 Last Admin: 10/29/18 06:41 Dose: 0.025 mg Lorazepam (Ativan) 0.5 mg PO Q4HR PRN; Protocol PRN Reason: Agitation Stop: 12/25/18 10:20 Last Admin: 10/27/18 04:54 Dose: 0.5 mg Magnesium Hydroxide (Milk Of Magnesia) 30 ml PO HS PRN PRN Reason: Constipation Multivitamins/Vitamin C (Theragran) 1 tab PO DAILY [facility] Stop: 12/26/18 08:59 Last Admin: 10/29/18 09:26 Dose: 1 tab Olanzapine (Zyprexa) 5 mg PO BID [facility]; Protocol Stop: 12/25/18 16:59 Last Admin: 10/29/18 09:26 Dose: 5 mg Polyethylene Glycol (Miralax) 17 gm PO BID [facility] Stop: 12/25/18 16:59 Last Admin: 10/29/18 09:38 Dose: 17 gm Valproate Sodium (Depakene) 500 mg PO BID [facility]; Protocol Stop: 12/25/18 16:59 Last Admin: 10/29/18 09:38 Dose: 500 mg Zolpidem Tartrate (Ambien) 5 mg PO HS PRN PRN Reason: Insomnia Stop: 12/25/18 10:06 Last Admin: 10/28/18 21:51 Dose: 5 mg General: congested HEENT: NC/AT, PERRLA, EOMI Neck: Supple, No JVD Lungs: congested, rales Cardiovascular: RRR, Normal S1, Normal S2, with murmur Abdomen: soft, non-tender, globular, positive bowel sound Extremities: excoriation Neurological: no change - Procedures Procedures: Procedures Procedure Code Date CLOSURE SKIN & SUBCUTANEOUS NEC 86.59 07/07/12 DPT ADMINISTRATION 99.39 07/07/12 IMMUNIZATION ADMIN 73111 07/07/12 OTHER GROUP THERAPY 94.44 12/10/14 RECREATIONAL THERAPY 93.81 09/15/12 RPR S/N/AX/GEN/TRNK 2.5CM/< 89125 07/07/12 TDAP VACCINE 7 YRS/> IM [id number] 07/07/12 Internal Medicine Assmt/Plan - Assessment Assessment: ASSESSMENT AND PLAN: Chronic obstructive pulmonary disease, Parkinson, hypertension, hypothyroidism, chronic renal insufficiency, low albumin. - Plan Plan: We will continue the patient also on bronchodilator treatment. Continue antiemetic. We will place him on fall precaution. Continue on laxative. Continue with current care. We will continue to follow closely. Nutritional Asmnt/Malnutr-PDOC - Dietary Evaluation Malnutrition Findings (Please click <Entered> for more info): Nutritional Asmnt/Malnutrition Start: 10/29/18 09: 31 Text: Status: Complete Freq: Protocol: Document 10/29/18 09:32 TOAN (Rec: 10/29/18 09:39 MMKENIA DARLING- FNS1) Nutritional Asmnt/Malnutrition Patient General Information Nutritional Screening Moderate Risk Diagnosis Psychosis NOS, agitation Pertinent Medical Hx/Surgical Hx COPD, Parkinson's, hypertension, hypothyroidism, renal insufficiency Subjective Information Per H&P, patient admitted from nursing facility due to not eating, not taking his medications and very hypersexual. Patient now eating 100% of meals since admitted. In dining room at time of visit. Current Diet Order/ Nutrition Support Mechanical soft Patient / S.O Not Indicated Pertinent Medications maalox, vitamin D3, synthroid, MOM, Theragran, Miralax Pertinent Labs (10/26) Albumin 3.7 Nutritional Hx/Data Height 5 ft 11 in Height (Calculated Centimeters) 180.3 Current Weight (lbs) 169 lb Weight (Calculated Kilograms) 76.7 Weight (Calculated Grams) 26342.1 [place] Body Weight 172 % [place] Body Weight 98 Body Mass Index (BMI) 23.6 Recent Weight Change No Weight Status Approriate GI Symptoms GI Symptoms None Last BM 10/28 x1 Difficult in: None Food Allergies No Cultural/Ethnic/Buddhism Belief none indicated Usual diet at home unknown Skin Integrity/Comment: Rohith 18, intact Current %PO Good (75-100%) Estimated Nutritional Goals BEE in Kcals: Using Current wt Calories/Kcals/Kg 25-30 kcal/kg using 76.8 kg CBW Kcals Calculated 7949-9357 kcal/day Protein: Using Current wt Protein g/k gm/kg Protein Calculated ~75gm/day Fluid: ml 5002-2907 ml/day Nutritional Problem 1. Problem Problem No nutrition diagnosis at this time Intervention/Recommendation Comments 1. Continue Mechanical soft diet as tolerated by patient. Expected Outcomes/Goals Expected Outcomes/Goals Oral intake >75% of meals, weight stable, nutrition related labs WNL F/U LR 11/05
--- NOTE | 2018-10-29 16:03 | Consultation ---
DATE OF CONSULTATION: 10/28/2018 REFERRING PHYSICIAN: Juana Blue MD TYPE OF CONSULTATION: Psychology. HISTORY OF PRESENT ILLNESS: The patient is a 78-year-old male. The patient is a resident of [facility]. The patient is being admitted due to possible psychosis. The following is by review of the medical record and by the patient's self-report. 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 The staff at the patient's facility report that he has been getting out of control with screaming and yelling episodes as well as aggressive behavior towards staff members and other residents. Upon interview, the patient states that he is upset, but was unable to specify or identify a reason. The patient denied any suicidal ideation or any homicidal ideation, plan or intention. PAST MEDICAL HISTORY: Please see history and physical by Dr. Jon. PAST PSYCHIATRIC HISTORY: As above. The patient has a history of dementia and psychosis. The patient is under the care of both Psychiatry and Psychology services at his custodial. SUBSTANCE ABUSE HISTORY: The patient denied any history. PSYCHOSOCIAL HISTORY: The patient is a single male. The patient states his amish affiliation is Lutheran. The patient is also conserved. The patient has a friend named Marky who is involved in his care. The patient did not answer questions about educational history or occupational history. The patient denied any history of physical or sexual abuse or any current legal problems. The patient expects to return to his custodial placement. MENTAL STATUS EXAMINATION: The patient appears to be his stated age. The patient's attitude is superficially cooperative. Eye contact is poor. Speech is loud and rambling. Mood is irritable and angry. Affect is mood congruent and animated. The patient is mostly refusing to answer the clinical questions. The patient's thought content includes paranoid ideation. The patient did not answer questions about auditory or visual hallucinations. He did not answer questions about suicidal ideation or homicidal ideation, plan or intention. The patient's behavior has been uncontainable on the unit. Impulse control is inadequate and impaired. Concentration is poor. Coping skills are very poor. The patient did not participate in the memory assessment. The patient refused to answer any other questions. Sensorium is alert and oriented to self and place only. Insight is impaired. Judgment is impaired. DIAGNOSTIC IMPRESSION: AXIS I: 1. Dementia with behavioral disturbance. 2. Psychotic disorder, not otherwise specified. AXIS II: Deferred. AXIS III: Per Dr. Jon. TREATMENT PLAN: The patient has been seen by Dr. Blue for psychiatric evaluation and for the management of the patient's psychotropic medications. We will provide supportive psychotherapy to include reality orientation, differentiation, and integration. We will provide coping strategies for phase of life issues. We will provide de-escalation and limit setting. We will provide stress management to increase the patient's frustration tolerance. We will continue to encourage the patient to demonstrate emotional and self regulation and to verbalize his concerns versus acting out verbally and behaviorally. We will provide daily opportunities for the patient to verbally contract for safety to include no self-harm and no harm to others. Thank you, Dr. Blue, for this consult and the opportunity to participate in this patient's care. JOB# [id number] AUDELIA
--- NOTE | 2018-10-29 18:59 | Progress Notes ---
DATE: 10/29/2018 PSYCHIATRIC PROGRESS NOTE SUBJECTIVE: Staff was spoken to. The patient is interviewed. Mood is noted to be less irritable. Affect is appropriate. The patient is resting at this time. The patient has impulse control problems, but could be redirectable today. Insight is still impaired. Judgment is also noted to very poor. The patient tends to scream and yell when he does not get his way. No side effects to the medications are noted. The patient has been having tremor in the upper extremities. The patient is currently on olanzapine and Depakote, able to tolerate the medication. PLAN: To continue the patient with his current medications and followup. JOB# [id number]
[2018-10-30] MEDS: Albuterol Nebulizer 2.5mg/3mL HHN SCH ×4 (06:42→19:33)
[2018-10-30] MEDS: Ipratropium Neb 0.5 mg/2.5 mL UD IH SCH ×4 (06:43→19:33)
[2018-10-30] MEDS: Levothyroxine 0.025 Mg Tab PO SCH (06:44)
[2018-10-30] MEDS: POLYETHYLENE GLYCOL 3350 17 GM PACK PO SCH ×2 (09:29→16:58)
[2018-10-30] MEDS: Multivitamin Tab PO SCH (09:33)
--- NOTE | 2018-10-30 13:16 | Internal Medicine Prog Note ---
Internal Medicine Subjective - Subjective Service Date: 10/30/18 Patient is:: awake, verbal, interactive, in bed, agitated, congested Patient Complaints of:: congestion Per staff patient has:: no episodes of fall, agitated, combative, noncompliant, tolerating meds Internal Medicine Objective - Results Result Diagrams: 10/26/18 07:50 10/26/18 07:50 Recent Labs: Laboratory Last Values WBC 5.1 Th/cmm (4.8-10.8) 10/26/18 07:50 RBC 4.84 Mil/cmm (3.80-5.80) 10/26/18 07:50 Hgb 14.5 gm/dL (12-16) 10/26/18 07:50 Hct 43.7 % (41.0-60) 10/26/18 07:50 MCV 90.3 fl (80-99) 10/26/18 07:50 MCH 30.0 pg (27.0-31.0) 10/26/18 07:50 MCHC Differential 33.2 pg (28.0-36.0) 10/26/18 07:50 RDW 13.6 % (11.5-20.0) 10/26/18 07:50 Plt Count 265 Th/cmm (150-400) 10/26/18 07:50 MPV 7.7 fl 10/26/18 07:50 Add Manual Diff YES 10/26/18 07:50 Band Neutrophils % 0 % (0-10) 10/26/18 07:50 Neutrophils (Manual) 50 % (40-80) 10/26/18 07:50 Lymphocytes 30 % (20-50) 10/26/18 07:50 Monocytes 18 % (2-10) H 10/26/18 07:50 Eosinophils 2 % (0-5) 10/26/18 07:50 Basophils 0 % (0-3) 10/26/18 07:50 PT 9.8 SECONDS (9.5-11.5) 10/26/18 07:50 INR 0.94 (0.5-1.4) 10/26/18 07:50 PTT (Actin FS) 27.8 SECONDS (26.0-38.0) 10/26/18 07:50 Sodium 140 mEq/L (136-145) 10/26/18 07:50 Potassium 4.2 mEq/L (3.5-5.1) 10/26/18 07:50 Chloride 108 mEq/L (98-107) H 10/26/18 07:50 Carbon Dioxide 24.0 mEq/L (21.0-31.0) 10/26/18 07:50 Anion Gap 12.2 (7.0-16.0) 10/26/18 07:50 BUN 18 mg/dL (7-25) 10/26/18 07:50 Creatinine 1.1 mg/dL (0.7-1.3) 10/26/18 07:50 Est GFR ( Amer) TNP 10/26/18 07:50 Est GFR (Non-Af Amer) TNP 10/26/18 07:50 BUN/Creatinine Ratio 16.4 10/26/18 07:50 Glucose 96 mg/dL (70-105) 10/26/18 07:50 POC Glucose 129 MG/DL (70 - 105) H 10/26/18 11:18 Calcium 9.1 mg/dL (8.6-10.3) 10/26/18 07:50 Total Bilirubin 0.6 mg/dL (0.3-1.0) 10/26/18 07:50 AST 14 U/L (13-39) 10/26/18 07:50 ALT 12 U/L (7-52) 10/26/18 07:50 Alkaline Phosphatase 84 U/L (34-104) 10/26/18 07:50 Troponin I < 0.01 ng/mL (0.01-0.05) L 10/26/18 07:50 B-Natriuretic Peptide 12.4 pg/mL (5.0-100.0) 10/26/18 07:50 Total Protein 6.3 gm/dL (6.0-8.3) 10/26/18 07:50 Albumin 3.7 gm/dL (4.2-5.5) L 10/26/18 07:50 Globulin 2.6 gm/dL 10/26/18 07:50 Albumin/Globulin Ratio 1.4 (1.0-1.8) 10/26/18 07:50 Triglycerides 96 mg/dL (<150) 10/26/18 10:19 Cholesterol 162 mg/dL (<200) 10/26/18 10:19 LDL Cholesterol Direct 110 mg/dL (75-193) 10/26/18 10:19 HDL Cholesterol 40 mg/dL (23-92) 10/26/18 10:19 TSH 0.93 uIU/ml (0.34-5.60) 10/26/18 07:50 - Physical Exam Vitals and I&O: Vital Signs Temp 98.1 F 10/30/18 06:10 Pulse 70 10/30/18 10:44 Resp 18 10/30/18 10:44 BP 143/71 10/30/18 09:30 Pulse Ox 93 10/30/18 10:44 Intake & Output 10/29/18 10/30/18 10/30/18 18:59 06:59 18:59 Intake Total 900 480 Balance 900 480 Intake: Oral 780 480 Other 120 Other: # Voids 4 1 # Bowel Movements 1 Stool Characteristics Soft Active Medications: Current Medications Acetaminophen (Tylenol) 650 mg PO Q4HR PRN PRN Reason: Mild Pain / Temp above 100 Stop: 12/25/18 10:06 Al Hydrox/Mg Hydrox/Simethicone (Maalox) 30 ml PO Q4HR PRN PRN Reason: GI DISTRESS Stop: 12/25/18 10:06 Albuterol Sulfate (Albuterol 2.5mg/3ml Neb Ud) 2.5 mg HHN Q2HRT PRN PRN Reason: Shortness of Breath or Wheeze Stop: 12/26/18 00:57 Albuterol Sulfate (Albuterol 2.5mg/3ml Neb Ud) 2.5 mg HHN QIDRT [facility] Stop: 12/26/18 14:59 Last Admin: 10/30/18 10:43 Dose: Not Given Amlodipine Besylate (Norvasc) 10 mg PO DAILY [facility] Stop: 12/26/18 08:59 Last Admin: 10/30/18 09:30 Dose: 10 mg Benztropine Mesylate (Cogentin) 0.5 mg PO BID [facility] Stop: 12/25/18 16:59 Last Admin: 10/30/18 09:30 Dose: 0.5 mg Carbidopa/Levodopa (Sinemet 25mg-100 Mg) 1 tab PO TID [facility] Stop: 12/25/18 13:59 Last Admin: 10/30/18 09:30 Dose: 1 tab Cholecalciferol (Vitamin D3) 2,000 iu PO DAILY [facility] Stop: 12/26/18 08:59 Last Admin: 10/30/18 09:30 Dose: 2,000 iu Ipratropium [place] (Atrovent Neb 0.5mg/2.5ml) 0.5 mg IH QIDRT [facility] Stop: 12/26/18 14:59 Last Admin: 10/30/18 10:43 Dose: Not Given Latanoprost (Xalatan 0.005% Oph Soln) 1 drop EACH EYE HS [facility] Stop: 12/25/18 20:59 Last Admin: 10/29/18 20:41 Dose: Not Given Levothyroxine Sodium (Synthroid) 0.025 mg PO QDAC [facility] Stop: 12/26/18 07:29 Last Admin: 10/30/18 06:44 Dose: Not Given Lorazepam (Ativan) 0.5 mg PO Q4HR PRN; Protocol PRN Reason: Agitation Stop: 12/25/18 10:20 Last Admin: 10/27/18 04:54 Dose: 0.5 mg Magnesium Hydroxide (Milk Of Magnesia) 30 ml PO HS PRN PRN Reason: Constipation Multivitamins/Vitamin C (Theragran) 1 tab PO DAILY [facility] Stop: 12/26/18 08:59 Last Admin: 10/30/18 09:33 Dose: 1 tab Olanzapine (Zyprexa) 5 mg PO BID [facility]; Protocol Stop: 12/25/18 16:59 Last Admin: 10/30/18 09:30 Dose: 5 mg Polyethylene Glycol (Miralax) 17 gm PO BID [facility] Stop: 12/25/18 16:59 Last Admin: 10/30/18 09:29 Dose: 17 gm Valproate Sodium (Depakene) 500 mg PO BID [facility]; Protocol Stop: 12/25/18 16:59 Last Admin: 10/30/18 09:30 Dose: 500 mg Zolpidem Tartrate (Ambien) 5 mg PO HS PRN PRN Reason: Insomnia Stop: 12/25/18 10:06 Last Admin: 10/29/18 20:40 Dose: 5 mg General: congested HEENT: NC/AT, PERRLA, EOMI Neck: Supple, No JVD Lungs: congested, rales Cardiovascular: RRR, Normal S1, Normal S2, with murmur Abdomen: soft, non-tender, globular, positive bowel sound Extremities: excoriation Neurological: no change - Procedures Procedures: Procedures Procedure Code Date CLOSURE SKIN & SUBCUTANEOUS NEC 86.59 07/07/12 DPT ADMINISTRATION 99.39 07/07/12 IMMUNIZATION ADMIN 39520 07/07/12 OTHER GROUP THERAPY 94.44 12/10/14 RECREATIONAL THERAPY 93.81 09/15/12 RPR S/N/AX/GEN/TRNK 2.5CM/< 19470 07/07/12 TDAP VACCINE 7 YRS/> [place] [id number] 07/07/12 Internal Medicine Assmt/Plan - Assessment Assessment: ASSESSMENT AND PLAN: Chronic obstructive pulmonary disease, Parkinson, hypertension, hypothyroidism, chronic renal insufficiency, low albumin. - Plan Plan: We will continue the patient also on bronchodilator treatment. Continue antiemetic. We will place him on fall precaution. Continue on laxative. Continue with current care. We will continue to follow closely. Nutritional Asmnt/Malnutr-PDOC - Dietary Evaluation Malnutrition Findings (Please click <Entered> for more info): Nutritional Asmnt/Malnutrition Start: 10/29/18 09: 31 Text: Status: Complete Freq: Protocol: Document 10/29/18 09:32 TOAN (Rec: 10/29/18 09:39 TOAN DARLING- FNS1) Nutritional Asmnt/Malnutrition Patient General Information Nutritional Screening Moderate Risk Diagnosis Psychosis NOS, agitation Pertinent Medical Hx/Surgical Hx COPD, Parkinson's, hypertension, hypothyroidism, renal insufficiency Subjective Information Per H&P, patient admitted from nursing facility due to not eating, not taking his medications and very hypersexual. Patient now eating 100% of meals since admitted. In dining room at time of visit. Current Diet Order/ Nutrition Support Mechanical soft Patient / S.O Not Indicated Pertinent Medications maalox, vitamin D3, synthroid, MOM, Theragran, Miralax Pertinent Labs (10/26) Albumin 3.7 Nutritional Hx/Data Height 5 ft 11 in Height (Calculated Centimeters) 180.3 Current Weight (lbs) 169 lb Weight (Calculated Kilograms) 76.7 Weight (Calculated Grams) 60895.1 [place] Body Weight 172 % [place] Body Weight 98 Body Mass Index (BMI) 23.6 Recent Weight Change No Weight Status Approriate GI Symptoms GI Symptoms None Last BM 10/28 x1 Difficult in: None Food Allergies No Cultural/Ethnic/Scientology Belief none indicated Usual diet at home unknown Skin Integrity/Comment: Rohith 18, intact Current %PO Good (75-100%) Estimated Nutritional Goals BEE in Kcals: Using Current wt Calories/Kcals/Kg 25-30 kcal/kg using 76.8 kg CBW Kcals Calculated 7938-5888 kcal/day Protein: Using Current wt Protein g/k gm/kg Protein Calculated ~75gm/day Fluid: ml 4628-0706 ml/day Nutritional Problem 1. Problem Problem No nutrition diagnosis at this time Intervention/Recommendation Comments 1. Continue Mechanical soft diet as tolerated by patient. Expected Outcomes/Goals Expected Outcomes/Goals Oral intake >75% of meals, weight stable, nutrition related labs WNL F/U LR 11/05
--- NOTE | 2018-10-30 14:01 | Progress Notes ---
DATE: 10/30/2018 SUBJECTIVE: Staff was spoken to. The patient is interviewed. Mood is noted to be irritable. Affect is constricted. The patient's insight and judgment are noted to be still impaired. Impulse control is noted to have limited. The patient is reported to have been out of control and has been trying to hit the staff that are trying to help him. The patient has no insight into his illness. The patient's coping skills are noted to be very poor. The patient, however, has been able to tolerate the medication. ASSESSMENT: The patient is still psychotic and impulsive. PLAN: To continue the patient with the supportive therapy and followup. JOB# [id number]
[2018-10-31] MEDS: Albuterol Nebulizer 2.5mg/3mL HHN SCH ×4 (06:35→18:40)
[2018-10-31] MEDS: Ipratropium Neb 0.5 mg/2.5 mL UD IH SCH ×4 (06:35→18:39)
[2018-10-31] MEDS: Levothyroxine 0.025 Mg Tab PO SCH (06:50)
[2018-10-31] MEDS: Multivitamin Tab PO SCH (09:24)
[2018-10-31] MEDS: POLYETHYLENE GLYCOL 3350 17 GM PACK PO SCH ×2 (09:28→16:52)
--- NOTE | 2018-10-31 11:44 | Internal Medicine Prog Note ---
Internal Medicine Subjective - Subjective Patient seen and examined:: with staff, chart reviewed Patient is:: awake, verbal, interactive, in bed, agitated, congested Patient Complaints of:: congestion Per staff patient has:: no episodes of fall, agitated, combative, noncompliant, tolerating meds Internal Medicine Objective - Results Result Diagrams: 10/26/18 07:50 10/26/18 07:50 Recent Labs: Laboratory Last Values WBC 5.1 Th/cmm (4.8-10.8) 10/26/18 07:50 RBC 4.84 Mil/cmm (3.80-5.80) 10/26/18 07:50 Hgb 14.5 gm/dL (12-16) 10/26/18 07:50 Hct 43.7 % (41.0-60) 10/26/18 07:50 MCV 90.3 fl (80-99) 10/26/18 07:50 MCH 30.0 pg (27.0-31.0) 10/26/18 07:50 MCHC Differential 33.2 pg (28.0-36.0) 10/26/18 07:50 RDW 13.6 % (11.5-20.0) 10/26/18 07:50 Plt Count 265 Th/cmm (150-400) 10/26/18 07:50 MPV 7.7 fl 10/26/18 07:50 Add Manual Diff YES 10/26/18 07:50 Band Neutrophils % 0 % (0-10) 10/26/18 07:50 Neutrophils (Manual) 50 % (40-80) 10/26/18 07:50 Lymphocytes 30 % (20-50) 10/26/18 07:50 Monocytes 18 % (2-10) H 10/26/18 07:50 Eosinophils 2 % (0-5) 10/26/18 07:50 Basophils 0 % (0-3) 10/26/18 07:50 PT 9.8 SECONDS (9.5-11.5) 10/26/18 07:50 INR 0.94 (0.5-1.4) 10/26/18 07:50 PTT (Actin FS) 27.8 SECONDS (26.0-38.0) 10/26/18 07:50 Sodium 140 mEq/L (136-145) 10/26/18 07:50 Potassium 4.2 mEq/L (3.5-5.1) 10/26/18 07:50 Chloride 108 mEq/L (98-107) H 10/26/18 07:50 Carbon Dioxide 24.0 mEq/L (21.0-31.0) 10/26/18 07:50 Anion Gap 12.2 (7.0-16.0) 10/26/18 07:50 BUN 18 mg/dL (7-25) 10/26/18 07:50 Creatinine 1.1 mg/dL (0.7-1.3) 10/26/18 07:50 Est GFR ( Amer) TNP 10/26/18 07:50 Est GFR (Non-Af Amer) TNP 10/26/18 07:50 BUN/Creatinine Ratio 16.4 10/26/18 07:50 Glucose 96 mg/dL (70-105) 10/26/18 07:50 POC Glucose 129 MG/DL (70 - 105) H 10/26/18 11:18 Calcium 9.1 mg/dL (8.6-10.3) 10/26/18 07:50 Total Bilirubin 0.6 mg/dL (0.3-1.0) 10/26/18 07:50 AST 14 U/L (13-39) 10/26/18 07:50 ALT 12 U/L (7-52) 10/26/18 07:50 Alkaline Phosphatase 84 U/L (34-104) 10/26/18 07:50 Troponin I < 0.01 ng/mL (0.01-0.05) L 10/26/18 07:50 B-Natriuretic Peptide 12.4 pg/mL (5.0-100.0) 10/26/18 07:50 Total Protein 6.3 gm/dL (6.0-8.3) 10/26/18 07:50 Albumin 3.7 gm/dL (4.2-5.5) L 10/26/18 07:50 Globulin 2.6 gm/dL 10/26/18 07:50 Albumin/Globulin Ratio 1.4 (1.0-1.8) 10/26/18 07:50 Triglycerides 96 mg/dL (<150) 10/26/18 10:19 Cholesterol 162 mg/dL (<200) 10/26/18 10:19 LDL Cholesterol Direct 110 mg/dL (75-193) 10/26/18 10:19 HDL Cholesterol 40 mg/dL (23-92) 10/26/18 10:19 TSH 0.93 uIU/ml (0.34-5.60) 10/26/18 07:50 - Physical Exam Vitals and I&O: Vital Signs Temp 97.8 F 10/31/18 06:06 Pulse 62 10/31/18 11:03 Resp 18 10/31/18 11:03 BP 116/70 10/31/18 09:24 Pulse Ox 93 10/31/18 11:03 Intake & Output 10/30/18 10/31/18 10/31/18 18:59 06:59 18:59 Intake Total 1909 360 Balance 1909 360 Intake: Oral 1909 360 Other: # Voids 4 1 # Bowel Movements 0 0 Stool Characteristics Soft Soft Active Medications: Current Medications Acetaminophen (Tylenol) 650 mg PO Q4HR PRN PRN Reason: Mild Pain / Temp above 100 Stop: 12/25/18 10:06 Al Hydrox/Mg Hydrox/Simethicone (Maalox) 30 ml PO Q4HR PRN PRN Reason: GI DISTRESS Stop: 12/25/18 10:06 Albuterol Sulfate (Albuterol 2.5mg/3ml Neb Ud) 2.5 mg HHN Q2HRT PRN PRN Reason: Shortness of Breath or Wheeze Stop: 12/26/18 00:57 Albuterol Sulfate (Albuterol 2.5mg/3ml Neb Ud) 2.5 mg HHN QIDRT [facility] Stop: 12/26/18 14:59 Last Admin: 10/31/18 11:03 Dose: 2.5 mg Amlodipine Besylate (Norvasc) 10 mg PO DAILY [facility] Stop: 12/26/18 08:59 Last Admin: 10/31/18 09:24 Dose: Not Given Benztropine Mesylate (Cogentin) 0.5 mg PO BID [facility] Stop: 12/25/18 16:59 Last Admin: 10/31/18 09:24 Dose: Not Given Carbidopa/Levodopa (Sinemet 25mg-100 Mg) 1 tab PO TID [facility] Stop: 12/25/18 13:59 Last Admin: 10/31/18 09:24 Dose: Not Given Cholecalciferol (Vitamin D3) 2,000 iu PO DAILY [facility] Stop: 12/26/18 08:59 Last Admin: 10/31/18 09:23 Dose: Not Given Ipratropium [place] (Atrovent Neb 0.5mg/2.5ml) 0.5 mg IH QIDRT [facility] Stop: 12/26/18 14:59 Last Admin: 10/31/18 11:03 Dose: 0.5 mg Latanoprost (Xalatan 0.005% Oph Soln) 1 drop EACH EYE HS [facility] Stop: 12/25/18 20:59 Last Admin: 10/30/18 20:55 Dose: Not Given Levothyroxine Sodium (Synthroid) 0.025 mg PO QDAC [facility] Stop: 12/26/18 07:29 Last Admin: 10/31/18 06:50 Dose: Not Given Lorazepam (Ativan) 0.5 mg PO Q4HR PRN; Protocol PRN Reason: Agitation Stop: 12/25/18 10:20 Last Admin: 10/31/18 09:23 Dose: 0.5 mg Magnesium Hydroxide (Milk Of Magnesia) 30 ml PO HS PRN PRN Reason: Constipation Multivitamins/Vitamin C (Theragran) 1 tab PO DAILY [facility] Stop: 12/26/18 08:59 Last Admin: 10/31/18 09:24 Dose: Not Given Olanzapine (Zyprexa) 5 mg PO BID [facility]; Protocol Stop: 12/25/18 16:59 Last Admin: 10/31/18 09:23 Dose: Not Given Polyethylene Glycol (Miralax) 17 gm PO BID [facility] Stop: 12/25/18 16:59 Last Admin: 10/31/18 09:28 Dose: Not Given Valproate Sodium (Depakene) 500 mg PO BID [facility]; Protocol Stop: 12/25/18 16:59 Last Admin: 10/31/18 09:22 Dose: Not Given Zolpidem Tartrate (Ambien) 5 mg PO HS PRN PRN Reason: Insomnia Stop: 12/25/18 10:06 Last Admin: 10/29/18 20:40 Dose: 5 mg General: congested HEENT: NC/AT, PERRLA, EOMI Neck: Supple, No JVD Lungs: congested, rales Cardiovascular: RRR, Normal S1, Normal S2, with murmur Abdomen: soft, non-tender, globular, positive bowel sound Extremities: excoriation Neurological: no change - Procedures Procedures: Procedures Procedure Code Date CLOSURE SKIN & SUBCUTANEOUS NEC 86.59 07/07/12 DPT ADMINISTRATION 99.39 07/07/12 IMMUNIZATION ADMIN 40024 07/07/12 OTHER GROUP THERAPY 94.44 12/10/14 RECREATIONAL THERAPY 93.81 09/15/12 RPR S/N/AX/GEN/TRNK 2.5CM/< 08504 07/07/12 TDAP VACCINE 7 YRS/> [place] [id number] 07/07/12 Internal Medicine Assmt/Plan - Assessment Assessment: ASSESSMENT AND PLAN: Chronic obstructive pulmonary disease, Parkinson, hypertension, hypothyroidism, chronic renal insufficiency, low albumin. - Plan Plan: PLAN: We will continue the patient also on bronchodilator treatment. Continue antiemetic. We will place him on fall precaution. Continue on laxative. Continue with current care. We will continue to follow closely. Nutritional Asmnt/Malnutr-PDOC - Dietary Evaluation Malnutrition Findings (Please click <Entered> for more info): Nutritional Asmnt/Malnutrition Start: 10/29/18 09: 31 Text: Status: Complete Freq: Protocol: Document 10/29/18 09:32 TOAN (Rec: 10/29/18 09:39 MMULNICK DARLING- FNS1) Nutritional Asmnt/Malnutrition Patient General Information Nutritional Screening Moderate Risk Diagnosis Psychosis NOS, agitation Pertinent Medical Hx/Surgical Hx COPD, Parkinson's, hypertension, hypothyroidism, renal insufficiency Subjective Information Per H&P, patient admitted from nursing facility due to not eating, not taking his medications and very hypersexual. Patient now eating 100% of meals since admitted. In dining room at time of visit. Current Diet Order/ Nutrition Support Mechanical soft Patient / S.O Not Indicated Pertinent Medications maalox, vitamin D3, synthroid, MOM, Theragran, Miralax Pertinent Labs (10/26) Albumin 3.7 Nutritional Hx/Data Height 1.8 m Height (Calculated Centimeters) 180.3 Current Weight (lbs) 76.657 kg Weight (Calculated Kilograms) 76.7 Weight (Calculated Grams) 80125.1 [place] Body Weight 172 % [place] Body Weight 98 Body Mass Index (BMI) 23.6 Recent Weight Change No Weight Status Approriate GI Symptoms GI Symptoms None Last BM 10/28 x1 Difficult in: None Food Allergies No Cultural/Ethnic/Congregational Belief none indicated Usual diet at home unknown Skin Integrity/Comment: Rohith 18, intact Current %PO Good (75-100%) Estimated Nutritional Goals BEE in Kcals: Using Current wt Calories/Kcals/Kg 25-30 kcal/kg using 76.8 kg CBW Kcals Calculated 5787-5234 kcal/day Protein: Using Current wt Protein g/k gm/kg Protein Calculated ~75gm/day Fluid: ml 5134-4962 ml/day Nutritional Problem 1. Problem Problem No nutrition diagnosis at this time Intervention/Recommendation Comments 1. Continue Mechanical soft diet as tolerated by patient. Expected Outcomes/Goals Expected Outcomes/Goals Oral intake >75% of meals, weight stable, nutrition related labs WNL F/U LR 11/05
--- NOTE | 2018-11-01 05:03 | Progress Notes ---
DATE: 10/31/2018 PSYCHIATRIC PROGRESS NOTE SUBJECTIVE: Staff was spoken to. The patient is interviewed. Mood is noted to be irritable. Affect is constricted. The patient is screaming and yelling and has been kicking the staff and they are trying to help him out. The patient has no insight into his illness. Coping skills are noted to be very poor. The patient is currently on 500 mg twice a day of the valproic acid and olanzapine is given at ____ mg twice a day and it is decided to change the medication to 7.5 mg twice a day of Zyprexa. I encouraged the patient to verbalize the concerns rather than to act out. The patient at this time is here with major behavioral problem and is not able to contact for safety. ASSESSMENT: The patient is still psychotic and impulsive. PLAN: To continue the patient with the supportive therapy and followup with the changes in medications. JOB# [id number]
[2018-11-01] MEDS: Levothyroxine 0.025 Mg Tab PO SCH (06:35)
[2018-11-01] MEDS: Albuterol Nebulizer 2.5mg/3mL HHN SCH ×4 (06:50→18:57)
[2018-11-01] MEDS: Ipratropium Neb 0.5 mg/2.5 mL UD IH SCH ×4 (06:50→18:56)
[2018-11-01] MEDS: POLYETHYLENE GLYCOL 3350 17 GM PACK PO SCH ×2 (08:32→16:30)
[2018-11-01] MEDS: Multivitamin Tab PO SCH (09:50)
--- NOTE | 2018-11-01 12:03 | Internal Medicine Prog Note ---
Internal Medicine Subjective - Subjective Patient seen and examined:: with staff, chart reviewed Patient is:: awake, verbal, interactive, in bed, agitated, congested Patient Complaints of:: congestion Per staff patient has:: no episodes of fall, agitated, combative, noncompliant, tolerating meds Internal Medicine Objective - Results Result Diagrams: 10/26/18 07:50 10/26/18 07:50 Recent Labs: Laboratory Last Values WBC 5.1 Th/cmm (4.8-10.8) 10/26/18 07:50 RBC 4.84 Mil/cmm (3.80-5.80) 10/26/18 07:50 Hgb 14.5 gm/dL (12-16) 10/26/18 07:50 Hct 43.7 % (41.0-60) 10/26/18 07:50 MCV 90.3 fl (80-99) 10/26/18 07:50 MCH 30.0 pg (27.0-31.0) 10/26/18 07:50 MCHC Differential 33.2 pg (28.0-36.0) 10/26/18 07:50 RDW 13.6 % (11.5-20.0) 10/26/18 07:50 Plt Count 265 Th/cmm (150-400) 10/26/18 07:50 MPV 7.7 fl 10/26/18 07:50 Add Manual Diff YES 10/26/18 07:50 Band Neutrophils % 0 % (0-10) 10/26/18 07:50 Neutrophils (Manual) 50 % (40-80) 10/26/18 07:50 Lymphocytes 30 % (20-50) 10/26/18 07:50 Monocytes 18 % (2-10) H 10/26/18 07:50 Eosinophils 2 % (0-5) 10/26/18 07:50 Basophils 0 % (0-3) 10/26/18 07:50 PT 9.8 SECONDS (9.5-11.5) 10/26/18 07:50 INR 0.94 (0.5-1.4) 10/26/18 07:50 PTT (Actin FS) 27.8 SECONDS (26.0-38.0) 10/26/18 07:50 Sodium 140 mEq/L (136-145) 10/26/18 07:50 Potassium 4.2 mEq/L (3.5-5.1) 10/26/18 07:50 Chloride 108 mEq/L (98-107) H 10/26/18 07:50 Carbon Dioxide 24.0 mEq/L (21.0-31.0) 10/26/18 07:50 Anion Gap 12.2 (7.0-16.0) 10/26/18 07:50 BUN 18 mg/dL (7-25) 10/26/18 07:50 Creatinine 1.1 mg/dL (0.7-1.3) 10/26/18 07:50 Est GFR ( Amer) TNP 10/26/18 07:50 Est GFR (Non-Af Amer) TNP 10/26/18 07:50 BUN/Creatinine Ratio 16.4 10/26/18 07:50 Glucose 96 mg/dL (70-105) 10/26/18 07:50 POC Glucose 129 MG/DL (70 - 105) H 10/26/18 11:18 Calcium 9.1 mg/dL (8.6-10.3) 10/26/18 07:50 Total Bilirubin 0.6 mg/dL (0.3-1.0) 10/26/18 07:50 AST 14 U/L (13-39) 10/26/18 07:50 ALT 12 U/L (7-52) 10/26/18 07:50 Alkaline Phosphatase 84 U/L (34-104) 10/26/18 07:50 Troponin I < 0.01 ng/mL (0.01-0.05) L 10/26/18 07:50 B-Natriuretic Peptide 12.4 pg/mL (5.0-100.0) 10/26/18 07:50 Total Protein 6.3 gm/dL (6.0-8.3) 10/26/18 07:50 Albumin 3.7 gm/dL (4.2-5.5) L 10/26/18 07:50 Globulin 2.6 gm/dL 10/26/18 07:50 Albumin/Globulin Ratio 1.4 (1.0-1.8) 10/26/18 07:50 Triglycerides 96 mg/dL (<150) 10/26/18 10:19 Cholesterol 162 mg/dL (<200) 10/26/18 10:19 LDL Cholesterol Direct 110 mg/dL (75-193) 10/26/18 10:19 HDL Cholesterol 40 mg/dL (23-92) 10/26/18 10:19 TSH 0.93 uIU/ml (0.34-5.60) 10/26/18 07:50 - Physical Exam Vitals and I&O: Vital Signs Temp 98.1 F 11/01/18 06:07 Pulse 67 11/01/18 10:48 Resp 18 11/01/18 10:48 BP 115/69 11/01/18 06:07 Pulse Ox 92 11/01/18 10:48 Intake & Output 10/31/18 11/01/18 11/01/18 18:59 06:59 18:59 Intake Total 1400 300 Balance 1400 300 Intake: Oral 1400 300 Other: # Voids 4 1 # Bowel Movements 0 0 Stool Characteristics Soft Soft Active Medications: Current Medications Acetaminophen (Tylenol) 650 mg PO Q4HR PRN PRN Reason: Mild Pain / Temp above 100 Stop: 12/25/18 10:06 Al Hydrox/Mg Hydrox/Simethicone (Maalox) 30 ml PO Q4HR PRN PRN Reason: GI DISTRESS Stop: 12/25/18 10:06 Albuterol Sulfate (Albuterol 2.5mg/3ml Neb Ud) 2.5 mg HHN Q2HRT PRN PRN Reason: Shortness of Breath or Wheeze Stop: 12/26/18 00:57 Last Admin: 10/31/18 23:33 Dose: 2.5 mg Albuterol Sulfate (Albuterol 2.5mg/3ml Neb Ud) 2.5 mg HHN QIDRT [facility] Stop: 12/26/18 14:59 Last Admin: 11/01/18 10:48 Dose: 2.5 mg Amlodipine Besylate (Norvasc) 10 mg PO DAILY [facility] Stop: 12/26/18 08:59 Last Admin: 10/31/18 09:24 Dose: Not Given Benztropine Mesylate (Cogentin) 0.5 mg PO BID [facility] Stop: 12/25/18 16:59 Last Admin: 11/01/18 09:49 Dose: 0.5 mg Carbidopa/Levodopa (Sinemet 25mg-100 Mg) 1 tab PO TID [facility] Stop: 12/25/18 13:59 Last Admin: 11/01/18 09:50 Dose: 1 tab Cholecalciferol (Vitamin D3) 2,000 iu PO DAILY [facility] Stop: 12/26/18 08:59 Last Admin: 10/31/18 09:23 Dose: Not Given Ipratropium [place] (Atrovent Neb 0.5mg/2.5ml) 0.5 mg IH QIDRT [facility] Stop: 12/26/18 14:59 Last Admin: 11/01/18 10:48 Dose: 0.5 mg Latanoprost (Xalatan 0.005% Ophth Soln) 1 drop EACH EYE HS [facility] Stop: 12/25/18 20:59 Last Admin: 10/31/18 21:14 Dose: Not Given Levothyroxine Sodium (Synthroid) 0.025 mg PO QDAC [facility] Stop: 12/26/18 07:29 Last Admin: 11/01/18 06:35 Dose: Not Given Lorazepam (Ativan) 0.5 mg PO Q4HR PRN; Protocol PRN Reason: Agitation Stop: 12/25/18 10:20 Last Admin: 10/31/18 09:23 Dose: 0.5 mg Magnesium Hydroxide (Milk Of Magnesia) 30 ml PO HS PRN PRN Reason: Constipation Multivitamins/Vitamin C (Theragran) 1 tab PO DAILY [facility] Stop: 12/26/18 08:59 Last Admin: 11/01/18 09:50 Dose: 1 tab Olanzapine (Zyprexa) 7.5 mg PO BID [facility]; Protocol Stop: 12/31/18 08:59 Polyethylene Glycol (Miralax) 17 gm PO BID [facility] Stop: 12/25/18 16:59 Last Admin: 10/31/18 16:52 Dose: Not Given Valproate Sodium (Depakene) 500 mg PO BID [facility]; Protocol Stop: 12/25/18 16:59 Last Admin: 10/31/18 16:52 Dose: Not Given Zolpidem Tartrate (Ambien) 5 mg PO HS PRN PRN Reason: Insomnia Stop: 12/25/18 10:06 Last Admin: 10/29/18 20:40 Dose: 5 mg General: congested HEENT: NC/AT, PERRLA, EOMI Neck: Supple, No JVD Lungs: congested, rales Cardiovascular: RRR, Normal S1, Normal S2, with murmur Abdomen: soft, non-tender, globular, positive bowel sound Extremities: excoriation Neurological: no change - Procedures Procedures: Procedures Procedure Code Date CLOSURE SKIN & SUBCUTANEOUS NEC 86.59 07/07/12 DPT ADMINISTRATION 99.39 07/07/12 IMMUNIZATION ADMIN 54142 07/07/12 OTHER GROUP THERAPY 94.44 12/10/14 RECREATIONAL THERAPY 93.81 09/15/12 RPR S/N/AX/GEN/TRNK 2.5CM/< 15246 07/07/12 TDAP VACCINE 7 YRS/> [place] [id number] 07/07/12 Internal Medicine Assmt/Plan - Assessment Assessment: ASSESSMENT AND PLAN: Chronic obstructive pulmonary disease, Parkinson, hypertension, hypothyroidism, chronic renal insufficiency, low albumin. - Plan Plan: PLAN: We will continue the patient also on bronchodilator treatment. Continue antiemetic. We will place him on fall precaution. Continue on laxative. Continue with current care. We will continue to follow closely. Nutritional Asmnt/Malnutr-PDOC - Dietary Evaluation Malnutrition Findings (Please click <Entered> for more info): Nutritional Asmnt/Malnutrition Start: 10/29/18 09: 31 Text: Status: Complete Freq: Protocol: Document 10/29/18 09:32 TOAN (Rec: 10/29/18 09:39 MMULNICK DARLING- FNS1) Nutritional Asmnt/Malnutrition Patient General Information Nutritional Screening Moderate Risk Diagnosis Psychosis NOS, agitation Pertinent Medical Hx/Surgical Hx COPD, Parkinson's, hypertension, hypothyroidism, renal insufficiency Subjective Information Per H&P, patient admitted from nursing facility due to not eating, not taking his medications and very hypersexual. Patient now eating 100% of meals since admitted. In dining room at time of visit. Current Diet Order/ Nutrition Support Mechanical soft Patient / S.O Not Indicated Pertinent Medications maalox, vitamin D3, synthroid, MOM, Theragran, Miralax Pertinent Labs (10/26) Albumin 3.7 Nutritional Hx/Data Height 1.8 m Height (Calculated Centimeters) 180.3 Current Weight (lbs) 76.657 kg Weight (Calculated Kilograms) 76.7 Weight (Calculated Grams) 46470.1 [place] Body Weight 172 % [place] Body Weight 98 Body Mass Index (BMI) 23.6 Recent Weight Change No Weight Status Approriate GI Symptoms GI Symptoms None Last BM 10/28 x1 Difficult in: None Food Allergies No Cultural/Ethnic/Buddhism Belief none indicated Usual diet at home unknown Skin Integrity/Comment: Rohith 18, intact Current %PO Good (75-100%) Estimated Nutritional Goals BEE in Kcals: Using Current wt Calories/Kcals/Kg 25-30 kcal/kg using 76.8 kg CBW Kcals Calculated 9729-9973 kcal/day Protein: Using Current wt Protein g/k gm/kg Protein Calculated ~75gm/day Fluid: ml 5434-9197 ml/day Nutritional Problem 1. Problem Problem No nutrition diagnosis at this time Intervention/Recommendation Comments 1. Continue Mechanical soft diet as tolerated by patient. Expected Outcomes/Goals Expected Outcomes/Goals Oral intake >75% of meals, weight stable, nutrition related labs WNL F/U LR 11/05
--- NOTE | 2018-11-02 02:14 | Progress Notes ---
DATE: 10/31/2018 PSYCHOLOGY PROGRESS NOTE DATE OF SERVICE: 10/31/2018 SUBJECTIVE: The patient is seen and is interviewed. Case is discussed with staff. The patient continues to present as irritated and guarded. Staff reports the patient continues to have yelling episodes and has attempted to strike out at the staff during care. The patient has no insight into his illness and is mostly uncontainable. The patient is unable to verbally contract for safety. The patient states that he is angry about being hospitalized. OBJECTIVE: Mood is irritable. Affect is constricted. Thought process is confused with paranoid ideation. The patient denied any auditory or visual hallucinations. The patient's behavior has been poorly redirectable with screaming and yelling episodes as well as poor impulse control. ASSESSMENT AND PLAN: The patient continues to be psychotic and impulsive. We provided de-escalation and limit setting. We provided remotivation for the patient to become compliant and stay compliant with his care and treatment. We provided reality orientation, differentiation, and integration. We encouraged the patient to demonstrate emotional and self-regulation and to verbalize his concerns versus acting out verbally and behaviorally. We will continue to provide behavioral management. We will follow up in 2 days to continue the present treatment. Prognosis is poor at this time. [facility]# [id number] AUDELIA
--- NOTE | 2018-11-02 04:17 | Progress Notes ---
DATE: 11/01/2018 SUBJECTIVE: Staff was spoken to. The patient is interviewed. Mood is noted to be irritable. Affect is constricted. The patient is screaming and yelling. The patient has no insight into his illness. Continues to be paranoid and has been displaying acute mood swings and irritability and aggressive behavior when the staff are trying to help him out. ASSESSMENT: The patient is still psychotic and impulsive. PLAN: To continue the patient with the current medications and encouraged the patient to verbalize the concerns rather than to act out. JOB# [id number]
[2018-11-02] MEDS: Levothyroxine 0.025 Mg Tab PO SCH (06:30)
[2018-11-02] MEDS: Ipratropium Neb 0.5 mg/2.5 mL UD IH SCH ×4 (06:50→18:41)
[2018-11-02] MEDS: Albuterol Nebulizer 2.5mg/3mL HHN SCH ×4 (06:50→18:41)
[2018-11-02] MEDS: POLYETHYLENE GLYCOL 3350 17 GM PACK PO SCH ×3 (08:36→17:09)
[2018-11-02] MEDS: Multivitamin Tab PO SCH ×2 (08:38→09:24)
--- NOTE | 2018-11-02 12:21 | Internal Medicine Prog Note ---
Internal Medicine Subjective - Subjective Patient seen and examined:: with staff, chart reviewed Patient is:: awake, verbal, interactive, in bed, agitated, congested Patient Complaints of:: congestion Per staff patient has:: no episodes of fall, agitated, combative, noncompliant, tolerating meds Internal Medicine Objective - Results Result Diagrams: 10/26/18 07:50 10/26/18 07:50 Recent Labs: Laboratory Last Values WBC 5.1 Th/cmm (4.8-10.8) 10/26/18 07:50 RBC 4.84 Mil/cmm (3.80-5.80) 10/26/18 07:50 Hgb 14.5 gm/dL (12-16) 10/26/18 07:50 Hct 43.7 % (41.0-60) 10/26/18 07:50 MCV 90.3 fl (80-99) 10/26/18 07:50 MCH 30.0 pg (27.0-31.0) 10/26/18 07:50 MCHC Differential 33.2 pg (28.0-36.0) 10/26/18 07:50 RDW 13.6 % (11.5-20.0) 10/26/18 07:50 Plt Count 265 Th/cmm (150-400) 10/26/18 07:50 MPV 7.7 fl 10/26/18 07:50 Add Manual Diff YES 10/26/18 07:50 Band Neutrophils % 0 % (0-10) 10/26/18 07:50 Neutrophils (Manual) 50 % (40-80) 10/26/18 07:50 Lymphocytes 30 % (20-50) 10/26/18 07:50 Monocytes 18 % (2-10) H 10/26/18 07:50 Eosinophils 2 % (0-5) 10/26/18 07:50 Basophils 0 % (0-3) 10/26/18 07:50 PT 9.8 SECONDS (9.5-11.5) 10/26/18 07:50 INR 0.94 (0.5-1.4) 10/26/18 07:50 PTT (Actin FS) 27.8 SECONDS (26.0-38.0) 10/26/18 07:50 Sodium 140 mEq/L (136-145) 10/26/18 07:50 Potassium 4.2 mEq/L (3.5-5.1) 10/26/18 07:50 Chloride 108 mEq/L (98-107) H 10/26/18 07:50 Carbon Dioxide 24.0 mEq/L (21.0-31.0) 10/26/18 07:50 Anion Gap 12.2 (7.0-16.0) 10/26/18 07:50 BUN 18 mg/dL (7-25) 10/26/18 07:50 Creatinine 1.1 mg/dL (0.7-1.3) 10/26/18 07:50 Est GFR ( Amer) TNP 10/26/18 07:50 Est GFR (Non-Af Amer) TNP 10/26/18 07:50 BUN/Creatinine Ratio 16.4 10/26/18 07:50 Glucose 96 mg/dL (70-105) 10/26/18 07:50 POC Glucose 129 MG/DL (70 - 105) H 10/26/18 11:18 Calcium 9.1 mg/dL (8.6-10.3) 10/26/18 07:50 Total Bilirubin 0.6 mg/dL (0.3-1.0) 10/26/18 07:50 AST 14 U/L (13-39) 10/26/18 07:50 ALT 12 U/L (7-52) 10/26/18 07:50 Alkaline Phosphatase 84 U/L (34-104) 10/26/18 07:50 Troponin I < 0.01 ng/mL (0.01-0.05) L 10/26/18 07:50 B-Natriuretic Peptide 12.4 pg/mL (5.0-100.0) 10/26/18 07:50 Total Protein 6.3 gm/dL (6.0-8.3) 10/26/18 07:50 Albumin 3.7 gm/dL (4.2-5.5) L 10/26/18 07:50 Globulin 2.6 gm/dL 10/26/18 07:50 Albumin/Globulin Ratio 1.4 (1.0-1.8) 10/26/18 07:50 Triglycerides 96 mg/dL (<150) 10/26/18 10:19 Cholesterol 162 mg/dL (<200) 10/26/18 10:19 LDL Cholesterol Direct 110 mg/dL (75-193) 10/26/18 10:19 HDL Cholesterol 40 mg/dL (23-92) 10/26/18 10:19 TSH 0.93 uIU/ml (0.34-5.60) 10/26/18 07:50 - Physical Exam Vitals and I&O: Vital Signs Temp 98.2 F 11/02/18 06:16 Pulse 56 11/02/18 10:12 Resp 18 11/02/18 10:12 BP 106/68 11/02/18 06:16 Pulse Ox 93 11/02/18 10:12 Intake & Output 11/01/18 11/02/18 11/02/18 18:59 06:59 18:59 Intake Total 1800 120 Balance 1800 120 Intake: Oral 1800 120 Other: # Voids 4 2 # Bowel Movements 0 0 Stool Characteristics Soft Active Medications: Current Medications Acetaminophen (Tylenol) 650 mg PO Q4HR PRN PRN Reason: Mild Pain / Temp above 100 Stop: 12/25/18 10:06 Al Hydrox/Mg Hydrox/Simethicone (Maalox) 30 ml PO Q4HR PRN PRN Reason: GI DISTRESS Stop: 12/25/18 10:06 Albuterol Sulfate (Albuterol 2.5mg/3ml Neb Ud) 2.5 mg HHN Q2HRT PRN PRN Reason: Shortness of Breath or Wheeze Stop: 12/26/18 00:57 Last Admin: 10/31/18 23:33 Dose: 2.5 mg Albuterol Sulfate (Albuterol 2.5mg/3ml Neb Ud) 2.5 mg HHN QIDRT [facility] Stop: 12/26/18 14:59 Last Admin: 11/02/18 10:12 Dose: 2.5 mg Amlodipine Besylate (Norvasc) 10 mg PO DAILY [facility] Stop: 12/26/18 08:59 Last Admin: 11/02/18 08:39 Dose: Not Given Benztropine Mesylate (Cogentin) 0.5 mg PO BID [facility] Stop: 12/25/18 16:59 Last Admin: 11/02/18 09:20 Dose: Not Given Carbidopa/Levodopa (Sinemet 25mg-100 Mg) 1 tab PO TID [facility] Stop: 12/25/18 13:59 Last Admin: 11/02/18 09:19 Dose: Not Given Cholecalciferol (Vitamin D3) 2,000 iu PO DAILY [facility] Stop: 12/26/18 08:59 Last Admin: 11/02/18 09:23 Dose: Not Given Ipratropium [place] (Atrovent Neb 0.5mg/2.5ml) 0.5 mg IH QIDRT [facility] Stop: 12/26/18 14:59 Last Admin: 11/02/18 10:12 Dose: 0.5 mg Latanoprost (Xalatan 0.005% Ophth Soln) 1 drop EACH EYE HS [facility] Stop: 12/25/18 20:59 Last Admin: 11/01/18 21:21 Dose: Not Given Levothyroxine Sodium (Synthroid) 0.025 mg PO QDAC [facility] Stop: 12/26/18 07:29 Last Admin: 11/02/18 06:30 Dose: Not Given Lorazepam (Ativan) 0.5 mg PO Q4HR PRN; Protocol PRN Reason: Agitation Stop: 12/25/18 10:20 Last Admin: 10/31/18 09:23 Dose: 0.5 mg Magnesium Hydroxide (Milk Of Magnesia) 30 ml PO HS PRN PRN Reason: Constipation Multivitamins/Vitamin C (Theragran) 1 tab PO DAILY [facility] Stop: 12/26/18 08:59 Last Admin: 11/02/18 09:24 Dose: Not Given Olanzapine 5 mg/ Olanzapine 2. (5 mg) 7.5 mg PO BID [facility] Stop: 12/31/18 16:59 Last Admin: 11/02/18 09:19 Dose: Not Given Polyethylene Glycol (Miralax) 17 gm PO BID [facility] Stop: 12/25/18 16:59 Last Admin: 11/02/18 09:20 Dose: Not Given Valproate Sodium (Depakene) 500 mg PO BID [facility]; Protocol Stop: 12/25/18 16:59 Last Admin: 11/02/18 09:23 Dose: Not Given Zolpidem Tartrate (Ambien) 5 mg PO HS PRN PRN Reason: Insomnia Stop: 12/25/18 10:06 Last Admin: 10/29/18 20:40 Dose: 5 mg General: congested HEENT: NC/AT, PERRLA, EOMI Neck: Supple, No JVD Lungs: congested, rales Cardiovascular: RRR, Normal S1, Normal S2, with murmur Abdomen: soft, non-tender, globular, positive bowel sound Extremities: excoriation Neurological: no change - Procedures Procedures: Procedures Procedure Code Date CLOSURE SKIN & SUBCUTANEOUS NEC 86.59 07/07/12 DPT ADMINISTRATION 99.39 07/07/12 IMMUNIZATION ADMIN 31149 07/07/12 OTHER GROUP THERAPY 94.44 12/10/14 RECREATIONAL THERAPY 93.81 09/15/12 RPR S/N/AX/GEN/TRNK 2.5CM/< 26281 07/07/12 TDAP VACCINE 7 YRS/> IM [id number] 07/07/12 Internal Medicine Assmt/Plan - Assessment Assessment: ASSESSMENT AND PLAN: Chronic obstructive pulmonary disease, Parkinson, hypertension, hypothyroidism, chronic renal insufficiency, low albumin. - Plan Plan: PLAN: We will continue the patient also on bronchodilator treatment. Continue antiemetic. We will place him on fall precaution. Continue on laxative. Continue with current care. We will continue to follow closely. Nutritional Asmnt/Malnutr-PDOC - Dietary Evaluation Malnutrition Findings (Please click <Entered> for more info): Nutritional Asmnt/Malnutrition Start: 10/29/18 09: 31 Text: Status: Complete Freq: Protocol: Document 10/29/18 09:32 TOAN (Rec: 10/29/18 09:39 TOAN DARLING- FNS1) Nutritional Asmnt/Malnutrition Patient General Information Nutritional Screening Moderate Risk Diagnosis Psychosis NOS, agitation Pertinent Medical Hx/Surgical Hx COPD, Parkinson's, hypertension, hypothyroidism, renal insufficiency Subjective Information Per H&P, patient admitted from nursing facility due to not eating, not taking his medications and very hypersexual. Patient now eating 100% of meals since admitted. In dining room at time of visit. Current Diet Order/ Nutrition Support Mechanical soft Patient / S.O Not Indicated Pertinent Medications maalox, vitamin D3, synthroid, MOM, Theragran, Miralax Pertinent Labs (10/26) Albumin 3.7 Nutritional Hx/Data Height 1.8 m Height (Calculated Centimeters) 180.3 Current Weight (lbs) 76.657 kg Weight (Calculated Kilograms) 76.7 Weight (Calculated Grams) 45717.1 [place] Body Weight 172 % [place] Body Weight 98 Body Mass Index (BMI) 23.6 Recent Weight Change No Weight Status Approriate GI Symptoms GI Symptoms None Last BM 10/28 x1 Difficult in: None Food Allergies No Cultural/Ethnic/Jainism Belief none indicated Usual diet at home unknown Skin Integrity/Comment: Rohith 18, intact Current %PO Good (75-100%) Estimated Nutritional Goals BEE in Kcals: Using Current wt Calories/Kcals/Kg 25-30 kcal/kg using 76.8 kg CBW Kcals Calculated 1603-6252 kcal/day Protein: Using Current wt Protein g/k gm/kg Protein Calculated ~75gm/day Fluid: ml 5376-4433 ml/day Nutritional Problem 1. Problem Problem No nutrition diagnosis at this time Intervention/Recommendation Comments 1. Continue Mechanical soft diet as tolerated by patient. Expected Outcomes/Goals Expected Outcomes/Goals Oral intake >75% of meals, weight stable, nutrition related labs WNL F/U LR 11/05
--- NOTE | 2018-11-03 04:17 | Progress Notes ---
DATE: 11/02/2018 PSYCHOLOGY PROGRESS NOTE SUBJECTIVE: The patient is seen and is interviewed. Case is discussed with staff. The patient presents as easily agitated and irritated. Staff reports the patient continues to have yelling episodes. The patient is suspicious and guarded. The staff report the patient continues to be combative when staff is trying to provide care for him. OBJECTIVE: Mood is irritable. Affect is constricted. Thought process shows to be confused and with paranoid ideation. The patient did not answer questions about experiencing hallucinations. The patient has poor insight into his illness. Mood is marked by acute mood swings. The patient's behavior has been aggressive. ASSESSMENT AND PLAN: The patient remains psychotic and impulsive. We provided de-escalation and limit setting. We provided remotivation for the patient to become compliant and stay compliant with all aspects of his care and treatment. We provided reality orientation, differentiation, and integration. We encouraged the patient to verbalize his concerns and to demonstrate emotional and self-regulation versus acting out and striking out both verbally and physically. We will followup in 2 days to continue the present treatment and will include behavioral management. JOB# [id number] AUDELIA
--- NOTE | 2018-11-03 05:36 | Progress Notes ---
DATE: 11/02/2018 PSYCHIATRIC PROGRESS NOTE SUBJECTIVE: Staff was spoken to. The patient is interviewed. Mood is noted to be irritable. Affect is constricted. Insight and judgment are noted to be still impaired. Impulse control is noted to be poor. The patient tends to scream and yell when he does not get his way. The patient is refusing to take medication and hence the patient has been placed on the 2 mg of the Haldol along with the 25 mg of the Benadryl and if the patient continues to be reluctant to continue the medication, possibly Haldol Decanoate is going to be considered. ASSESSMENT: The patient is still grossly psychotic and impulsive. PLAN: To continue the patient with the supportive therapy and followup. JOB# [id number]
[2018-11-03] MEDS: Albuterol Nebulizer 2.5mg/3mL HHN SCH ×4 (06:40→21:21)
[2018-11-03] MEDS: Ipratropium Neb 0.5 mg/2.5 mL UD IH SCH ×3 (06:40→21:22)
[2018-11-03] MEDS: Levothyroxine 0.025 Mg Tab PO SCH (06:53)
[2018-11-03] MEDS: Multivitamin Tab PO SCH (09:58)
[2018-11-03] MEDS: POLYETHYLENE GLYCOL 3350 17 GM PACK PO SCH ×2 (10:01→17:40)
--- NOTE | 2018-11-03 12:00 | Internal Medicine Prog Note ---
Internal Medicine Subjective - Subjective Patient seen and examined:: with staff, chart reviewed Patient is:: awake, verbal, interactive, in bed, agitated, congested Patient Complaints of:: congestion Per staff patient has:: no episodes of fall, agitated, combative, noncompliant, tolerating meds Internal Medicine Objective - Results Result Diagrams: 10/26/18 07:50 10/26/18 07:50 Recent Labs: Laboratory Last Values WBC 5.1 Th/cmm (4.8-10.8) 10/26/18 07:50 RBC 4.84 Mil/cmm (3.80-5.80) 10/26/18 07:50 Hgb 14.5 gm/dL (12-16) 10/26/18 07:50 Hct 43.7 % (41.0-60) 10/26/18 07:50 MCV 90.3 fl (80-99) 10/26/18 07:50 MCH 30.0 pg (27.0-31.0) 10/26/18 07:50 MCHC Differential 33.2 pg (28.0-36.0) 10/26/18 07:50 RDW 13.6 % (11.5-20.0) 10/26/18 07:50 Plt Count 265 Th/cmm (150-400) 10/26/18 07:50 MPV 7.7 fl 10/26/18 07:50 Add Manual Diff YES 10/26/18 07:50 Band Neutrophils % 0 % (0-10) 10/26/18 07:50 Neutrophils (Manual) 50 % (40-80) 10/26/18 07:50 Lymphocytes 30 % (20-50) 10/26/18 07:50 Monocytes 18 % (2-10) H 10/26/18 07:50 Eosinophils 2 % (0-5) 10/26/18 07:50 Basophils 0 % (0-3) 10/26/18 07:50 PT 9.8 SECONDS (9.5-11.5) 10/26/18 07:50 INR 0.94 (0.5-1.4) 10/26/18 07:50 PTT (Actin FS) 27.8 SECONDS (26.0-38.0) 10/26/18 07:50 Sodium 140 mEq/L (136-145) 10/26/18 07:50 Potassium 4.2 mEq/L (3.5-5.1) 10/26/18 07:50 Chloride 108 mEq/L (98-107) H 10/26/18 07:50 Carbon Dioxide 24.0 mEq/L (21.0-31.0) 10/26/18 07:50 Anion Gap 12.2 (7.0-16.0) 10/26/18 07:50 BUN 18 mg/dL (7-25) 10/26/18 07:50 Creatinine 1.1 mg/dL (0.7-1.3) 10/26/18 07:50 Est GFR ( Amer) TNP 10/26/18 07:50 Est GFR (Non-Af Amer) TNP 10/26/18 07:50 BUN/Creatinine Ratio 16.4 10/26/18 07:50 Glucose 96 mg/dL (70-105) 10/26/18 07:50 POC Glucose 129 MG/DL (70 - 105) H 10/26/18 11:18 Calcium 9.1 mg/dL (8.6-10.3) 10/26/18 07:50 Total Bilirubin 0.6 mg/dL (0.3-1.0) 10/26/18 07:50 AST 14 U/L (13-39) 10/26/18 07:50 ALT 12 U/L (7-52) 10/26/18 07:50 Alkaline Phosphatase 84 U/L (34-104) 10/26/18 07:50 Troponin I < 0.01 ng/mL (0.01-0.05) L 10/26/18 07:50 B-Natriuretic Peptide 12.4 pg/mL (5.0-100.0) 10/26/18 07:50 Total Protein 6.3 gm/dL (6.0-8.3) 10/26/18 07:50 Albumin 3.7 gm/dL (4.2-5.5) L 10/26/18 07:50 Globulin 2.6 gm/dL 10/26/18 07:50 Albumin/Globulin Ratio 1.4 (1.0-1.8) 10/26/18 07:50 Triglycerides 96 mg/dL (<150) 10/26/18 10:19 Cholesterol 162 mg/dL (<200) 10/26/18 10:19 LDL Cholesterol Direct 110 mg/dL (75-193) 10/26/18 10:19 HDL Cholesterol 40 mg/dL (23-92) 10/26/18 10:19 TSH 0.93 uIU/ml (0.34-5.60) 10/26/18 07:50 - Physical Exam Vitals and I&O: Vital Signs Temp 97.8 F 11/03/18 06:17 Pulse 59 11/03/18 10:32 Resp 18 11/03/18 10:32 BP 133/76 11/03/18 09:59 Pulse Ox 92 11/03/18 10:32 Intake & Output 11/02/18 11/03/18 11/03/18 18:59 06:59 18:59 Intake Total 1500 120 Balance 1500 120 Intake: Oral 1500 120 Other: # Voids 3 3 # Bowel Movements 0 Active Medications: Current Medications Acetaminophen (Tylenol) 650 mg PO Q4HR PRN PRN Reason: Mild Pain / Temp above 100 Stop: 12/25/18 10:06 Al Hydrox/Mg Hydrox/Simethicone (Maalox) 30 ml PO Q4HR PRN PRN Reason: GI DISTRESS Stop: 12/25/18 10:06 Albuterol Sulfate (Albuterol 2.5mg/3ml Neb Ud) 2.5 mg HHN Q2HRT PRN PRN Reason: Shortness of Breath or Wheeze Stop: 12/26/18 00:57 Last Admin: 10/31/18 23:33 Dose: 2.5 mg Albuterol Sulfate (Albuterol 2.5mg/3ml Neb Ud) 2.5 mg HHN QIDRT [facility] Stop: 12/26/18 14:59 Last Admin: 11/03/18 10:32 Dose: 2.5 mg Amlodipine Besylate (Norvasc) 10 mg PO DAILY [facility] Stop: 12/26/18 08:59 Last Admin: 11/03/18 09:59 Dose: Not Given Benztropine Mesylate (Cogentin) 0.5 mg PO BID [facility] Stop: 12/25/18 16:59 Last Admin: 11/03/18 10:00 Dose: Not Given Carbidopa/Levodopa (Sinemet 25mg-100 Mg) 1 tab PO TID [facility] Stop: 12/25/18 13:59 Last Admin: 11/03/18 09:58 Dose: 1 tab Cholecalciferol (Vitamin D3) 2,000 iu PO DAILY [facility] Stop: 12/26/18 08:59 Last Admin: 11/03/18 10:00 Dose: Not Given Ipratropium [place] (Atrovent Neb 0.5mg/2.5ml) 0.5 mg IH QIDRT [facility] Stop: 12/26/18 14:59 Last Admin: 11/03/18 10:32 Dose: 0.5 mg Latanoprost (Xalatan 0.005% Ophth Soln) 1 drop EACH EYE HS [facility] Stop: 12/25/18 20:59 Last Admin: 11/02/18 21:01 Dose: Not Given Levothyroxine Sodium (Synthroid) 0.025 mg PO QDAC [facility] Stop: 12/26/18 07:29 Last Admin: 11/03/18 06:53 Dose: Not Given Lorazepam (Ativan) 0.5 mg PO Q4HR PRN; Protocol PRN Reason: Agitation Stop: 12/25/18 10:20 Last Admin: 10/31/18 09:23 Dose: 0.5 mg Magnesium Hydroxide (Milk Of Magnesia) 30 ml PO HS PRN PRN Reason: Constipation Multivitamins/Vitamin C (Theragran) 1 tab PO DAILY [facility] Stop: 12/26/18 08:59 Last Admin: 11/03/18 09:58 Dose: 1 tab Olanzapine 5 mg/ Olanzapine 2. (5 mg) 7.5 mg PO BID [facility] Stop: 12/31/18 16:59 Last Admin: 11/03/18 09:59 Dose: Not Given Polyethylene Glycol (Miralax) 17 gm PO BID [facility] Stop: 12/25/18 16:59 Last Admin: 11/03/18 10:01 Dose: Not Given Valproate Sodium (Depakene) 500 mg PO BID [facility]; Protocol Stop: 12/25/18 16:59 Last Admin: 11/03/18 10:01 Dose: Not Given Zolpidem Tartrate (Ambien) 5 mg PO HS PRN PRN Reason: Insomnia Stop: 12/25/18 10:06 Last Admin: 10/29/18 20:40 Dose: 5 mg General: congested HEENT: NC/AT, PERRLA, EOMI Neck: Supple, No JVD Lungs: congested, rales Cardiovascular: RRR, Normal S1, Normal S2, with murmur Abdomen: soft, non-tender, globular, positive bowel sound Extremities: excoriation Neurological: no change - Procedures Procedures: Procedures Procedure Code Date CLOSURE SKIN & SUBCUTANEOUS NEC 86.59 07/07/12 DPT ADMINISTRATION 99.39 07/07/12 IMMUNIZATION ADMIN 01315 07/07/12 OTHER GROUP THERAPY 94.44 12/10/14 RECREATIONAL THERAPY 93.81 09/15/12 RPR S/N/AX/GEN/TRNK 2.5CM/< 40534 07/07/12 TDAP VACCINE 7 YRS/> [place] [id number] 07/07/12 Internal Medicine Assmt/Plan - Assessment Assessment: ASSESSMENT AND PLAN: Chronic obstructive pulmonary disease, Parkinson, hypertension, hypothyroidism, chronic renal insufficiency, low albumin. - Plan Plan: PLAN: We will continue the patient also on bronchodilator treatment. Continue antiemetic. We will place him on fall precaution. Continue on laxative. Continue with current care. We will continue to follow closely. Nutritional Asmnt/Malnutr-PDOC - Dietary Evaluation Malnutrition Findings (Please click <Entered> for more info): Nutritional Asmnt/Malnutrition Start: 10/29/18 09: 31 Text: Status: Complete Freq: Protocol: Document 10/29/18 09:32 TOAN (Rec: 10/29/18 09:39 TOAN DARLING- FNS1) Nutritional Asmnt/Malnutrition Patient General Information Nutritional Screening Moderate Risk Diagnosis Psychosis NOS, agitation Pertinent Medical Hx/Surgical Hx COPD, Parkinson's, hypertension, hypothyroidism, renal insufficiency Subjective Information Per H&P, patient admitted from nursing facility due to not eating, not taking his medications and very hypersexual. Patient now eating 100% of meals since admitted. In dining room at time of visit. Current Diet Order/ Nutrition Support Mechanical soft Patient / S.O Not Indicated Pertinent Medications maalox, vitamin D3, synthroid, MOM, Theragran, Miralax Pertinent Labs (10/26) Albumin 3.7 Nutritional Hx/Data Height 1.8 m Height (Calculated Centimeters) 180.3 Current Weight (lbs) 76.657 kg Weight (Calculated Kilograms) 76.7 Weight (Calculated Grams) 54727.1 [place] Body Weight 172 % [place] Body Weight 98 Body Mass Index (BMI) 23.6 Recent Weight Change No Weight Status Approriate GI Symptoms GI Symptoms None Last BM 10/28 x1 Difficult in: None Food Allergies No Cultural/Ethnic/[place] Belief none indicated Usual diet at home unknown Skin Integrity/Comment: Rohith 18, intact Current %PO Good (75-100%) Estimated Nutritional Goals BEE in Kcals: Using Current wt Calories/Kcals/Kg 25-30 kcal/kg using 76.8 kg CBW Kcals Calculated 8120-5060 kcal/day Protein: Using Current wt Protein g/k gm/kg Protein Calculated ~75gm/day Fluid: ml 4600-2070 ml/day Nutritional Problem 1. Problem Problem No nutrition diagnosis at this time Intervention/Recommendation Comments 1. Continue Mechanical soft diet as tolerated by patient. Expected Outcomes/Goals Expected Outcomes/Goals Oral intake >75% of meals, weight stable, nutrition related labs WNL F/U LR 11/05
--- NOTE | 2018-11-04 01:46 | Progress Notes ---
DATE: 11/03/2018 PSYCHIATRIC PROGRESS NOTE SUBJECTIVE: Staff was spoken to. The patient is interviewed. Mood is noted to be irritable. Affect is constricted. Insight and judgment are noted to be still impaired. The patient tends to scream and yell. The patient has been reluctant to comply with the medication and hence the patient has to be given a dose of the Haldol yesterday. PLAN: The patient at this time is being closely monitored and if the patient continues to be reluctant to comply with the medications, possibly the patient is going to be placed on Haldol on a routine basis and followed up. JOB# [id number]
[2018-11-04] MEDS: Levothyroxine 0.025 Mg Tab PO SCH (06:41)
[2018-11-04] MEDS: Albuterol Nebulizer 2.5mg/3mL HHN SCH ×4 (07:06→19:03)
[2018-11-04] MEDS: Ipratropium Neb 0.5 mg/2.5 mL UD IH SCH ×4 (07:06→19:03)
[2018-11-04] MEDS: Multivitamin Tab PO SCH (09:02)
[2018-11-04] MEDS: POLYETHYLENE GLYCOL 3350 17 GM PACK PO SCH ×2 (09:03→16:48)
--- NOTE | 2018-11-04 12:39 | Internal Medicine Prog Note ---
Internal Medicine Subjective - Subjective Patient seen and examined:: with staff, chart reviewed Patient is:: awake, verbal, interactive, in bed, agitated, congested Patient Complaints of:: congestion Per staff patient has:: no episodes of fall, agitated, combative, noncompliant, tolerating meds Internal Medicine Objective - Results Result Diagrams: 10/26/18 07:50 10/26/18 07:50 Recent Labs: Laboratory Last Values WBC 5.1 Th/cmm (4.8-10.8) 10/26/18 07:50 RBC 4.84 Mil/cmm (3.80-5.80) 10/26/18 07:50 Hgb 14.5 gm/dL (12-16) 10/26/18 07:50 Hct 43.7 % (41.0-60) 10/26/18 07:50 MCV 90.3 fl (80-99) 10/26/18 07:50 MCH 30.0 pg (27.0-31.0) 10/26/18 07:50 MCHC Differential 33.2 pg (28.0-36.0) 10/26/18 07:50 RDW 13.6 % (11.5-20.0) 10/26/18 07:50 Plt Count 265 Th/cmm (150-400) 10/26/18 07:50 MPV 7.7 fl 10/26/18 07:50 Add Manual Diff YES 10/26/18 07:50 Band Neutrophils % 0 % (0-10) 10/26/18 07:50 Neutrophils (Manual) 50 % (40-80) 10/26/18 07:50 Lymphocytes 30 % (20-50) 10/26/18 07:50 Monocytes 18 % (2-10) H 10/26/18 07:50 Eosinophils 2 % (0-5) 10/26/18 07:50 Basophils 0 % (0-3) 10/26/18 07:50 PT 9.8 SECONDS (9.5-11.5) 10/26/18 07:50 INR 0.94 (0.5-1.4) 10/26/18 07:50 PTT (Actin FS) 27.8 SECONDS (26.0-38.0) 10/26/18 07:50 Sodium 140 mEq/L (136-145) 10/26/18 07:50 Potassium 4.2 mEq/L (3.5-5.1) 10/26/18 07:50 Chloride 108 mEq/L (98-107) H 10/26/18 07:50 Carbon Dioxide 24.0 mEq/L (21.0-31.0) 10/26/18 07:50 Anion Gap 12.2 (7.0-16.0) 10/26/18 07:50 BUN 18 mg/dL (7-25) 10/26/18 07:50 Creatinine 1.1 mg/dL (0.7-1.3) 10/26/18 07:50 Est GFR ( Amer) TNP 10/26/18 07:50 Est GFR (Non-Af Amer) TNP 10/26/18 07:50 BUN/Creatinine Ratio 16.4 10/26/18 07:50 Glucose 96 mg/dL (70-105) 10/26/18 07:50 POC Glucose 129 MG/DL (70 - 105) H 10/26/18 11:18 Calcium 9.1 mg/dL (8.6-10.3) 10/26/18 07:50 Total Bilirubin 0.6 mg/dL (0.3-1.0) 10/26/18 07:50 AST 14 U/L (13-39) 10/26/18 07:50 ALT 12 U/L (7-52) 10/26/18 07:50 Alkaline Phosphatase 84 U/L (34-104) 10/26/18 07:50 Troponin I < 0.01 ng/mL (0.01-0.05) L 10/26/18 07:50 B-Natriuretic Peptide 12.4 pg/mL (5.0-100.0) 10/26/18 07:50 Total Protein 6.3 gm/dL (6.0-8.3) 10/26/18 07:50 Albumin 3.7 gm/dL (4.2-5.5) L 10/26/18 07:50 Globulin 2.6 gm/dL 10/26/18 07:50 Albumin/Globulin Ratio 1.4 (1.0-1.8) 10/26/18 07:50 Triglycerides 96 mg/dL (<150) 10/26/18 10:19 Cholesterol 162 mg/dL (<200) 10/26/18 10:19 LDL Cholesterol Direct 110 mg/dL (75-193) 10/26/18 10:19 HDL Cholesterol 40 mg/dL (23-92) 10/26/18 10:19 TSH 0.93 uIU/ml (0.34-5.60) 10/26/18 07:50 - Physical Exam Vitals and I&O: Vital Signs Temp 98.1 F 11/04/18 06:33 Pulse 66 11/04/18 10:21 Resp 18 11/04/18 10:21 BP 119/73 11/04/18 08:58 Pulse Ox 94 11/04/18 10:21 Intake & Output 11/03/18 11/04/18 11/04/18 18:59 06:59 18:59 Intake Total 1000 240 Balance 1000 240 Intake: Oral 1000 240 Other: # Voids 4 1 # Bowel Movements 1 Active Medications: Current Medications Acetaminophen (Tylenol) 650 mg PO Q4HR PRN PRN Reason: Mild Pain / Temp above 100 Stop: 12/25/18 10:06 Al Hydrox/Mg Hydrox/Simethicone (Maalox) 30 ml PO Q4HR PRN PRN Reason: GI DISTRESS Stop: 12/25/18 10:06 Albuterol Sulfate (Albuterol 2.5mg/3ml Neb Ud) 2.5 mg HHN Q2HRT PRN PRN Reason: Shortness of Breath or Wheeze Stop: 12/26/18 00:57 Last Admin: 10/31/18 23:33 Dose: 2.5 mg Albuterol Sulfate (Albuterol 2.5mg/3ml Neb Ud) 2.5 mg HHN QIDRT [facility] Stop: 12/26/18 14:59 Last Admin: 11/04/18 10:20 Dose: 2.5 mg Amlodipine Besylate (Norvasc) 10 mg PO DAILY [facility] Stop: 12/26/18 08:59 Last Admin: 11/04/18 08:58 Dose: 10 mg Benztropine Mesylate (Cogentin) 0.5 mg PO BID [facility] Stop: 12/25/18 16:59 Last Admin: 11/04/18 09:02 Dose: 0.5 mg Carbidopa/Levodopa (Sinemet 25mg-100 Mg) 1 tab PO TID [facility] Stop: 12/25/18 13:59 Last Admin: 11/04/18 09:02 Dose: 1 tab Cholecalciferol (Vitamin D3) 2,000 iu PO DAILY [facility] Stop: 12/26/18 08:59 Last Admin: 11/04/18 09:01 Dose: 2,000 iu Ipratropium [place] (Atrovent Neb 0.5mg/2.5ml) 0.5 mg IH QIDRT [facility] Stop: 12/26/18 14:59 Last Admin: 11/04/18 10:20 Dose: 0.5 mg Latanoprost (Xalatan 0.005% Oph Soln) 1 drop EACH EYE HS [facility] Stop: 12/25/18 20:59 Last Admin: 11/03/18 21:56 Dose: Not Given Levothyroxine Sodium (Synthroid) 0.025 mg PO QDAC [facility] Stop: 12/26/18 07:29 Last Admin: 11/04/18 06:41 Dose: 0.025 mg Lorazepam (Ativan) 0.5 mg PO Q4HR PRN; Protocol PRN Reason: Agitation Stop: 12/25/18 10:20 Last Admin: 10/31/18 09:23 Dose: 0.5 mg Magnesium Hydroxide (Milk Of Magnesia) 30 ml PO HS PRN PRN Reason: Constipation Multivitamins/Vitamin C (Theragran) 1 tab PO DAILY [facility] Stop: 12/26/18 08:59 Last Admin: 11/04/18 09:02 Dose: 1 tab Olanzapine 5 mg/ Olanzapine 2. (5 mg) 7.5 mg PO BID [facility] Stop: 12/31/18 16:59 Last Admin: 11/04/18 09:02 Dose: 7.5 mg Polyethylene Glycol (Miralax) 17 gm PO BID [facility] Stop: 12/25/18 16:59 Last Admin: 11/04/18 09:03 Dose: 17 gm Valproate Sodium (Depakene) 500 mg PO BID [facility]; Protocol Stop: 12/25/18 16:59 Last Admin: 11/04/18 08:58 Dose: 500 mg Zolpidem Tartrate (Ambien) 5 mg PO HS PRN PRN Reason: Insomnia Stop: 12/25/18 10:06 Last Admin: 11/03/18 21:40 Dose: 5 mg General: congested HEENT: NC/AT, PERRLA, EOMI Neck: Supple, No JVD Lungs: congested, rales Cardiovascular: RRR, Normal S1, Normal S2, with murmur Abdomen: soft, non-tender, globular, positive bowel sound Extremities: excoriation Neurological: no change - Procedures Procedures: Procedures Procedure Code Date CLOSURE SKIN & SUBCUTANEOUS NEC 86.59 07/07/12 DPT ADMINISTRATION 99.39 07/07/12 IMMUNIZATION ADMIN 45157 07/07/12 OTHER GROUP THERAPY 94.44 12/10/14 RECREATIONAL THERAPY 93.81 09/15/12 RPR S/N/AX/GEN/TRNK 2.5CM/< 97986 07/07/12 TDAP VACCINE 7 YRS/> [place] [id number] 07/07/12 Internal Medicine Assmt/Plan - Assessment Assessment: ASSESSMENT AND PLAN: Chronic obstructive pulmonary disease, Parkinson, hypertension, hypothyroidism, chronic renal insufficiency, low albumin. - Plan Plan: PLAN: We will continue the patient also on bronchodilator treatment. Continue antiemetic. We will place him on fall precaution. Continue on laxative. Continue with current care. We will continue to follow closely. Nutritional Asmnt/Malnutr-PDOC - Dietary Evaluation Malnutrition Findings (Please click <Entered> for more info): Nutritional Asmnt/Malnutrition Start: 10/29/18 09: 31 Text: Status: Complete Freq: Protocol: Document 10/29/18 09:32 TOAN (Rec: 10/29/18 09:39 MMKENIA DARLING- [email or web address]) Nutritional Asmnt/Malnutrition Patient General Information Nutritional Screening Moderate Risk Diagnosis Psychosis NOS, agitation Pertinent Medical Hx/Surgical Hx COPD, Parkinson's, hypertension, hypothyroidism, renal insufficiency Subjective Information Per H&P, patient admitted from nursing facility due to not eating, not taking his medications and very hypersexual. Patient now eating 100% of meals since admitted. In dining room at time of visit. Current Diet Order/ Nutrition Support Mechanical soft Patient / S.O Not Indicated Pertinent Medications maalox, vitamin D3, synthroid, MOM, Theragran, Miralax Pertinent Labs (10/26) Albumin 3.7 Nutritional Hx/Data Height 1.8 m Height (Calculated Centimeters) 180.3 Current Weight (lbs) 76.657 kg Weight (Calculated Kilograms) 76.7 Weight (Calculated Grams) 17012.1 [place] Body Weight 172 % [place] Body Weight 98 Body Mass Index (BMI) 23.6 Recent Weight Change No Weight Status Approriate GI Symptoms GI Symptoms None Last BM 10/28 x1 Difficult in: None Food Allergies No Cultural/Ethnic/L[employer] Day Belief none indicated Usual diet at home unknown Skin Integrity/Comment: Rohith 18, intact Current %PO Good (75-100%) Estimated Nutritional Goals BEE in Kcals: Using Current wt Calories/Kcals/Kg 25-30 kcal/kg using 76.8 kg CBW Kcals Calculated 7271-2570 kcal/day Protein: Using Current wt Protein g/k gm/kg Protein Calculated ~75gm/day Fluid: ml 3673-2103 ml/day Nutritional Problem 1. Problem Problem No nutrition diagnosis at this time Intervention/Recommendation Comments 1. Continue Mechanical soft diet as tolerated by patient. Expected Outcomes/Goals Expected Outcomes/Goals Oral intake >75% of meals, weight stable, nutrition related labs WNL F/U LR 11/05
--- NOTE | 2018-11-05 04:03 | Progress Notes ---
DATE: 11/04/2018 PSYCHOLOGY PROGRESS NOTE SUBJECTIVE: The patient is seen and is interviewed. Case is discussed with staff. The patient continues to present as guarded and easily irritated. Insight and judgment continue to be impaired. Staff reports the patient still is exhibiting yelling episodes. The staff also reports the patient has been reluctant to comply with the medication. Emergency medicine of Haldol injection was provided yesterday. OBJECTIVE: Mood is irritable. Affect is constricted. Thought process is confused. The patient seems to be responding to internal stimuli. The patient did not answer questions about experiencing auditory hallucinations. The patient's behavior has been reluctant to comply with care and has been behaviorally noncompliant with staff direction as well as the treatment interventions. ASSESSMENT AND PLAN: The attending psychiatrist reports that the patient may be placed on Haldol on a routine basis due to noncompliance with medications. The patient's noncompliance persists. Impulse control is inadequate. We provided de-escalation and limit setting. We encouraged the patient to demonstrate emotional and self-regulation and to verbalize his concerns versus acting out. We provided remotivation for the patient to become compliant and stay compliant with all aspects of his care and treatment. We will follow up in 2 days to continue the present treatment. Prognosis is poor. JOB# [id number] AUDELIA
[2018-11-05] MEDS: Albuterol Nebulizer 2.5mg/3mL HHN SCH ×3 (06:14→19:41)
[2018-11-05] MEDS: Ipratropium Neb 0.5 mg/2.5 mL UD IH SCH ×2 (06:14→19:41)
[2018-11-05] MEDS: Levothyroxine 0.025 Mg Tab PO SCH (06:42)
[2018-11-05] MEDS: Multivitamin Tab PO SCH (09:57)
[2018-11-05] MEDS: POLYETHYLENE GLYCOL 3350 17 GM PACK PO SCH ×2 (10:00→16:29)
--- NOTE | 2018-11-05 12:30 | Internal Medicine Prog Note ---
Internal Medicine Subjective - Subjective Patient seen and examined:: with staff, chart reviewed Patient is:: awake, verbal, interactive, in bed, agitated, congested Patient Complaints of:: congestion Per staff patient has:: no episodes of fall, agitated, combative, noncompliant, tolerating meds Internal Medicine Objective - Results Result Diagrams: 10/26/18 07:50 10/26/18 07:50 Recent Labs: Laboratory Last Values WBC 5.1 Th/cmm (4.8-10.8) 10/26/18 07:50 RBC 4.84 Mil/cmm (3.80-5.80) 10/26/18 07:50 Hgb 14.5 gm/dL (12-16) 10/26/18 07:50 Hct 43.7 % (41.0-60) 10/26/18 07:50 MCV 90.3 fl (80-99) 10/26/18 07:50 MCH 30.0 pg (27.0-31.0) 10/26/18 07:50 MCHC Differential 33.2 pg (28.0-36.0) 10/26/18 07:50 RDW 13.6 % (11.5-20.0) 10/26/18 07:50 Plt Count 265 Th/cmm (150-400) 10/26/18 07:50 MPV 7.7 fl 10/26/18 07:50 Add Manual Diff YES 10/26/18 07:50 Band Neutrophils % 0 % (0-10) 10/26/18 07:50 Neutrophils (Manual) 50 % (40-80) 10/26/18 07:50 Lymphocytes 30 % (20-50) 10/26/18 07:50 Monocytes 18 % (2-10) H 10/26/18 07:50 Eosinophils 2 % (0-5) 10/26/18 07:50 Basophils 0 % (0-3) 10/26/18 07:50 PT 9.8 SECONDS (9.5-11.5) 10/26/18 07:50 INR 0.94 (0.5-1.4) 10/26/18 07:50 PTT (Actin FS) 27.8 SECONDS (26.0-38.0) 10/26/18 07:50 Sodium 140 mEq/L (136-145) 10/26/18 07:50 Potassium 4.2 mEq/L (3.5-5.1) 10/26/18 07:50 Chloride 108 mEq/L (98-107) H 10/26/18 07:50 Carbon Dioxide 24.0 mEq/L (21.0-31.0) 10/26/18 07:50 Anion Gap 12.2 (7.0-16.0) 10/26/18 07:50 BUN 18 mg/dL (7-25) 10/26/18 07:50 Creatinine 1.1 mg/dL (0.7-1.3) 10/26/18 07:50 Est GFR ( Amer) TNP 10/26/18 07:50 Est GFR (Non-Af Amer) TNP 10/26/18 07:50 BUN/Creatinine Ratio 16.4 10/26/18 07:50 Glucose 96 mg/dL (70-105) 10/26/18 07:50 POC Glucose 129 MG/DL (70 - 105) H 10/26/18 11:18 Calcium 9.1 mg/dL (8.6-10.3) 10/26/18 07:50 Total Bilirubin 0.6 mg/dL (0.3-1.0) 10/26/18 07:50 AST 14 U/L (13-39) 10/26/18 07:50 ALT 12 U/L (7-52) 10/26/18 07:50 Alkaline Phosphatase 84 U/L (34-104) 10/26/18 07:50 Troponin I < 0.01 ng/mL (0.01-0.05) L 10/26/18 07:50 B-Natriuretic Peptide 12.4 pg/mL (5.0-100.0) 10/26/18 07:50 Total Protein 6.3 gm/dL (6.0-8.3) 10/26/18 07:50 Albumin 3.7 gm/dL (4.2-5.5) L 10/26/18 07:50 Globulin 2.6 gm/dL 10/26/18 07:50 Albumin/Globulin Ratio 1.4 (1.0-1.8) 10/26/18 07:50 Triglycerides 96 mg/dL (<150) 10/26/18 10:19 Cholesterol 162 mg/dL (<200) 10/26/18 10:19 LDL Cholesterol Direct 110 mg/dL (75-193) 10/26/18 10:19 HDL Cholesterol 40 mg/dL (23-92) 10/26/18 10:19 TSH 0.93 uIU/ml (0.34-5.60) 10/26/18 07:50 - Physical Exam Vitals and I&O: Vital Signs Temp 98.3 F 11/04/18 20:41 Pulse 66 11/05/18 10:43 Resp 18 11/05/18 10:43 BP 143/81 11/04/18 20:41 Pulse Ox 96 11/05/18 10:43 Intake & Output 11/04/18 11/05/18 11/05/18 18:59 06:59 18:59 Intake Total 950 240 Balance 950 240 Intake: Oral 950 240 Other: # Voids 4 2 # Bowel Movements 1 Active Medications: Current Medications Acetaminophen (Tylenol) 650 mg PO Q4HR PRN PRN Reason: Mild Pain / Temp above 100 Stop: 12/25/18 10:06 Al Hydrox/Mg Hydrox/Simethicone (Maalox) 30 ml PO Q4HR PRN PRN Reason: GI DISTRESS Stop: 12/25/18 10:06 Albuterol Sulfate (Albuterol 2.5mg/3ml Neb Ud) 2.5 mg HHN Q2HRT PRN PRN Reason: Shortness of Breath or Wheeze Stop: 12/26/18 00:57 Last Admin: 10/31/18 23:33 Dose: 2.5 mg Albuterol Sulfate (Albuterol 2.5mg/3ml Neb Ud) 2.5 mg HHN QIDRT [facility] Stop: 12/26/18 14:59 Last Admin: 11/05/18 10:41 Dose: 2.5 mg Amlodipine Besylate (Norvasc) 10 mg PO DAILY [facility] [place] Stop: 12/26/18 08:59 Last Admin: 11/05/18 09:59 Dose: Not Given Benztropine Mesylate (Cogentin) 0.5 mg PO BID [facility] [place] Stop: 12/25/18 16:59 Last Admin: 11/05/18 09:58 Dose: 0.5 mg Carbidopa/Levodopa (Sinemet 25mg-100 Mg) 1 tab PO TID [facility] [place] Stop: 12/25/18 13:59 Last Admin: 11/05/18 09:57 Dose: 1 tab Cholecalciferol (Vitamin D3) 2,000 iu PO DAILY [facility] Stop: 12/26/18 08:59 Last Admin: 11/05/18 09:56 Dose: 2,000 iu Ipratropium [place] (Atrovent Neb 0.5mg/2.5ml) 0.5 mg IH QIDRT [facility] Stop: 12/26/18 14:59 Last Admin: 11/05/18 06:14 Dose: 0.5 mg Latanoprost (Xalatan 0.005% Oph Soln) 1 drop EACH EYE HS [facility] Stop: 12/25/18 20:59 Last Admin: 11/04/18 21:11 Dose: Not Given Levothyroxine Sodium (Synthroid) 0.025 mg PO QDAC [facility] [place] Stop: 12/26/18 07:29 Last Admin: 11/05/18 06:42 Dose: Not Given Lorazepam (Ativan) 0.5 mg PO Q4HR PRN; Protocol PRN Reason: Agitation Stop: 12/25/18 10:20 Last Admin: 10/31/18 09:23 Dose: 0.5 mg Magnesium Hydroxide (Milk Of Magnesia) 30 ml PO HS PRN PRN Reason: Constipation Multivitamins/Vitamin C (Theragran) 1 tab PO DAILY [facility] [place] Stop: 12/26/18 08:59 Last Admin: 11/05/18 09:57 Dose: 1 tab Olanzapine (Zyprexa) 10 mg PO BID [facility] [place] Stop: 01/04/19 08:59 Last Admin: 11/05/18 09:56 Dose: 10 mg Polyethylene Glycol (Miralax) 17 gm PO BID [facility] Stop: 12/25/18 16:59 Last Admin: 11/05/18 10:00 Dose: Not Given Valproate Sodium (Depakene) 500 mg PO BID [facility]; Protocol Stop: 12/25/18 16:59 Last Admin: 11/05/18 09:56 Dose: 500 mg Zolpidem Tartrate (Ambien) 5 mg PO HS PRN PRN Reason: Insomnia Stop: 12/25/18 10:06 Last Admin: 11/04/18 20:52 Dose: 5 mg General: congested HEENT: NC/AT, PERRLA, EOMI Neck: Supple, No JVD Lungs: congested, rales Cardiovascular: RRR, Normal S1, Normal S2, with murmur Abdomen: soft, non-tender, globular, positive bowel sound Extremities: excoriation Neurological: no change - Procedures Procedures: Procedures Procedure Code Date CLOSURE SKIN & SUBCUTANEOUS NEC 86.59 07/07/12 DPT ADMINISTRATION 99.39 07/07/12 IMMUNIZATION ADMIN 37702 07/07/12 OTHER GROUP THERAPY 94.44 12/10/14 RECREATIONAL THERAPY 93.81 09/15/12 RPR S/N/AX/GEN/TRNK 2.5CM/< 41677 07/07/12 TDAP VACCINE 7 YRS/> IM [id number] 07/07/12 Internal Medicine Assmt/Plan - Assessment Assessment: ASSESSMENT AND PLAN: Chronic obstructive pulmonary disease, Parkinson, hypertension, hypothyroidism, chronic renal insufficiency, low albumin. - Plan Plan: PLAN: We will continue the patient also on bronchodilator treatment. Continue antiemetic. We will place him on fall precaution. Continue on laxative. Continue with current care. We will continue to follow closely. Nutritional Asmnt/Malnutr-PDOC - Dietary Evaluation Malnutrition Findings (Please click <Entered> for more info): Nutritional Asmnt/Malnutrition Start: 10/29/18 09: 31 Text: Status: Complete Freq: Protocol: Document 10/29/18 09:32 TOAN (Rec: 10/29/18 09:39 TOAN DARLING- FNS1) Nutritional Asmnt/Malnutrition Patient General Information Nutritional Screening Moderate Risk Diagnosis Psychosis NOS, agitation Pertinent Medical Hx/Surgical Hx COPD, Parkinson's, hypertension, hypothyroidism, renal insufficiency Subjective Information Per H&P, patient admitted from nursing facility due to not eating, not taking his medications and very hypersexual. Patient now eating 100% of meals since admitted. In dining room at time of visit. Current Diet Order/ Nutrition Support Mechanical soft Patient / S.O Not Indicated Pertinent Medications maalox, vitamin D3, synthroid, MOM, Theragran, Miralax Pertinent Labs (10/26) Albumin 3.7 Nutritional Hx/Data Height 1.8 m Height (Calculated Centimeters) 180.3 Current Weight (lbs) 76.657 kg Weight (Calculated Kilograms) 76.7 Weight (Calculated Grams) 14785.1 [place] Body Weight 172 % [place] Body Weight 98 Body Mass Index (BMI) 23.6 Recent Weight Change No Weight Status Approriate GI Symptoms GI Symptoms None Last BM 10/28 x1 Difficult in: None Food Allergies No Cultural/Ethnic/Gnosticist Belief none indicated Usual diet at home unknown Skin Integrity/Comment: Rohith 18, intact Current %PO Good (75-100%) Estimated Nutritional Goals BEE in Kcals: Using Current wt Calories/Kcals/Kg 25-30 kcal/kg using 76.8 kg CBW Kcals Calculated 9354-9481 kcal/day Protein: Using Current wt Protein g/k gm/kg Protein Calculated ~75gm/day Fluid: ml 1944-9325 ml/day Nutritional Problem 1. Problem Problem No nutrition diagnosis at this time Intervention/Recommendation Comments 1. Continue Mechanical soft diet as tolerated by patient. Expected Outcomes/Goals Expected Outcomes/Goals Oral intake >75% of meals, weight stable, nutrition related labs WNL F/U LR 11/05
--- NOTE | 2018-11-05 15:26 | Progress Notes ---
DATE: 11/04/2018 SUBJECTIVE: Staff was spoken to. The patient is interviewed. Mood is noted to be irritable. Affect is constricted. The patient continues to be irritable and angry. The patient is screaming and yelling, still needs to be redirected. The patient has been partially compliant with the medication. There are at times that he has been refusing and the patient has to be encouraged to comply. The patient is currently on 7.5 mg of the Zyprexa planning to increase this one to 10 mg twice a day and follow the patient up. ASSESSMENT: The patient is still very psychotic and is not ready to be discharged to a lower level of care. JOB# [id number]
--- NOTE | 2018-11-06 06:07 | Progress Notes ---
DATE: 11/05/2018 SUBJECTIVE: Staff was spoken to. The patient is interviewed. Mood is noted to be less irritable. Affect is appropriate. The patient has been so far compliant with the medication. Paranoia is noted, but he is screaming and yelling and has been coming down. No side effects to the medications are noted. The patient is currently on 10 mg twice a day of the olanzapine and 500 mg twice a day of the Depakote. No side effects to the medications are noted at this time. PLAN: To continue the patient with the current medications. I encouraged the patient to verbalize the concerns rather than to act out. JOB# [id number]
[2018-11-06] MEDS: Ipratropium Neb 0.5 mg/2.5 mL UD IH SCH ×4 (06:38→19:38)
[2018-11-06] MEDS: Albuterol Nebulizer 2.5mg/3mL HHN SCH ×4 (06:39→19:38)
[2018-11-06] MEDS: Levothyroxine 0.025 Mg Tab PO SCH (06:57)
[2018-11-06] MEDS: POLYETHYLENE GLYCOL 3350 17 GM PACK PO SCH ×2 (09:30→16:43)
[2018-11-06] MEDS: Multivitamin Tab PO SCH (09:31)
--- NOTE | 2018-11-06 11:52 | Internal Medicine Prog Note ---
Internal Medicine Subjective - Subjective Patient seen and examined:: with staff, chart reviewed Patient is:: awake, verbal, interactive, in bed, agitated, congested Patient Complaints of:: congestion Per staff patient has:: no episodes of fall, agitated, combative, noncompliant, tolerating meds Internal Medicine Objective - Results Result Diagrams: 10/26/18 07:50 10/26/18 07:50 Recent Labs: Laboratory Last Values WBC 5.1 Th/cmm (4.8-10.8) 10/26/18 07:50 RBC 4.84 Mil/cmm (3.80-5.80) 10/26/18 07:50 Hgb 14.5 gm/dL (12-16) 10/26/18 07:50 Hct 43.7 % (41.0-60) 10/26/18 07:50 MCV 90.3 fl (80-99) 10/26/18 07:50 MCH 30.0 pg (27.0-31.0) 10/26/18 07:50 MCHC Differential 33.2 pg (28.0-36.0) 10/26/18 07:50 RDW 13.6 % (11.5-20.0) 10/26/18 07:50 Plt Count 265 Th/cmm (150-400) 10/26/18 07:50 MPV 7.7 fl 10/26/18 07:50 Add Manual Diff YES 10/26/18 07:50 Band Neutrophils % 0 % (0-10) 10/26/18 07:50 Neutrophils (Manual) 50 % (40-80) 10/26/18 07:50 Lymphocytes 30 % (20-50) 10/26/18 07:50 Monocytes 18 % (2-10) H 10/26/18 07:50 Eosinophils 2 % (0-5) 10/26/18 07:50 Basophils 0 % (0-3) 10/26/18 07:50 PT 9.8 SECONDS (9.5-11.5) 10/26/18 07:50 INR 0.94 (0.5-1.4) 10/26/18 07:50 PTT (Actin FS) 27.8 SECONDS (26.0-38.0) 10/26/18 07:50 Sodium 140 mEq/L (136-145) 10/26/18 07:50 Potassium 4.2 mEq/L (3.5-5.1) 10/26/18 07:50 Chloride 108 mEq/L (98-107) H 10/26/18 07:50 Carbon Dioxide 24.0 mEq/L (21.0-31.0) 10/26/18 07:50 Anion Gap 12.2 (7.0-16.0) 10/26/18 07:50 BUN 18 mg/dL (7-25) 10/26/18 07:50 Creatinine 1.1 mg/dL (0.7-1.3) 10/26/18 07:50 Est GFR ( Amer) TNP 10/26/18 07:50 Est GFR (Non-Af Amer) TNP 10/26/18 07:50 BUN/Creatinine Ratio 16.4 10/26/18 07:50 Glucose 96 mg/dL (70-105) 10/26/18 07:50 POC Glucose 129 MG/DL (70 - 105) H 10/26/18 11:18 Calcium 9.1 mg/dL (8.6-10.3) 10/26/18 07:50 Total Bilirubin 0.6 mg/dL (0.3-1.0) 10/26/18 07:50 AST 14 U/L (13-39) 10/26/18 07:50 ALT 12 U/L (7-52) 10/26/18 07:50 Alkaline Phosphatase 84 U/L (34-104) 10/26/18 07:50 Troponin I < 0.01 ng/mL (0.01-0.05) L 10/26/18 07:50 B-Natriuretic Peptide 12.4 pg/mL (5.0-100.0) 10/26/18 07:50 Total Protein 6.3 gm/dL (6.0-8.3) 10/26/18 07:50 Albumin 3.7 gm/dL (4.2-5.5) L 10/26/18 07:50 Globulin 2.6 gm/dL 10/26/18 07:50 Albumin/Globulin Ratio 1.4 (1.0-1.8) 10/26/18 07:50 Triglycerides 96 mg/dL (<150) 10/26/18 10:19 Cholesterol 162 mg/dL (<200) 10/26/18 10:19 LDL Cholesterol Direct 110 mg/dL (75-193) 10/26/18 10:19 HDL Cholesterol 40 mg/dL (23-92) 10/26/18 10:19 TSH 0.93 uIU/ml (0.34-5.60) 10/26/18 07:50 - Physical Exam Vitals and I&O: Vital Signs Temp 97.3 F 11/06/18 06:14 Pulse 55 11/06/18 10:37 Resp 16 11/06/18 10:37 BP 120/61 11/06/18 09:33 Pulse Ox 94 11/06/18 10:37 Intake & Output 11/05/18 11/06/18 11/06/18 18:59 06:59 18:59 Intake Total 1500 120 Balance 1500 120 Intake: Oral 1500 120 Other: # Voids 3 3 # Bowel Movements 0 Stool Characteristics Formed Brown Active Medications: Current Medications Acetaminophen (Tylenol) 650 mg PO Q4HR PRN PRN Reason: Mild Pain / Temp above 100 Stop: 12/25/18 10:06 Al Hydrox/Mg Hydrox/Simethicone (Maalox) 30 ml PO Q4HR PRN PRN Reason: GI DISTRESS Stop: 12/25/18 10:06 Albuterol Sulfate (Albuterol 2.5mg/3ml Neb Ud) 2.5 mg HHN Q2HRT PRN PRN Reason: Shortness of Breath or Wheeze Stop: 12/26/18 00:57 Last Admin: 10/31/18 23:33 Dose: 2.5 mg Albuterol Sulfate (Albuterol 2.5mg/3ml Neb Ud) 2.5 mg HHN QIDRT [facility] Stop: 12/26/18 14:59 Last Admin: 11/06/18 10:33 Dose: 2.5 mg Amlodipine Besylate (Norvasc) 10 mg PO DAILY [facility] Stop: 12/26/18 08:59 Last Admin: 11/06/18 09:33 Dose: Not Given Benztropine Mesylate (Cogentin) 0.5 mg PO BID [facility] Stop: 12/25/18 16:59 Last Admin: 11/06/18 09:31 Dose: Not Given Carbidopa/Levodopa (Sinemet 25mg-100 Mg) 1 tab PO TID [facility] Stop: 12/25/18 13:59 Last Admin: 11/06/18 09:31 Dose: Not Given Cholecalciferol (Vitamin D3) 2,000 iu PO DAILY [facility] Stop: 12/26/18 08:59 Last Admin: 11/06/18 09:32 Dose: Not Given Ipratropium [place] (Atrovent Neb 0.5mg/2.5ml) 0.5 mg IH QIDRT [facility] Stop: 12/26/18 14:59 Last Admin: 11/06/18 10:33 Dose: 0.5 mg Latanoprost (Xalatan 0.005% Oph Soln) 1 drop EACH EYE HS [facility] Stop: 12/25/18 20:59 Last Admin: 11/05/18 20:53 Dose: Not Given Levothyroxine Sodium (Synthroid) 0.025 mg PO QDAC [facility] Stop: 12/26/18 07:29 Last Admin: 11/06/18 06:57 Dose: 0.025 mg Lorazepam (Ativan) 0.5 mg PO Q4HR PRN; Protocol PRN Reason: Agitation Stop: 12/25/18 10:20 Last Admin: 10/31/18 09:23 Dose: 0.5 mg Magnesium Hydroxide (Milk Of Magnesia) 30 ml PO HS PRN PRN Reason: Constipation Multivitamins/Vitamin C (Theragran) 1 tab PO DAILY [facility] Stop: 12/26/18 08:59 Last Admin: 11/06/18 09:31 Dose: Not Given Olanzapine (Zyprexa) 10 mg PO BID [facility] Stop: 01/04/19 08:59 Last Admin: 11/06/18 09:32 Dose: Not Given Polyethylene Glycol (Miralax) 17 gm PO BID [facility] Stop: 12/25/18 16:59 Last Admin: 11/06/18 09:30 Dose: Not Given Valproate Sodium (Depakene) 500 mg PO BID [facility]; Protocol Stop: 12/25/18 16:59 Last Admin: 11/06/18 09:30 Dose: Not Given Zolpidem Tartrate (Ambien) 5 mg PO HS PRN PRN Reason: Insomnia Stop: 12/25/18 10:06 Last Admin: 11/04/18 20:52 Dose: 5 mg General: congested HEENT: NC/AT, PERRLA, EOMI Neck: Supple, No JVD Lungs: congested, rales Cardiovascular: RRR, Normal S1, Normal S2, with murmur Abdomen: soft, non-tender, globular, positive bowel sound Extremities: excoriation Neurological: no change - Procedures Procedures: Procedures Procedure Code Date CLOSURE SKIN & SUBCUTANEOUS NEC 86.59 07/07/12 DPT ADMINISTRATION 99.39 07/07/12 IMMUNIZATION ADMIN 71267 07/07/12 OTHER GROUP THERAPY 94.44 12/10/14 RECREATIONAL THERAPY 93.81 09/15/12 RPR S/N/AX/GEN/TRNK 2.5CM/< 89768 07/07/12 TDAP VACCINE 7 YRS/> [place] [id number] 07/07/12 Internal Medicine Assmt/Plan - Assessment Assessment: ASSESSMENT AND PLAN: Chronic obstructive pulmonary disease, Parkinson, hypertension, hypothyroidism, chronic renal insufficiency, low albumin. - Plan Plan: PLAN: We will continue the patient also on bronchodilator treatment. Continue antiemetic. We will place him on fall precaution. Continue on laxative. Continue with current care. We will continue to follow closely. Nutritional Asmnt/Malnutr-PDOC - Dietary Evaluation Malnutrition Findings (Please click <Entered> for more info): Nutritional Asmnt/Malnutrition Start: 10/29/18 09: 31 Text: Status: Complete Freq: Protocol: Document 10/29/18 09:32 TOAN (Rec: 10/29/18 09:39 TOAN DARLING- [email or web address]) Nutritional Asmnt/Malnutrition Patient General Information Nutritional Screening Moderate Risk Diagnosis Psychosis NOS, agitation Pertinent Medical Hx/Surgical Hx COPD, Parkinson's, hypertension, hypothyroidism, renal insufficiency Subjective Information Per H&P, patient admitted from nursing facility due to not eating, not taking his medications and very hypersexual. Patient now eating 100% of meals since admitted. In dining room at time of visit. Current Diet Order/ Nutrition Support Mechanical soft Patient / S.O Not Indicated Pertinent Medications maalox, vitamin D3, synthroid, MOM, Theragran, Miralax Pertinent Labs (10/26) Albumin 3.7 Nutritional Hx/Data Height 1.8 m Height (Calculated Centimeters) 180.3 Current Weight (lbs) 76.657 kg Weight (Calculated Kilograms) 76.7 Weight (Calculated Grams) 44648.1 [place] Body Weight 172 % [place] Body Weight 98 Body Mass Index (BMI) 23.6 Recent Weight Change No Weight Status Approriate GI Symptoms GI Symptoms None Last BM 10/28 x1 Difficult in: None Food Allergies No Cultural/Ethnic/Quaker Belief none indicated Usual diet at home unknown Skin Integrity/Comment: Rohith 18, intact Current %PO Good (75-100%) Estimated Nutritional Goals BEE in Kcals: Using Current wt Calories/Kcals/Kg 25-30 kcal/kg using 76.8 kg CBW Kcals Calculated 0087-5513 kcal/day Protein: Using Current wt Protein g/k gm/kg Protein Calculated ~75gm/day Fluid: ml 9421-1203 ml/day Nutritional Problem 1. Problem Problem No nutrition diagnosis at this time Intervention/Recommendation Comments 1. Continue Mechanical soft diet as tolerated by patient. Expected Outcomes/Goals Expected Outcomes/Goals Oral intake >75% of meals, weight stable, nutrition related labs WNL F/U LR 11/05
--- NOTE | 2018-11-07 04:16 | Progress Notes ---
DATE: 11/06/2018 SUBJECTIVE: Staff spoke to. The patient is interviewed. Mood is noted to be less irritable. Affect is appropriate. Not suicidal or homicidal today, but continues to be irritable when he was asked to participate in the groups. No side effects to the medications are noted at this time. ASSESSMENT: The patient is still psychotic. PLAN: To continue the patient with the current medications and follow. [facility]# [id number]
[2018-11-07] MEDS: Levothyroxine 0.025 Mg Tab PO SCH (06:47)
[2018-11-07] MEDS: Ipratropium Neb 0.5 mg/2.5 mL UD IH SCH ×2 (07:15→11:33)
[2018-11-07] MEDS: Albuterol Nebulizer 2.5mg/3mL HHN SCH ×2 (07:15→11:33)
[2018-11-07] MEDS: Multivitamin Tab PO SCH (08:53)
[2018-11-07] MEDS: POLYETHYLENE GLYCOL 3350 17 GM PACK PO SCH (08:54)
--- NOTE | 2018-11-07 12:10 | Internal Medicine Prog Note ---
Internal Medicine Subjective - Subjective Patient seen and examined:: with staff, chart reviewed Patient is:: awake, verbal, interactive, in bed, agitated, congested Patient Complaints of:: congestion Per staff patient has:: no episodes of fall, agitated, combative, noncompliant, tolerating meds Internal Medicine Objective - Results Result Diagrams: 10/26/18 07:50 10/26/18 07:50 Recent Labs: Laboratory Last Values WBC 5.1 Th/cmm (4.8-10.8) 10/26/18 07:50 RBC 4.84 Mil/cmm (3.80-5.80) 10/26/18 07:50 Hgb 14.5 gm/dL (12-16) 10/26/18 07:50 Hct 43.7 % (41.0-60) 10/26/18 07:50 MCV 90.3 fl (80-99) 10/26/18 07:50 MCH 30.0 pg (27.0-31.0) 10/26/18 07:50 MCHC Differential 33.2 pg (28.0-36.0) 10/26/18 07:50 RDW 13.6 % (11.5-20.0) 10/26/18 07:50 Plt Count 265 Th/cmm (150-400) 10/26/18 07:50 MPV 7.7 fl 10/26/18 07:50 Add Manual Diff YES 10/26/18 07:50 Band Neutrophils % 0 % (0-10) 10/26/18 07:50 Neutrophils (Manual) 50 % (40-80) 10/26/18 07:50 Lymphocytes 30 % (20-50) 10/26/18 07:50 Monocytes 18 % (2-10) H 10/26/18 07:50 Eosinophils 2 % (0-5) 10/26/18 07:50 Basophils 0 % (0-3) 10/26/18 07:50 PT 9.8 SECONDS (9.5-11.5) 10/26/18 07:50 INR 0.94 (0.5-1.4) 10/26/18 07:50 PTT (Actin FS) 27.8 SECONDS (26.0-38.0) 10/26/18 07:50 Sodium 140 mEq/L (136-145) 10/26/18 07:50 Potassium 4.2 mEq/L (3.5-5.1) 10/26/18 07:50 Chloride 108 mEq/L (98-107) H 10/26/18 07:50 Carbon Dioxide 24.0 mEq/L (21.0-31.0) 10/26/18 07:50 Anion Gap 12.2 (7.0-16.0) 10/26/18 07:50 BUN 18 mg/dL (7-25) 10/26/18 07:50 Creatinine 1.1 mg/dL (0.7-1.3) 10/26/18 07:50 Est GFR ( Amer) TNP 10/26/18 07:50 Est GFR (Non-Af Amer) TNP 10/26/18 07:50 BUN/Creatinine Ratio 16.4 10/26/18 07:50 Glucose 96 mg/dL (70-105) 10/26/18 07:50 POC Glucose 129 MG/DL (70 - 105) H 10/26/18 11:18 Calcium 9.1 mg/dL (8.6-10.3) 10/26/18 07:50 Total Bilirubin 0.6 mg/dL (0.3-1.0) 10/26/18 07:50 AST 14 U/L (13-39) 10/26/18 07:50 ALT 12 U/L (7-52) 10/26/18 07:50 Alkaline Phosphatase 84 U/L (34-104) 10/26/18 07:50 Troponin I < 0.01 ng/mL (0.01-0.05) L 10/26/18 07:50 B-Natriuretic Peptide 12.4 pg/mL (5.0-100.0) 10/26/18 07:50 Total Protein 6.3 gm/dL (6.0-8.3) 10/26/18 07:50 Albumin 3.7 gm/dL (4.2-5.5) L 10/26/18 07:50 Globulin 2.6 gm/dL 10/26/18 07:50 Albumin/Globulin Ratio 1.4 (1.0-1.8) 10/26/18 07:50 Triglycerides 96 mg/dL (<150) 10/26/18 10:19 Cholesterol 162 mg/dL (<200) 10/26/18 10:19 LDL Cholesterol Direct 110 mg/dL (75-193) 10/26/18 10:19 HDL Cholesterol 40 mg/dL (23-92) 10/26/18 10:19 TSH 0.93 uIU/ml (0.34-5.60) 10/26/18 07:50 - Physical Exam Vitals and I&O: Vital Signs Temp 97 F 11/07/18 06:20 Pulse 62 11/07/18 08:52 Resp 16 11/07/18 07:17 BP 120/76 11/07/18 08:52 Pulse Ox 99 11/07/18 07:16 Intake & Output 11/06/18 11/07/18 11/07/18 18:59 06:59 18:59 Intake Total 1600 240 120 Balance 1600 240 120 Intake: Oral 1600 240 120 Other: # Voids 3 1 3 # Bowel Movements 1 Active Medications: Current Medications Acetaminophen (Tylenol) 650 mg PO Q4HR PRN PRN Reason: Mild Pain / Temp above 100 Stop: 12/25/18 10:06 Al Hydrox/Mg Hydrox/Simethicone (Maalox) 30 ml PO Q4HR PRN PRN Reason: GI DISTRESS Stop: 12/25/18 10:06 Albuterol Sulfate (Albuterol 2.5mg/3ml Neb Ud) 2.5 mg HHN Q2HRT PRN PRN Reason: Shortness of Breath or Wheeze Stop: 12/26/18 00:57 Last Admin: 10/31/18 23:33 Dose: 2.5 mg Albuterol Sulfate (Albuterol 2.5mg/3ml Neb Ud) 2.5 mg HHN QIDRT [facility] Stop: 12/26/18 14:59 Last Admin: 11/07/18 11:33 Dose: Not Given Amlodipine Besylate (Norvasc) 10 mg PO DAILY [facility] Stop: 12/26/18 08:59 Last Admin: 11/07/18 08:52 Dose: Not Given Benztropine Mesylate (Cogentin) 0.5 mg PO BID [facility] Stop: 12/25/18 16:59 Last Admin: 11/07/18 08:53 Dose: Not Given Carbidopa/Levodopa (Sinemet 25mg-100 Mg) 1 tab PO TID [facility] Stop: 12/25/18 13:59 Last Admin: 11/06/18 21:19 Dose: Not Given Cholecalciferol (Vitamin D3) 2,000 iu PO DAILY [facility] Stop: 12/26/18 08:59 Last Admin: 11/07/18 08:53 Dose: Not Given Ipratropium [place] (Atrovent Neb 0.5mg/2.5ml) 0.5 mg IH QIDRT [facility] Stop: 12/26/18 14:59 Last Admin: 11/07/18 11:33 Dose: Not Given Latanoprost (Xalatan 0.005% Ophth Soln) 1 drop EACH EYE HS [facility] Stop: 12/25/18 20:59 Last Admin: 11/06/18 21:18 Dose: Not Given Levothyroxine Sodium (Synthroid) 0.025 mg PO QDAC [facility] Stop: 12/26/18 07:29 Last Admin: 11/07/18 06:47 Dose: Not Given Lorazepam (Ativan) 0.5 mg PO Q4HR PRN; Protocol PRN Reason: Agitation Stop: 12/25/18 10:20 Last Admin: 10/31/18 09:23 Dose: 0.5 mg Magnesium Hydroxide (Milk Of Magnesia) 30 ml PO HS PRN PRN Reason: Constipation Multivitamins/Vitamin C (Theragran) 1 tab PO DAILY [facility] Stop: 12/26/18 08:59 Last Admin: 11/07/18 08:53 Dose: Not Given Olanzapine (Zyprexa) 10 mg PO BID [facility] Stop: 01/04/19 08:59 Last Admin: 11/07/18 08:54 Dose: Not Given Polyethylene Glycol (Miralax) 17 gm PO BID [facility] Stop: 12/25/18 16:59 Last Admin: 11/07/18 08:54 Dose: Not Given Valproate Sodium (Depakene) 500 mg PO BID [facility]; Protocol Stop: 12/25/18 16:59 Last Admin: 11/07/18 08:54 Dose: Not Given Zolpidem Tartrate (Ambien) 5 mg PO HS PRN PRN Reason: Insomnia Stop: 12/25/18 10:06 Last Admin: 11/04/18 20:52 Dose: 5 mg General: congested HEENT: NC/AT, PERRLA, EOMI Neck: Supple, No JVD Lungs: congested, rales Cardiovascular: RRR, Normal S1, Normal S2, with murmur Abdomen: soft, non-tender, globular, positive bowel sound Extremities: excoriation Neurological: no change - Procedures Procedures: Procedures Procedure Code Date CLOSURE SKIN & SUBCUTANEOUS NEC 86.59 07/07/12 DPT ADMINISTRATION 99.39 07/07/12 IMMUNIZATION ADMIN [id number] 07/07/12 OTHER GROUP THERAPY 94.44 12/10/14 RECREATIONAL THERAPY 93.81 09/15/12 RPR S/N/AX/GEN/TRNK 2.5CM/< 07434 07/07/12 TDAP VACCINE 7 YRS/> IM [id number] 07/07/12 Internal Medicine Assmt/Plan - Assessment Assessment: ASSESSMENT AND PLAN: Chronic obstructive pulmonary disease, Parkinson, hypertension, hypothyroidism, chronic renal insufficiency, low albumin. - Plan Plan: PLAN: We will continue the patient also on bronchodilator treatment. Continue antiemetic. We will place him on fall precaution. Continue on laxative. Continue with current care. We will continue to follow closely. Nutritional Asmnt/Malnutr-PDOC - Dietary Evaluation Malnutrition Findings (Please click <Entered> for more info): Nutritional Asmnt/Malnutrition Start: 10/29/18 09: 31 Text: Status: Complete Freq: Protocol: Document 10/29/18 09:32 TOAN (Rec: 10/29/18 09:39 MMKENIA DARLING- [email or web address]) Nutritional Asmnt/Malnutrition Patient General Information Nutritional Screening Moderate Risk Diagnosis Psychosis NOS, agitation Pertinent Medical Hx/Surgical Hx COPD, Parkinson's, hypertension, hypothyroidism, renal insufficiency Subjective Information Per H&P, patient admitted from nursing facility due to not eating, not taking his medications and very hypersexual. Patient now eating 100% of meals since admitted. In dining room at time of visit. Current Diet Order/ Nutrition Support Mechanical soft Patient / S.O Not Indicated Pertinent Medications maalox, vitamin D3, synthroid, MOM, Theragran, Miralax Pertinent Labs (10/26) Albumin 3.7 Nutritional Hx/Data Height 1.8 m Height (Calculated Centimeters) 180.3 Current Weight (lbs) 76.657 kg Weight (Calculated Kilograms) 76.7 Weight (Calculated Grams) 43904.1 [place] Body Weight 172 % [place] Body Weight 98 Body Mass Index (BMI) 23.6 Recent Weight Change No Weight Status Approriate GI Symptoms GI Symptoms None Last BM 10/28 x1 Difficult in: None Food Allergies No Cultural/Ethnic/[employer]eh[employer] Belief none indicated Usual diet at home unknown Skin Integrity/Comment: Rohith 18, intact Current %PO Good (75-100%) Estimated Nutritional Goals BEE in Kcals: Using Current wt Calories/Kcals/Kg 25-30 kcal/kg using 76.8 kg CBW Kcals Calculated 8054-1940 kcal/day Protein: Using Current wt Protein g/k gm/kg Protein Calculated ~75gm/day Fluid: ml 9944-7065 ml/day Nutritional Problem 1. Problem Problem No nutrition diagnosis at this time Intervention/Recommendation Comments 1. Continue Mechanical soft diet as tolerated by patient. Expected Outcomes/Goals Expected Outcomes/Goals Oral intake >75% of meals, weight stable, nutrition related labs WNL F/U LR 11/05
--- NOTE | 2018-11-07 19:53 | Discharge Summary ---
DATE OF DISCHARGE: 11/07/2018 PSYCHIATRIC DISCHARGE SUMMARY IDENTIFYING DATA: The patient is a 78-year-old male, resident of a [facility] facility. JUSTIFICATION OF HOSPITALIZATION: The patient is admitted for his acute agitation and psychosis. CHIEF COMPLAINT: "I am upset." DIAGNOSES AT THE TIME OF ADMISSION: AXIS I: Dementia and behavioral change secondary to dementia. AXIS IB: Psychotic disorder, not otherwise specified. AXIS II: None. AXIS III: As per Dr. Jon. HISTORY OF PRESENT ILLNESS: Please refer the 10/26/2018 dictation done by me. HOSPITAL COURSE AND RESPONSE TO TREATMENT: Blood work done at the hospitalization has been reviewed by Dr. Jon and no major intervention was needed. The patient has been observed. The patient continues to be screaming and yelling when he does not get his way. The patient has been slowly placed on olanzapine, which was gradually increased to 10 mg twice a day, valproic acid was given 500 mg twice a day. With these medications, the patient has been observed and was noted to be doing fairly well and was finally discharged on 11/07/2018 with recommendation that he is going to be seeking treatment on an outpatient basis. MENTAL STATUS EXAMINATION AT THE TIME OF THE DISCHARGE: The patient's mood is noted to be anxious. Affect is appropriate. Not suicidal or homicidal. The patient has been discharged to [facility] for further care by Dr. Artis. DIAGNOSES AT THE TIME OF THE DISCHARGE: AXIS I: Bipolar disorder, mixed. AXIS IB: Dementia and behavioral change, secondary trait. AXIS II: None. AXIS III: As per Dr. Jon. AFTERCARE PLAN: The patient is discharged to be followed up by Dr. Artis on an outpatient basis. PROGNOSIS AT THE TIME OF DISCHARGE: Noted to be fair with the treatment. [facility]# [id number]
--- NOTE | 2018-11-08 01:57 | Progress Notes ---
DATE: 11/07/2018 PSYCHOLOGY PROGRESS NOTE SUBJECTIVE: The patient is seen and is interviewed. Case is discussed with staff. The patient appears to be less irritated at this visit. The staff reports the patient did not participate in the milieu therapy. He has been taking his p.o. medications. The patient states that he believes he should be discharging. OBJECTIVE: Mood is less irritable. Affect is appropriate. Thought process appears to be goal oriented. The patient denied any hallucinations or delusions. The patient is compliant with his medications. ASSESSMENT & PLAN: The patient's psychotic process persists. The patient is most likely baseline. We provided reality integration. We provided remotivation for the patient to stay compliant with all aspects of his care and treatment. We encouraged the patient to demonstrate emotional and self-regulation and to verbalize his concerns versus acting out. No followup is indicated. The staff reports the patient is scheduled to discharge today. Prognosis is fair. [facility]OB# [id number] MTDD
== END 2018-11-07 15:30 | DRG 885 ==
LOC: ER 05:46 → GERO2 08:04 → GERO 10-27 18:24
DX: F31.60 Bipolar disorder, current episode mixed, unspecified (principal); N18.9 Chronic kidney disease, unspecified; N18.6 End stage renal disease; F02.81 Dementia in other diseases classified elsewhere, unspecified severity, with behavioral disturbance; F29 Unspecified psychosis not due to a substance or known physiological condition; J44.9 Chronic obstructive pulmonary disease, unspecified; G20 Parkinson's disease; E03.9 Hypothyroidism, unspecified; I12.9 Hypertensive chronic kidney disease with stage 1 through stage 4 chronic kidney disease, or unspecified chronic kidney disease; M19.90 Unspecified osteoarthritis, unspecified site; H40.9 Unspecified glaucoma
CPT/HCPCS: 36415-UA; 71045-TC; 80053-TC; 80061-TC; 82948-90; 83036-90; 83880-TC; 84443-TC; 84484-TC; 85007-TC; 85025-TC; 85610-TC; 90779; 93005; 94640; 94760; J7051; J7613; Z7610